=== PATIENT | female | born 1960 | race Two or more races ===

== ENCOUNTER → 2020-07-25 15:48 | Outpatient (BNVA) | payer OTHER, MEDICARE, SELFPAY | PROVIDERS: PCP Family Medicine; Visit Provider Anesthesiology | DX: M17.0 Bilateral primary osteoarthritis of knee (principal); M51.36 Other intervertebral disc degeneration, lumbar region | CPT/HCPCS: 99212 ==

== ENCOUNTER 2020-07-26 12:03 | Outpatient (REF) | payer OTHER, SELFPAY ==
--- NOTE | 2020-07-26 12:12 | XR_ITS ---
EXAMINATION: XR KNEE, LEFT CLINICAL INFORMATION: Bilateral primary osteoarthritis of the knee COMPARISON: None TECHNIQUE: Three views of the left knee. FINDINGS: No fracture or dislocation. Lateral patellofemoral joint space narrowing, osteophytosis, and sclerosis. Mild medial compartment joint space narrowing. No joint effusion. XR/XR knee LT 3V IMPRESSION: Lateral patellofemoral and medial compartment degenerative arthrosis.
--- NOTE | 2020-07-26 12:12 | XR_ITS ---
EXAMINATION: XR KNEE, RIGHT CLINICAL INFORMATION: Primary osteoarthritis of the knee COMPARISON: None TECHNIQUE: Four views of the right knee. FINDINGS: No fracture or dislocation. Mild medial compartment joint space narrowing. There is patellofemoral joint space narrowing and sclerosis. No joint effusion. XR/XR knee RT 3V IMPRESSION: Patellofemoral and medial compartment degenerative arthrosis. No acute osseous abnormality.
== END 2020-07-26 12:04 | disposition home or self-care (01) ==
LOC: HO.XRAY 12:03
PROVIDERS: PCP Family Medicine; Visit Provider Anesthesiology
DX: M17.0 Bilateral primary osteoarthritis of knee (principal)
CPT/HCPCS: 73562

== ENCOUNTER → 2020-07-27 13:30 | Outpatient (BNVA) | payer OTHER, SELFPAY | PROVIDERS: PCP Family Medicine; Referring Provider Family Medicine; Visit Provider Internal Medicine | DX: E11.9 Type 2 diabetes mellitus without complications (principal); Z79.4 Long term (current) use of insulin; E04.2 Nontoxic multinodular goiter; E78.5 Hyperlipidemia, unspecified; I10 Essential (primary) hypertension; E55.9 Vitamin D deficiency, unspecified | CPT/HCPCS: 82947; 99212 ==

== ENCOUNTER 2020-07-28 09:15 | Outpatient (REF) | payer OTHER, SELFPAY | END 2020-07-28 09:16 | disposition home or self-care (01) | LOC: HO.LAB 09:15 | PROVIDERS: PCP Family Medicine; Visit Provider Internal Medicine | DX: Z20.828 Contact with and (suspected) exposure to other viral communicable diseases (principal) | CPT/HCPCS: C9803; U0003 ==

== ENCOUNTER 2020-08-09 10:37 | Outpatient (REF) | payer OTHER, SELFPAY ==
[2020-08-09 12:09] LABS: Estimated Average Glucose 283 mg/dL; Hemoglobin A1c % 11.5 %
[2020-08-09 12:36] LABS: Alanine Aminotransferase 15 U/L (0-31); Alkaline Phosphatase 153 U/L (39-117); Anion Gap 15 (12-20); Aspartate Amino Transferase 15 U/L (5-31); Bilirubin Total 0.2 mg/dL (0.0-1.0); Blood Urea Nitrogen 21 mg/dL (9-16); Calcium 8.9 mg/dL (8.4-10.2); Carbon Dioxide 20 mmol/L (22-29); Chloride 104 mmol/L (96-108); Cholesterol 179 mg/dL; Estimated Glomerular Filt Rate 46; HDL Cholesterol 45 mg/dL; LDL Cholesterol Calculated 79 mg/dl; Potassium 4.1 mmol/l (3.3-5.1); Sodium 135 mmol/L (135-145); Total Protein 6.6 g/dL (6.5-8.0); Triglycerides 276 mg/dL
[2020-08-09 12:46] LABS: Free T4 (Free Thyroxine) 0.77 ng/dL (0.71-1.85); Thyroid Stimulating Hormone 1.11 uIU/mL (0.32-4.0); Vitamin D 25-OH Total 16.9 ng/mL (>30)
[2020-08-09 13:00] LABS: Creatinine Urine 48.13 mg/dL
[2020-08-09 13:18] LABS: Glucose Random 382 mg/dL (60-115)
[2020-08-10 17:52] LABS: LDL Cholesterol Direct 101 mg/dL (<100)
== END 2020-08-09 10:38 | disposition home or self-care (01) ==
LOC: HO.LAB 10:37
PROVIDERS: PCP Family Medicine; Visit Provider Internal Medicine
DX: E11.9 Type 2 diabetes mellitus without complications (principal); E55.9 Vitamin D deficiency, unspecified
CPT/HCPCS: 80053; 80061; 82043; 82306; 83036; 83721; 84439; 84443

== ENCOUNTER 2020-08-16 08:31 | Outpatient (REF) | payer OTHER, SELFPAY ==
[2020-08-16 18:22] LABS: CT PCR NOT DETECTED (Not Detect.); NG PCR NOT DETECTED (Not Detect.)
[2020-08-17 11:36] LABS: BV Int Neg Control Negative (Negative); BV Int Pos Control Positive (Positive)
== END 2020-08-16 08:32 | disposition home or self-care (01) ==
LOC: HO.LAB 08:31
PROVIDERS: PCP Family Medicine; Visit Provider Advanced Practice Midwife
DX: N89.8 Other specified noninflammatory disorders of vagina (principal); N94.9 Unspecified condition associated with female genital organs and menstrual cycle; Z20.2 Contact with and (suspected) exposure to infections with a predominantly sexual mode of transmission
CPT/HCPCS: 87480; 87491; 87510; 87591; 87660; 99212

== ENCOUNTER → 2020-08-17 11:25 | Outpatient (BNVA) | payer OTHER, SELFPAY | PROVIDERS: PCP Family Medicine; Visit Provider Anesthesiology | DX: M17.0 Bilateral primary osteoarthritis of knee (principal); M51.36 Other intervertebral disc degeneration, lumbar region | CPT/HCPCS: 20610; 99212; J3300 ==

== ENCOUNTER 2020-08-22 09:35 | Outpatient (REF) | payer OTHER, SELFPAY | END 2020-08-22 09:36 | disposition home or self-care (01) | LOC: HO.LAB 09:35 | PROVIDERS: Visit Provider Internal Medicine | DX: Z20.828 Contact with and (suspected) exposure to other viral communicable diseases (principal) | CPT/HCPCS: C9803; U0003 ==

== ENCOUNTER 2020-08-23 07:05 | Outpatient (REF) | payer OTHER, SELFPAY ==
--- NOTE | 2020-08-23 07:30 | FL_ITS ---
EXAMINATION: XR FLUOROSCOPY WITH IMAGES CLINICAL INFORMATION: Right L4-L5 transforaminal injection COMPARISON: Previous exam November 2019 TECHNIQUE: Fluoroscopy performed by Asuncion De La Torre Fluoroscopy time: 0.3 minutes DAP: 4 Gycm2 Images: 1 FINDINGS: There is a needle and contrast adjacent to the right L4-L5 facet joint. FL/FL guidance in treatment room IMPRESSION: Fluoroscopy guidance for right L4-L5 transforaminal injection
== END 2020-08-23 07:06 | disposition home or self-care (01) ==
LOC: HO.RADIR 07:05
PROVIDERS: Visit Provider Anesthesiology
DX: M51.36 Other intervertebral disc degeneration, lumbar region (principal)
CPT/HCPCS: J3300; Q9967

== ENCOUNTER 2020-08-23 10:46 | Outpatient (REF) | payer OTHER, SELFPAY ==
--- NOTE | 2020-08-23 10:51 | US_ITS ---
EXAMINATION: US THYROID CLINICAL INFORMATION: Nontoxic multinodular goiter. COMPARISON: Ultrasound soft tissue head/neck thyroid dated 01/02/2019. TECHNIQUE: Linear transducer castro-scale and color Doppler examination with attention to the region of the thyroid. FINDINGS: SIZE: Measurements of the thyroid lobes and nodules are given in sagittal, anteroposterior and transverse dimensions respectively. Right Thyroid Lobe: Surgically removed. Left Thyroid Lobe: 5.7 x 1.3 x 1.8 cm, volume 6.71 mL. Previously 5.4 x 1.9 x 2.2 cm, volume 12 mL. Parenchyma: The gland echotexture is heterogeneous. Thyroid vascularity is normal. Isthmus: 0.34 cm in maximum AP dimension. Previously 0.54 cm. ISTHMUS: No nodules. LEFT THYROID LOBE: There are 2 nodules seen. 1. Location: Inferior. Size: 0.90 x 0.84 x 1.1 cm. Previous: 0.70 x 0.60 x 0.60 cm. Nodule characteristics: Hypoechoic, smoothly marginated with peripheral flow. Likely complex cyst. 2. Location: Middle. Size: 1.7 x 0.90 x 1.4 cm. Previous: 1.6 x 1.0 x 1.2 cm. Nodule characteristics: Heterogeneous, smoothly marginated with intranodular flow. Likely complex cyst. NODES: No lymphadenopathy is seen in the tissue surrounding the thyroid gland. US/US thyroid IMPRESSION: Small lower pole and midpole left thyroid lobe nodules. Several nodules seen on the previous ultrasound exam 01/02/2019 are not visualized at this time.
== END 2020-08-23 10:47 | disposition home or self-care (01) ==
LOC: HO.HMGCX 10:46
PROVIDERS: PCP Family Medicine; Visit Provider Internal Medicine
DX: E04.2 Nontoxic multinodular goiter (principal)
CPT/HCPCS: 64483; 76536

== ENCOUNTER → 2020-09-29 11:29 | Outpatient (BNVA) | payer OTHER, SELFPAY | PROVIDERS: PCP Family Medicine; Referring Provider Family Medicine; Visit Provider Anesthesiology | DX: M17.0 Bilateral primary osteoarthritis of knee (principal); M51.36 Other intervertebral disc degeneration, lumbar region; M47.816 Spondylosis without myelopathy or radiculopathy, lumbar region | CPT/HCPCS: Q3014 ==

== ENCOUNTER 2020-10-25 07:00 | Outpatient (REF) | payer OTHER, SELFPAY ==
--- NOTE | ~2020-10-25 | FL_ITS ---
EXAMINATION: XR FLUOROSCOPY WITH IMAGES CLINICAL INFORMATION: Degenerative disc disease lumbar region COMPARISON: None. TECHNIQUE: Fluoroscopy performed by Asuncion De La Torre NP. Fluoroscopy time: 0.9 minutes DAP: 6.8 Gycm2 Images: 4 FINDINGS: Images demonstrate needle placement and contrast injection adjacent to the left lateral L2 L3 L4 and L5 vertebral bodies. FL/FL guidance in treatment room IMPRESSION: Fluoroscopy guidance for spinal injection.
== END 2020-10-25 07:01 | disposition home or self-care (01) ==
LOC: HO.RADIR 07:00
PROVIDERS: Visit Provider Anesthesiology
DX: M47.816 Spondylosis without myelopathy or radiculopathy, lumbar region (principal); M51.36 Other intervertebral disc degeneration, lumbar region; M17.0 Bilateral primary osteoarthritis of knee
CPT/HCPCS: 64493; 64494; 64495; J3300; Q9967

== ENCOUNTER → 2020-12-05 11:40 | Outpatient (BNVA) | payer OTHER, SELFPAY | PROVIDERS: PCP Family Medicine; Visit Provider Anesthesiology | DX: M47.816 Spondylosis without myelopathy or radiculopathy, lumbar region (principal); M51.36 Other intervertebral disc degeneration, lumbar region; M17.0 Bilateral primary osteoarthritis of knee; Z79.899 Other long term (current) drug therapy | CPT/HCPCS: Q3014 ==

== ENCOUNTER → 2021-01-11 11:48 | Outpatient (BNVA) | payer OTHER, SELFPAY | PROVIDERS: PCP Family Medicine; Referring Provider Family Medicine; Visit Provider Internal Medicine ==

== ENCOUNTER → 2021-01-12 08:08 | Outpatient (BNVA) | payer OTHER, SELFPAY | PROVIDERS: PCP Family Medicine; Referring Provider Family Medicine; Visit Provider Internal Medicine | CPT/HCPCS: Q3014 ==

== ENCOUNTER → 2021-01-19 08:25 | Outpatient (BNVA) | payer OTHER, SELFPAY | PROVIDERS: PCP Family Medicine; Visit Provider Anesthesiology | DX: M17.0 Bilateral primary osteoarthritis of knee (principal); M51.36 Other intervertebral disc degeneration, lumbar region; M47.816 Spondylosis without myelopathy or radiculopathy, lumbar region | CPT/HCPCS: 99212 ==

== ENCOUNTER 2021-02-10 14:10 | Outpatient (REF) | payer OTHER, SELFPAY ==
--- NOTE | ~2021-02-10 | MR_ITS ---
MR LUMBAR SPINE WITHOUT IV CONTRAST CLINICAL INFORMATION: Spondylosis without myelopathy or radiculopathy. COMPARISON: Lumbar spine MRI 10/26/2019. TECHNIQUE: MRI of the lumbar spine was obtained using routine sequences without contrast. FINDINGS: There are 5 nonrib-bearing lumbar-type vertebral bodies. There is grade 1 retrolisthesis of L2 on L3. Lumbar alignment is otherwise maintained. The vertebral body heights are preserved. There is disc desiccation at all lumbar levels. There is no bone marrow edema. There are no acute fractures. Conus terminates at the L2 level. There are no significant extraspinal soft tissue findings. L1-L2: Diffuse annular disc bulge the superimposed shallow central disc protrusion that results in mild central canal stenosis, similar to the previous study. No foraminal stenosis. L2-L3: There is a diffuse annular disc bulge eccentric to the left side and there is mild bilateral facet arthropathy. This continues to result in mass effect on the traversing left L3 nerve root within the left subarticular zone, slightly improved. No significant foraminal stenosis. L3-L4: Diffuse annular disc bulge and mild bilateral facet arthropathy. No central canal stenosis and no foraminal stenosis. L4-L5: There is a diffuse annular disc bulge exhibiting a dorsal annular fissure and there is moderate bilateral facet arthropathy. There is no central canal stenosis and there is no foraminal stenosis. L5-S1: Diffuse annular disc bulge and bilateral facet arthropathy. Epidural lipomatosis continues to partially efface the thecal sac. No foraminal stenosis. MR/MR lumbar spine wo con IMPRESSION: At L1-L2, a central disc protrusion continues to result in mild central canal stenosis and is stable. At L2-L3, and annular disc bulge eccentric to the left side continues to result in mass effect on the traversing left L3 nerve root within the left subarticular zone. At L4-L5, there is a stable annular disc bulge exhibiting a dorsal annular fissure. No central canal stenosis nor foraminal stenosis at this level. At L5-S1, epidural lipomatosis continues to partially efface the thecal sac.
[2021-02-10 15:12] LABS: Estimated Average Glucose 194 mg/dL; Hemoglobin A1c % 8.4 %
[2021-02-10 15:59] LABS: Alanine Aminotransferase 13 U/L (0-31); Albumin Level 4.1 g/dL (3.5-5.0); Alkaline Phosphatase 183 U/L (39-117); Anion Gap 17 (12-20); Aspartate Amino Transferase 17 U/L (5-31); Bilirubin Total 0.2 mg/dL (0.0-1.0); Blood Urea Nitrogen 17 mg/dL (9-16); Calcium 9.5 mg/dL (8.4-10.2); Carbon Dioxide 22 mmol/L (22-29); Chloride 108 mmol/L (96-108); Cholesterol 190 mg/dL; Estimated Glomerular Filt Rate > 60; Glucose Random 93 mg/dL (60-115); HDL Cholesterol 54 mg/dL; LDL Cholesterol Calculated 101 mg/dl; Potassium 3.6 mmol/L (3.3-5.1); Sodium 143 mmol/L (135-145); Triglycerides 177 mg/dL
[2021-02-10 16:32] LABS: Creatinine Urine 187.17 mg/dL; Microalbum/Creatinine Ratio Ur 64.6 ug/mg cr
[2021-02-11 06:12] LABS: LDL Cholesterol Direct 102 mg/dL (<100)
== END 2021-02-10 14:11 | disposition home or self-care (01) ==
LOC: HO.MRI 14:10
PROVIDERS: Absent Provider Internal Medicine; PCP Family Medicine; Visit Provider Anesthesiology
DX: M47.816 Spondylosis without myelopathy or radiculopathy, lumbar region (principal); E11.9 Type 2 diabetes mellitus without complications
CPT/HCPCS: 36415; 72148; 80053; 80061; 82043; 83036; 83721

== ENCOUNTER 2021-02-18 12:58 | Inpatient (IN) | payer OTHER, SELFPAY ==
[2021-02-18] VITALS (20 sets, daily range): BP systolic 102–167; BP diastolic 45–79; PULSE 75–93; RESP 11–18; TEMP 36.2–36.6; O2SAT 91–99; BMI 35.5
--- NOTE | ~2021-02-18 | CT_ITS ---
EXAMINATION: CT HEAD WITHOUT CONTRAST CLINICAL INFORMATION: Stroke. COMPARISON: Brain MRI from 03/15/2019. TECHNIQUE: Contiguous axial imaging was performed from the skull base to vertex without intravenous administration of contrast. This CT examination was performed using dose optimization techniques as appropriate, variously including the following: *Automated exposure control. *Adjustment of mA and/or kV according to patient size (this includes techniques or standardized protocols for targeted exams where dose is matched to indication/reason for exam; i.e. extremities or head). *Use of iterative reconstruction technique. DLP: 795 mGy-cm FINDINGS: There is no evidence of acute intracranial hemorrhage or edematous territorial infarction. Basal ganglia mineralization. Scattered hypoattenuation in the periventricular and deep white matter are consistent with moderate microangiopathy. [place]-white matter differentiation is preserved. The ventricles are normal in size and configuration. No evidence for obstructive hydrocephalus. No abnormal mass effect or midline shift. No extra-axial fluid collections. Calcific atherosclerotic disease of the intracranial internal carotid arteries. No hyperdense vessel sign. No acute soft tissue or osseous abnormalities. Mild mucosal thickening of the paranasal sinuses. The mastoid air cells and middle ear cavities are clear. CT/CT head for stroke IMPRESSION: 1. No evidence of acute intracranial hemorrhage or edematous territorial infarction. 2. Moderate underlying microangiopathy. This critical result was discussed with Dr. Benson at 13:22 hours on 02/18/2021. It was ascertained that the content and urgency of the report was understood at the time of direct communication.
--- NOTE | ~2021-02-18 | CT_ITS ---
EXAMINATION: CT ANGIOGRAM HEAD CT ANGIOGRAM NECK CLINICAL INFORMATION: Stroke. Large vessel occlusion. Potential thrombectomy. COMPARISON: CT head from 02/18/2021. Brain MRI from 03/15/2019. Thyroid ultrasound from 08/23/2020. TECHNIQUE: Initial noncontrast powerhouse helper imaging of the head and neck was performed. Comparison is made with noncontrast head CT from earlier today. Test bolus sequences followed by intravenous administration 70 mL of Omnipaque 350. Helical imaging was performed in the axial plane from the aortic arch to the skull vertex. Delayed postcontrast imaging of the head was also performed. The data was processed at the nuclear medicine technologist's workstation for generation of MIP sequences. Angled MIPs and volume rendered reformatted images were also generated at an offline 3D workstation. Stenoses are assessed in accordance with NASCET criteria unless otherwise indicated. This CT examination was performed using dose optimization techniques as appropriate, variously including the following: *Automated exposure control. *Adjustment of mA and/or kV according to patient size (this includes techniques or standardized protocols for targeted exams where dose is matched to indication/reason for exam; i.e. extremities or head). *Use of iterative reconstruction technique. DLP: 1675 mGy-cm FINDINGS: CT Head: There is no evidence of acute intracranial hemorrhage or edematous territorial infarction. Basal ganglia mineralization. There is no abnormal attenuation within the brain parenchyma. Headley-white matter differentiation is preserved. The ventricles are normal in size and configuration. No evidence for obstructive hydrocephalus. No abnormal mass effect or midline shift. No extra-axial fluid collections. No pathologic intra-axial enhancement or regional oligemia. No acute soft tissue or osseous abnormalities. The mastoid air cells and paranasal sinuses are clear. 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 The left thyroid lobe is mildly expanded. There is a 1.3 cm hypoattenuating nodule within the medial aspect of the right thyroid lobe. The remaining cervical soft tissues are within normal limits. Mild multilevel degenerative spondyloarthropathy of the cervical spine. CT Upper Chest: The visualized lung apices and upper mediastinum are within normal limits. Neck CTA: Aortic Arch: Normal contour and caliber. Classic 3 vessel branching pattern of the aortic arch. Great Vessel Origins: No significant stenosis of the branch origins. Right Common Carotid Artery: No focal stenosis or occlusion. Cervical Right Internal Carotid Artery: Normal opacification without focal stenosis or occlusion. Left Common Carotid Artery: No focal stenosis or occlusion. Cervical Left Internal Carotid Artery: Normal opacification without focal stenosis or occlusion. Cervical Right Vertebral Artery: Co-dominant. No focal stenosis or occlusion. Cervical Left Vertebral Artery: Co-dominant. No focal stenosis or occlusion. Brain CTA: Intracranial Internal Carotid Arteries: Calcific atherosclerotic disease of the intracranial internal carotid arteries without occlusion or flow-limiting stenosis. Mild multifocal narrowings without flow-limiting stenosis or occlusion. Right Anterior Cerebral Artery: Normal A1 segment. Normal opacification of the distal SHAREE segments. Left Anterior Cerebral Artery: Normal A1 segment. Normal opacification of the distal SHAREE segments. Anterior Communicating Artery: Normal. Right Middle Cerebral Artery: Normal M1 segment of the MCA without focal stenosis or occlusion. Normal arborization of the distal segments. Left Middle Cerebral Artery: Normal M1 segment of the MCA without focal stenosis or occlusion. Normal arborization of the distal segments. Right Vertebral Artery: Normal V4 segment. Normal opacification of the proximal segments of the posterior inferior cerebellar artery. Left Vertebral Artery: Normal V4 segment. Normal opacification of the proximal segments of the posterior inferior cerebellar artery. Basilar Artery: Mild narrowing of the mid basilar artery. No occlusion. Normal appearance of the proximal superior cerebellar arteries. Right Posterior Cerebral Artery: The P1 segment is diminutive. origin of the HAND I CUTTER with robust opacification of the posterior communicating artery. Normal opacification of the distal HAND I CUTTER segments. Left Posterior Cerebral Artery: Mild irregular narrowings of the P1 and P2 segments. Normal opacification of the distal HAND I CUTTER segments. Normal opacification of the superior sagittal, straight, transverse, and sigmoid sinuses. CT/CT angio head neck stroke IMPRESSION: 1. No evidence of acute intracranial hemorrhage or edematous territorial infarction. Moderate underlying microangiopathy. 2. CTA of the head and neck without proximal occlusion or flow-limiting stenosis. Mild atherosclerotic narrowings of the basilar artery and proximal left HAND I CUTTER. This critical result was discussed with Dr. Benson at 14:22 on 02/18/2021 and it was ascertained that the content and urgency of the report was understood at the time of direct communication.
--- NOTE | ~2021-02-18 | XR_ITS ---
EXAMINATION: PORTABLE CHEST 1 VIEW CLINICAL INFORMATION: sob . COMPARISON: 03/15/2019. TECHNIQUE: Portable frontal view of the chest was obtained. FINDINGS: Lungs are hypoexpanded with mild asymmetric elevation of the right hemidiaphragm. Peribronchial cuffing is seen bilaterally could be seen in underlying reactive or small airways disease. I do not appreciate any focal infiltrate, edema, or pneumothorax. Linear basilar markings likely reflect component of atelectasis in this setting. Cardiac silhouette within normal limits for size. No acute bony abnormality XR/XR chest 1V IMPRESSION: Although hypoexpanded, there does appear to be peribronchial cuffing bilaterally which could be seen in underlying reactive or small airways disease. No overt edema.
--- NOTE | ~2021-02-18 | MR_ITS ---
EXAMINATION: MR BRAIN WITHOUT CONTRAST CLINICAL INFORMATION: Cerebrovascular accident. Status post TPA. COMPARISON: CTA head and neck from 02/18/2021. Brain MRI from 03/15/2019. TECHNIQUE: MRI of the brain was obtained using routine sequences without contrast. FINDINGS: No focal restricted diffusion is demonstrated to suggest acute or subacute cerebral ischemia. No evidence of acute or chronic hemorrhagic products on heme-sensitive imaging. Scattered periventricular, deep white matter, and brainstem T2 FLAIR hyperintensities consistent with mild to moderate underlying microangiopathy. Proportional prominence of the ventricles and sulcal spaces. No evidence of obstructive hydrocephalus. No abnormal mass effect. No midline shift. Normal appearance of the pituitary gland. Normal positioning of the cerebellar tonsils. Normal arterial and venous vascular flow voids are present. Normal, homogeneous marrow signal. Mild mucosal thickening of the paranasal sinuses. No signal abnormalities within the mastoids. MR/MR head/brain wo con IMPRESSION: 1. No acute intracranial abnormalities. 2. Mild to moderate underlying microangiopathy.
--- NOTE | 2021-02-18 13:02 | ECG_ITS ---
Test Reason : STROKE Blood Pressure : / mmHG Vent. Rate : 081 BPM Atrial Rate : 081 BPM P-R Int : 142 ms QRS Dur : 136 ms QT Int : 458 ms P-R-T Axes : 067 082 036 degrees QTc Int : 532 ms Normal sinus rhythm Right bundle branch block Abnormal ECG When compared with ECG of 15-MAR-2019 13:10, Nonspecific T wave abnormality no longer evident in Lateral leads QT has lengthened Referred By: Kateryna Benson Electronically Signed By:Domingo Ruiz
[2021-02-18 13:08] LABS: Prothrombin Time Whole Bld POC 12.4 sec (11.1-13.5)
[2021-02-18] MEDS: iohexoL 350 MG/ML 100 ML INFUS..BTL 70 ML IV (13:24)
[2021-02-18 13:25] LABS: MANUAL DIFF FLAG NO
[2021-02-18 13:34] LABS: Basophils Percent Auto 0.4 % (0-2); Eosinophils Absolute Auto 0.2 X10*3/uL (0.0-0.4); Eosinophils Percent Auto 4.1 % (0-4); Hematocrit 33.1 % (37-47); Hemoglobin 10.3 g/dl (12.0-16.0); Imm Gran Abs Auto 0.01 X10*3/uL (0.00-0.03); Imm Gran Pct Auto 0.2 % (0.0-0.4); Lymphocytes Absolute Auto 1.5 X10*3/uL (1.2-4.9); Lymphocytes Percent Auto 27.1 % (20-40); Mean Corpuscular HGB Conc 31.1 g/dl (31.0-35.0); Mean Corpuscular Hemoglobin 25.4 pg (27.0-33.0); Mean Corpuscular Volume 81.7 fL (80-98); Mean Platelet Volume 10.4 fL (9.4-12.3); Monocytes Absolute Auto 0.3 X10*3/uL (0.1-1.2); Monocytes Percent Auto 6.3 % (2-11); Neutrophils Absolute Auto 3.4 X10*3/uL (2.0-8.3); Neutrophils Percent Auto 61.9 % (45-73); Platelet Count 277 X10*3/uL (160-400); Red Blood Count 4.05 X10*6/uL (4.20-5.50); Red Cell Distribution Width 14.9 % (11.0-16.0); White Blood Count 5.4 X10*3/uL (4.8-10.8)
[2021-02-18 13:36] LABS: Prothrombin Time 12.4 SEC (10.8-13.0)
[2021-02-18 13:39] LABS: Partial Thromboplastin Time 40.5 SEC (24.1-38.0)
[2021-02-18 13:40] LABS: Stroke Lab Use COMPLETE
[2021-02-18 13:50] LABS: Alanine Aminotransferase 7 U/L (0-31); Albumin Level 3.6 g/dL (3.5-5.0); Alkaline Phosphatase 154 U/L (39-117); Anion Gap 16 (12-20); Aspartate Amino Transferase 13 U/L (5-31); Bilirubin Direct < 0.2 mg/dL (0.0-0.5); Bilirubin Total 0.3 mg/dL (0.0-1.0); Blood Urea Nitrogen 14 mg/dL (9-16); Calcium 8.8 mg/dL (8.4-10.2); Carbon Dioxide 22 mmol/L (22-29); Chloride 109 mmol/L (96-108); Estimated Glomerular Filt Rate > 60; Glucose Random 220 mg/dL (60-115); Magnesium 1.9 mg/dL (1.6-2.6); Potassium 3.5 mmol/L (3.3-5.1); Sodium 143 mmol/L (135-145); Total Protein 6.1 g/dL (6.5-8.0)
[2021-02-18 13:52] LABS: Troponin-I High Sensitivity 5.4 ng/L (<3.5-17.0)
--- NOTE | 2021-02-18 13:57 | PC.NURSE ---
tpa started at 1334, spo2 was 87 ra, up to 96 2lpm, while giving the bolus, pt started to try to speak, able to c/o montesinos, able to slightly move a couple fingers on l hand, sr on monitor, pt was a difficult iv placement, ems unsuccessful on mult attempts, iv and labs drawn immediately after ct,
--- NOTE | 2021-02-18 14:30 | PC.NURSE ---
daughter now states that the pt had a hernia surgery in oct, ?nov 07, wound opened in 3 places 3 weeks after and has been having dsg changes daily by visitting rn, bandage removed by , there are 3 spots on the abd wound w thin packing placed, small amt of serosanguinous drainage from one of the wounds, md had spoken to family prior to tpa and they did not mention this surgery or complication Initialized on 02/18/21 14:16 - END OF NOTE this note was originally entered under the wrong pt
--- NOTE | 2021-02-18 14:36 | ED_ITS ---
HPI - Neuro Symptoms/Deficit General Chief Complaint: Stroke Stated Complaint: STROKE ALERT,LKWT 10AM,L WEAKNEES & DROOP Time Seen by Provider: 02/18/21 13:02 Related Data Home Medications Medication Instructions Recorded Confirmed mirtazapine 15 mg tablet 15 mg PO BEDTIME 07/25/20 01/12/21 prazosin 2 mg capsule 2 mg PO BEDTIME 07/25/20 01/12/21 atorvastatin 80 mg tablet 80 mg PO DAILY 07/27/20 01/12/21 duloxetine 60 mg capsule,delayed 90 mg PO DAILY cap 07/27/20 01/12/21 release lisinopril 20 mg tablet 20 mg PO DAILY 07/27/20 01/12/21 diclofenac sodium 1 % topical gel 2 g TOPICAL QID PRN 01/12/21 01/12/21 pen needle, diabetic 32 gauge x #50 ea 01/12/21 01/12/21 tizanidine 4 mg tablet 4 mg PO TID 01/12/21 01/12/21 Previous Rx's Medication Instructions Recorded liraglutide 0.6 mg/0.1 mL (18 mg/3 1.8 mg SUBCUT DAILY 30 Days #9 ml 07/07/20 mL) subcutaneous pen injector blood sugar diagnostic #100 ea 07/27/20 blood-glucose meter #1 ea 07/27/20 lancets 28 gauge #100 ea 07/27/20 insulin detemir U-100 100 unit/mL 40 unit SUBCUT DAILY #15 ml 11/14/20 (3 mL) subcutaneous pen gabapentin 600 mg tablet 1,200 mg PO BID #360 tab 01/03/21 acetaminophen 650 mg 650 mg PO Q12H #180 ea 02/02/21 tablet,extended release Allergies Allergy/AdvReac Type Severity Reaction Status Date / Time Sulfa (Sulfonamide Allergy Intermediate RASH, LUMPS , Verified 01/19/21 08:42 Antibiotics) blood [Sulfa (Sulfonamides)] clots in legs, hives PMFSH Past Medical History Medical History (Updated 02/18/21 @ 14:43 by Kateryna Benson MD) CVA (cerebral vascular accident) Disc degeneration, lumbar HLD (hyperlipidemia) Hypertension Multinodular thyroid Osteoarthritis of knees, bilateral Recto-perineal fistula Spondylosis of lumbar joint T2DM (type 2 diabetes mellitus) Vitamin D deficiency Surgical History Hx of cholecystectomy Hx of colostomy Hx of hernia repair Hx of skin graft Hx of tubal ligation Family History Family History Father Alzheimer disease Mother Hypertension Gout Arthritis of knee CVD (cardiovascular disease) Social History Social History Advance Directives: Yes Advance Directives Information Provided: Yes Advance Directives on File: No Patient : No Physical Exam Vital Signs: Vital Signs: Last Vital Signs Temp 97.4 F 02/18/21 13:48 Pulse 84 02/18/21 14:32 Resp 17 02/18/21 14:32 BP 128/62 02/18/21 14:32 Pulse Ox 93 02/18/21 14:32 Oxygen Flow Rate 2 02/18/21 13:48 Body Mass Index 35.5 MDM - Neuro Symptoms/Deficit MDM Narrative Medical decision making narrative: Patient presented with sudden onset of left- sided weakness. Sugar was checked by EMS to be greater than 200. No evidence for hypoglycemia. Patient has no movement on the left side. Barely hand grass on the right. Positive facial droop on the left side. A CT of the head was done. There was no evidence of bleeding. Discussed at length about patient's medical condition risk and benefit of tPA patient's current medication and past medical history with daughter. Understood the risk and benefit of tPA. Risk including bleeding, . Okay with patient getting tPA. Patient's case discussed with Neurology. In agreement with plan of providing the tPA. CTA of the head was done as patient has significant weakness on the left side. Concerned about a large vessel occlusion. After the tPA was administered. Examine patient's abdomen in more detail. Patient has a wound there that appears to be packed. Question daughter again about possibility of surgery to the abdomen. Patient's old record was reviewed at [facility]. The re was no surgery done. The daughter now remembers patient had a abdominal hernia surgery done in October. The surgery was done in [facility]. Continue to monitor patient. She now has a slight hand grasp on the left side. Still has a facial droop still has the weakness. CTA of the head came back as grossly negative for any large vessel occlusions. Will admit patient to the ICU for further monitoring. Lab Data Result diagrams: 02/18/21 13:20 02/18/21 13:20 Labs: Lab Results 02/18/21 02/18/21 02/18/21 Range/Units 13:03 13:20 13:20 WBC 5.4 (4.8-10.8) X10*3/uL RBC 4.05 L (4.20-5.50) X10*6/uL Hgb 10.3 L (12.0-16.0) g/dl Hct 33.1 L (37-47) % MCV 81.7 (80-98) fL MCH 25.4 L (27.0-33.0) pg MCHC 31.1 (31.0-35.0) g/dl RDW 14.9 (11.0-16.0) % Plt Count 277 (160-400) X10*3/uL MPV 10.4 (9.4-12.3) fL Immature Gran % (Auto) 0.2 (0.0-0.4) % Neut % (Auto) 61.9 (45-73) % Lymph % (Auto) 27.1 (20-40) % [place] % (Auto) 6.3 (2-11) % Eos % (Auto) 4.1 H (0-4) % Baso % (Auto) 0.4 (0-2) % Lymph # (Auto) 1.5 (1.2-4.9) X10*3/uL [place] # (Auto) 0.3 (0.1-1.2) X10*3/uL Eos # (Auto) 0.2 (0.0-0.4) X10*3/uL Baso # (Auto) 0.0 (0.0-0.2) X10*3/uL Abs Immat Gran (auto) 0.01 (0.00-0.03) X10*3/uL Absolute Neuts (auto) 3.4 (2.0-8.3) X10*3/uL Absolute Nucleated RBC 0.000 (0.0-0.012) X10*3/uL Nucleated RBC % (auto) 0.0 (0.0-0.2) /100WBC PT 12.4 (10.8-13.0) SEC Whole Blood PT 12.4 (11.1-13.5) sec INR 1.0 (0.9-1.1) Whole Blood INR 1.0 (0.9-1.1) APTT 40.5 H (24.1-38.0) SEC Sodium (135-145) mmol/L Potassium (3.3-5.1) mmol/L Chloride (96-108) mmol/L Carbon Dioxide (22-29) mmol/L Anion Gap (12-20) BUN (9-16) mg/dL Creatinine (0.5-1.4) mg/dL Estim Creat Clear Calc Estimated GFR Random Glucose (60-115) mg/dL Calcium (8.4-10.2) mg/dL Phosphorus (2.7-4.5) mg/dL Magnesium (1.6-2.6) mg/dL Total Bilirubin (0.0-1.0) mg/dL Direct Bilirubin (0.0-0.5) mg/dL AST (5-31) U/L ALT (0-31) U/L Alkaline Phosphatase (39-117) U/L Total Creatine Kinase (26-140) U/L Troponin I High Sens (<3.5-17.0) ng/L Total Protein (6.5-8.0) g/dL Albumin (3.5-5.0) g/dL 02/18/21 02/18/21 Range/Units 13:20 13:20 WBC (4.8-10.8) X10*3/uL RBC (4.20-5.50) X10*6/uL Hgb (12.0-16.0) g/dl Hct (37-47) % MCV (80-98) fL MCH (27.0-33.0) pg MCHC (31.0-35.0) g/dl RDW (11.0-16.0) % Plt Count (160-400) X10*3/uL MPV (9.4-12.3) fL Immature Gran % (Auto) (0.0-0.4) % Neut % (Auto) (45-73) % Lymph % (Auto) (20-40) % [place] % (Auto) (2-11) % Eos % (Auto) (0-4) % Baso % (Auto) (0-2) % Lymph # (Auto) (1.2-4.9) X10*3/uL [place] # (Auto) (0.1-1.2) X10*3/uL Eos # (Auto) (0.0-0.4) X10*3/uL Baso # (Auto) (0.0-0.2) X10*3/uL Abs Immat Gran (auto) (0.00-0.03) X10*3/uL Absolute Neuts (auto) (2.0-8.3) X10*3/uL Absolute Nucleated RBC (0.0-0.012) X10*3/uL Nucleated RBC % (auto) (0.0-0.2) /100WBC PT (10.8-13.0) SEC Whole Blood PT (11.1-13.5) sec INR (0.9-1.1) Whole Blood INR (0.9-1.1) APTT (24.1-38.0) SEC Sodium 143 (135-145) mmol/L Potassium 3.5 (3.3-5.1) mmol/L Chloride 109 H (96-108) mmol/L Carbon Dioxide 22 (22-29) mmol/L Anion Gap 16 (12-20) BUN 14 (9-16) mg/dL Creatinine 0.91 (0.5-1.4) mg/dL Estim Creat Clear Calc TNP Estimated GFR > 60 Random Glucose 220 H D (60-115) mg/dL Calcium 8.8 D (8.4-10.2) mg/dL Phosphorus 4.0 (2.7-4.5) mg/dL Magnesium 1.9 (1.6-2.6) mg/dL Total Bilirubin 0.3 (0.0-1.0) mg/dL Direct Bilirubin < 0.2 (0.0-0.5) mg/dL AST 13 (5-31) U/L ALT 7 (0-31) U/L Alkaline Phosphatase 154 H (39-117) U/L Total Creatine Kinase 23 L (26-140) U/L Troponin I High Sens 5.4 (<3.5-17.0) ng/L Total Protein 6.1 L (6.5-8.0) g/dL Albumin 3.6 (3.5-5.0) g/dL NIH Stroke Scale Internal: Initial- Upon Arrival Level of Consciousness: Alert Level of Consciousness Questions: Answers neither question correctly Level of Consciousness Commands: Performs one task correctly Best Gaze: Partial gaze palsy Visual: No visual loss Facial Palsy: Minor paralyis Motor Arm (Right): Some effort against gravity Motor Arm (Left): No movement Motor Leg (Right): Some effort against gravity Motor Leg (Left): No movement Limb Ataxia: Present in two limbs Sensory: Normal Best Language: Severe aphasia Dysarthia: Severe dysarthria Extinction and Inattention: No abnormality Score: 23 Critical Care Time Critical Care Time Total Critical Care Time: 40 Attestation: I have personally provided 40 minutes of critical care time exclusive of time spent on separately billable procedures. Time includes review of lab data, radiology results, discussion with consultants, and monitoring for potential decompensation. Interventions were performed as documented above Discharge Plan Discharge Clinical Impression: Cerebrovascular accident Prescriptions: No Action Victoza 3-Osman 0.6 mg/0.1 mL (18 mg/3 mL) pen injector 1.8 mg subcut DAILY 30 Days Qty: 9 RF: 11 insulin detemir U-100 [Levemir FlexTouch U-100 Insuln] 100 unit/mL (3 mL) insulin pen 40 unit subcut DAILY Qty: 15 RF: 3 gabapentin 600 mg tablet 1,200 mg PO BID Qty: 360 RF: 1 acetaminophen [Arthritis Pain Relief (acetam)] 650 mg tablet extended release 650 mg PO Q12H Qty: 180 RF: 1 atorvastatin 80 mg tablet 80 mg PO DAILY RF: 0 lisinopril 20 mg tablet 20 mg PO DAILY RF: 0 duloxetine 60 mg capsule,delayed release(DR/EC) 90 mg PO DAILY RF: 0 (DME) FreeStyle Lite Strips Strip See Rx Instructions .ROUTE .MEDSUPPLY Qty: 100 RF: 11 (DME) lancets [FreeStyle Lancets] 28 gauge misc See Rx Instructions .ROUTE .MEDSUPPLY Qty: 100 RF: 11 (DME) blood-glucose meter [FreeStyle Lite Meter] Kit See Rx Instructions .ROUTE .MEDSUPPLY Qty: 1 RF: 0 tizanidine 4 mg tablet 4 mg PO TID RF: 0 diclofenac sodium 1 % gel 2 g topical QID PRN (Reason: pain) RF: 0 (DME) pen needle, diabetic 32 gauge x /32 needle See Rx Instructions ea .ROUTE .MEDSUPPLY Qty: 50 RF: 0 prazosin 2 mg capsule 2 mg PO BEDTIME RF: 0 mirtazapine 15 mg tablet 15 mg PO BEDTIME RF: 0
--- NOTE | 2021-02-18 15:04 | MHC.STROKE ---
Addendum entered by Tiara Owen RN 02/20/21 12:35: DISCUSSED CASE WITH DR GRANT, THIS IS NOT A STROKE DIAGNOSIS, NO COMPLICATIONS FROM TPA, EXCLUDED FROM ALL STROKE MEASURES. Original Note: 1247 EMS PRE-NOTIFIED STROKE ALERT , ARRIVED 1258, STROKE PROTOCOL ACTIVATED. LKW 1000, NIHSS = [address] MOISE'S ASSESSMENT. DIRECT TO CT HEAD, NO BLEED, CTA H/N DONE, NO LVO. ALTEPLASE ADMINISTERED AT 1334 DOOR TO NEEDLE=36 MINUTES, GREATER THAN 30 MINUTES DUE TO CARE TEAM DETERMINING ELIGIBILITY AND DISCUSSION WITH FAMILY. PATIENT HAS A PAST HISTORY OF SIMILAR SYMPTOMS LEFT DROOP AND LEFT WEAKNESS, SEE OLD RECORDS AND MRI'S DONE IN 2006,2009,. THIS WAS COMMUNICATED TO THE ED AND DR GRANT. SIGNIFICANT NIHSS OF 23. PATIENT FAILED SWALLOW SCREEN AND KEEP NPO FOR 6 HOURS POST-TPA. RE-TEST NURSING SWALLOW WHEN APPROPRIATE. RECOMMEND ADMIT TO ICU FOR UP TO 24 HOURS, FOLLOW TPA GIVEN STROKE ORDER SET, MONITOR FOR HYPERGLYCEMIA DUE TO DIABETES COMORBIDITY. NO ASA, BLOOD THINNER FOR 24 HOURS, FOLLOW POST-TPA BP PARAMETERS, LIPID PANEL, VTE PROPHYLAXIS WITH MECHANICAL COMPRESSION BOOTS BY END OF DAY 2 02/19/21. INITIATE STROKE EDUCATION. F/U WITH MRI, ECHOCARDIOGRAM, INPATIENT NEUROLOGY CONSULT. STROKE RISK FACTORS INCLUDE PRIOR CVA 2001 WHEN SHE LIVED IN [place] (OBTAINED FROM OLD CHART), MIGRAINES, TEMPORAL ARTERITIS, HTN, HLD, DM TYPE 1, OBESITY, ETOH, DEPRESSION. I WILL CONTINUE TO FOLLOW.
[2021-02-18 17:28] LABS: Anion Gap 13 (12-20); Blood Urea Nitrogen 16 mg/dL (9-16); Calcium 8.5 mg/dL (8.4-10.2); Carbon Dioxide 22 mmol/L (22-29); Chloride 111 mmol/L (96-108); Cholesterol 147 mg/dL; Estimated Glomerular Filt Rate > 60; Glucose Random 120 mg/dL (60-115); HDL Cholesterol 41 mg/dL; LDL Cholesterol Calculated 71 mg/dl; Potassium 3.4 mmol/L (3.3-5.1); Sodium 143 mmol/L (135-145); Triglycerides 177 mg/dL
--- NOTE | 2021-02-18 17:55 | PM.NEUROCN ---
History of Present Illness Data of Consult Service Date: 02/18/21 Primary Care Provider: Zelda Mo MD HPI Reason for consult: Left hemiplega and right sided weakness as well 60 yr woman presented with dense left hemiplegia with left facial droop and atypical features noted on exam in ER of no end polisher on the right as well. She has had 3 previous admissions with left hemiplegia in 2006, 2009 and 2019 in which the MRI was negative for acute stroke each time and CTA and MRA did not reveal any occlusive disease. Th epatient was given tPA before I became aware of her previous admissions with no evidence of acute stroke. Ob this CTA also there are no occlusions or significant stenosis noted Review of Systems Eyes: Eyes: Reports no additional eye complaints ENT: Reports system reviewed and no additional complaints, except as documented and Reports Normal hearing present Cardiovascular: Cardiovascular: Reports no additional cardiovascular complaints Respiratory: Respiratory: Reports no additional respiratory complaints Gastrointestinal: Gastrointestinal: Reports no additional gastrointestinal complaints Musculoskeletal: Musculoskeletal: Reports no additional musculoskeletal complaints Integumentary/Breasts: Skin/Breast: Reports system reviewed and no additional complaints, except as docu Neurologic: Reports as per HPI and Reports Normal hearing present Psychiatric: Psychiatric: Reports as per HPI Endocrine: Endocrine: Reports no additional endocrine complaints Hematologic/Lymphatic: Hematologic/Lymphatic: Reports no additional hematologic/lymphatic complaints Allergic/Immunologic: Allergic/Immunologic: Reports no additional allergic/immunologic complaints PMF Past Medical History Medical History (Updated 02/18/21 @ 18:02 by Jabari Anderson MD) CVA (cerebral vascular accident) Disc degeneration, lumbar HLD (hyperlipidemia) Hypertension Multinodular thyroid Osteoarthritis of knees, bilateral Recto-perineal fistula Spondylosis of lumbar joint T2DM (type 2 diabetes mellitus) Vitamin D deficiency Family History Family History Father Alzheimer disease Mother Hypertension Gout Arthritis of knee CVD (cardiovascular disease) Surgical History Surgical History Hx of cholecystectomy Hx of colostomy Hx of hernia repair Hx of skin graft Hx of tubal ligation Social History Social History Household Members: Family Housing: Unknown / Unable to assess Do you presently have visiting nurse or other home services: Yes (Drsg changes to abd) Unable to assess alcohol history related to: Unable to respond Use of substances other than those prescribed or required for medical reasons: Unable to respond Advance Directives: No Advance Directives Information Provided: No Advance Directives on File: No Do you have thoughts of harming others: None and Vague Do you have a plan to hurt others: Vague Patient : No Meds Allergies Allergy/AdvReac Type Severity Reaction Status Date / Time Sulfa (Sulfonamide Allergy Intermediate RASH, LUMPS , Verified 01/19/21 08:42 Antibiotics) blood [Sulfa (Sulfonamides)] clots in legs, hives Active Medications: Current Medications Generic Name Dose Route Start Last Admin Trade Name Freq PRN Reason Stop Dose Admin Fentanyl 25 mcg 02/18/21 17:38 Fentanyl Citrate/Pf 100 Mcg/2 Ml Vial IVPUSH Q2H PRN Pain, Moderate (Pain Scale 4-6 Insulin Human Lispro 0 unit 02/18/21 17:45 Insulin Lispro 100 Unit/Ml 3 Ml Vial SUBCUT Q6H [facility] Protocol Ondansetron HCl 4 mg 02/18/21 14:32 Ondansetron Hcl 4 Mg/2 Ml Vial IVPUSH Q8H PRN Nausea Sodium Chloride 3 ml 02/18/21 16:00 02/18/21 15:11 0.9 % Sodium Chloride Flush 3 Ml Syringe IVFLUSH Not Given QSHIFT [facility] Home Medications Medication Instructions Recorded Confirmed Last Taken Type mirtazapine 15 mg tablet 15 mg PO BEDTIME 07/25/20 01/12/21 Unknown History prazosin 2 mg capsule 2 mg PO BEDTIME 07/25/20 01/12/21 Unknown History atorvastatin 80 mg tablet 80 mg PO DAILY 07/27/20 01/12/21 Unknown History duloxetine 60 mg capsule,delayed 90 mg PO DAILY cap 07/27/20 01/12/21 Unknown History release lisinopril 20 mg tablet 20 mg PO DAILY 07/27/20 01/12/21 Unknown History diclofenac sodium 1 % topical gel 2 g TOPICAL QID PRN 01/12/21 01/12/21 Unknown History pen needle, diabetic 32 gauge x #50 ea 01/12/21 01/12/21 Unknown History tizanidine 4 mg tablet 4 mg PO TID 04/29/21 04/29/21 Unknown History Physical Exam Vital Signs: Vital Signs: Last Vital Signs Temp 97.6 F 02/18/21 16:05 Pulse 78 02/18/21 17:15 Resp 12 02/18/21 17:15 BP 125/74 02/18/21 17:15 Pulse Ox 97 02/18/21 17:15 Oxygen Flow Rate 2 02/18/21 13:48 Body Mass Index 35.5 Const: General: cooperative, comfortable, no acute distress, well developed, alert and awake Nutritional Appearance: well nourished Orientation/consciousness: oriented to person, oriented to place and oriented to time Limitations: no limitations HENMT: Head: Yes normal to inspection, Yes normocephalic and Yes atraumatic Ears: hearing grossly normal bilaterally General nose exam: Normal external nose present Face and sinus: Yes normal facial exam Mouth: Normal oral and palatal mucosa present Eyes: General: appearance normal, both eyes and all related structures Visual Dumont: normal visual dumont by confrontation Alignment and Position: alignment normal Periorbital: periorbital findings normal Eyelids: Yes eyelids normal Conjunctivae: conjunctivae normal Sclerae: sclerae normal Corneas: corneas normal Pupils: Equal, round and reactive pupils present and Pupil accommodation reflex normal EOM: EOMs intact bilaterally Direct Ophthalmoscopy: normal light reflex Neck: Neck: Yes normal visual inspection, Yes full ROM and Yes no meningeal signs Thyroid: Thyroid normal Carotids: normal carotid upstroke and bounding pulses Chest: Chest palpation & inspection: normal inspection of the chest Resp: Effort & Inspection: normal respiratory effort Auscultation: clear to auscultation bilaterally Cardio: Rate: regular rate Rhythm: regular rhythm Heart sounds: S1 normal heart sound present and S2 normal heart sound present Peripheral pulses: Peripheral pulses 2+ throughout GI: Inspection: Yes normal to inspection Percussion: Yes normal to percussion Auscultation: normal bowel sounds Rectal Exam - Female: deferred Back/Spine/Pelvis: Cervical Spine: normal cervical lordosis and cervical ROM normal Thoracic/Lumbar Spine: thoracic and lumbar spine normal to inspection Skin: General skin exam: no rashes or lesions noted Neuro: Other: Left sided hemiplegia General: oriented to person, oriented to place, oriented to time, tone normal, Normal light touch and pain sensation, no meningeal signs, normal sensation to monofilament and deep tendon reflexes 2+ bilaterally Cranial nerves: Yes CN's II-XII intact bilaterally, Yes Equal, round and reactive pupils present, Yes Bilaterally intact EOM present, Yes Nystagmus not present, Yes Midline tongue present, Yes Normal gag reflex present, Yes Symmetric palate elevation present, Yes Normal hearing present and Yes Ability to bilaterally rotate head present Cognition (Neuro): normal cognition Speech: Other speech findings present (Neuro) Motor exam (neuro): no tremor noted, no asterixis, Motor fasciculations not present, Normal motor muscle tone present throughout and Motor abnormalities not present Sensory Exam: Bilaterally intact graphesthesia Deep tendon reflexes (DTR's): Right triceps reflex intensity grade: 2+, Left triceps reflex intensity grade: 2+, Rt Biceps (C5, C6): 2+, Left biceps reflex intensity grade: 2+, Right brachioradialis reflex intensity grade: 2+, Left brachioradialis reflex intensity grade: 2+, Right patellar reflex intensity grade: 2+, Left patellar reflex intensity grade: 2+, Right ankle reflex intensity grade: 2+ and Left ankle reflex intensity grade: 2+ Plantar Reflex Responses: downgoing: right, left and bilateral Coordination: [id number] test normal, [id number] test normal, tandem gait normal and Romberg test negative Pupils: Normal pupillary reactivity/response: bilateral Extrem: General: Yes normal to inspection, Yes normal exam except as noted and Yes no pedal edema Psych: Appearance: grossly normal Mental Status: mental status grossly normal Speech and movement: Normal speech and movement present and Clear speech present Affect: normal affect Attitude: cooperative Thought process: Normal thought process present Results Labs CBC & Chem 7: 02/18/21 13:20 02/18/21 16:30 Labs: Short CBC 02/18/21 Range/Units 13:20 WBC 5.4 (4.8-10.8) X10*3/uL Hgb 10.3 L (12.0-16.0) g/dl Hct 33.1 L (37-47) % Plt Count 277 (160-400) X10*3/uL BMP 02/18/21 02/18/21 13:20 16:30 Sodium 143 143 Potassium 3.5 3.4 Chloride 109 H 111 H Carbon Dioxide 22 22 BUN 14 16 Creatinine 0.91 0.80 Calcium 8.8 D 8.5 Cardiac Enzymes 02/18/21 Range/Units 13:20 Total Creatine Kinase 23 L (26-140) U/L Liver Function 02/18/21 Range/Units 13:20 Total Bilirubin 0.3 (0.0-1.0) mg/dL Direct Bilirubin < 0.2 (0.0-0.5) mg/dL AST 13 (5-31) U/L ALT 7 (0-31) U/L Alkaline Phosphatase 154 H (39-117) U/L Albumin 3.6 (3.5-5.0) g/dL Assessment and Plan (1) Left hemiplegia: Status: Acute Atypical features and 3 previous similar presentations in 2006, 2009, 2019 with left hemiplegia with negative work up and negative MRIs for acute stroke rais ethe possibility that this is a conversion reaction or possibly a migraine phenomenon, Recommend : MRI brain to confirm that there was no acute stroke. Her MRIs hav eshown microvascular disease related to HBP adn DM (2) HLD (hyperlipidemia): Status: Acute (3) Hypertension: Status: Acute (4) T2DM (type 2 diabetes mellitus): Status: Acute (5) Disc degeneration, lumbar: Status: Acute Procedures Date of Service Date of Service: 02/18/21
[2021-02-18] MEDS: fentaNYL citrate/PF 100 MCG/2 ML VIAL 25 MCG IVPUSH ×2 (18:06→23:54)
[2021-02-18 18:23] LABS: Glucose, Whole Blood 118 mg/dL (60-115)
--- NOTE | 2021-02-18 19:06 | PM.CCHP ---
History of Present Illness Date of Service: 02/18/21 Chief Complaint: CVA 60-year-old lady with underlying history of diabetes mellitus, hypertension, chronic back pain admitted on 02/18/2021 with left hemiplegia and facial droop. Of note patient has had similar presentations in 2007, 2010, and 2019 with no evidence of acute stroke on MRI. Her CT head was negative for hemorrhage, her CTA showed no large occlusive defects. Neurology consult was requested, patient has received tPA and transferred to intensive care unit for close monitoring. Review of Systems Constitutional: Constitutional: Denies daytime sleepiness, Denies excessive sweating, Denies fatigue, Denies fever(s), Denies lethargy, Denies malaise, Denies night sweats, Denies snoring and Denies weight loss Eyes: Eyes: Denies blurry vision and Denies itchy eyes ENT: Denies nasal congestion, Denies post nasal drip, Denies sinus pain, Denies sinus pressure and Denies other ( Thrush) Cardiovascular: Cardiovascular: Denies chest pain, Denies pedal edema, Denies dyspnea, Denies orthopnea and Denies paroxysmal nocturnal dyspnea Respiratory: Respiratory: Denies cough, Denies hemoptysis, Denies excessive phlegm production, Denies dyspnea, Denies snoring and Denies wheezing Gastrointestinal: Gastrointestinal: Denies abdominal pain and Denies heartburn Musculoskeletal: Musculoskeletal: Denies myalgias, Denies arthralgias and Denies joint swelling Integumentary/Breasts: Skin/Breast: Denies rash Neurologic: Reports as per HPI, Reports focal weakness, Denies memory loss and Denies seizure-like activity Psychiatric: Psychiatric: Denies abnormal sleep pattern, Denies anxiety and Denies memory loss Endocrine: Endocrine: Denies excessive sweating, Denies fatigue and Denies heat intolerance Hematologic/Lymphatic: Hematologic/Lymphatic: Denies easy bruising Allergic/Immunologic: Allergic/Immunologic: Denies itchy eyes, Denies seasonal rhinorrhea and Denies wheezing PMFSH Past Medical History Medical History (Updated 02/18/21 @ 18:02 by Jabari Anderson MD) CVA (cerebral vascular accident) Disc degeneration, lumbar HLD (hyperlipidemia) Hypertension Multinodular thyroid Osteoarthritis of knees, bilateral Recto-perineal fistula Spondylosis of lumbar joint T2DM (type 2 diabetes mellitus) Vitamin D deficiency Family History Family History Father Alzheimer disease Mother Hypertension Gout Arthritis of knee CVD (cardiovascular disease) Surgical History Surgical History Hx of cholecystectomy Hx of colostomy Hx of hernia repair Hx of skin graft Hx of tubal ligation Social History Social History Household Members: Family Housing: Unknown / Unable to assess Do you presently have visiting nurse or other home services: Yes (Drsg changes to abd) Unable to assess alcohol history related to: Unable to respond Use of substances other than those prescribed or required for medical reasons: Unable to respond Currently Displaying Signs/Symptoms of Drug Intoxication Withdrawal: No Advance Directives: No Advance Directives Information Provided: No Advance Directives on File: No Do you have thoughts of harming others: None and Vague Do you have a plan to hurt others: Vague Patient : No Meds Allergies Allergy/AdvReac Type Severity Reaction Status Date / Time Sulfa (Sulfonamide Allergy Intermediate RASH, LUMPS , Verified 01/19/21 08:42 Antibiotics) blood [Sulfa (Sulfonamides)] clots in legs, hives Active Medications: Current Medications Generic Name Dose Route Start Last Admin Trade Name Freq PRN Reason Stop Dose Admin Fentanyl 25 mcg 02/18/21 17:38 02/18/21 18:06 Fentanyl Citrate/Pf 100 Mcg/2 Ml Vial IVPUSH 25 mcg Q2H PRN Administration Pain, Moderate (Pain Scale 4-6 Insulin Human Lispro 0 unit 02/18/21 17:45 02/18/21 18:02 Insulin Lispro 100 Unit/Ml 3 Ml Vial SUBCUT Not Given Q6H [facility] Protocol Ondansetron HCl 4 mg 02/18/21 14:32 Ondansetron Hcl 4 Mg/2 Ml Vial IVPUSH Q8H PRN Nausea Sodium Chloride 3 ml 02/18/21 16:00 02/18/21 15:11 0.9 % Sodium Chloride Flush 3 Ml Syringe IVFLUSH Not Given QSHIFT [facility] Home Medications Medication Instructions Recorded Confirmed Last Taken Type mirtazapine 15 mg tablet 15 mg PO BEDTIME 07/25/20 01/12/21 Unknown History prazosin 2 mg capsule 2 mg PO BEDTIME 11/09/20 04/29/21 Unknown History atorvastatin 80 mg tablet 80 mg PO DAILY 07/27/20 01/12/21 Unknown History duloxetine 60 mg capsule,delayed 90 mg PO DAILY cap 07/27/20 01/12/21 Unknown History release lisinopril 20 mg tablet 20 mg PO DAILY 07/27/20 01/12/21 Unknown History diclofenac sodium 1 % topical gel 2 g TOPICAL QID PRN 01/12/21 01/12/21 Unknown History pen needle, diabetic 32 gauge x #50 ea 01/12/21 01/12/21 Unknown History tizanidine 4 mg tablet 4 mg PO TID 01/12/21 01/12/21 Unknown History Physical Exam Vital Signs: Vital Signs: Last Vital Signs Temp 97.6 F 02/18/21 16:05 Pulse 76 02/18/21 18:00 Resp 14 02/18/21 18:00 BP 124/72 02/18/21 18:00 Pulse Ox 98 02/18/21 18:00 Oxygen Flow Rate 2 02/18/21 13:48 Body Mass Index 35.5 Const: General: no acute distress, alert and awake Eyes: Sclerae: sclerae normal EOM: EOMs intact bilaterally Neck: Neck: Yes no lymphadenopathy, Yes trachea midline and Yes supple Resp: Effort & Inspection: normal respiratory effort and no respiratory distress Auscultation: clear to auscultation bilaterally Cardio: Rate: regular rate Rhythm: regular rhythm Heart sounds: no gallops, no murmurs and no rubs GI: Palpation (GI): Soft to palpation and Other GI palpation findings present ( Nontender) Auscultation: normal bowel sounds Neuro: General: other (Left hemiplegia) Extrem: General: Yes no pedal edema, No clubbing and No cyanosis Results Labs CBC and Chem 7: 02/19/21 06:22 02/19/21 06:22 Labs: Laboratory Results - last 24 hr 02/18/21 02/18/21 02/18/21 13:03 13:20 13:20 MCV 81.7 MCH 25.4 L MCHC 31.1 RDW 14.9 Plt Count 277 MPV 10.4 Immature Gran % (Auto) 0.2 Neut % (Auto) 61.9 Lymph % (Auto) 27.1 [place] % (Auto) 6.3 Eos % (Auto) 4.1 H Baso % (Auto) 0.4 Lymph # (Auto) 1.5 [place] # (Auto) 0.3 Eos # (Auto) 0.2 Baso # (Auto) 0.0 Abs Immat Gran (auto) 0.01 Absolute Neuts (auto) 3.4 Absolute Nucleated RBC 0.000 Nucleated RBC % (auto) 0.0 PT 12.4 Whole Blood PT 12.4 INR 1.0 Whole Blood INR 1.0 APTT 40.5 H Anion Gap Estim Creat Clear Calc Estimated GFR POC Glucose Random Glucose Calcium Phosphorus Magnesium Total Bilirubin Direct Bilirubin AST ALT Alkaline Phosphatase Total Creatine Kinase Troponin I High Sens Total Protein Albumin Triglycerides Cholesterol LDL Cholesterol, Calc HDL Cholesterol 02/18/21 02/18/21 02/18/21 13:20 13:20 16:30 MCV MCH MCHC RDW Plt Count MPV Immature Gran % (Auto) Neut % (Auto) Lymph % (Auto) [place] % (Auto) Eos % (Auto) Baso % (Auto) Lymph # (Auto) [place] # (Auto) Eos # (Auto) Baso # (Auto) Abs Immat Gran (auto) Absolute Neuts (auto) Absolute Nucleated RBC Nucleated RBC % (auto) PT Whole Blood PT INR Whole Blood INR APTT Anion Gap 16 13 Estim Creat Clear Calc TNP 78.0 Estimated GFR > 60 > 60 POC Glucose Random Glucose 220 H D 120 H D Calcium 8.8 D 8.5 Phosphorus 4.0 Magnesium 1.9 Total Bilirubin 0.3 Direct Bilirubin < 0.2 AST 13 ALT 7 Alkaline Phosphatase 154 H Total Creatine Kinase 23 L Troponin I High Sens 5.4 Total Protein 6.1 L Albumin 3.6 Triglycerides 177 Cholesterol 147 D LDL Cholesterol, Calc 71 HDL Cholesterol 41 D 02/18/21 18:01 MCV MCH MCHC RDW Plt Count MPV Immature Gran % (Auto) Neut % (Auto) Lymph % (Auto) [place] % (Auto) Eos % (Auto) Baso % (Auto) Lymph # (Auto) [place] # (Auto) Eos # (Auto) Baso # (Auto) Abs Immat Gran (auto) Absolute Neuts (auto) Absolute Nucleated RBC Nucleated RBC % (auto) PT Whole Blood PT INR Whole Blood INR APTT Anion Gap Estim Creat Clear Calc Estimated GFR POC Glucose 118 H Random Glucose Calcium Phosphorus Magnesium Total Bilirubin Direct Bilirubin AST ALT Alkaline Phosphatase Total Creatine Kinase Troponin I High Sens Total Protein Albumin Triglycerides Cholesterol LDL Cholesterol, Calc HDL Cholesterol Imaging Radiologist's Impressions: Impressions Chest X-Ray 02/18/21 13:02 IMPRESSION: Although hypoexpanded, there does appear to be peribronchial cuffing bilaterally which could be seen in underlying reactive or small airways disease. No overt edema. Head CT 02/18/21 13:02 IMPRESSION: 1. No evidence of acute intracranial hemorrhage or edematous territorial infarction. 2. Moderate underlying microangiopathy. This critical result was discussed with Dr. Benson at 13:22 hours on 02/18/2021. It was ascertained that the content and urgency of the report was understood at the time of direct communication. Head/Neck CTA 02/18/21 13:03 IMPRESSION: 1. No evidence of acute intracranial hemorrhage or edematous territorial infarction. Moderate underlying microangiopathy. 2. CTA of the head and neck without proximal occlusion or flow-limiting stenosis. Mild atherosclerotic narrowings of the basilar artery and proximal left [employer]. This critical result was discussed with Dr. Benson at 14:22 on 02/18/2021 and it was ascertained that the content and urgency of the report was understood at the time of direct communication. Assessment and Plan (1) Left hemiplegia: Status: Acute Assessment: 60-year-old lady admitted with left hemiplegia, status post tPA administration, monitored in ICU. Plan: Neuro: Acute CVA versus conversion. Neurology service care appreciated. Status post tPA. MRI brain is pending. Cardiac: No acute issues. Underlying history of hypertension. Maintain systolic blood pressure under 180. Pulmonary: No acute issues. Renal: No acute issues. Endo: No acute issues. Underlying history of diabetes mellitus. GI: No acute issues. ID: No acute issues Heme/Onc: No acute issues. Psych: No acute issues. Miscellaneous: No acute issues. Prophylaxis: Intermittent pneumatic compression Diet: Pending swallow evaluation Critical care time spent: 60 minutes (2) Hypertension: Status: Acute (3) T2DM (type 2 diabetes mellitus): Status: Acute
[2021-02-18 22:45] LABS: Glucose, Whole Blood 110 mg/dL (60-115)
[2021-02-19] VITALS (15 sets, daily range): BP systolic 158–188; BP diastolic 71–91; PULSE 68–86; RESP 11–20; TEMP 36–36.9; O2SAT 89–99; BMI 35.1
[2021-02-19 06:25] LABS: VBG Base Excess 1.5 mmol/L; VBG HCO3 27 mmol/L (22-26); VBG pCO2 48 mmHg; VBG pH 7.36 (7.32-7.43); VBG pO2 48 mmHg
[2021-02-19 06:30] LABS: MANUAL DIFF FLAG NO
[2021-02-19 06:53] LABS: Basophils Percent Auto 0.7 % (0-2); Eosinophils Absolute Auto 0.3 X10*3/uL (0.0-0.4); Hematocrit 35.4 % (37-47); Hemoglobin 11.1 g/dl (12.0-16.0); Imm Gran Abs Auto 0.04 X10*3/uL (0.00-0.03); Imm Gran Pct Auto 0.7 % (0.0-0.4); Lymphocytes Absolute Auto 1.6 X10*3/uL (1.2-4.9); Mean Corpuscular HGB Conc 31.4 g/dl (31.0-35.0); Mean Corpuscular Hemoglobin 25.8 pg (27.0-33.0); Mean Corpuscular Volume 82.1 fL (80-98); Mean Platelet Volume 10.4 fL (9.4-12.3); Monocytes Absolute Auto 0.4 X10*3/uL (0.1-1.2); Monocytes Percent Auto 6.8 % (2-11); Neutrophils Absolute Auto 3.6 X10*3/uL (2.0-8.3); Neutrophils Percent Auto 59.8 % (45-73); Platelet Count 334 X10*3/uL (160-400); Red Blood Count 4.31 X10*6/uL (4.20-5.50); Red Cell Distribution Width 15.2 % (11.0-16.0)
[2021-02-19 06:57] LABS: Alanine Aminotransferase 12 U/L (0-31); Albumin Level 3.7 g/dL (3.5-5.0); Alkaline Phosphatase 179 U/L (39-117); Anion Gap 11 (12-20); Aspartate Amino Transferase 23 U/L (5-31); Bilirubin Total 0.3 mg/dL (0.0-1.0); Blood Urea Nitrogen 14 mg/dL (9-16); Calcium 9.1 mg/dL (8.4-10.2); Carbon Dioxide 26 mmol/L (22-29); Chloride 112 mmol/L (96-108); Creatinine Clr Calc Pharmacy 82.8; Estimated Glomerular Filt Rate > 60; Glucose Random 120 mg/dL (60-115); Magnesium 2.1 mg/dL (1.6-2.6); Phosphorus 3.8 mg/dL (2.7-4.5); Potassium 3.7 mmol/L (3.3-5.1); Sodium 145 mmol/L (135-145); Total Protein 6.3 g/dL (6.5-8.0)
[2021-02-19 07:50] LABS: Venous Blood Gas Refer to POC result
--- NOTE | 2021-02-19 09:54 | PM.CCPN ---
Subjective Subjective Date of Service: 02/19/21 Interval History: 60-year-old lady with underlying history of diabetes mellitus, hypertension, chronic back pain admitted on 02/18/2021 with left hemiplegia and facial droop. Of note patient has had similar presentations in 2007, 2009, and 2018 with no evidence of acute stroke on MRI. Her CT head was negative for hemorrhage, her CTA showed no large occlusive defects. Neurology consult was requested, patient has received tPA and transferred to intensive care unit for close monitoring. Critical Care Time (minutes): 0 Physical Exam Vital Signs: Vital Signs: Last Vital Signs Temp 96.9 F 02/19/21 08:00 Pulse 86 02/19/21 08:00 Resp 12 02/19/21 08:00 BP 176/79 H 02/19/21 08:00 Pulse Ox 93 02/19/21 08:00 Oxygen Flow Rate 2 02/18/21 13:48 Body Mass Index 35.1 Const: General: no acute distress, alert and awake Eyes: Sclerae: sclerae normal EOM: EOMs intact bilaterally Neck: Neck: Yes no lymphadenopathy, Yes trachea midline and Yes supple Resp: Effort & Inspection: normal respiratory effort and no respiratory distress Auscultation: clear to auscultation bilaterally Cardio: Rate: regular rate Rhythm: regular rhythm Heart sounds: no gallops, no murmurs and no rubs GI: Palpation (GI): Soft to palpation and Other GI palpation findings present ( Nontender) Auscultation: normal bowel sounds Neuro: General: other (Left-sided motor function 2/5, otherwise normal.) Extrem: General: Yes no pedal edema, No clubbing and No cyanosis Objective Data Labs CBC & Chem 7: 02/19/21 06:22 02/19/21 06:22 Labs: Laboratory Results - last 24 hr 02/18/21 02/18/21 02/18/21 13:03 13:20 13:20 WBC 5.4 RBC 4.05 L Hgb 10.3 L Hct 33.1 L MCV 81.7 MCH 25.4 L MCHC 31.1 RDW 14.9 Plt Count 277 MPV 10.4 Immature Gran % (Auto) 0.2 Neut % (Auto) 61.9 Lymph % (Auto) 27.1 [place] % (Auto) 6.3 Eos % (Auto) 4.1 H Baso % (Auto) 0.4 Lymph # (Auto) 1.5 [place] # (Auto) 0.3 Eos # (Auto) 0.2 Baso # (Auto) 0.0 Abs Immat Gran (auto) 0.01 Absolute Neuts (auto) 3.4 Absolute Nucleated RBC 0.000 Nucleated RBC % (auto) 0.0 PT 12.4 Whole Blood PT 12.4 INR 1.0 Whole Blood INR 1.0 APTT 40.5 H VBG pH VBG pCO2 VBG pO2 VBG HCO3 VBG O2 Saturation VBG Base Excess Sodium Potassium Chloride Carbon Dioxide Anion Gap BUN Creatinine Estim Creat Clear Calc Estimated GFR POC Glucose Random Glucose Calcium Phosphorus Magnesium Total Bilirubin Direct Bilirubin AST ALT Alkaline Phosphatase Total Creatine Kinase Troponin I High Sens Total Protein Albumin Triglycerides Cholesterol LDL Cholesterol, Calc HDL Cholesterol 02/18/21 02/18/21 02/18/21 13:20 13:20 16:30 WBC RBC Hgb Hct MCV MCH MCHC RDW Plt Count MPV Immature Gran % (Auto) Neut % (Auto) Lymph % (Auto) [place] % (Auto) Eos % (Auto) Baso % (Auto) Lymph # (Auto) [place] # (Auto) Eos # (Auto) Baso # (Auto) Abs Immat Gran (auto) Absolute Neuts (auto) Absolute Nucleated RBC Nucleated RBC % (auto) PT Whole Blood PT INR Whole Blood INR APTT VBG pH VBG pCO2 VBG pO2 VBG HCO3 VBG O2 Saturation VBG Base Excess Sodium 143 143 Potassium 3.5 3.4 Chloride 109 H 111 H Carbon Dioxide 22 22 Anion Gap 16 13 BUN 14 16 Creatinine 0.91 0.80 Estim Creat Clear Calc TNP 78.0 Estimated GFR > 60 > 60 POC Glucose Random Glucose 220 H D 120 H D Calcium 8.8 D 8.5 Phosphorus 4.0 Magnesium 1.9 Total Bilirubin 0.3 Direct Bilirubin < 0.2 AST 13 ALT 7 Alkaline Phosphatase 154 H Total Creatine Kinase 23 L Troponin I High Sens 5.4 Total Protein 6.1 L Albumin 3.6 Triglycerides 177 Cholesterol 147 D LDL Cholesterol, Calc 71 HDL Cholesterol 41 D 02/18/21 02/18/21 02/19/21 18:01 22:39 06:19 WBC RBC Hgb Hct MCV MCH MCHC RDW Plt Count MPV Immature Gran % (Auto) Neut % (Auto) Lymph % (Auto) [place] % (Auto) Eos % (Auto) Baso % (Auto) Lymph # (Auto) [place] # (Auto) Eos # (Auto) Baso # (Auto) Abs Immat Gran (auto) Absolute Neuts (auto) Absolute Nucleated RBC Nucleated RBC % (auto) PT Whole Blood PT INR Whole Blood INR APTT VBG pH 7.36 VBG pCO2 48 VBG pO2 48 VBG HCO3 27 H VBG O2 Saturation 76.0 VBG Base Excess 1.5 Sodium Potassium Chloride Carbon Dioxide Anion Gap BUN Creatinine Estim Creat Clear Calc Estimated GFR POC Glucose 118 H 110 Random Glucose Calcium Phosphorus Magnesium Total Bilirubin Direct Bilirubin AST ALT Alkaline Phosphatase Total Creatine Kinase Troponin I High Sens Total Protein Albumin Triglycerides Cholesterol LDL Cholesterol, Calc HDL Cholesterol 02/19/21 02/19/21 06:22 06:22 WBC 6.0 RBC 4.31 Hgb 11.1 L Hct 35.4 L MCV 82.1 MCH 25.8 L MCHC 31.4 RDW 15.2 Plt Count 334 MPV 10.4 Immature Gran % (Auto) 0.7 H Neut % (Auto) 59.8 Lymph % (Auto) 27.0 [place] % (Auto) 6.8 Eos % (Auto) 5.0 H Baso % (Auto) 0.7 Lymph # (Auto) 1.6 [place] # (Auto) 0.4 Eos # (Auto) 0.3 Baso # (Auto) 0.0 Abs Immat Gran (auto) 0.04 H Absolute Neuts (auto) 3.6 Absolute Nucleated RBC 0.000 Nucleated RBC % (auto) 0.0 PT Whole Blood PT INR Whole Blood INR APTT VBG pH VBG pCO2 VBG pO2 VBG HCO3 VBG O2 Saturation VBG Base Excess Sodium 145 Potassium 3.7 Chloride 112 H Carbon Dioxide 26 Anion Gap 11 L BUN 14 Creatinine 0.75 Estim Creat Clear Calc 82.8 Estimated GFR > 60 POC Glucose Random Glucose 120 H Calcium 9.1 D Phosphorus 3.8 Magnesium 2.1 Total Bilirubin 0.3 Direct Bilirubin AST 23 D ALT 12 Alkaline Phosphatase 179 H Total Creatine Kinase Troponin I High Sens Total Protein 6.3 L Albumin 3.7 Triglycerides Cholesterol LDL Cholesterol, Calc HDL Cholesterol Progress Note: A&P Assessment and plan (1) Left hemiplegia: Status: Acute Assessment and Plan: Assessment: 60-year-old lady admitted with left hemiplegia, status post tPA administration, monitored in ICU. Plan: Neuro: Acute CVA versus conversion disorder versus migraine aura phenomena. Neurology service care appreciated. Status post tPA. MRI brain is pending. Cardiac: No acute issues. Underlying history of hypertension. Maintain systolic blood pressure under 180. Pulmonary: No acute issues. Renal: No acute issues. Endo: No acute issues. Underlying history of diabetes mellitus. GI: No acute issues. ID: No acute issues Heme/Onc: No acute issues. Psych: No acute issues. Miscellaneous: No acute issues. Prophylaxis: Intermittent pneumatic compression Diet: Pending swallow evaluation (2) Hypertension: Status: Acute (3) T2DM (type 2 diabetes mellitus): Status: Acute
--- NOTE | 2021-02-19 10:37 | MHC.CM.PN ---
Patient has not yet arrived from the ED to room 479; CM spoke with Daughter/HCP/Katya at [phone] and addressed IMM with her (original will be mailed certified letter and a copy to be placed on the chart). Patient lives alone in an apartment and she has both a cane and a walker to assist with mobility. Patient has a daily visit from [facility]/RN to assist with meds and the goal for dc is to return home and resume [facility] services. CM has initiated and will follow for dc planning. PCP is Dr. Zelda Mo.
--- NOTE | 2021-02-19 11:32 | MHC.SL.SWA ---
Speech Pathologist Impression: Within Functional Limits Risk of Aspiration Due to: Dysphasia Diet Status: Upgrade Liquid Consistency and Strategies for Safe Swallow: Liquid Intake Recommendation: Thin Liquid Intake Strategies: Small Sips Solid Food Consistency: Dietary Recommendations: Grnd/Mech Altered (NDD2) Additional Modifications to Solid Foods: Pt prefers softer diet. Oral Medication Intake: Whole with Puree Compensatory Strategies and Precautions to be Taken for Safe Swallow: Sitting Upright (90 deg) Small Bites and Sips Alternate Liquids/Solids Supervision While Eating and Drinking for Safe Swallow: Total Assistance Foods to Avoid: Swallowing Recommended Treatments: Compens. Strategy Educat. Recommendation for Speech: Inpatient Speech Therapy Comment: Frequency/Duration: Date Range for Service Req: Timeline to reassess: Talent Agent Clinican/Clinical Fellow: Yes: Shala Zhang M.A., CF-LEGAL SECRETARY RECEPTIONIST Supervisory Statement: I have reviewed and agree with the student/clinical fellow's documentation: Speech Language Pathologist:
--- NOTE | 2021-02-19 11:44 | PC.NURSE ---
Patient alert and oriented to person and place. painter decorator at bedside. PERRLA. Slight left sided facial droop present with mild left hemiparesis, able to move all extremities. Positive cough and gag. NPO diet. Speech therapist at bedside for evaluation, recommending thin liquids, grnd/mech altered, and pills in puree. Patient transferred to MRI, tolerated well, no events noted on tele. Following MRI, transferred to [facility]. Report given to [facility] RN. Notified of redness to underneath of bilateral breasts, Nystatin ordered. Provided dsd change to healing abdominal surgical incision site s/p previous hernia repair. Incision at various stages of healing with two small open areas. Scant serous drainage noted. Patient states she has VNA for dsg changes at home. Reported to .
[2021-02-19 12:16] LABS: Glucose, Whole Blood 136 mg/dL (60-115)
[2021-02-19] MEDS: amLODIPine Besylate 5 MG TABLET PO (13:16)
[2021-02-19] MEDS: Acetaminophen 325 MG TABLET 650 MG PO ×2 (13:16→20:57)
--- NOTE | 2021-02-19 14:59 | PC.NURSE ---
Pt c/o bladder pain. Bladder scanned for >999. Stood pt up and pivoted to commode to bedside commode. Pt did well with1 assist. Pt voided 1700ml
[2021-02-19 16:01] LABS: Glucose, Whole Blood 136 mg/dL (60-115)
[2021-02-19] MEDS: 0.9 % Sodium Chloride Flush 3 ML SYRINGE IVFLUSH ×2 (16:02→23:39)
[2021-02-19] MEDS: Omeprazole 20 MG CAPSULE.DR PO (16:02)
--- NOTE | 2021-02-19 17:01 | PM.NEUROPN ---
Subjective Subjective Date of Service: 02/19/21 Critical Care Time (minutes): 0 Comment: Downward drift of LUE with inconsistent weakness most suggestive of convrsion reaction. MRI shows no acute stroke. Physical Exam Vital Signs: Vital Signs: Last Vital Signs Temp 96.8 F 02/19/21 15:23 Pulse 69 02/19/21 15:23 Resp 20 02/19/21 15:23 BP 166/77 H 02/19/21 15:23 Pulse Ox 95 02/19/21 15:23 Oxygen Flow Rate 2 02/18/21 13:48 Body Mass Index 35.1 Objective Data Labs CBC & Chem 7: 02/19/21 06:22 02/19/21 06:22 Labs: Laboratory Results - last 24 hr 02/18/21 02/18/21 02/18/21 16:30 18:01 22:39 WBC RBC Hgb Hct MCV MCH MCHC RDW Plt Count MPV Immature Gran % (Auto) Neut % (Auto) Lymph % (Auto) Gaines % (Auto) Eos % (Auto) Baso % (Auto) Lymph # (Auto) [place]aines # (Auto) Eos # (Auto) Baso # (Auto) Abs Immat Gran (auto) Absolute Neuts (auto) Absolute Nucleated RBC Nucleated RBC % (auto) VBG pH VBG pCO2 VBG pO2 VBG HCO3 VBG O2 Saturation VBG Base Excess Sodium 143 Potassium 3.4 Chloride 111 H Carbon Dioxide 22 Anion Gap 13 BUN 16 Creatinine 0.80 Estim Creat Clear Calc 78.0 Estimated GFR > 60 POC Glucose 118 H 110 Random Glucose 120 H D Calcium 8.5 Phosphorus Magnesium Total Bilirubin AST ALT Alkaline Phosphatase Total Protein Albumin Triglycerides 177 Cholesterol 147 D LDL Cholesterol, Calc 71 HDL Cholesterol 41 D 02/19/21 02/19/21 02/19/21 06:19 06:22 06:22 WBC 6.0 RBC 4.31 Hgb 11.1 L Hct 35.4 L MCV 82.1 MCH 25.8 L MCHC 31.4 RDW 15.2 Plt Count 334 MPV 10.4 Immature Gran % (Auto) 0.7 H Neut % (Auto) 59.8 Lymph % (Auto) 27.0 Gaines % (Auto) 6.8 Eos % (Auto) 5.0 H Baso % (Auto) 0.7 Lymph # (Auto) 1.6 [place] # (Auto) 0.4 Eos # (Auto) 0.3 Baso # (Auto) 0.0 Abs Immat Gran (auto) 0.04 H Absolute Neuts (auto) 3.6 Absolute Nucleated RBC 0.000 Nucleated RBC % (auto) 0.0 VBG pH 7.36 VBG pCO2 48 VBG pO2 48 VBG HCO3 27 H VBG O2 Saturation 76.0 VBG Base Excess 1.5 Sodium 145 Potassium 3.7 Chloride 112 H Carbon Dioxide 26 Anion Gap 11 L BUN 14 Creatinine 0.75 Estim Creat Clear Calc 82.8 Estimated GFR > 60 POC Glucose Random Glucose 120 H Calcium 9.1 D Phosphorus 3.8 Magnesium 2.1 Total Bilirubin 0.3 AST 23 D ALT 12 Alkaline Phosphatase 179 H Total Protein 6.3 L Albumin 3.7 Triglycerides Cholesterol LDL Cholesterol, Calc HDL Cholesterol 02/19/21 02/19/21 12:12 15:58 WBC RBC Hgb Hct MCV MCH MCHC RDW Plt Count MPV Immature Gran % (Auto) Neut % (Auto) Lymph % (Auto) Gaines % (Auto) Eos % (Auto) Baso % (Auto) Lymph # (Auto) [place]aines # (Auto) Eos # (Auto) Baso # (Auto) Abs Immat Gran (auto) Absolute Neuts (auto) Absolute Nucleated RBC Nucleated RBC % (auto) VBG pH VBG pCO2 VBG pO2 VBG HCO3 VBG O2 Saturation VBG Base Excess Sodium Potassium Chloride Carbon Dioxide Anion Gap BUN Creatinine Estim Creat Clear Calc Estimated GFR POC Glucose 136 H 136 H Random Glucose Calcium Phosphorus Magnesium Total Bilirubin AST ALT Alkaline Phosphatase Total Protein Albumin Triglycerides Cholesterol LDL Cholesterol, Calc HDL Cholesterol Progress Note: A&P Assessment and plan (1) Left hemiplegia: Status: Acute Assessment and Plan: conversion reaction. PT and early discharge. She should be flagged for future as this is her 4th presentation with left hemiplegia with negative work up so she does not keep getting tPA Fall Risk Details Current Medications: Current Medications Generic Name Dose Route Start Last Admin Trade Name Freq PRN Reason Stop Dose Admin Acetaminophen 650 mg 02/19/21 12:56 02/19/21 13:16 Acetaminophen 325 Mg Tablet PO 650 mg Q6H PRN Administration Pain, Mild (Pain Scale 1-3) Amlodipine Besylate 5 mg 02/19/21 12:30 02/19/21 13:16 Amlodipine Besylate 5 Mg Tablet PO 5 mg DAILY JELLY Administration Protocol Aspirin 81 mg 02/20/21 09:00 Aspirin Enteric Coated 81 Mg Tablet. PO DAILY [facility] Atorvastatin Calcium 40 mg 02/19/21 21:00 Atorvastatin Calcium 40 Mg Tablet PO BEDTIME [facility] Duloxetine HCl 60 mg 02/19/21 21:00 Duloxetine Hcl 60 Mg Capsule. PO BID [facility] Fentanyl 25 mcg 02/18/21 17:38 02/18/21 23:54 Fentanyl Citrate/Pf 100 Mcg/2 Ml Vial IVPUSH 25 mcg Q2H PRN Administration Pain, Moderate (Pain Scale 4-6 Gabapentin 1,200 mg 02/19/21 21:00 Gabapentin 600 Mg Tablet PO BID [facility] Insulin Human Lispro 0 unit 02/19/21 16:30 02/19/21 16:01 Insulin Lispro 100 Unit/Ml 3 Ml Vial SUBCUT Not Given QIDACHS [facility] Protocol Lisinopril 20 mg 02/20/21 09:00 Lisinopril 20 Mg Tablet PO DAILY [facility] Protocol Mirtazapine 15 mg 02/19/21 21:00 Mirtazapine 15 Mg Tablet PO BEDTIME [facility] Nystatin 1 appl 02/19/21 11:30 02/19/21 12:19 Nystatin Powder 15 Gm Bottle TOPICAL Not Given BID [facility] Protocol Omeprazole 20 mg 02/19/21 16:30 02/19/21 16:02 Omeprazole 20 Mg Capsule. PO 20 mg BID@0630,1630 [facility] Administration Ondansetron HCl 4 mg 02/18/21 14:32 Ondansetron Hcl 4 Mg/2 Ml Vial IVPUSH Q8H PRN Nausea Prazosin HCl 5 mg 02/19/21 21:00 Prazosin Hcl 5 Mg Capsule PO BEDTIME [facility] Protocol Prazosin HCl 2 mg 02/20/21 09:00 Prazosin Hcl 1 Mg Capsule PO DAILY [facility] Protocol Sodium Chloride 3 ml 02/18/21 16:00 02/19/21 16:02 0.9 % Sodium Chloride Flush 3 Ml Syringe IVFLUSH 3 ml QSHIFT [facility] Administration Tizanidine HCl 4 mg 02/19/21 14:20 Tizanidine Hcl 4 Mg Tablet PO TID PRN Muscle Pain Time Spent With Patient Time: Total time spent is greater than 50% in coordination of care (as documented) at patient's floor/unit and/or counseling patient: Time with patient: less than 15 minutes Procedures Date of Service Date of Service: 02/19/21
[2021-02-19 20:52] LABS: Glucose, Whole Blood 113 mg/dL (60-115)
[2021-02-19] MEDS: DULoxetine HCl 60 MG CAPSULE.DR PO (20:59)
[2021-02-19] MEDS: Gabapentin 600 MG TABLET 1200 MG PO (20:59)
[2021-02-19] MEDS: Atorvastatin Calcium 40 MG TABLET PO (20:59)
[2021-02-19] MEDS: Prazosin HCL 5 MG CAPSULE PO (20:59)
[2021-02-19] MEDS: Mirtazapine 15 MG TABLET PO (20:59)
[2021-02-20] MEDS: Butalb/Acetamin/Caff 50/325/40 TABLET 1 TAB PO ×2 (00:45→10:19)
[2021-02-20 04:00] VITALS: BP 117/59; PULSE 71; RESP 18; TEMP 36.1; O2SAT 92
[2021-02-20] MEDS: Omeprazole 20 MG CAPSULE.DR PO (05:45)
[2021-02-20 06:00] VITALS: BMI 34.7
[2021-02-20 06:55] LABS: MANUAL DIFF FLAG NO
[2021-02-20 07:02] LABS: Basophils Percent Auto 0.8 % (0-2); Eosinophils Absolute Auto 0.3 X10*3/uL (0.0-0.4); Eosinophils Percent Auto 5.3 % (0-4); Hematocrit 32.2 % (37-47); Hemoglobin 10.3 g/dl (12.0-16.0); Imm Gran Abs Auto 0.01 X10*3/uL (0.00-0.03); Imm Gran Pct Auto 0.2 % (0.0-0.4); Lymphocytes Absolute Auto 1.7 X10*3/uL (1.2-4.9); Lymphocytes Percent Auto 35.4 % (20-40); Mean Corpuscular Hemoglobin 26.1 pg (27.0-33.0); Mean Corpuscular Volume 81.5 fL (80-98); Mean Platelet Volume 10.3 fL (9.4-12.3); Monocytes Absolute Auto 0.4 X10*3/uL (0.1-1.2); Monocytes Percent Auto 7.9 % (2-11); Neutrophils Absolute Auto 2.5 X10*3/uL (2.0-8.3); Neutrophils Percent Auto 50.4 % (45-73); Platelet Count 282 X10*3/uL (160-400); Red Blood Count 3.95 X10*6/uL (4.20-5.50); Red Cell Distribution Width 14.9 % (11.0-16.0); White Blood Count 4.9 X10*3/uL (4.8-10.8)
[2021-02-20 07:21] VITALS: BP 139/60; PULSE 72; RESP 18; TEMP 37.2; O2SAT 90
[2021-02-20 07:23] LABS: Glucose, Whole Blood 147 mg/dL (60-115)
[2021-02-20 07:41] LABS: Anion Gap 11 (12-20); Blood Urea Nitrogen 12 mg/dL (9-16); Calcium 8.6 mg/dL (8.4-10.2); Carbon Dioxide 23 mmol/L (22-29); Chloride 108 mmol/L (96-108); Creatinine Clr Calc Pharmacy 92.1; Estimated Glomerular Filt Rate > 60; Glucose Random 160 mg/dL (60-115); Potassium 3.3 mmol/L (3.3-5.1); Sodium 139 mmol/L (135-145)
[2021-02-20 10:12] VITALS: BP 127/72; PULSE 86
[2021-02-20] MEDS: lisinopriL 20 MG TABLET PO (10:12)
[2021-02-20] MEDS: Gabapentin 600 MG TABLET 1200 MG PO (10:12)
[2021-02-20 10:13] VITALS: BP 127/72; PULSE 86
[2021-02-20] MEDS: DULoxetine HCl 60 MG CAPSULE.DR PO (10:13)
[2021-02-20] MEDS: Prazosin HCL 1 MG CAPSULE 2 MG PO (10:13)
[2021-02-20 10:15] VITALS: BP 127/72
[2021-02-20] MEDS: amLODIPine Besylate 5 MG TABLET PO (10:15)
[2021-02-20] MEDS: Aspirin Enteric Coated 81 MG TABLET.DR PO (10:15)
[2021-02-20] MEDS: 0.9 % Sodium Chloride Flush 3 ML SYRINGE IVFLUSH (10:16)
[2021-02-20 11:28] VITALS: BP 131/64; PULSE 82; RESP 18; TEMP 37.2; O2SAT 95
[2021-02-20 11:33] LABS: Glucose, Whole Blood 219 mg/dL (60-115)
--- NOTE | 2021-02-20 11:34 | P.DS_ITS ---
DS: Providers Provider Date of Service: 02/20/21 Date of admission: 02/18/21 14:32 Primary care physician: Zelda Mo MD Consults: 02/18/21 14:35 Consult to Neurology Routine Consulting Provider: [facility] Reason for consultation: CVA s/p tPA DS: Diagnosis Discharge Diagnosis (1) Left hemiplegia: Status: Acute (2) Conversion disorder: Status: Acute (3) Surgical wound, non healing: Status: Acute DS: Medications Discharge Medications Home Medications: Home Medications Medication Instructions Recorded Confirmed mirtazapine 15 mg tablet 15 mg PO BEDTIME 07/25/20 02/19/21 prazosin 2 mg capsule 2 mg PO DAILY 07/25/20 02/19/21 lisinopril 20 mg tablet 20 mg PO DAILY 07/27/20 02/19/21 diclofenac sodium 1 % topical gel 2 g TOPICAL QID PRN 01/12/21 02/19/21 pen needle, diabetic 32 gauge x #50 ea 01/12/21 01/12/21 tizanidine 4 mg tablet 4 mg PO TID PRN 01/12/21 02/19/21 aspirin 81 mg PO DAILY 02/19/21 02/19/21 atorvastatin 40 mg PO BEDTIME 02/19/21 02/19/21 cetirizine 10 mg PO DAILY PRN 02/19/21 02/19/21 duloxetine 60 mg PO BID 02/19/21 02/19/21 ibuprofen 800 mg PO Q6H PRN 02/19/21 02/19/21 omeprazole 20 mg PO BID@0630,1630 02/19/21 02/19/21 prazosin 5 mg PO BEDTIME 02/19/21 02/19/21 Previous Rx's Medication Instructions Recorded liraglutide 0.6 mg/0.1 mL (18 mg/3 1.8 mg SUBCUT DAILY 30 Days #9 ml 07/07/20 mL) subcutaneous pen injector blood sugar diagnostic #100 ea 07/27/20 blood-glucose meter #1 ea 07/27/20 lancets 28 gauge #100 ea 07/27/20 insulin detemir U-100 100 unit/mL 40 unit SUBCUT DAILY #15 ml 11/14/20 (3 mL) subcutaneous pen gabapentin 600 mg tablet 1,200 mg PO BID #360 tab 01/03/21 acetaminophen 650 mg 650 mg PO Q12H #180 ea 02/02/21 tablet,extended release nystatin 1 appl TOPICAL BID 7 Days g 02/20/21 DS: Summary Hospital Course Hospital Course: Admission note HPI 60-year-old lady with underlying history of diabetes mellitus, hypertension, chronic back pain admitted on 02/18/2021 with left hemiplegia and facial droop. Of note patient has had similar presentations in 2006, 2009, and 2018 with no evidence of acute stroke on MRI. Her CT head was negative for hemorrhage, her CTA showed no large occlusive defects. Neurology consult was requested, patient has received tPA and transferred to intensive care unit for close monitoring. Hospital course The patient was admitted to the ICU for tPA monitoring. She developed some nasal bleeding which was not significant as it resolved without drop in her hemoglobin. Her symptoms improved the next morning and she was able to participate in physical therapy on the 3rd day of her admission. Brain MRI was negative for any stroke but showed chronic changes suggestive of underlying microangiopathy. She was evaluated by OT and PT and did well with a plan to go home and to continue VNA services. To follow-up with Dr. Anderson as outpatient for further evaluation and treatment. Time Spent with Patient Time attestation: Total time spent providing and/or coordinating discharge services: Discharge coordination time: Greater than 30 minutes Quality: Stroke Does the patient have a stroke diagnosis?: No Physical Exam Vital Signs: Vital Signs: Last Vital Signs Temp 98.9 F 02/20/21 11:28 Pulse 82 02/20/21 11:28 Resp 18 02/20/21 11:28 BP 131/64 02/20/21 11:28 Pulse Ox 95 02/20/21 11:28 Oxygen Flow Rate 2 02/18/21 13:48 Body Mass Index 34.7 Const: Other: Constitutional : Alert, oriented, not in distress Neck : Normal inspection, Supple Cardiovascular : RRR, S1 S2, no lower extremity edema Respiratory : Good bilateral air entry, no crackles, wheezes or rhonchi Gastrointestinal: soft, lax, Normal bowel sounds, Non tender Skin : Warm/Dry, No rash Neurological : Alert & oriented x3, No focal deficit with full range of motion in upper and lower extremities, no gait abnormality, within normal cranial nerves DS: Data Data Completed and Pending Labs on day of discharge: Laboratory Results - last 24 hr 02/19/21 02/19/21 02/19/21 12:12 15:58 20:49 WBC RBC Hgb Hct MCV MCH MCHC RDW Plt Count MPV Immature Gran % (Auto) Neut % (Auto) Lymph % (Auto) [place] % (Auto) Eos % (Auto) Baso % (Auto) Lymph # (Auto) [place] # (Auto) Eos # (Auto) Baso # (Auto) Abs Immat Gran (auto) Absolute Neuts (auto) Absolute Nucleated RBC Nucleated RBC % (auto) Sodium Potassium Chloride Carbon Dioxide Anion Gap BUN Creatinine Estim Creat Clear Calc Estimated GFR POC Glucose 136 H 136 H 113 Random Glucose Calcium 02/20/21 02/20/21 02/20/21 06:07 06:07 07:19 WBC 4.9 RBC 3.95 L Hgb 10.3 L Hct 32.2 L MCV 81.5 MCH 26.1 L MCHC 32.0 RDW 14.9 Plt Count 282 MPV 10.3 Immature Gran % (Auto) 0.2 Neut % (Auto) 50.4 Lymph % (Auto) 35.4 [place] % (Auto) 7.9 Eos % (Auto) 5.3 H Baso % (Auto) 0.8 Lymph # (Auto) 1.7 [place] # (Auto) 0.4 Eos # (Auto) 0.3 Baso # (Auto) 0.0 Abs Immat Gran (auto) 0.01 Absolute Neuts (auto) 2.5 Absolute Nucleated RBC 0.000 Nucleated RBC % (auto) 0.0 Sodium 139 Potassium 3.3 Chloride 108 Carbon Dioxide 23 Anion Gap 11 L BUN 12 Creatinine 0.67 Estim Creat Clear Calc 92.1 Estimated GFR > 60 POC Glucose 147 H Random Glucose 160 H Calcium 8.6 02/20/21 11:29 WBC RBC Hgb Hct MCV MCH MCHC RDW Plt Count MPV Immature Gran % (Auto) Neut % (Auto) Lymph % (Auto) [place] % (Auto) Eos % (Auto) Baso % (Auto) Lymph # (Auto) [place] # (Auto) Eos # (Auto) Baso # (Auto) Abs Immat Gran (auto) Absolute Neuts (auto) Absolute Nucleated RBC Nucleated RBC % (auto) Sodium Potassium Chloride Carbon Dioxide Anion Gap BUN Creatinine Estim Creat Clear Calc Estimated GFR POC Glucose 219 H Random Glucose Calcium Discharge Plan Discharge Patient Disposition: Home Health Service Discharge Diagnosis: Left-sided weakness conversion disorder Referrals: Zelda Mo MD [Primary Care Provider] - 1 Week Discharge Medications: New nystatin 100,000 unit/gram Powder 1 appl topical BID 7 Days RF: 0 Continued Victoza 3-Osman 0.6 mg/0.1 mL (18 mg/3 mL) pen injector 1.8 mg subcut DAILY 30 Days Qty: 9 RF: 11 insulin detemir U-100 [Levemir FlexTouch U-100 Insuln] 100 unit/mL (3 mL) insulin pen 40 unit subcut DAILY Qty: 15 RF: 3 gabapentin 600 mg tablet 1,200 mg PO BID Qty: 360 RF: 1 acetaminophen [Arthritis Pain Relief (acetam)] 650 mg tablet extended release 650 mg PO Q12H Qty: 180 RF: 1 ibuprofen 800 mg Tablet 800 mg PO Q6H PRN (Reason: Pain (Scale Score 4-6)) RF: 0 aspirin 81 mg Tablet,Delayed Release (Dr/Ec) 81 mg PO DAILY RF: 0 prazosin 5 mg Capsule 5 mg PO BEDTIME RF: 0 duloxetine 60 mg Capsule,Delayed Release(Dr/Ec) 60 mg PO BID RF: 0 cetirizine 10 mg Tablet 10 mg PO DAILY PRN (Reason: Itching) RF: 0 atorvastatin 40 mg Tablet 40 mg PO BEDTIME RF: 0 omeprazole 20 mg Capsule,Delayed Release(Dr/Ec) 20 mg PO BID@0630,1630 RF: 0 lisinopril 20 mg tablet 20 mg PO DAILY RF: 0 (DME) FreeStyle Lite Strips Strip See Rx Instructions .ROUTE .MEDSUPPLY Qty: 100 RF: 11 (DME) lancets [FreeStyle Lancets] 28 gauge misc See Rx Instructions .ROUTE .MEDSUPPLY Qty: 100 RF: 11 (DME) blood-glucose meter [FreeStyle Lite Meter] Kit See Rx Instructions .ROUTE .MEDSUPPLY Qty: 1 RF: 0 tizanidine 4 mg tablet 4 mg PO TID PRN (Reason: Muscle Pain) RF: 0 diclofenac sodium 1 % gel 2 g topical QID PRN (Reason: pain) RF: 0 (DME) pen needle, diabetic 32 gauge x 5/32 needle See Rx Instructions ea .ROUTE .MEDSUPPLY Qty: 50 RF: 0 prazosin 2 mg capsule 2 mg PO DAILY RF: 0 mirtazapine 15 mg tablet 15 mg PO BEDTIME RF: 0 Discharge Orders: Discharge Order (Routine); Ordered 02/20/21 Ordered By: Adrienne Carlin Diet: advance to usual diet Activity on Discharge: As tolerated Stand Alone Forms: Patient Portal Discharge page Care Plan Goals: Read below Health Concerns: Read below Plan of Treatment: You were admitted to the hospital for evaluation of left-sided weakness. You were admitted to the ICU and treated as an acute stroke with administration of a thrombolysis agent. An MRI was done showing no stroke. You were evaluated by a neurologist Dr. Anderson who does not think you had any actual stroke and this is a condition week old conversion disorder. Advised to continue your current home medications and to follow-up with Dr. Anderson office for further evaluation and recommendations. Assessment: Continue home medications To follow-up with Dr. Anderson office as outpatient, please call this number to get an appointment
[2021-02-20] MEDS: Insulin Lispro 100 UNIT/ML 3 ML VIAL SUBCUT (12:08)
--- NOTE | 2021-02-20 12:47 | MHC.CM.PN ---
Patient is a Female 60 DX CVA. DP is discharge today with Homecare services thru [facility] provided by [facility]. Spoke with Trudy Thrasher @ [facility]. She approved Resumption of SN and a new referral for home Home P.T.
--- NOTE | 2021-02-20 14:55 | HO.WOUNDCONS ---
History of Present Illness Data of Consult Service Date: 02/20/21 Requesting physician: Adrienne Carlin Primary Care Provider: Zelda Mo MD HPI Reason for consult: abdominal wound The patient is here for stroke like symptoms. The MRI of the brain does not confirm an area of infarct nor bleed. There is consideration of neurologic deficit associated with migraine headache per recent documentation. She is scheduled for discharge today. The abdominal wound we are consult for is long-standing. It has been there since November. Her surgeon is at [facility] in [place]. Her family states that she had a hernia repair which closed partially and then subsequently dehisced. Right now there is Iodoform packing in the right and midline wounds. The leftward wound is partial thickness covered by dry clean gauze. Abdominal binder is in place. Review of Systems Review of Systems: pain at wound site, itching Yes all other systems are reviewed and are negative [facility] Medical History (Updated 02/20/21 @ 11:35 by Adrienne Carlin MD) CVA (cerebral vascular accident) Disc degeneration, lumbar HLD (hyperlipidemia) Hypertension Multinodular thyroid Osteoarthritis of knees, bilateral Recto-perineal fistula Spondylosis of lumbar joint T2DM (type 2 diabetes mellitus) Vitamin D deficiency Family History Father Alzheimer disease Mother Hypertension Gout Arthritis of knee CVD (cardiovascular disease) Surgical History Hx of cholecystectomy Hx of colostomy Hx of hernia repair Hx of skin graft Hx of tubal ligation Social History Household Members: Family Housing: Unknown / Unable to assess Do you presently have visiting nurse or other home services: Yes (Drsg changes to abd) Unable to assess alcohol history related to: Unable to respond Use of substances other than those prescribed or required for medical reasons: Unable to respond Currently Displaying Signs/Symptoms of Drug Intoxication Withdrawal: No Advance Directives: No Advance Directives Information Provided: No Advance Directives on File: No Do you have thoughts of harming others: None Do you have a plan to hurt others: No Plan Patient : No service: No Current occupational status: disabled Meds Allergies Allergy/AdvReac Type Severity Reaction Status Date / Time Sulfa (Sulfonamide Allergy Intermediate RASH, LUMPS , Verified 01/19/21 08:42 Antibiotics) blood [Sulfa (Sulfonamides)] clots in legs, hives Active Medications: Current Medications Generic Name Dose Route Start Last Admin Trade Name Freq PRN Reason Stop Dose Admin Acetaminophen 650 mg 02/19/21 12:56 02/19/21 20:57 Acetaminophen 325 Mg Tablet PO 650 mg Q6H PRN Administration Pain, Mild (Pain Scale 1-3) Acetaminophen/Butalbital/Caffeine 1 tab 02/20/21 00:26 02/20/21 10:19 Butalb/Acetamin/Caff 50/325/40 Tablet PO 1 tab Q6H PRN Administration Headache Amlodipine Besylate 5 mg 02/19/21 12:30 02/20/21 10:15 Amlodipine Besylate 5 Mg Tablet PO 5 mg DAILY JELLY Administration Protocol Aspirin 81 mg 02/20/21 09:00 02/20/21 10:15 Aspirin Enteric Coated 81 Mg Tablet. PO 81 mg DAILY JELLY Administration Atorvastatin Calcium 40 mg 02/19/21 21:00 02/19/21 20:59 Atorvastatin Calcium 40 Mg Tablet PO 40 mg BEDTIME JELLY Administration Duloxetine HCl 60 mg 02/19/21 21:00 02/20/21 10:13 Duloxetine Hcl 60 Mg Capsule. PO 60 mg BID JELLY Administration Fentanyl 25 mcg 02/18/21 17:38 02/18/21 23:54 Fentanyl Citrate/Pf 100 Mcg/2 Ml Vial IVPUSH 25 mcg Q2H PRN Administration Pain, Moderate (Pain Scale 4-6 Gabapentin 1,200 mg 02/19/21 21:00 02/20/21 10:12 Gabapentin 600 Mg Tablet PO 1,200 mg BID JELLY Administration Insulin Human Lispro 0 unit 02/19/21 16:30 02/20/21 12:08 Insulin Lispro 100 Unit/Ml 3 Ml Vial SUBCUT 4 unit QIDACHS JELLY Administration Protocol Lisinopril 20 mg 02/20/21 09:00 02/20/21 10:12 Lisinopril 20 Mg Tablet PO 20 mg DAILY JELLY Administration Protocol Mirtazapine 15 mg 02/19/21 21:00 02/19/21 20:59 Mirtazapine 15 Mg Tablet PO 15 mg BEDTIME JELLY Administration Nystatin 1 appl 02/19/21 11:30 02/20/21 10:17 Nystatin Powder 15 Gm Bottle TOPICAL Not Given BID [facility] Protocol Omeprazole 20 mg 02/19/21 16:30 02/20/21 05:45 Omeprazole 20 Mg Capsule.Dr PO 20 mg BID@0630,1630 JELLY Administration Ondansetron HCl 4 mg 02/18/21 14:32 Ondansetron Hcl 4 Mg/2 Ml Vial IVPUSH Q8H PRN Nausea Prazosin HCl 5 mg 02/19/21 21:00 02/19/21 20:59 Prazosin Hcl 5 Mg Capsule PO 5 mg BEDTIME JELLY Administration Protocol Prazosin HCl 2 mg 02/20/21 09:00 02/20/21 10:13 Prazosin Hcl 1 Mg Capsule PO 2 mg DAILY JELLY Administration Protocol Sodium Chloride 3 ml 02/18/21 16:00 02/20/21 10:16 0.9 % Sodium Chloride Flush 3 Ml Syringe IVFLUSH 3 ml QSHIFT JELLY Administration Tizanidine HCl 4 mg 02/19/21 14:20 Tizanidine Hcl 4 Mg Tablet PO TID PRN Muscle Pain Home Medications Medication Instructions Recorded Confirmed Last Taken Type mirtazapine 15 mg tablet 15 mg PO BEDTIME 07/25/20 02/19/21 Unknown History prazosin 2 mg capsule 2 mg PO DAILY 07/25/20 02/19/21 Unknown History lisinopril 20 mg tablet 20 mg PO DAILY 07/27/20 02/19/21 Unknown History diclofenac sodium 1 % topical gel 2 g TOPICAL QID PRN 01/12/21 02/19/21 Unknown History pen needle, diabetic 32 gauge x #50 ea 01/12/21 01/12/21 Unknown History tizanidine 4 mg tablet 4 mg PO TID PRN 01/12/21 02/19/21 Unknown History aspirin 81 mg PO DAILY 02/19/21 02/19/21 Unknown History atorvastatin 40 mg PO BEDTIME 02/19/21 02/19/21 Unknown History cetirizine 10 mg PO DAILY PRN 02/19/21 02/19/21 Unknown History duloxetine 60 mg PO BID 02/19/21 02/19/21 Unknown History ibuprofen 800 mg PO Q6H PRN 02/19/21 02/19/21 Unknown History omeprazole 20 mg PO BID@0630,1630 02/19/21 02/19/21 Unknown History prazosin 5 mg PO BEDTIME 02/19/21 02/19/21 Unknown History Physical Exam Vital Signs and Narrative: Vital Signs: Last Vital Signs Temp 98.9 F 02/20/21 11:28 Pulse 82 02/20/21 11:28 Resp 18 02/20/21 11:28 BP 131/64 02/20/21 11:28 Pulse Ox 95 02/20/21 11:28 Oxygen Flow Rate 2 02/18/21 13:48 Body Mass Index 34.7 Left upper quadrant wound is partial thickness. It is within an abdominal fold. Looks fine with dry clean dressing., 2 x 2. No maceration or infection. The right upper quadrant and the midline incisions are full-thickness. The entire area of periwound erythema is flat and well demarcated, possibly fungal. Maceration may also be affected by drainage. Results Labs CBC and Chem 7: 02/20/21 06:07 02/20/21 06:07 Labs: Laboratory Results - last 24 hr 02/19/21 02/19/21 02/20/21 15:58 20:49 06:07 MCV 81.5 MCH 26.1 L MCHC 32.0 RDW 14.9 Plt Count 282 MPV 10.3 Immature Gran % (Auto) 0.2 Neut % (Auto) 50.4 Lymph % (Auto) 35.4 [place] % (Auto) 7.9 Eos % (Auto) 5.3 H Baso % (Auto) 0.8 Lymph # (Auto) 1.7 [place] # (Auto) 0.4 Eos # (Auto) 0.3 Baso # (Auto) 0.0 Abs Immat Gran (auto) 0.01 Absolute Neuts (auto) 2.5 Absolute Nucleated RBC 0.000 Nucleated RBC % (auto) 0.0 Anion Gap Estim Creat Clear Calc Estimated GFR POC Glucose 136 H 113 Random Glucose Calcium 02/20/21 02/20/21 02/20/21 06:07 07:19 11:29 MCV MCH MCHC RDW Plt Count MPV Immature Gran % (Auto) Neut % (Auto) Lymph % (Auto) [place] % (Auto) Eos % (Auto) Baso % (Auto) Lymph # (Auto) [place] # (Auto) Eos # (Auto) Baso # (Auto) Abs Immat Gran (auto) Absolute Neuts (auto) Absolute Nucleated RBC Nucleated RBC % (auto) Anion Gap 11 L Estim Creat Clear Calc 92.1 Estimated GFR > 60 POC Glucose 147 H 219 H Random Glucose 160 H Calcium 8.6 Assessment and Plan (1) Surgical wound, non healing: Status: Acute If the hospital stay is extended, calcium alginate packing remains are most appropriate to absorb drainage, advanced into the larger wounds and changed daily. Dry clean gauze over the left partial thickness wound is appropriate. I agree with the abdominal binder. These wounds are not something that can be managed without surgical input from [facility]. Other recommendations are deferred to her primary surgical team. If they are not opposed to topical antifungal of the periwound, this could be considered but I would not recommend this is a discharge instruction without their permission.
--- NOTE | 2021-02-20 15:12 | MHC.SL.SWA ---
Speech Pathologist Impression: Within Functional Limits Dysphasia Diet Status: No change Liquid Consistency and Strategies for Safe Swallow: Liquid Intake Recommendation: Thin Liquid Intake Strategies: Small Sips Solid Food Consistency: Dietary Recommendations: Grnd/Mech Altered (NDD2) Additional Modifications to Solid Foods: Further ST intervention is no longer warranted. Please re-refer if there are any changes or if SOLAR INSTALLATION MANAGER can be of further assistance. Oral Medication Intake: Whole with Puree Compensatory Strategies and Precautions to be Taken for Safe Swallow: Sitting Upright (90 deg) Small Bites and Sips Alternate Liquids/Solids Rate of Ingestion Change Supervision While Eating and Drinking for Safe Swallow: Total Supervision (1:1) Swallowing Recommended Treatments: Compens. Strategy Educat. Recommendation for Speech: D/C speech Tower Equipment Repairer Clinican/Clinical Fellow: No Supervisory Statement: I have reviewed and agree with the student/clinical fellow's documentation: N/A Speech Language Pathologist: Roseanne Willett M.A., CCC-SOLAR INSTALLATION MANAGER
== END 2021-02-20 15:49 | disposition home health service (06) | DRG 57 ==
LOC: HO.ED 14:43 → HO.ICU 15:28 → HO.IMC 02-19 09:38
PROVIDERS: Admitting Provider Internal Medicine Pulmonary Disease; Emergency Provider Emergency Medicine Emergency Medical Services; PCP Family Medicine; Visit Provider Student in an Organized Health Care Education/Training Program
DX: G81.94 Hemiplegia, unspecified affecting left nondominant side (principal); T81.31XA Disruption of external operation (surgical) wound, not elsewhere classified, initial encounter; E78.5 Hyperlipidemia, unspecified; R29.810 Facial weakness; E11.51 Type 2 diabetes mellitus with diabetic peripheral angiopathy without gangrene; I10 Essential (primary) hypertension; F44.4 Conversion disorder with motor symptom or deficit; R04.0 Epistaxis; M51.36 Other intervertebral disc degeneration, lumbar region; Z79.4 Long term (current) use of insulin; Z79.1 Long term (current) use of non-steroidal anti-inflammatories (NSAID); Z79.899 Other long term (current) drug therapy
CPT/HCPCS: 36415; 70450; 70496; 70498; 70551; 71045; 80048; 80053; 80061; 80076; 82550; 82947; 83735; 84100; 84484; 85025; 85610; 85730; 92610; 93005; 97162; 97165; 99285; J2997; J3010; Q9967

== ENCOUNTER → 2021-03-17 15:31 | Outpatient (BNVA) | payer OTHER, SELFPAY | PROVIDERS: Visit Provider Student in an Organized Health Care Education/Training Program | DX: M25.562 Pain in left knee (principal); M25.561 Pain in right knee; M17.0 Bilateral primary osteoarthritis of knee; E11.9 Type 2 diabetes mellitus without complications; E78.5 Hyperlipidemia, unspecified; E55.9 Vitamin D deficiency, unspecified; Z88.2 Allergy status to sulfonamides; Z79.4 Long term (current) use of insulin; Z79.899 Other long term (current) drug therapy | CPT/HCPCS: 99212 ==

== ENCOUNTER → 2021-03-23 14:01 | Outpatient (BNVA) | payer OTHER, SELFPAY | PROVIDERS: PCP Family Medicine; Visit Provider Internal Medicine | DX: E04.2 Nontoxic multinodular goiter (principal); E78.5 Hyperlipidemia, unspecified; I10 Essential (primary) hypertension; E11.9 Type 2 diabetes mellitus without complications; E55.9 Vitamin D deficiency, unspecified | CPT/HCPCS: 82947; 99212 ==

== ENCOUNTER 2021-04-05 04:02 | Inpatient (IN) | payer OTHER, SELFPAY ==
[2021-04-05] VITALS (13 sets, daily range): BP systolic 83–158; BP diastolic 38–76; PULSE 55–103; RESP 13–18; TEMP 35.4–37.7; O2SAT 88–100; BMI 38.9
--- NOTE | ~2021-04-05 | CT_ITS ---
EXAMINATION: CT HEAD WITHOUT CONTRAST CLINICAL INFORMATION: Altered mental status COMPARISON: 02/19/2021 TECHNIQUE: Contiguous axial imaging was performed from the skull base to vertex without intravenous administration of contrast. This CT examination was performed using dose optimization techniques as appropriate, variously including the following: *Automated exposure control *Adjustment of mA and/or kV according to patient size (this includes techniques or standardized protocols for targeted exams where dose is matched to indication/reason for exam; i.e. extremities or head) *Use of iterative reconstruction technique DLP: 770 mGy-cm FINDINGS: There is no evidence of acute intracranial hemorrhage or territorial infarction. No abnormal mass effect or midline shift is seen. [place] to white matter differentiation is well preserved. No extra-axial fluid collections are identified. The ventricles are normal in size. Mild calcifications noted in the bilateral basal ganglia. The osseous structures and soft tissues are normal. The mastoid air cells and visualized portions of the paranasal sinuses are well aerated. CT/CT head/brain wo con IMPRESSION: No acute intracranial pathology.
--- NOTE | ~2021-04-05 | XR_ITS ---
EXAMINATION: XR ABDOMEN COMPLETE CLINICAL INDICATION: Follow-up small bowel obstruction COMPARISON: CT abdomen pelvis yesterday along with CT children's nursery assistant film from yesterday's exam TECHNIQUE: 2 views of the abdomen. FINDINGS: Mildly dilated small bowel loops are seen. Gas and stool still remain present in the colon. When comparison is made to yesterday's study there has been no worsening of appearances. The dilated loops of small bowel appear about the same caliber at 4 CM. The tip of the NG tube is at the GE junction and should be advanced into the stomach. XR/XR acute abdomen series IMPRESSION: Exact comparison to the CT scan is difficult but there are still some dilated loops of small bowel present. However, gas and stool remain in the colon and obstruction is now complete. NG tube should probably be advanced as the tip is at the GE junction.
--- NOTE | ~2021-04-05 | XR_ITS ---
EXAMINATION: XR ABDOMEN COMPLETE CLINICAL INDICATION: Evaluate for bowel obstruction COMPARISON: Frontal view of the chest 04/05/21 TECHNIQUE: Frontal view of the chest. Supine and upright views of the abdomen. FINDINGS: Chest: Enteric tube tip terminates in the epigastric region likely the most proximal stomach. The mediastinum and piedad are within normal limits. The central vessels are prominent and mildly indistinct. There are coarse central pulmonary opacities without dense lobar consolidation. No significant pleural fluid or pneumothorax. No evidence of pneumoperitoneum. Overall aeration unchanged. Abdomen with upright: Metallic density in the pelvis. There are clips in the both lower quadrants. There is metallic suture in the epigastric area and the enteric tube tip terminates at the level of the suture. Correlate with previous bariatric surgery. There is no gaseous distention in the small bowel. There are scattered loops of small bowel throughout the abdomen and pelvis. There is gas and fecal residue in the colon to the level of the rectum. No evidence of pneumatosis or pneumoperitoneum. No convincing evidence of an abnormal mass or collection. XR/XR acute abdomen series IMPRESSION: Scattered reticular lung opacities with no evidence of pneumoperitoneum. Nonobstructed bowel gas pattern. No evidence of pneumoperitoneum. In comparison with abdomen radiograph 04/06/21 the amount of bowel gas has decreased.
--- NOTE | ~2021-04-05 | XR_ITS ---
EXAMINATION: XR ABDOMEN KUB CLINICAL INDICATION: Check NG tube placement COMPARISON: Previous x-ray from yesterday and CT of the abdomen and pelvis 10/06/2020 TECHNIQUE: AP view of the abdomen. FINDINGS: There is a nasogastric tube with tip projecting over the proximal stomach. There is interval decrease in bowel dilatation compared to yesterday's exam. No free air is seen. There are degenerative changes of the spine. XR/XR abdomen 1V IMPRESSION: Nasogastric tube projects over the proximal stomach.
--- NOTE | ~2021-04-05 | CT_ITS ---
EXAMINATION: CT ABDOMEN AND PELVIS WITHOUT CONTRAST CLINICAL INFORMATION: Abdominal pain COMPARISON: 11/12/2019 TECHNIQUE: Multidetector volumetric imaging was performed from the superior aspect of the liver through the pubic symphysis. Sagittal and coronal reformatted images were obtained on the technologist's workstation. This CT examination was performed using dose optimization techniques as appropriate, variously including the following: *Automated exposure control *Adjustment of mA and/or kV according to patient size (this includes techniques or standardized protocols for targeted exams where dose is matched to indication/reason for exam; i.e. extremities or head) *Use of iterative reconstruction technique DLP: 1046 mGy-cm FINDINGS: LUNG BASES: The visualized lung bases demonstrate mild groundglass haziness. LIVER, GALLBLADDER, AND BILIARY TREE: The liver is normal in size, shape, and attenuation. No biliary ductal dilatation is present. The gallbladder is not visualized. PANCREAS: Unremarkable. SPLEEN: Unremarkable. ADRENAL GLANDS: Unremarkable. KIDNEYS AND URETERS: The kidneys are normal in size, shape, and attenuation. No hydronephrosis, hydroureter, or calculi seen. No perinephric stranding. BLADDER: Minimally distended and not well evaluated. GASTROINTESTINAL TRACT: Suture line is present along the stomach. There are multiple fluid-filled and fecalized small bowel loops in left abdomen with surrounding stranding, consistent with obstruction. There is somewhat gradual transition from dilated to nondilated bowel in the anterior abdomen near the midline such as on coronal image 18. Distal small bowel loops are collapsed. No acute colonic abnormality is seen. The appendix is unremarkable. No free fluid or free air is seen. ABDOMINAL WALL: Redemonstrated region of low-attenuation in the anterior left abdominal wall with surrounding hyperdensity, suspicious for seroma. LYMPH NODES: Normal. VASCULAR: Some venous gas is noted including in the right external iliac and superficial femoral vessels. PELVIC VISCERA: Unremarkable. OSSEOUS STRUCTURES: Scattered endplate osteophytes noted in the spine. CT/CT abdomen pelvis wo con IMPRESSION: 1. Small bowel obstruction with multiple dilated fluid-filled and fecalized small bowel loops in the left abdomen. Transition from dilated to nondilated small bowel occurs within a segment of bowel in the central anterior abdomen. 2. Foci of venous gas including within the right external iliac and superficial femoral vessels. This could be secondary to attempted central line or introduction of air into intravenous line. 3. Mild groundglass haziness at the lung bases, which could reflect mild air trapping on an expiratory scan. Mild inflammatory etiology is difficult to exclude in the proper clinical setting.
--- NOTE | ~2021-04-05 | XR_ITS ---
EXAMINATION: XR CHEST CLINICAL INFORMATION: NG tube placement COMPARISON: Chest radiograph performed this morning TECHNIQUE: Frontal view of the chest was obtained. FINDINGS: Due to technique, the distal aspect of the NG tube is not seen. It is noted to extend at least to the GE junction. Chronic findings are present at the lung bases with infiltrates. XR/XR chest 1V IMPRESSION: Tip of NG tube not well seen. If this is important recommend a KUB. It is, however, most certainly below the diaphragm.
--- NOTE | ~2021-04-05 | XR_ITS ---
EXAMINATION: XR CHEST CLINICAL INFORMATION: Is a gastric tube placement. Cough with shortness of breath. COMPARISON: February 18, 2021 TECHNIQUE: AP portable view of the chest was obtained. FINDINGS: There is elevation of the right hemidiaphragm. No acute parenchymal disease, pneumothorax, or pleural effusion appreciated. Enteric tube is seen within the esophagus just below the vivek with catheter not appreciated distal to this point. No definite catheter is identified in stomach. XR/XR chest 1V IMPRESSION: No acute parenchymal disease within the chest. Nasogastric tube tip only seen to the level of the vivek. This may be due to underpenetration. This critical result was discussed with Dr. Mcdonald at 8:45 AM on April 05, 2021 and it was ascertained that the content and urgency of the report was understood at the time of direct communication.
--- NOTE | 2021-04-05 04:25 | ECG_ITS ---
Test Reason : AMS Blood Pressure : / mmHG Vent. Rate : 054 BPM Atrial Rate : 054 BPM P-R Int : 144 ms QRS Dur : 140 ms QT Int : 498 ms P-R-T Axes : 083 078 072 degrees QTc Int : 472 ms Sinus bradycardia Right bundle branch block Abnormal ECG When compared with ECG of 18-FEB-2021 13:37, Vent. rate has decreased BY 27 BPM QT has shortened Referred By: Mili Mcdonald Electronically Signed By:GERA GREEN MD
--- NOTE | 2021-04-05 04:28 | ED.ABDPAIN ---
HPI - Abdominal Pain General Chief Complaint: General Medical Stated Complaint: abdominal pain Time Seen by Provider: 04/05/21 04:25 Source: patient, EMS and nurse assistant Mode of arrival: EMS History of Present Illness HPI narrative: 60-year-old female with history gastric sleeve and EMS was called and found patient nauseous and vomiting with upper mid abdominal pain on her couch and patient was found to be hypotensive. As per EMS they were unable to get IV access and had to place an IO and began giving the patient IV fluids. Patient was found to be pale and cool to touch on their arrival. Patient denies shortness of breath, chest pain/palpitations but describes abdominal discomfort is diffuse with associated nausea and vomiting but denies any diarrhea. In addition, patient denies urinary pain/burning/frequency. Related Data Home Medications Medication Instructions Recorded Confirmed mirtazapine 15 mg tablet 15 mg PO BEDTIME 07/25/20 03/23/21 prazosin 2 mg capsule 2 mg PO DAILY 07/25/20 03/23/21 lisinopril 20 mg tablet 20 mg PO DAILY 07/27/20 03/23/21 diclofenac sodium 1 % topical gel 2 g TOPICAL QID PRN 01/12/21 03/23/21 pen needle, diabetic 32 gauge x #50 ea 01/12/21 03/23/21 tizanidine 4 mg tablet 4 mg PO TID PRN 01/12/21 03/23/21 aspirin 81 mg PO DAILY 02/19/21 03/23/21 atorvastatin 40 mg PO BEDTIME 02/19/21 03/23/21 cetirizine 10 mg PO DAILY PRN 02/19/21 03/23/21 duloxetine 60 mg PO BID 02/19/21 03/23/21 ibuprofen 800 mg PO Q6H PRN 02/19/21 03/23/21 omeprazole 20 mg PO BID@0630,1630 02/19/21 03/23/21 prazosin 5 mg PO BEDTIME 02/19/21 03/23/21 Previous Rx's Medication Instructions Recorded liraglutide 0.6 mg/0.1 mL (18 mg/3 1.8 mg SUBCUT DAILY 30 Days #9 ml 07/07/20 mL) subcutaneous pen injector blood sugar diagnostic #100 ea 07/27/20 blood-glucose meter #1 ea 07/27/20 lancets 28 gauge #100 ea 07/27/20 gabapentin 600 mg tablet 1,200 mg PO BID #360 tab 01/03/21 nystatin 1 appl TOPICAL BID 7 Days g 02/20/21 insulin detemir U-100 100 unit/mL 32 unit SUBCUT DAILY 30 Days #9.6 02/28/21 (3 mL) subcutaneous pen ml acetaminophen 650 mg 650 mg PO Q12H #180 ea 03/17/21 tablet,extended release Allergies Allergy/AdvReac Type Severity Reaction Status Date / Time Sulfa (Sulfonamide Allergy Intermediate RASH, LUMPS , Verified 03/23/21 14:23 Antibiotics) blood [Sulfa (Sulfonamides)] clots in legs, hives Review of Systems Review of Systems Pertinent positives and negatives as stated in HPI 10 point review of systems is otherwise negative. Physical Exam Vital Signs: Vital Signs: Last Vital Signs Temp 95.7 F L 04/05/21 06:28 Pulse 68 04/05/21 06:28 Resp 13 04/05/21 06:28 BP 95/38 L 04/05/21 06:28 Pulse Ox 100 04/05/21 06:28 Body Mass Index 38.9 VITAL SIGNS: Reviewed, hypotensive. GENERAL: Obese, Well developed, well nourished, moderate distress. HEAD: Normocephalic/atraumatic EYES: PERRLA, EOMI OROPHARYNX: no oral lesions noted, posterior pharynx clear NECK: Supple, no adenopathy LUNGS: Normal breath sounds. No adventitious sounds or accessory muscle use. SpO2<100> CARDIOVASCULAR: Regular rate and rhythm without noted murmurs ABDOMEN: Obese, Soft, diffuse tenderness without rebound, noted incomplete healing scar with packing in place, distended with hypoactive bowel sounds. SKIN: Inspection of the skin reveals no rashes, ulcerations, jaundice, pallor, or petechiae. NEUROLOGIC: Alert and oriented x 4. Strength and sensation to light touch were grossly intact x 4. Course Course Course Narrative: 0425: 60-year-old female with history and clinical presentation consistent with suspected bowel obstruction versus perforation. IV access obtained, blood pressure improved, placed on initial supplemental oxygen but then patient began to improve and is now tolerating room air. On review of all investigations patient is noted to have a bowel obstruction with elevated lactic acid. The lactic acid is likely secondary to bowel obstruction and not directly related with infectious process. However, IV fluids were administered for blood pressure, and empiric antibiotics were administered. I discussed case with Surgical Services who is agreeable for admission. MDM - Abdominal Pain Lab Data Result diagrams: 04/05/21 04:39 04/05/21 04:39 Labs: Lab Results 04/05/21 04/05/21 04/05/21 Range/Units 04:39 04:39 04:39 WBC 8.5 (4.8-10.8) X10*3/uL RBC 3.54 L (4.20-5.50) X10*6/uL Hgb 9.1 L (12.0-16.0) g/dl Hct 28.8 L (37-47) % MCV 81.4 (80-98) fL MCH 25.7 L (27.0-33.0) pg MCHC 31.6 (31.0-35.0) g/dl RDW 17.5 H (11.0-16.0) % Plt Count 300 (160-400) X10*3/uL MPV 10.4 (9.4-12.3) fL Immature Gran % (Auto) 0.1 (0.0-0.4) % Neut % (Auto) 80.6 H (45-73) % Lymph % (Auto) 11.6 L (20-40) % [place] % (Auto) 5.7 (2-11) % Eos % (Auto) 1.8 (0-4) % Baso % (Auto) 0.2 (0-2) % Lymph # (Auto) 1.0 L (1.2-4.9) X10*3/uL [place] # (Auto) 0.5 (0.1-1.2) X10*3/uL Eos # (Auto) 0.2 (0.0-0.4) X10*3/uL Baso # (Auto) 0.0 (0.0-0.2) X10*3/uL Abs Immat Gran (auto) 0.01 (0.00-0.03) X10*3/uL Absolute Neuts (auto) 6.8 (2.0-8.3) X10*3/uL Absolute Nucleated RBC 0.000 (0.0-0.012) X10*3/uL Nucleated RBC % (auto) 0.0 (0.0-0.2) /100WBC PT 11.9 (9.9-13.0) SEC INR 1.0 (0.9-1.1) Sodium 141 (135-145) mmol/L Potassium 3.6 (3.3-5.1) mmol/L Chloride 112 H (96-108) mmol/L Carbon Dioxide 18 L (22-29) mmol/L Anion Gap 15 (12-20) BUN 18 H (9-16) mg/dL Creatinine 1.19 (0.5-1.4) mg/dL Estim Creat Clear Calc 55.2 Estimated GFR 46 Random Glucose 404 H* (60-115) mg/dL Lactic Acid (0.5-2.0) mmol/L Calcium 8.8 (8.4-10.2) mg/dL Magnesium 2.0 (1.6-2.6) mg/dL Total Bilirubin 0.3 (0.0-1.0) mg/dL AST 8 D (5-31) U/L ALT 7 (0-31) U/L Alkaline Phosphatase 132 H D (39-117) U/L Total Protein 5.7 L (6.5-8.0) g/dL Albumin 3.4 L (3.5-5.0) g/dL Lipase 16 (8-78) U/L Urine Color Urine Appearance Urine pH (5.0-8.0) Ur Specific [place] (1.005-1.025) Urine Protein (NEG-TRACE) MG/DL Urine Glucose (UA) (NEG) MG/DL Urine Ketones (NEG) MG/DL Urine Blood (NEG) Urine Nitrite (NEG) Ur Leukocyte Esterase (NEG) Urine Opiates Screen (Not Detect) Ur Barbiturates Screen (Not Detect) Ur Phencyclidine Scrn (Not Detect) Ur Amphetamines Screen (Not Detect) U Benzodiazepines Scrn (Not Detect) Urine Cocaine Screen (Not Detect) U Marijuana (THC) Screen (Not Detect) Ethyl Alcohol mg/dL Acetone, Qual Negative (Negative) COVID-19 ([facility]) (Negative) COVID-19 Clin Com 04/05/21 04/05/21 04/05/21 Range/Units 04:39 04:39 05:57 WBC (4.8-10.8) X10*3/uL RBC (4.20-5.50) X10*6/uL Hgb (12.0-16.0) g/dl Hct (37-47) % MCV (80-98) fL MCH (27.0-33.0) pg MCHC (31.0-35.0) g/dl RDW (11.0-16.0) % Plt Count (160-400) X10*3/uL MPV (9.4-12.3) fL Immature Gran % (Auto) (0.0-0.4) % Neut % (Auto) (45-73) % Lymph % (Auto) (20-40) % [place] % (Auto) (2-11) % Eos % (Auto) (0-4) % Baso % (Auto) (0-2) % Lymph # (Auto) (1.2-4.9) X10*3/uL [place] # (Auto) (0.1-1.2) X10*3/uL Eos # (Auto) (0.0-0.4) X10*3/uL Baso # (Auto) (0.0-0.2) X10*3/uL Abs Immat Gran (auto) (0.00-0.03) X10*3/uL Absolute Neuts (auto) (2.0-8.3) X10*3/uL Absolute Nucleated RBC (0.0-0.012) X10*3/uL Nucleated RBC % (auto) (0.0-0.2) /100WBC PT (9.9-13.0) SEC INR (0.9-1.1) Sodium (135-145) mmol/L Potassium (3.3-5.1) mmol/L Chloride (96-108) mmol/L Carbon Dioxide (22-29) mmol/L Anion Gap (12-20) BUN (9-16) mg/dL Creatinine (0.5-1.4) mg/dL Estim Creat Clear Calc Estimated GFR Random Glucose (60-115) mg/dL Lactic Acid 2.7 H* (0.5-2.0) mmol/L Calcium (8.4-10.2) mg/dL Magnesium (1.6-2.6) mg/dL Total Bilirubin (0.0-1.0) mg/dL AST (5-31) U/L ALT (0-31) U/L Alkaline Phosphatase (39-117) U/L Total Protein (6.5-8.0) g/dL Albumin (3.5-5.0) g/dL Lipase (8-78) U/L Urine Color Urine Appearance Urine pH (5.0-8.0) Ur Specific [place] (1.005-1.025) Urine Protein (NEG-TRACE) MG/DL Urine Glucose (UA) (NEG) MG/DL Urine Ketones (NEG) MG/DL Urine Blood (NEG) Urine Nitrite (NEG) Ur Leukocyte Esterase (NEG) Urine Opiates Screen (Not Detect) Ur Barbiturates Screen (Not Detect) Ur Phencyclidine Scrn (Not Detect) Ur Amphetamines Screen (Not Detect) U Benzodiazepines Scrn (Not Detect) Urine Cocaine Screen (Not Detect) U Marijuana (THC) Screen (Not Detect) Ethyl Alcohol < 10 mg/dL Acetone, Qual (Negative) COVID-19 ([facility]) Negative (Negative) COVID-19 Clin Com See Note 04/05/21 04/05/21 Range/Units 06:38 06:38 WBC (4.8-10.8) X10*3/uL RBC (4.20-5.50) X10*6/uL Hgb (12.0-16.0) g/dl Hct (37-47) % MCV (80-98) fL MCH (27.0-33.0) pg MCHC (31.0-35.0) g/dl RDW (11.0-16.0) % Plt Count (160-400) X10*3/uL MPV (9.4-12.3) fL Immature Gran % (Auto) (0.0-0.4) % Neut % (Auto) (45-73) % Lymph % (Auto) (20-40) % [place] % (Auto) (2-11) % Eos % (Auto) (0-4) % Baso % (Auto) (0-2) % Lymph # (Auto) (1.2-4.9) X10*3/uL [place] # (Auto) (0.1-1.2) X10*3/uL Eos # (Auto) (0.0-0.4) X10*3/uL Baso # (Auto) (0.0-0.2) X10*3/uL Abs Immat Gran (auto) (0.00-0.03) X10*3/uL Absolute Neuts (auto) (2.0-8.3) X10*3/uL Absolute Nucleated RBC (0.0-0.012) X10*3/uL Nucleated RBC % (auto) (0.0-0.2) /100WBC PT (9.9-13.0) SEC INR (0.9-1.1) Sodium (135-145) mmol/L Potassium (3.3-5.1) mmol/L Chloride (96-108) mmol/L Carbon Dioxide (22-29) mmol/L Anion Gap (12-20) BUN (9-16) mg/dL Creatinine (0.5-1.4) mg/dL Estim Creat Clear Calc Estimated GFR Random Glucose (60-115) mg/dL Lactic Acid (0.5-2.0) mmol/L Calcium (8.4-10.2) mg/dL Magnesium (1.6-2.6) mg/dL Total Bilirubin (0.0-1.0) mg/dL AST (5-31) U/L ALT (0-31) U/L Alkaline Phosphatase (39-117) U/L Total Protein (6.5-8.0) g/dL Albumin (3.5-5.0) g/dL Lipase (8-78) U/L Urine Color YELLOW Urine Appearance HAZY Urine pH 6.0 (5.0-8.0) Ur Specific [place] 1.020 (1.005-1.025) Urine Protein TRACE (NEG-TRACE) MG/DL Urine Glucose (UA) 500 H (NEG) MG/DL Urine Ketones NEG (NEG) MG/DL Urine Blood NEG (NEG) Urine Nitrite NEG (NEG) Ur Leukocyte Esterase NEG (NEG) Urine Opiates Screen Not Detected (Not Detect) Ur Barbiturates Screen Not Detected (Not Detect) Ur Phencyclidine Scrn Not Detected (Not Detect) Ur Amphetamines Screen Not Detected (Not Detect) U Benzodiazepines Scrn Not Detected (Not Detect) Urine Cocaine Screen Not Detected (Not Detect) U Marijuana (THC) Screen Not Detected (Not Detect) Ethyl Alcohol mg/dL Acetone, Qual (Negative) COVID-19 ([facility]) (Negative) COVID-19 Clin Com ECG Data Attestation: I personally reviewed and interpreted this ECG as follows: Prior ECG tracings: available for review (02/18/2021 no acute changes on comparison) Interpretation: Sinus bradycardia, HR-54, RBBB, no STEMI, [place]/QTC are within normal limits Discharge Plan Discharge Clinical Impression: Bowel obstruction, Sepsis Patient Disposition: Admitted As Inpatient [facility] Past Medical History Source: nursing notes reviewed Medical History CVA (cerebral vascular accident) Disc degeneration, lumbar HLD (hyperlipidemia) Hypertension Multinodular thyroid Osteoarthritis of knees, bilateral Recto-perineal fistula Spondylosis of lumbar joint T2DM (type 2 diabetes mellitus) Vitamin D deficiency Surgical History Hx of cholecystectomy Hx of colostomy Hx of hernia repair Hx of skin graft Hx of tubal ligation Family History Family History Father Alzheimer disease Mother Hypertension Gout Arthritis of knee CVD (cardiovascular disease) Social History Social History Household Members: Family Housing: Unknown / Unable to assess Do you presently have visiting nurse or other home services: Yes (Drsg changes to abd) Alcohol intake: former Patient Tobacco Use Status: Former Tobacco user Advance Directives: No service: No Current occupational status: disabled
[2021-04-05 04:44] LABS: Basophils Percent Auto 0.2 % (0-2); Eosinophils Absolute Auto 0.2 X10*3/uL (0.0-0.4); Eosinophils Percent Auto 1.8 % (0-4); Hematocrit 28.8 % (37-47); Hemoglobin 9.1 g/dl (12.0-16.0); Imm Gran Abs Auto 0.01 X10*3/uL (0.00-0.03); Imm Gran Pct Auto 0.1 % (0.0-0.4); Lymphocytes Percent Auto 11.6 % (20-40); MANUAL DIFF FLAG NO; Mean Corpuscular HGB Conc 31.6 g/dl (31.0-35.0); Mean Corpuscular Hemoglobin 25.7 pg (27.0-33.0); Mean Corpuscular Volume 81.4 fL (80-98); Mean Platelet Volume 10.4 fL (9.4-12.3); Monocytes Absolute Auto 0.5 X10*3/uL (0.1-1.2); Monocytes Percent Auto 5.7 % (2-11); Neutrophils Absolute Auto 6.8 X10*3/uL (2.0-8.3); Neutrophils Percent Auto 80.6 % (45-73); Platelet Count 300 X10*3/uL (160-400); Red Blood Count 3.54 X10*6/uL (4.20-5.50); Red Cell Distribution Width 17.5 % (11.0-16.0); White Blood Count 8.5 X10*3/uL (4.8-10.8)
[2021-04-05 04:51] LABS: Prothrombin Time 11.9 SEC (9.9-13.0)
[2021-04-05 04:57] LABS: Acetone, serum QL Negative (Negative)
[2021-04-05 05:06] LABS: Lactic Acid 2.7 mmol/L (0.5-2.0)
[2021-04-05 05:07] LABS: Ethanol < 10 mg/dL
[2021-04-05 05:14] LABS: Alanine Aminotransferase 7 U/L (0-31); Albumin Level 3.4 g/dL (3.5-5.0); Alkaline Phosphatase 132 U/L (39-117); Anion Gap 15 (12-20); Aspartate Amino Transferase 8 U/L (5-31); Bilirubin Total 0.3 mg/dL (0.0-1.0); Blood Urea Nitrogen 18 mg/dL (9-16); Calcium 8.8 mg/dL (8.4-10.2); Carbon Dioxide 18 mmol/L (22-29); Chloride 112 mmol/L (96-108); Creatinine Clr Calc Pharmacy 55.2; Estimated Glomerular Filt Rate 46; Glucose Random 404 mg/dL (60-115); Lipase 16 U/L (8-78); Potassium 3.6 mmol/L (3.3-5.1); Sodium 141 mmol/L (135-145); Total Protein 5.7 g/dL (6.5-8.0)
[2021-04-05 06:45] LABS: Glucose Urine UA 500 MG/DL (NEG); Leukocyte Esterase Urine NEG (NEG); Nitrite Urine NEG (NEG); Urine Blood NEG (NEG); Urine Ketones NEG (NEG); Urine Protein TRACE MG/DL (NEG-TRACE)
[2021-04-05 06:45] LABS: Reflex Lactate? Lactic Acid Added
[2021-04-05 06:46] LABS: COVID-19 Test Negative (Negative)
[2021-04-05 06:47] LABS: Appearance Urine HAZY; Color Urine YELLOW
[2021-04-05] MEDS: LORazepam 2 MG/ML VIAL 0.5 MG IVPUSH (06:55)
[2021-04-05] MEDS: 0.9 % Sodium Chloride 2,000 ML 999 ML IV (06:55)
[2021-04-05] MEDS: ondansetron HCL 4 MG/2 ML VIAL IVPUSH ×2 (06:55→12:02)
--- NOTE | 2021-04-05 07:08 | PM.HPGS ---
History of Present Illness History of Present Illness Date of Service: 04/05/21 Chief complaint: small bowel obstruction Narrative: Pat Caro is a 60 year old female previous history of multiple abdominal surgeries including sleeve gastrectomy, repair of ventral hernias, colostomy followed by reversal of colostomy now presenting with complaints of abdominal pain associated with nausea and vomiting. She has a prior history of bowel obstructions and her symptoms are similar to her previous episodes. The abdominal pain is felt diffusely throughout the abdomen. She presented to the emergency department and a CT of the abdomen and pelvis was obtained. This revealed evidence of a small-bowel obstruction most likely due to adhesions. She is admitted to the surgical service for treatment of this small-bowel obstruction. Review of Systems Review of Systems: Yes all other systems are reviewed and are negative Constitutional: Constitutional: Denies chills, Denies fever(s) and Reports weakness Cardiovascular: Cardiovascular: Reports chest pain, Denies rapid heart rate, Denies irregular heart rhythm and Denies dyspnea Respiratory: Respiratory: Denies cough, Denies dyspnea and Denies wheezing Gastrointestinal: Gastrointestinal: Reports abdominal pain, Reports bloating, Reports constipation, Reports nausea and Reports vomiting Neurologic: Reports weakness Comments: Prior CVA Psychiatric: Psychiatric: Reports anxiety Allergic/Immunologic: Allergic/Immunologic: Denies wheezing PMFSH Past Medical History Medical History CVA (cerebral vascular accident) Disc degeneration, lumbar HLD (hyperlipidemia) Hypertension Multinodular thyroid Osteoarthritis of knees, bilateral Recto-perineal fistula Spondylosis of lumbar joint T2DM (type 2 diabetes mellitus) Vitamin D deficiency Family History Family History Father Alzheimer disease Mother Hypertension Gout Arthritis of knee CVD (cardiovascular disease) Surgical History Surgical History (Updated 04/05/21 @ 14:06 by Donavon Dallas MD) History of sleeve gastrectomy Hx of cholecystectomy Hx of colostomy Hx of hernia repair Hx of skin graft Hx of tubal ligation Social History Social History Household Members: Family Housing: Unknown / Unable to assess Do you presently have visiting nurse or other home services: Yes (Drsg changes to abd) Alcohol intake: former Patient Tobacco Use Status: Former Tobacco user Advance Directives: No service: No Current occupational status: disabled Meds Allergies Allergy/AdvReac Type Severity Reaction Status Date / Time Sulfa (Sulfonamide Allergy Intermediate RASH, LUMPS , Verified 03/23/21 14:23 Antibiotics) blood [Sulfa (Sulfonamides)] clots in legs, hives Active Medications: Current Medications Generic Name Dose Route Start Last Admin Trade Name Freq PRN Reason Stop Dose Admin Acetaminophen 650 mg 04/05/21 06:59 Acetaminophen 325 Mg Tablet PO Q6H PRN Pain, Mild (Pain Scale 1-3) Enoxaparin Sodium 40 mg 04/05/21 07:00 Enoxaparin Sodium 40 Mg/0.4 Ml Syringe SUBCUT Q24H JELLY Hydromorphone HCl 0.5 mg 04/05/21 07:05 Hydromorphone Hcl 0.5 Mg/0.5 Ml Syringe IVPUSH Q4H PRN Pain, Severe (Pain Scale 7-10) Piperacillin Sod/Tazobactam 50 mls @ 100 mls/hr 04/05/21 06:55 Sod 3.375 gm/ Sodium Chloride IV 04/05/21 07:24 ONCE ONE Sodium Chloride 1,572 mls @ 1,572 mls/hr 04/05/21 06:58 Ns IVCONT 04/05/21 07:57 .Q1H ONE Lactated Ringer's 1,000 mls @ 125 mls/hr 04/05/21 07:00 Lr IVCONT .Q8H JELLY Ondansetron HCl 4 mg 04/05/21 06:59 Ondansetron Hcl 4 Mg/2 Ml Vial IVPUSH QID PRN Nausea Pharmacy Consult 1 each 04/05/21 06:59 Consult Rx Perform Med Rec MISCELLANE ONCE PRN Consult order Sodium Chloride 3 ml 04/05/21 08:00 0.9 % Sodium Chloride Flush 3 Ml Syringe IVFLUSH QSHIFT JELLY Temazepam 15 mg 04/05/21 06:59 Temazepam 15 Mg Capsule PO BEDTIME PRN Insomnia Home Medications Medication Instructions Recorded Confirmed Last Taken Type mirtazapine 15 mg tablet 15 mg PO BEDTIME 07/25/20 04/05/21 04/04/21 History prazosin 2 mg capsule 2 mg PO DAILY 07/25/20 04/05/21 04/04/21 History diclofenac sodium 1 % topical gel 2 g TOPICAL QID PRN 01/12/21 04/05/21 Unknown History tizanidine 4 mg tablet 4 mg PO TID PRN 01/12/21 04/05/21 04/04/21 History aspirin 81 mg PO DAILY 02/19/21 04/05/21 04/04/21 History atorvastatin 40 mg PO BEDTIME 02/19/21 04/05/21 04/04/21 History cetirizine 10 mg PO DAILY PRN 02/19/21 04/05/21 04/04/21 History duloxetine 60 mg PO BID 02/19/21 04/05/21 04/04/21 History prazosin 5 mg PO BEDTIME 02/19/21 04/05/21 04/04/21 History acetaminophen [Arthritis Pain 650 mg PO Q12H PRN 04/05/21 04/05/21 Unknown History Relief (acetam)] clopidogrel 1 tab PO QAM 04/05/21 04/05/21 04/04/21 History levetiracetam 1 tab PO BID 04/05/21 04/05/21 04/04/21 History lisinopril 1 tab PO BEDTIME 04/05/21 04/05/21 04/04/21 History pantoprazole 20 mg PO BID 04/05/21 04/05/21 04/04/21 History Physical Exam Vital Signs: Vital Signs: Last Vital Signs Temp 95.7 F L 04/05/21 06:28 Pulse 68 04/05/21 06:28 Resp 13 04/05/21 06:28 BP 95/38 L 04/05/21 06:28 Pulse Ox 100 04/05/21 06:28 Body Mass Index 38.9 Const: General: no acute distress, alert and awake Nutritional Appearance: well nourished Orientation/consciousness: patient oriented x3 Limitations: no limitations Neck: Neck: Yes no JVD Resp: Effort & Inspection: normal respiratory effort, no audible wheezes, no cough and no stridor Cardio: Jugular venous distension: no JVD Rate: regular rate Rhythm: regular rhythm Heart sounds: S1 normal heart sound present GI: Other: Multiple scars throughout the abdomen. Abdomen is obese with mild distension and tenderness especially in the left lower quadrant. No rebound, guarding, or rigidity. No palpable hernia. No erythema in the skin. Skin: Other: Warm, dry, no rash Neuro: General: patient oriented x3 Extrem: Other: No pedal edema Results Results Labs: Short CBC 04/05/21 Range/Units 04:39 WBC 8.5 (4.8-10.8) X10*3/uL Hgb 9.1 L (12.0-16.0) g/dl Hct 28.8 L (37-47) % Plt Count 300 (160-400) X10*3/uL BMP 04/05/21 04:39 Sodium 141 Potassium 3.6 Chloride 112 H Carbon Dioxide 18 L BUN 18 H Creatinine 1.19 Calcium 8.8 Liver Function 04/05/21 Range/Units 04:39 Total Bilirubin 0.3 (0.0-1.0) mg/dL AST 8 D (5-31) U/L ALT 7 (0-31) U/L Alkaline Phosphatase 132 H D (39-117) U/L Albumin 3.4 L (3.5-5.0) g/dL Urine 04/05/21 Range/Units 06:38 Urine Color YELLOW Urine Appearance HAZY Urine pH 6.0 (5.0-8.0) Ur Specific [place] 1.020 (1.005-1.025) Urine Protein TRACE (NEG-TRACE) MG/DL Urine Glucose (UA) 500 H (NEG) MG/DL Assessment and Plan (1) Bowel obstruction: Status: Acute Patient admitted for partial small-bowel obstruction, recurrence as noted in the CT of the abdomen and pelvis. I recommended placing the patient NPO with IV fluids and nasogastric tube decompression. Hospitalist consultation will be requested to assist in her medical management. Insulin sliding scale has been ordered. VTE prophylaxis ordered as well. Quality Stroke Does the patient have a stroke diagnosis?: No VTE Prior VTE?: No VTE Risk Level:: Surgical - high VTE Device Contraindication: N/A - Device Ordered VTE Drug Contraindication: N/A - Med Ordered Procedures Date of Service Date of Service: 04/05/21
[2021-04-05 07:10] LABS: Amphetamine Screen Urine Not Detected (Not Detect); Barbiturates, Urine Not Detected (Not Detect); Benzodiazepines Screen Urine Not Detected (Not Detect); Cannabinoid Screen Urine Not Detected (Not Detect); Cocaine Screen Urine Not Detected (Not Detect); Opiate Screen Urine Not Detected (Not Detect); Phencyclidine Screen Urine Not Detected (Not Detect)
[2021-04-05 07:24] LABS: Glucose, Whole Blood 374 mg/dL (60-115)
[2021-04-05] MEDS: HYDROmorphone HCl 0.5 MG/0.5 ML SYRINGE IVPUSH ×2 (07:37→11:55)
[2021-04-05] MEDS: Piperacillin Sodium/Tazobactam 3.375 GM in 0.9 % Sodium Chloride 50 ML IV (07:37)
[2021-04-05 08:28] LABS: ~Lactic Acid-LAB USE ONLY 1.6 mmol/L (0.5-2.0)
[2021-04-05 08:33] LABS: Glucose, Whole Blood 334 mg/dL (60-115)
[2021-04-05] MEDS: Lactated Ringers 1,000 ML 125 ML IVCONT ×2 (08:36→16:00)
--- NOTE | 2021-04-05 08:36 | PHA.MEDREC ---
Pharmacy Consult ? Medication Reconciliation Pharmacy has completed the medication reconciliation.
[2021-04-05] MEDS: Enoxaparin Sodium 40 MG/0.4 ML SYRINGE SUBCUT (08:42)
--- NOTE | 2021-04-05 08:48 | P.CONIM_ITS ---
History of Present Illness Data of Consult Service Date: 04/05/21 Requesting physician: Donavon Dallas Primary Care Provider: Zelda Mo MD HPI Reason for consult: Medical management 60-year-old female with underlying history of diabetes mellitus, hypertension, chronic back pain, s/p recent admission on 02/18/2021 with left hemiplegia and facial droop and receive tPA, MRI showed not stroke. She has history of gastric sleeve surgery, and prior abdominal hernia repair and presented with abdominal pain nausea and vomitting onset yesterday and is somehow vague about details. She was initially hypotensive with BP of 83/43 but has since improved and no signs of sepsis. CT of abdomen and pelvis has revealed small bowel obstruction. NGT inserted with presently 600cc of output. She is admitted to surgery. Review of Systems 2 Review of Systems: Gen: no fever Resp: no sob, no cough CV: no chest, no GATES, no leg edema GI: No n/v, no abd pain Neuro: vague with some level of confusion Yes all other systems are reviewed and are negative [facility] Medical History CVA (cerebral vascular accident) Disc degeneration, lumbar HLD (hyperlipidemia) Hypertension Multinodular thyroid Osteoarthritis of knees, bilateral Recto-perineal fistula Spondylosis of lumbar joint T2DM (type 2 diabetes mellitus) Vitamin D deficiency Family History Father Alzheimer disease Mother Hypertension Gout Arthritis of knee CVD (cardiovascular disease) Surgical History (Updated 04/05/21 @ 14:06 by Donavon Dallas MD) History of sleeve gastrectomy Hx of cholecystectomy Hx of colostomy Hx of hernia repair Hx of skin graft Hx of tubal ligation Social History Household Members: None Housing: Apartment Do you presently have visiting nurse or other home services: Yes Alcohol intake: former Patient Tobacco Use Status: Former Tobacco user Quit Date: more than a year ago service: No Current occupational status: disabled Meds Allergies Allergy/AdvReac Type Severity Reaction Status Date / Time Sulfa (Sulfonamide Allergy Intermediate RASH, LUMPS , Verified 03/23/21 14:23 Antibiotics) blood [Sulfa (Sulfonamides)] clots in legs, hives Active Medications: Current Medications Generic Name Dose Route Start Last Admin Trade Name Freq PRN Reason Stop Dose Admin Acetaminophen 650 mg 04/05/21 06:59 Acetaminophen 325 Mg Tablet PO Q6H PRN Pain, Mild (Pain Scale 1-3) Enoxaparin Sodium 40 mg 04/05/21 08:00 04/05/21 08:42 Enoxaparin Sodium 40 Mg/0.4 Ml Syringe SUBCUT 40 mg Q24H JELLY Administration Hydromorphone HCl 0.5 mg 04/05/21 07:05 04/05/21 07:37 Hydromorphone Hcl 0.5 Mg/0.5 Ml Syringe IVPUSH 0.5 mg Q4H PRN Administration Pain, Severe (Pain Scale 7-10) Lactated Ringer's 1,000 mls @ 125 mls/hr 04/05/21 07:00 04/05/21 08:36 Lr IVCONT 125 mls/hr .Q8H JELLY Administration Insulin Human Lispro 0 unit 04/05/21 07:30 04/05/21 07:39 Insulin Lispro 100 Unit/Ml 3 Ml Vial SUBCUT 04/06/21 07:06 Not Given QIDACHS [facility] Protocol Ondansetron HCl 4 mg 04/05/21 06:59 Ondansetron Hcl 4 Mg/2 Ml Vial IVPUSH Q8H PRN Nausea Pharmacy Consult 1 each 04/05/21 06:59 Consult Rx Perform Med Rec MISCELLANE ONCE PRN Consult order Sodium Chloride 3 ml 04/05/21 08:00 04/05/21 07:40 0.9 % Sodium Chloride Flush 3 Ml Syringe IVFLUSH Not Given QSHIFT [facility] Temazepam 15 mg 04/05/21 06:59 Temazepam 15 Mg Capsule PO BEDTIME PRN Insomnia Home Medications Medication Instructions Recorded Confirmed Last Taken Type mirtazapine 15 mg tablet 15 mg PO BEDTIME 07/25/20 04/05/21 04/04/21 History prazosin 2 mg capsule 2 mg PO DAILY 07/25/20 04/05/21 04/04/21 History diclofenac sodium 1 % topical gel 2 g TOPICAL QID PRN 01/12/21 04/05/21 Unknown History tizanidine 4 mg tablet 4 mg PO TID PRN 01/12/21 04/05/21 04/04/21 History aspirin 81 mg PO DAILY 02/19/21 04/05/21 04/04/21 History atorvastatin 40 mg PO BEDTIME 02/19/21 04/05/21 04/04/21 History cetirizine 10 mg PO DAILY PRN 02/19/21 04/05/21 04/04/21 History duloxetine 60 mg PO BID 02/19/21 04/05/21 04/04/21 History prazosin 5 mg PO BEDTIME 02/19/21 04/05/21 04/04/21 History acetaminophen [Arthritis Pain 650 mg PO Q12H PRN 04/05/21 04/05/21 Unknown History Relief (acetam)] clopidogrel 1 tab PO QAM 04/05/21 04/05/21 04/04/21 History levetiracetam 1 tab PO BID 04/05/21 04/05/21 04/04/21 History lisinopril 1 tab PO BEDTIME 04/05/21 04/05/21 04/04/21 History pantoprazole 20 mg PO BID 04/05/21 04/05/21 04/04/21 History Physical Exam Vital Signs and Narrative: Vital Signs: Last Vital Signs Temp 97.0 F 04/05/21 08:45 Pulse 103 H 04/05/21 08:45 Resp 18 04/05/21 08:45 BP 120/50 L 04/05/21 08:45 Pulse Ox 96 04/05/21 08:45 Body Mass Index 38.9 Results Labs CBC and Chem 7: 04/06/21 05:40 04/06/21 05:40 Labs: Laboratory Results - last 24 hr 04/05/21 04/05/21 04/05/21 04:39 04:39 04:39 MCV 81.4 MCH 25.7 L MCHC 31.6 RDW 17.5 H Plt Count 300 MPV 10.4 Immature Gran % (Auto) 0.1 Neut % (Auto) 80.6 H Lymph % (Auto) 11.6 L [place] % (Auto) 5.7 Eos % (Auto) 1.8 Baso % (Auto) 0.2 Lymph # (Auto) 1.0 L [place] # (Auto) 0.5 Eos # (Auto) 0.2 Baso # (Auto) 0.0 Abs Immat Gran (auto) 0.01 Absolute Neuts (auto) 6.8 Absolute Nucleated RBC 0.000 Nucleated RBC % (auto) 0.0 PT 11.9 INR 1.0 Anion Gap 15 Estim Creat Clear Calc 55.2 Estimated GFR 46 POC Glucose Random Glucose 404 H* Lactic Acid Lactic Acid Fup @ 2Hr Calcium 8.8 Magnesium 2.0 Total Bilirubin 0.3 AST 8 D ALT 7 Alkaline Phosphatase 132 H D Total Protein 5.7 L Albumin 3.4 L Lipase 16 Urine Color Urine Appearance Urine pH Ur Specific [place] Urine Protein Urine Glucose (UA) Urine Ketones Urine Blood Urine Nitrite Ur Leukocyte Esterase Urine Opiates Screen Ur Barbiturates Screen Ur Phencyclidine Scrn Ur Amphetamines Screen U Benzodiazepines Scrn Urine Cocaine Screen U Marijuana (THC) Screen Ethyl Alcohol Acetone, Qual Negative COVID-19 ([facility]) [facility] 04/05/21 04/05/21 04/05/21 04:39 04:39 05:57 MCV MCH MCHC RDW Plt Count MPV Immature Gran % (Auto) Neut % (Auto) Lymph % (Auto) [place] % (Auto) Eos % (Auto) Baso % (Auto) Lymph # (Auto) [place] # (Auto) Eos # (Auto) Baso # (Auto) Abs Immat Gran (auto) Absolute Neuts (auto) Absolute Nucleated RBC Nucleated RBC % (auto) PT INR Anion Gap Estim Creat Clear Calc Estimated GFR POC Glucose Random Glucose Lactic Acid 2.7 H* Lactic Acid Fup @ 2Hr Calcium Magnesium Total Bilirubin AST ALT Alkaline Phosphatase Total Protein Albumin Lipase Urine Color Urine Appearance Urine pH Ur Specific [place] Urine Protein Urine Glucose (UA) Urine Ketones Urine Blood Urine Nitrite Ur Leukocyte Esterase Urine Opiates Screen Ur Barbiturates Screen Ur Phencyclidine Scrn Ur Amphetamines Screen U Benzodiazepines Scrn Urine Cocaine Screen U Marijuana (THC) Screen Ethyl Alcohol < 10 Acetone, Qual COVID-19 ([facility]) Negative [facility] See Note 04/05/21 04/05/21 04/05/21 06:38 06:38 07:21 MCV MCH MCHC RDW Plt Count MPV Immature Gran % (Auto) Neut % (Auto) Lymph % (Auto) [place] % (Auto) Eos % (Auto) Baso % (Auto) Lymph # (Auto) [place] # (Auto) Eos # (Auto) Baso # (Auto) Abs Immat Gran (auto) Absolute Neuts (auto) Absolute Nucleated RBC Nucleated RBC % (auto) PT INR Anion Gap Estim Creat Clear Calc Estimated GFR POC Glucose 374 H* Random Glucose Lactic Acid Lactic Acid Fup @ 2Hr Calcium Magnesium Total Bilirubin AST ALT Alkaline Phosphatase Total Protein Albumin Lipase Urine Color YELLOW Urine Appearance HAZY Urine pH 6.0 Ur Specific [place] 1.020 Urine Protein TRACE Urine Glucose (UA) 500 H Urine Ketones NEG Urine Blood NEG Urine Nitrite NEG Ur Leukocyte Esterase NEG Urine Opiates Screen Not Detected Ur Barbiturates Screen Not Detected Ur Phencyclidine Scrn Not Detected Ur Amphetamines Screen Not Detected U Benzodiazepines Scrn Not Detected Urine Cocaine Screen Not Detected U Marijuana (THC) Screen Not Detected Ethyl Alcohol Acetone, Qual COVID-19 ([facility]) [facility] 04/05/21 04/05/21 07:59 08:29 MCV MCH MCHC RDW Plt Count MPV Immature Gran % (Auto) Neut % (Auto) Lymph % (Auto) [place] % (Auto) Eos % (Auto) Baso % (Auto) Lymph # (Auto) [place] # (Auto) Eos # (Auto) Baso # (Auto) Abs Immat Gran (auto) Absolute Neuts (auto) Absolute Nucleated RBC Nucleated RBC % (auto) PT INR Anion Gap Estim Creat Clear Calc Estimated GFR POC Glucose 334 H Random Glucose Lactic Acid Lactic Acid Fup @ 2Hr 1.6 Calcium Magnesium Total Bilirubin AST ALT Alkaline Phosphatase Total Protein Albumin Lipase Urine Color Urine Appearance Urine pH Ur Specific [place] Urine Protein Urine Glucose (UA) Urine Ketones Urine Blood Urine Nitrite Ur Leukocyte Esterase Urine Opiates Screen Ur Barbiturates Screen Ur Phencyclidine Scrn Ur Amphetamines Screen U Benzodiazepines Scrn Urine Cocaine Screen U Marijuana (THC) Screen Ethyl Alcohol Acetone, Qual COVID-19 ([facility]) COVID-19 [facility] Radiologist's Impressions: Impressions Head CT 04/05/21 04:38 IMPRESSION: No acute intracranial pathology. Abdomen/Pelvis CT 04/05/21 04:52 IMPRESSION: 1. Small bowel obstruction with multiple dilated fluid-filled and fecalized small bowel loops in the left abdomen. Transition from dilated to nondilated small bowel occurs within a segment of bowel in the central anterior abdomen. 2. Foci of venous gas including within the right external iliac and superficial femoral vessels. This could be secondary to attempted central line or introduction of air into intravenous line. 3. Mild groundglass haziness at the lung bases, which could reflect mild air trapping on an expiratory scan. Mild inflammatory etiology is difficult to exclude in the proper clinical setting. Assessment and Plan (1) Bowel obstruction: Status: Acute (2) T2DM (type 2 diabetes mellitus): Status: Acute 60/F with HTN, HLD, diabetes, h/o gastric sleeve and prior hernia here with abdominal pain, n/v and found to have small bowel obstruction. 1/SBO--presently management with NGT, surgery will determine if needs intervention. NPO 2/HTN--BP was low earlier now normal, low BP was not due to sepsis, hold meds 3/ Diabetes--with very high glucsoe despite been NPO, hold meds. SSI while NPO, IVF IVF with glucose 4/HLD--on lipitor but hold for now 5/Lactic acidosis--not due to sepsis, likely from bowel obstruction, and transient low BP 6/GERD-prilosec when able to take PO 7/Hold all other meds for now If surgery required, intermediate risk, no indication for furhter work up
--- NOTE | 2021-04-05 10:56 | PC.NURSE ---
poc checked, 349, has been in 300's for the morning. held insulin this morning due to patient NPO and fluids running. text to dr huang and told rn to cover with insulin. will cover and continue to monitor POC
[2021-04-05] MEDS: Insulin Lispro 100 UNIT/ML 3 ML VIAL SUBCUT ×3 (11:01→20:30)
[2021-04-05 11:09] LABS: Glucose, Whole Blood 349 mg/dL (60-115)
[2021-04-05] MEDS: Acetaminophen 325 MG TABLET 650 MG PO (11:55)
[2021-04-05 12:04] LABS: Glucose, Whole Blood 256 mg/dL (60-115)
[2021-04-05 14:03] LABS: Glucose, Whole Blood 174 mg/dL (60-115)
--- NOTE | 2021-04-05 15:04 | PC.NURSE ---
contacted for elevated temp of 100.8, last Tylenol adminsitration had no effect. awaiting call back now.
--- NOTE | 2021-04-05 16:12 | PC.NURSE ---
1st call upstairs to give report. efrain rn to call back in 5 minutes.
[2021-04-05] MEDS: Acetaminophen Supp 650 MG SUPP.RECT PR (16:27)
[2021-04-05 16:53] LABS: Glucose, Whole Blood 181 mg/dL (60-115)
[2021-04-05 17:29] LABS: Glucose, Whole Blood 172 mg/dL (60-115)
[2021-04-05 20:26] LABS: Glucose, Whole Blood 122 mg/dL (60-115)
--- NOTE | 2021-04-05 20:55 | PC.NURSE ---
Addendum entered by Akilah Del Angel RN 04/05/21 22:45: Dr. Dallas notified of x-ray results,NG to reconected to suction. Original Note: P no output from ng tube since admission to this floor ,small amt of brownish drainage present in the tubing I-verified suction equipment and connections with second RN,verified NG tube placement by air sound with second RN,questionable,ordered x-ray to verify placement E awaiting results,patient has no complaints,denies nausea or pain
[2021-04-06 06:56] LABS: Hematocrit 27.9 % (37-47); Hemoglobin 8.8 g/dl (12.0-16.0); Mean Corpuscular HGB Conc 31.5 g/dl (31.0-35.0); Mean Corpuscular Hemoglobin 25.6 pg (27.0-33.0); Mean Corpuscular Volume 81.1 fL (80-98); Mean Platelet Volume 10.6 fL (9.4-12.3); Platelet Count 283 X10*3/uL (160-400); Red Blood Count 3.44 X10*6/uL (4.20-5.50); Red Cell Distribution Width 18.1 % (11.0-16.0)
[2021-04-06] MEDS: Enoxaparin Sodium 40 MG/0.4 ML SYRINGE SUBCUT (07:33)
[2021-04-06] MEDS: Lactated Ringers 1,000 ML 125 ML IVCONT ×4 (07:33→21:41)
[2021-04-06 08:00] VITALS: BP 164/68; PULSE 87; RESP 17; TEMP 37; O2SAT 97
[2021-04-06 08:12] LABS: Glucose, Whole Blood 146 mg/dL (60-115)
[2021-04-06 08:12] LABS: Band Neutrophils Percent 16 % (3-5); Eosinophils Absolute Manual 0.6 X10*3/UL (0.0-0.8); Eosinophils Percent Manual 7 % (0-4); Lymphocytes Absolute Manual 1.3 X10*3/uL (0.6-4.8); Lymphocytes Percent Manual 16 % (20-40); Monocytes Absolute Manual 0.4 X10*3/uL (0.0-1.2); Monocytes Percent Manual 5 % (2-11); Neutrophils Absolute Manual 5.8 X10*3/uL (2.2-7.9); Neutrophils Percent Manual 56 % (45-73)
[2021-04-06 08:13] LABS: Burr Cells 1+ (0-2) /OIF; Hypochromasia 1+ (5-14) /OIF; Platelet Estimate NORMAL (NORMAL); Platelet Morphology Comment NORMAL; Polychromasia 1+ (0-2) /OIF; RBC Morphology NOTED
[2021-04-06 08:19] LABS: Anion Gap 11 (12-20); Blood Urea Nitrogen 12 mg/dL (9-16); Calcium 8.7 mg/dL (8.4-10.2); Carbon Dioxide 22 mmol/L (22-29); Chloride 113 mmol/L (96-108); Estimated Glomerular Filt Rate > 60; Glucose Random 186 mg/dL (60-115); Potassium 3.6 mmol/L (3.3-5.1); Sodium 142 mmol/L (135-145)
[2021-04-06] MEDS: Acetaminophen 325 MG TABLET 650 MG PO (10:51)
[2021-04-06 11:23] LABS: Glucose, Whole Blood 164 mg/dL (60-115)
[2021-04-06 16:00] VITALS: BP 179/80; PULSE 74; RESP 14; TEMP 35.9; O2SAT 92
--- NOTE | 2021-04-06 16:41 | PC.NURSE ---
Addendum entered by Akilah Del Angel RN 04/06/21 18:42: patient was medicated for pain,BP still elevated 185/84 pulse 80,patient comfortable at present,Dr. Fowler notified Original Note: P BP elevated 179/[address] Fowler notified E will monitor
[2021-04-06 16:43] LABS: Glucose, Whole Blood 116 mg/dL (60-115)
--- NOTE | 2021-04-06 16:47 | P.PNGS_ITS ---
Subjective Subjective Date of Service: 04/06/21 Interval history: Patient reports continued abdominal pain in the lower abdomen. She denies vomiting. She is having some bloody discharge from the nose related to the nasogastric tube. She denies flatus or BM today although she had diarrhe a prior to her admission. Physical Exam Vital Signs: Vital Signs: Last Vital Signs Temp 96.6 F L 04/06/21 16:00 Pulse 74 04/06/21 16:00 Resp 14 04/06/21 16:00 BP 179/80 H 04/06/21 16:00 Pulse Ox 92 04/06/21 16:00 Body Mass Index 38.9 Const: General: no acute distress Nutritional Appearance: well nourished Orientation/consciousness: patient oriented x3 Limitations: no limitations Resp: Effort & Inspection: normal respiratory effort GI: Other: Distended, tympanitic, nasogastric tube in place. Mild tenderness to deep palpation without rebound or guarding. Abdominal wound with packing in the lower midline. Dressings were changed and the wound was repacked. Abdomen image: 1. Site of open wound in the middle of a long transverse incision Skin: General skin exam: no rashes or lesions noted Neuro: General: patient oriented x3 Extrem: General: No edema Progress Note: A&P Assessment and plan (1) Bowel obstruction: Status: Acute Assessment and Plan: 60-year-old female with numerous previous abdominal surgeries including multiple hernia surgeries with mesh presenting with a small-bowel obstruction presumably due to adhesions. She was admitted for bowel rest, IV fluids, nasogastric tube decompression. She continues to have abdominal distension without improvement. I discussed the findings of the CT and recommended continued non operative management due to her extensive scar tissue from the many abdominal surgeries. I will repeat an abdominal x-ray today and check labs in the morning. Fall Risk Details Current Medications: Current Medications Generic Name Dose Route Start Last Admin Trade Name Freq PRN Reason Stop Dose Admin Acetaminophen 650 mg 04/05/21 06:59 04/06/21 10:51 Acetaminophen 325 Mg Tablet PO 650 mg Q6H PRN Administration Pain, Mild (Pain Scale 1-3) Enoxaparin Sodium 40 mg 04/05/21 08:00 04/06/21 07:33 Enoxaparin Sodium 40 Mg/0.4 Ml Syringe SUBCUT 40 mg Q24H JELLY Administration Hydromorphone HCl 0.5 mg 04/05/21 07:05 04/05/21 11:55 Hydromorphone Hcl 0.5 Mg/0.5 Ml Syringe IVPUSH 0.5 mg Q4H PRN Administration Pain, Severe (Pain Scale 7-10) Lactated Ringer's 1,000 mls @ 125 mls/hr 04/05/21 07:00 04/06/21 14:12 Lr IVCONT 125 mls/hr .Q8H JELLY Administration Ondansetron HCl 4 mg 04/05/21 06:59 04/05/21 12:02 Ondansetron Hcl 4 Mg/2 Ml Vial IVPUSH 4 mg Q8H PRN Administration Nausea Pharmacy Consult 1 each 04/05/21 06:59 Consult Rx Perform Med Rec MISCELLANE ONCE PRN Consult order Sodium Chloride 3 ml 04/05/21 08:00 04/06/21 07:32 0.9 % Sodium Chloride Flush 3 Ml Syringe IVFLUSH Not Given QSHIFT JELLY Temazepam 15 mg 04/05/21 06:59 Temazepam 15 Mg Capsule PO BEDTIME PRN Insomnia Time Spent With Patient Time: Total time spent is greater than 50% in coordination of care (as documented) at patient's floor/unit and/or counseling patient: Time with patient: 15 - 24 minutes Procedures Date of Service Date of Service: 04/06/21 Quality Stroke Does the patient have a stroke diagnosis?: No VTE Prior VTE?: No VTE Risk Level:: Surgical - high VTE Device Contraindication: N/A - Device Ordered VTE Drug Contraindication: N/A - Med Ordered
[2021-04-06] MEDS: HYDROmorphone HCl 0.5 MG/0.5 ML SYRINGE IVPUSH (16:49)
--- NOTE | 2021-04-06 17:06 | P.PNIM_ITS ---
Subjective Subjective Date of Service: 04/06/21 Interval History: Seen in f/u for medical management, here for bowel obstruction. NGT is in with less drainage compare to yesterday Review of Systems Gen: no fever Resp: no sob, no cough CV: no chest, no GATES, no leg edema GI: +nausea, Neuro: No confusion Review of Systems: Yes all other systems are reviewed and are negative Physical Exam Vital Signs: Vital Signs: Last Vital Signs Temp 96.6 F L 04/06/21 16:00 Pulse 74 04/06/21 16:00 Resp 14 04/06/21 16:00 BP 179/80 H 04/06/21 16:00 Pulse Ox 92 04/06/21 16:00 Body Mass Index 38.9 Const: Other: General: AO X, no acute distress Resp: normal breathing, patter CVS: S1,S2,RRR GI: decre bowel sound, +distention Skin: No rash Neuro: motor grossly intact Psych: appropriate affect Objective Data Current Medications Generic Name Dose Route Start Last Admin Trade Name Andresq PRN Reason Stop Dose Admin Acetaminophen 650 mg 04/05/21 06:59 04/06/21 10:51 Acetaminophen 325 Mg Tablet PO 650 mg Q6H PRN Administration Pain, Mild (Pain Scale 1-3) Enoxaparin Sodium 40 mg 04/05/21 08:00 04/06/21 07:33 Enoxaparin Sodium 40 Mg/0.4 Ml Syringe SUBCUT 40 mg Q24H JELLY Administration Hydromorphone HCl 0.5 mg 04/05/21 07:05 04/06/21 16:49 Hydromorphone Hcl 0.5 Mg/0.5 Ml Syringe IVPUSH 0.5 mg Q4H PRN Administration Pain, Severe (Pain Scale 7-10) Lactated Ringer's 1,000 mls @ 125 mls/hr 04/05/21 07:00 04/06/21 14:12 Lr IVCONT 125 mls/hr .Q8H JELLY Administration Ondansetron HCl 4 mg 04/05/21 06:59 04/05/21 12:02 Ondansetron Hcl 4 Mg/2 Ml Vial IVPUSH 4 mg Q8H PRN Administration Nausea Pharmacy Consult 1 each 04/05/21 06:59 Consult Rx Perform Med Rec MISCELLANE ONCE PRN Consult order Sodium Chloride 3 ml 04/05/21 08:00 04/06/21 16:50 0.9 % Sodium Chloride Flush 3 Ml Syringe IVFLUSH Not Given QSHIFT JELLY Temazepam 15 mg 04/05/21 06:59 Temazepam 15 Mg Capsule PO BEDTIME PRN Insomnia Labs CBC & Chem 7: 04/06/21 05:40 04/06/21 05:40 Labs: Laboratory Results - last 24 hr 04/05/21 04/05/21 04/06/21 17:25 20:20 05:40 WBC 8.0 RBC 3.44 L Hgb 8.8 L Hct 27.9 L MCV 81.1 MCH 25.6 L MCHC 31.5 RDW 18.1 H Plt Count 283 MPV 10.6 Immature Gran % (Auto) Cancelled Neut % (Auto) Cancelled Lymph % (Auto) Cancelled [place] % (Auto) Cancelled Eos % (Auto) Cancelled Baso % (Auto) Cancelled Lymph # (Auto) Cancelled [place] # (Auto) Cancelled Eos # (Auto) Cancelled Baso # (Auto) Cancelled Abs Immat Gran (auto) Cancelled Absolute Neuts (auto) Cancelled Absolute Nucleated RBC 0.000 Nucleated RBC % (auto) 0.0 Neutrophils % (Manual) 56 Band Neutrophils % 16 H Lymphocytes % (Manual) 16 L Monocytes % (Manual) 5 Eosinophils % (Manual) 7 H Abs Neuts (Manual) 5.8 Lymphocytes # (Manual) 1.3 Monocytes # (Manual) 0.4 Eosinophils # (Manual) 0.6 Platelet Estimate NORMAL Plt Morphology Comment NORMAL RBC Morphology NOTED Polychromasia 1+ (0-2) Hypochromasia 1+ (5-14) [place] Cells 1+ (0-2) Sodium Potassium Chloride Carbon Dioxide Anion Gap BUN Creatinine Estim Creat Clear Calc Estimated GFR POC Glucose 172 H 122 H Random Glucose Calcium 04/06/21 04/06/21 04/06/21 05:40 08:00 11:17 WBC RBC Hgb Hct MCV MCH MCHC RDW Plt Count MPV Immature Gran % (Auto) Neut % (Auto) Lymph % (Auto) [place] % (Auto) Eos % (Auto) Baso % (Auto) Lymph # (Auto) [place] # (Auto) Eos # (Auto) Baso # (Auto) Abs Immat Gran (auto) Absolute Neuts (auto) Absolute Nucleated RBC Nucleated RBC % (auto) Neutrophils % (Manual) Band Neutrophils % Lymphocytes % (Manual) Monocytes % (Manual) Eosinophils % (Manual) Abs Neuts (Manual) Lymphocytes # (Manual) Monocytes # (Manual) Eosinophils # (Manual) Platelet Estimate Plt Morphology Comment RBC Morphology Polychromasia Hypochromasia [place] Cells Sodium 142 Potassium 3.6 Chloride 113 H Carbon Dioxide 22 Anion Gap 11 L BUN 12 Creatinine 0.67 Estim Creat Clear Calc 98.0 Estimated GFR > 60 POC Glucose 146 H 164 H Random Glucose 186 H D Calcium 8.7 04/06/21 16:38 WBC RBC Hgb Hct MCV MCH MCHC RDW Plt Count MPV Immature Gran % (Auto) Neut % (Auto) Lymph % (Auto) [place] % (Auto) Eos % (Auto) Baso % (Auto) Lymph # (Auto) [place] # (Auto) Eos # (Auto) Baso # (Auto) Abs Immat Gran (auto) Absolute Neuts (auto) Absolute Nucleated RBC Nucleated RBC % (auto) Neutrophils % (Manual) Band Neutrophils % Lymphocytes % (Manual) Monocytes % (Manual) Eosinophils % (Manual) Abs Neuts (Manual) Lymphocytes # (Manual) Monocytes # (Manual) Eosinophils # (Manual) Platelet Estimate Plt Morphology Comment RBC Morphology Polychromasia Hypochromasia [place] Cells Sodium Potassium Chloride Carbon Dioxide Anion Gap BUN Creatinine Estim Creat Clear Calc Estimated GFR POC Glucose 116 H Random Glucose Calcium Microbiology Microbiology Results: Microbiology 04/05/21 06:06 Blood Culture - Preliminary Blood - Venous No growth after 24 hours. 04/05/21 06:06 Blood Culture - Preliminary Blood - Venous No growth after 24 hours. Quality Stroke Does the patient have a stroke diagnosis?: No VTE Prior VTE?: No VTE Risk Level:: Surgical - high VTE Device Contraindication: N/A - Device Ordered VTE Drug Contraindication: N/A - Med Ordered Assessment and Plan (1) Bowel obstruction: Status: Acute (2) T2DM (type 2 diabetes mellitus): Status: Acute Assessment and Plan: 60/F with HTN, HLD, diabetes, h/o gastric sleeve and prior hernia here with abdominal pain, n/v and found to have small bowel obstruction. 1/SBO--presently management with NGT, surgery will determine if needs intervention. NPO 2/HTN--BPs have been variable, restart med if eating if not consider IV meds 3/ Diabetes--with very high glucsoe despite been NPO, hold meds. SSI while NPO, IVF IVF with glucose 4/HLD--on lipitor but hold for now 5/Lactic acidosis--not due to sepsis, likely from bowel obstruction, and transient low BP 6/GERD-prilosec when able to take PO 7/Hold all other meds for now If surgery required, intermediate risk, no indication for furhter work up
[2021-04-06 18:18] VITALS: BP 185/84; PULSE 80; RESP 20
[2021-04-06 20:26] LABS: Glucose, Whole Blood 105 mg/dL (60-115)
[2021-04-06 21:29] VITALS: BP 198/90; PULSE 82
[2021-04-06] MEDS: Gabapentin 600 MG TABLET 1200 MG PO (21:29)
[2021-04-06] MEDS: Mirtazapine 15 MG TABLET PO (21:29)
[2021-04-06] MEDS: lisinopriL 10 MG TABLET 30 MG PO (21:29)
[2021-04-06 21:30] VITALS: BP 198/90; PULSE 82
[2021-04-06] MEDS: Prazosin HCL 1 MG CAPSULE 2 MG PO (21:30)
[2021-04-06] MEDS: levETIRAcetam 500 MG TABLET 750 MG PO (21:32)
[2021-04-06] MEDS: DULoxetine HCl 60 MG CAPSULE.DR PO (21:32)
[2021-04-06 23:22] VITALS: BP 154/73; PULSE 102; RESP 18; TEMP 36.3; O2SAT 84
[2021-04-07] VITALS (9 sets, daily range): BP systolic 155–193; BP diastolic 64–83; PULSE 85–95; RESP 18–20; TEMP 36–36.5; O2SAT 92–97
[2021-04-07] MEDS: Lactated Ringers 1,000 ML 125 ML IVCONT ×3 (05:29→22:49)
[2021-04-07 06:20] LABS: MANUAL DIFF FLAG NO
[2021-04-07 06:29] LABS: Basophils Percent Auto 0.5 % (0-2); Eosinophils Absolute Auto 0.3 X10*3/uL (0.0-0.4); Eosinophils Percent Auto 4.4 % (0-4); Hematocrit 28.7 % (37-47); Hemoglobin 8.9 g/dl (12.0-16.0); Imm Gran Abs Auto 0.03 X10*3/uL (0.00-0.03); Imm Gran Pct Auto 0.5 % (0.0-0.4); Lymphocytes Absolute Auto 1.3 X10*3/uL (1.2-4.9); Lymphocytes Percent Auto 23.6 % (20-40); Mean Corpuscular Hemoglobin 24.9 pg (27.0-33.0); Mean Corpuscular Volume 80.2 fL (80-98); Mean Platelet Volume 10.5 fL (9.4-12.3); Monocytes Absolute Auto 0.5 X10*3/uL (0.1-1.2); Neutrophils Absolute Auto 3.5 X10*3/uL (2.0-8.3); Platelet Count 267 X10*3/uL (160-400); Red Blood Count 3.58 X10*6/uL (4.20-5.50); Red Cell Distribution Width 17.5 % (11.0-16.0); White Blood Count 5.7 X10*3/uL (4.8-10.8)
[2021-04-07 07:06] LABS: Anion Gap 11 (12-20); Blood Urea Nitrogen 6 mg/dL (9-16); Calcium 8.5 mg/dL (8.4-10.2); Carbon Dioxide 25 mmol/L (22-29); Chloride 110 mmol/L (96-108); Creatinine Clr Calc Pharmacy 111.4; Estimated Glomerular Filt Rate > 60; Glucose Random 144 mg/dL (60-115); Potassium 3.3 mmol/L (3.3-5.1); Sodium 143 mmol/L (135-145)
[2021-04-07 07:30] LABS: Glucose, Whole Blood 139 mg/dL (60-115)
[2021-04-07] MEDS: HYDROmorphone HCl 0.5 MG/0.5 ML SYRINGE IVPUSH ×3 (08:16→22:49)
[2021-04-07] MEDS: Enoxaparin Sodium 40 MG/0.4 ML SYRINGE SUBCUT (08:19)
[2021-04-07] MEDS: DULoxetine HCl 60 MG CAPSULE.DR PO ×2 (08:19→20:01)
[2021-04-07] MEDS: Gabapentin 600 MG TABLET 1200 MG PO ×2 (08:19→20:01)
[2021-04-07] MEDS: Prazosin HCL 1 MG CAPSULE 2 MG PO (08:19)
[2021-04-07] MEDS: levETIRAcetam 500 MG TABLET 750 MG PO ×2 (08:20→19:59)
[2021-04-07] MEDS: Acetaminophen 325 MG TABLET 650 MG PO ×2 (10:42→20:03)
[2021-04-07 10:56] LABS: Glucose, Whole Blood 171 mg/dL (60-115)
--- NOTE | 2021-04-07 11:07 | HO.PM.IMPN ---
Subjective Subjective Date of Service: 04/07/21 Interval History: Seen in f/u for medical management, here for bowel obstruction. NGT still present, has some abedominal discomfort still, n/ Review of Systems Gen: no fever Resp: no sob, no cough CV: no chest, no GATES, no leg edema GI: +nausea, abdominal discomforrt Neuro: No confusion Physical Exam Vital Signs: Vital Signs: Last Vital Signs Temp 97.0 F 04/07/21 08:00 Pulse 86 04/07/21 08:00 Resp 18 04/07/21 08:00 BP 174/74 H 04/07/21 08:00 Pulse Ox 95 04/07/21 08:00 Body Mass Index 38.9 Const: Other: General: AO X, no acute distress Resp: normal breathing, patter CVS: S1,S2,RRR GI: decre bowel sound, +distention, mild tender, abdominal bound in place Skin: No rash Neuro: motor grossly intact Psych: appropriate affect Objective Data Current Medications Generic Name Dose Route Start Last Admin Trade Name Freq PRN Reason Stop Dose Admin Acetaminophen 650 mg 04/05/21 06:59 04/07/21 10:42 Acetaminophen 325 Mg Tablet PO 650 mg Q6H PRN Administration Pain, Mild (Pain Scale 1-3) Duloxetine HCl 60 mg 04/06/21 21:00 04/07/21 08:19 Duloxetine Hcl 60 Mg Capsule.Dr PO 60 mg BID JELLY Administration Enoxaparin Sodium 40 mg 04/05/21 08:00 04/07/21 08:19 Enoxaparin Sodium 40 Mg/0.4 Ml Syringe SUBCUT 40 mg Q24H JELLY Administration Gabapentin 1,200 mg 04/06/21 21:00 04/07/21 08:19 Gabapentin 600 Mg Tablet PO 1,200 mg BID JELLY Administration Hydromorphone HCl 0.5 mg 04/05/21 07:05 04/07/21 08:16 Hydromorphone Hcl 0.5 Mg/0.5 Ml Syringe IVPUSH 0.5 mg Q4H PRN Administration Pain, Severe (Pain Scale 7-10) Lactated Ringer's 1,000 mls @ 125 mls/hr 04/05/21 07:00 04/07/21 05:29 Lr IVCONT 125 mls/hr .Q8H JELLY Administration Levetiracetam 750 mg 04/06/21 21:00 04/07/21 08:20 Levetiracetam 500 Mg Tablet PO 750 mg BID JELLY Administration Lisinopril 30 mg 04/06/21 21:00 04/06/21 21:29 Lisinopril 10 Mg Tablet PO 30 mg BEDTIME JELLY Administration Protocol Loratadine 10 mg 04/06/21 19:03 Loratadine 10 Mg Tablet PO DAILY PRN Allergy Symptoms Mirtazapine 15 mg 04/06/21 21:00 04/06/21 21:29 Mirtazapine 15 Mg Tablet PO 15 mg BEDTIME JELLY Administration Ondansetron HCl 4 mg 04/05/21 06:59 04/05/21 12:02 Ondansetron Hcl 4 Mg/2 Ml Vial IVPUSH 4 mg Q8H PRN Administration Nausea Pharmacy Consult 1 each 04/05/21 06:59 Consult Rx Perform Med Rec MISCELLANE ONCE PRN Consult order Prazosin HCl 2 mg 04/06/21 19:15 04/07/21 08:19 Prazosin Hcl 1 Mg Capsule PO 2 mg DAILY JELLY Administration Protocol Prazosin HCl 5 mg 04/06/21 21:00 04/06/21 21:32 Prazosin Hcl 5 Mg Capsule PO Not Given BEDTIME JELLY Protocol Sodium Chloride 3 ml 04/05/21 08:00 04/07/21 08:19 0.9 % Sodium Chloride Flush 3 Ml Syringe IVFLUSH Not Given QSHIFT JELLY Temazepam 15 mg 04/05/21 06:59 Temazepam 15 Mg Capsule PO BEDTIME PRN Insomnia Tizanidine HCl 4 mg 04/06/21 19:03 Tizanidine Hcl 4 Mg Tablet PO TID PRN Muscle Pain Labs CBC & Chem 7: 04/07/21 06:01 04/07/21 06:01 Labs: Laboratory Results - last 24 hr 04/06/21 04/06/21 04/06/21 11:17 16:38 20:21 WBC RBC Hgb Hct MCV MCH MCHC RDW Plt Count MPV Immature Gran % (Auto) Neut % (Auto) Lymph % (Auto) [place] % (Auto) Eos % (Auto) Baso % (Auto) Lymph # (Auto) [place] # (Auto) Eos # (Auto) Baso # (Auto) Abs Immat Gran (auto) Absolute Neuts (auto) Absolute Nucleated RBC Nucleated RBC % (auto) Sodium Potassium Chloride Carbon Dioxide Anion Gap BUN Creatinine Estim Creat Clear Calc Estimated GFR POC Glucose 164 H 116 H 105 Random Glucose Calcium 04/07/21 04/07/21 04/07/21 06:01 06:01 07:27 WBC 5.7 RBC 3.58 L Hgb 8.9 L Hct 28.7 L MCV 80.2 MCH 24.9 L MCHC 31.0 RDW 17.5 H Plt Count 267 MPV 10.5 Immature Gran % (Auto) 0.5 H Neut % (Auto) 62.0 Lymph % (Auto) 23.6 [place] % (Auto) 9.0 Eos % (Auto) 4.4 H Baso % (Auto) 0.5 Lymph # (Auto) 1.3 [place] # (Auto) 0.5 Eos # (Auto) 0.3 Baso # (Auto) 0.0 Abs Immat Gran (auto) 0.03 Absolute Neuts (auto) 3.5 Absolute Nucleated RBC 0.000 Nucleated RBC % (auto) 0.0 Sodium 143 Potassium 3.3 Chloride 110 H Carbon Dioxide 25 Anion Gap 11 L BUN 6 L Creatinine 0.59 Estim Creat Clear Calc 111.4 Estimated GFR > 60 POC Glucose 139 H Random Glucose 144 H Calcium 8.5 04/07/21 10:52 WBC RBC Hgb Hct MCV MCH MCHC RDW Plt Count MPV Immature Gran % (Auto) Neut % (Auto) Lymph % (Auto) [place] % (Auto) Eos % (Auto) Baso % (Auto) Lymph # (Auto) [place] # (Auto) Eos # (Auto) Baso # (Auto) Abs Immat Gran (auto) Absolute Neuts (auto) Absolute Nucleated RBC Nucleated RBC % (auto) Sodium Potassium Chloride Carbon Dioxide Anion Gap BUN Creatinine Estim Creat Clear Calc Estimated GFR POC Glucose 171 H Random Glucose Calcium Microbiology Microbiology Results: Microbiology 04/05/21 06:06 Blood Culture - Preliminary Blood - Venous No growth after 48 hours. 04/05/21 06:06 Blood Culture - Preliminary Blood - Venous No growth after 48 hours. Quality Stroke Does the patient have a stroke diagnosis?: No VTE Prior VTE?: No VTE Risk Level:: Surgical - high VTE Device Contraindication: N/A - Device Ordered VTE Drug Contraindication: N/A - Med Ordered Assessment and Plan (1) Bowel obstruction: Status: Acute (2) T2DM (type 2 diabetes mellitus): Status: Acute Assessment and Plan: 60/F with HTN, HLD, diabetes, h/o gastric sleeve and prior hernia here with abdominal pain, n/v and found to have small bowel obstruction. 1/SBO--presently management with NGT, surgery will determine if needs intervention. NPO 2/HTN--on Lisinopril 30, minipress, proably not absorbing meds, BP still high, I will add IV labetalol 3/ Diabetes--with very high glucsoe despite been NPO, hold meds. SSI while NPO, IVF IVF 4/HLD--on lipitor but hold for now 5/Lactic acidosis--not due to sepsis, likely from bowel obstruction, and transient low BP 6/GERD-prilosec when able to take PO 7/Hold all other meds for now If surgery required, intermediate risk, no indication for furhter work up
[2021-04-07] MEDS: hydrALAZINE HCl 20 MG/ML VIAL 10 MG IVPUSH (12:28)
--- NOTE | 2021-04-07 14:21 | P.PNGS_ITS ---
Progress Note: A&P Assessment and plan (1) Bowel obstruction: Status: Acute Assessment and Plan: 60-year-old female patient with an extensive surgical history presenting for small-bowel obstruction. She has undergone numerous surgical procedures inclu ding colon resection with colostomy, reversal of colostomy, hernia repair x2 with large mesh and previous bowel obstructions. She was found to have dilated loops of small bowel with an apparent small bowel obstruction due to adhesions. The patient was admitted, placed on bowel rest with nasogastric tube decompression and IV fluids. She is starting to pass some flatus but has not had a bowel movement yet. Because of her extensive surgical history with hernia repairs and mesh, we are continuing a non operative management. Fall Risk Details Current Medications: Current Medications Generic Name Dose Route Start Last Admin Trade Name Freq PRN Reason Stop Dose Admin Acetaminophen 650 mg 04/05/21 06:59 04/07/21 10:42 Acetaminophen 325 Mg Tablet PO 650 mg Q6H PRN Administration Pain, Mild (Pain Scale 1-3) Duloxetine HCl 60 mg 04/06/21 21:00 04/07/21 08:19 Duloxetine Hcl 60 Mg Capsule.Dr PO 60 mg BID JELLY Administration Enoxaparin Sodium 40 mg 04/05/21 08:00 04/07/21 08:19 Enoxaparin Sodium 40 Mg/0.4 Ml Syringe SUBCUT 40 mg Q24H JELLY Administration Gabapentin 1,200 mg 04/06/21 21:00 04/07/21 08:19 Gabapentin 600 Mg Tablet PO 1,200 mg BID JELLY Administration Hydromorphone HCl 0.5 mg 04/05/21 07:05 04/07/21 08:16 Hydromorphone Hcl 0.5 Mg/0.5 Ml Syringe IVPUSH 0.5 mg Q4H PRN Administration Pain, Severe (Pain Scale 7-10) Lactated Ringer's 1,000 mls @ 125 mls/hr 04/05/21 07:00 04/07/21 14:14 Lr IVCONT 125 mls/hr .Q8H JELLY Administration Levetiracetam 750 mg 04/06/21 21:00 04/07/21 08:20 Levetiracetam 500 Mg Tablet PO 750 mg BID JELLY Administration Lisinopril 30 mg 04/06/21 21:00 04/06/21 21:29 Lisinopril 10 Mg Tablet PO 30 mg BEDTIME JELLY Administration Protocol Loratadine 10 mg 04/06/21 19:03 Loratadine 10 Mg Tablet PO DAILY PRN Allergy Symptoms Mirtazapine 15 mg 04/06/21 21:00 04/06/21 21:29 Mirtazapine 15 Mg Tablet PO 15 mg BEDTIME JELLY Administration Ondansetron HCl 4 mg 04/05/21 06:59 04/05/21 12:02 Ondansetron Hcl 4 Mg/2 Ml Vial IVPUSH 4 mg Q8H PRN Administration Nausea Pharmacy Consult 1 each 04/05/21 06:59 Consult Rx Perform Med Rec MISCELLANE ONCE PRN Consult order Prazosin HCl 2 mg 04/06/21 19:15 04/07/21 08:19 Prazosin Hcl 1 Mg Capsule PO 2 mg DAILY JELLY Administration Protocol Prazosin HCl 5 mg 04/06/21 21:00 04/06/21 21:32 Prazosin Hcl 5 Mg Capsule PO Not Given BEDTIME JELLY Protocol Sodium Chloride 3 ml 04/05/21 08:00 04/07/21 08:19 0.9 % Sodium Chloride Flush 3 Ml Syringe IVFLUSH Not Given QSHIFT JELLY Temazepam 15 mg 04/05/21 06:59 Temazepam 15 Mg Capsule PO BEDTIME PRN Insomnia Tizanidine HCl 4 mg 04/06/21 19:03 Tizanidine Hcl 4 Mg Tablet PO TID PRN Muscle Pain Time Spent With Patient Time: Total time spent is greater than 50% in coordination of care (as documented) at patient's floor/unit and/or counseling patient: Time with patient: 15 - 24 minutes Subjective Subjective Date of Service: 04/07/21 Interval history: Patient reports passing flatus today but no bowel movement. She still has some abdominal discomfort. Nasogastric tube was found to be at the GE junction. Tube was advanced by RN today. Physical Exam Vital Signs: Vital Signs: Last Vital Signs Temp 97.5 F 04/07/21 12:16 Pulse 85 04/07/21 12:16 Resp 18 04/07/21 12:16 BP 155/74 H 04/07/21 12:16 Pulse Ox 92 04/07/21 12:16 Body Mass Index 38.9 Const: General: alert and awake Nutritional Appearance: well nourished and obese Orientation/consciousness: patient oriented x3 Limitations: no limitations Resp: Effort & Inspection: normal respiratory effort GI: Other: Distended, tender in the upper abdomen without rebound, guarding, or rigidity. No bowel sounds. Skin: Other: Warm, dry, no rash Neuro: General: patient oriented x3 Extrem: General: Yes no clubbing, cyanosis or edema Procedures Date of Service Date of Service: 04/07/21 Quality Stroke Does the patient have a stroke diagnosis?: No VTE Prior VTE?: No VTE Risk Level:: Surgical - high VTE Device Contraindication: N/A - Device Ordered VTE Drug Contraindication: N/A - Med Ordered
--- NOTE | 2021-04-07 16:21 | PC.NURSE ---
P BP improved 166/79 pulse 94 ,SAT 88% on RA ,patient states she feels a little SOB I repositined patient,OXYGEN 2 L applied,Dr. Fowler notified E sat 97-98% on oxygen
[2021-04-07 16:30] LABS: Glucose, Whole Blood 147 mg/dL (60-115)
[2021-04-07] MEDS: lisinopriL 10 MG TABLET 30 MG PO (20:00)
[2021-04-07] MEDS: Prazosin HCL 5 MG CAPSULE PO (20:01)
[2021-04-07] MEDS: Mirtazapine 15 MG TABLET PO (20:02)
[2021-04-07 20:12] LABS: Glucose, Whole Blood 151 mg/dL (60-115)
[2021-04-08] VITALS (9 sets, daily range): BP systolic 148–195; BP diastolic 50–83; PULSE 88–96; RESP 17–20; TEMP 36.4–37; O2SAT 88–95
[2021-04-08] MEDS: Butalb/Acetamin/Caff 50/325/40 TABLET 1 TAB PO ×2 (05:13→16:09)
[2021-04-08] MEDS: Lactated Ringers 1,000 ML 125 ML IVCONT ×2 (06:42→15:46)
[2021-04-08 07:48] LABS: Glucose, Whole Blood 155 mg/dL (60-115)
[2021-04-08] MEDS: Prazosin HCL 1 MG CAPSULE 2 MG PO (08:54)
[2021-04-08] MEDS: levETIRAcetam 500 MG TABLET 750 MG PO ×2 (08:54→20:42)
[2021-04-08] MEDS: Gabapentin 600 MG TABLET 1200 MG PO ×2 (08:54→20:42)
[2021-04-08] MEDS: DULoxetine HCl 60 MG CAPSULE.DR PO ×2 (08:54→20:42)
[2021-04-08] MEDS: hydrALAZINE HCl 20 MG/ML VIAL 10 MG IVPUSH ×3 (08:57→20:43)
[2021-04-08] MEDS: Enoxaparin Sodium 40 MG/0.4 ML SYRINGE SUBCUT (09:04)
[2021-04-08] MEDS: HYDROmorphone HCl 0.5 MG/0.5 ML SYRINGE IVPUSH ×3 (09:08→20:36)
--- NOTE | 2021-04-08 10:06 | HO.PM.IMPN ---
Subjective Subjective Date of Service: 04/08/21 Interval History: Seen in f/u for medical management, here for bowel obstruction. NGT in, BP remains high, Review of Systems Gen: no fever Resp: no sob, no cough CV: no chest, no GATES, no leg edema GI: +nausea, abdominal discomforrt Neuro: No confusion Physical Exam Vital Signs: Vital Signs: Last Vital Signs Temp 97.6 F 04/08/21 07:29 Pulse 88 04/08/21 07:29 Resp 17 04/08/21 07:29 BP 180/50 H 04/08/21 08:57 Pulse Ox 91 L 04/08/21 07:29 Body Mass Index 38.9 Const: Other: General: AO X, no acute distress Resp: normal breathing, patter CVS: S1,S2,RRR GI: decre bowel sound, +distention, mild tender, abdominal bound in place Skin: No rash Neuro: motor grossly intact Psych: appropriate affect Objective Data Current Medications Generic Name Dose Route Start Last Admin Trade Name Freq PRN Reason Stop Dose Admin Acetaminophen 650 mg 04/05/21 06:59 04/07/21 20:03 Acetaminophen 325 Mg Tablet PO 650 mg Q6H PRN Administration Pain, Mild (Pain Scale 1-3) Duloxetine HCl 60 mg 04/06/21 21:00 04/08/21 08:54 Duloxetine Hcl 60 Mg Capsule.Dr PO 60 mg BID JELLY Administration Enoxaparin Sodium 40 mg 04/05/21 08:00 04/08/21 09:04 Enoxaparin Sodium 40 Mg/0.4 Ml Syringe SUBCUT 40 mg Q24H JELLY Administration Gabapentin 1,200 mg 04/06/21 21:00 04/08/21 08:54 Gabapentin 600 Mg Tablet PO 1,200 mg BID JELLY Administration Hydralazine HCl 10 mg 04/08/21 09:00 04/08/21 08:57 Hydralazine Hcl 20 Mg/Ml Vial IVPUSH 10 mg Q6H JELLY Administration Protocol Hydromorphone HCl 0.5 mg 04/05/21 07:05 04/08/21 09:08 Hydromorphone Hcl 0.5 Mg/0.5 Ml Syringe IVPUSH 0.5 mg Q4H PRN Administration Pain, Severe (Pain Scale 7-10) Lactated Ringer's 1,000 mls @ 125 mls/hr 04/05/21 07:00 04/08/21 06:42 Lr IVCONT 125 mls/hr .Q8H JELLY Administration Levetiracetam 750 mg 04/06/21 21:00 04/08/21 08:54 Levetiracetam 500 Mg Tablet PO 750 mg BID JELLY Administration Lisinopril 30 mg 04/06/21 21:00 04/07/21 20:00 Lisinopril 10 Mg Tablet PO 30 mg BEDTIME JELLY Administration Protocol Loratadine 10 mg 04/06/21 19:03 Loratadine 10 Mg Tablet PO DAILY PRN Allergy Symptoms Mirtazapine 15 mg 04/06/21 21:00 04/07/21 20:02 Mirtazapine 15 Mg Tablet PO 15 mg BEDTIME JELLY Administration Ondansetron HCl 4 mg 04/05/21 06:59 04/05/21 12:02 Ondansetron Hcl 4 Mg/2 Ml Vial IVPUSH 4 mg Q8H PRN Administration Nausea Pharmacy Consult 1 each 04/05/21 06:59 Consult Rx Perform Med Rec MISCELLANE ONCE PRN Consult order Prazosin HCl 2 mg 04/06/21 19:15 04/08/21 08:54 Prazosin Hcl 1 Mg Capsule PO 2 mg DAILY JELLY Administration Protocol Prazosin HCl 5 mg 04/06/21 21:00 04/07/21 20:01 Prazosin Hcl 5 Mg Capsule PO 5 mg BEDTIME JELLY Administration Protocol Sodium Chloride 3 ml 04/05/21 08:00 04/08/21 07:36 0.9 % Sodium Chloride Flush 3 Ml Syringe IVFLUSH Not Given QSHIFT JELLY Temazepam 15 mg 04/05/21 06:59 Temazepam 15 Mg Capsule PO BEDTIME PRN Insomnia Tizanidine HCl 4 mg 04/06/21 19:03 Tizanidine Hcl 4 Mg Tablet PO TID PRN Muscle Pain Labs CBC & Chem 7: 04/07/21 06:01 04/07/21 06:01 Labs: Laboratory Results - last 24 hr 04/07/21 04/07/21 04/07/21 10:52 16:23 20:01 POC Glucose 171 H 147 H 151 H 04/08/21 07:27 POC Glucose 155 H Microbiology Microbiology Results: Microbiology 04/05/21 06:06 Blood Culture - Preliminary Blood - Venous No growth after 48 hours. 07/21/21 06:06 Blood Culture - Preliminary Blood - Venous No growth after 48 hours. Quality Stroke Does the patient have a stroke diagnosis?: No VTE Prior VTE?: No VTE Risk Level:: Surgical - high VTE Device Contraindication: N/A - Device Ordered VTE Drug Contraindication: N/A - Med Ordered Assessment and Plan (1) Bowel obstruction: Status: Acute (2) T2DM (type 2 diabetes mellitus): Status: Acute Assessment and Plan: 60/F with HTN, HLD, diabetes, h/o gastric sleeve and prior hernia here with abdominal pain, n/v and found to have small bowel obstruction. 1/SBO--presently management with NGT, surgery will determine if needs intervention. NPO 2/HTN--on Lisinopril 30, minipress, proably not absorbing meds, BP still high, I will add IV Hydralazine, when feasible start her oral meds 3/ Diabetes--with very high glucsoe despite been NPO, hold meds. SSI while NPO, IVF IVF 4/HLD--on lipitor but hold for now 5/Lactic acidosis--not due to sepsis, likely from bowel obstruction, and transient low BP 6/GERD-prilosec when able to take PO 7/Hold all other meds for now If surgery required, intermediate risk, no indication for furhter work up
[2021-04-08 11:41] LABS: Glucose, Whole Blood 143 mg/dL (60-115)
[2021-04-08] MEDS: Acetaminophen 325 MG TABLET 650 MG PO (13:12)
--- NOTE | 2021-04-08 15:35 | P.PNGS_ITS ---
Progress Note: A&P Assessment and plan (1) Bowel obstruction: Status: Acute Assessment and Plan: 60 year old female with psbo s/p multiple previous surgeries so prob due to adhesions - had large ventral hernia repair in past so hoping for resolution w ith conservative care. cont with npo and ngtube ivf, check lytes and cbc tomorrow check another abdo series - consider bowel obstruction study with gastrograffin material in am ambulate pain control prn pt understands and agrees Fall Risk Details Current Medications: Current Medications Generic Name Dose Route Start Last Admin Trade Name Freq PRN Reason Stop Dose Admin Acetaminophen 650 mg 04/05/21 06:59 04/08/21 13:12 Acetaminophen 325 Mg Tablet PO 650 mg Q6H PRN Administration Pain, Mild (Pain Scale 1-3) Duloxetine HCl 60 mg 04/06/21 21:00 04/08/21 08:54 Duloxetine Hcl 60 Mg Capsule.Dr PO 60 mg BID JELLY Administration Enoxaparin Sodium 40 mg 04/05/21 08:00 04/08/21 09:04 Enoxaparin Sodium 40 Mg/0.4 Ml Syringe SUBCUT 40 mg Q24H JELLY Administration Gabapentin 1,200 mg 04/06/21 21:00 04/08/21 08:54 Gabapentin 600 Mg Tablet PO 1,200 mg BID JELLY Administration Hydralazine HCl 10 mg 04/08/21 09:00 04/08/21 08:57 Hydralazine Hcl 20 Mg/Ml Vial IVPUSH 10 mg Q6H JELLY Administration Protocol Hydromorphone HCl 0.5 mg 04/05/21 07:05 04/08/21 13:12 Hydromorphone Hcl 0.5 Mg/0.5 Ml Syringe IVPUSH 0.5 mg Q4H PRN Administration Pain, Severe (Pain Scale 7-10) Lactated Ringer's 1,000 mls @ 125 mls/hr 04/05/21 07:00 04/08/21 06:42 Lr IVCONT 125 mls/hr .Q8H JELLY Administration Levetiracetam 750 mg 04/06/21 21:00 04/08/21 08:54 Levetiracetam 500 Mg Tablet PO 750 mg BID JELLY Administration Lisinopril 30 mg 04/06/21 21:00 04/07/21 20:00 Lisinopril 10 Mg Tablet PO 30 mg BEDTIME JELLY Administration Protocol Loratadine 10 mg 04/06/21 19:03 Loratadine 10 Mg Tablet PO DAILY PRN Allergy Symptoms Mirtazapine 15 mg 04/06/21 21:00 04/07/21 20:02 Mirtazapine 15 Mg Tablet PO 15 mg BEDTIME JELLY Administration Ondansetron HCl 4 mg 04/05/21 06:59 04/05/21 12:02 Ondansetron Hcl 4 Mg/2 Ml Vial IVPUSH 4 mg Q8H PRN Administration Nausea Pharmacy Consult 1 each 04/05/21 06:59 Consult Rx Perform Med Rec MISCELLANE ONCE PRN Consult order Prazosin HCl 2 mg 04/06/21 19:15 04/08/21 08:54 Prazosin Hcl 1 Mg Capsule PO 2 mg DAILY JELLY Administration Protocol Prazosin HCl 5 mg 04/06/21 21:00 04/07/21 20:01 Prazosin Hcl 5 Mg Capsule PO 5 mg BEDTIME JELLY Administration Protocol Sodium Chloride 3 ml 04/05/21 08:00 04/08/21 07:36 0.9 % Sodium Chloride Flush 3 Ml Syringe IVFLUSH Not Given QSHIFT JELLY Temazepam 15 mg 04/05/21 06:59 Temazepam 15 Mg Capsule PO BEDTIME PRN Insomnia Tizanidine HCl 4 mg 04/06/21 19:03 Tizanidine Hcl 4 Mg Tablet PO TID PRN Muscle Pain Time Spent With Patient Time: Total time spent is greater than 50% in coordination of care (as documented) at patient's floor/unit and/or counseling patient: Time with patient: 25 - 35 minutes Subjective Subjective Date of Service: 04/08/21 Interval history: pt complaining of abdo pain, no nausea or vomiting, ng tube in place, says has passed a little gas, no bowel movement, just walking in room Physical Exam Vital Signs: Vital Signs: Last Vital Signs Temp 97.6 F 04/08/21 07:29 Pulse 88 04/08/21 07:29 Resp 17 04/08/21 07:29 BP 180/50 H 04/08/21 08:57 Pulse Ox 91 L 04/08/21 07:29 Body Mass Index 38.9 Const: General: cooperative and comfortable Resp: Effort & Inspection: normal respiratory effort Auscultation: clear to auscultation bilaterally Cardio: Rate: regular rate Heart sounds: S1 normal heart sound present and S2 normal heart sound present GI: Other: soft, mild distension, hypo active bowel sounds, midline wound with some drainage, no peritoneal signs Procedures Date of Service Date of Service: 04/08/21 Quality Stroke Does the patient have a stroke diagnosis?: No VTE Prior VTE?: No VTE Risk Level:: Surgical - high VTE Device Contraindication: N/A - Device Ordered VTE Drug Contraindication: N/A - Med Ordered
[2021-04-08 17:12] LABS: Glucose, Whole Blood 133 mg/dL (60-115)
[2021-04-08] MEDS: bisacodyL 10 MG SUPP.RECT PR (18:24)
[2021-04-08 20:15] LABS: Glucose, Whole Blood 139 mg/dL (60-115)
[2021-04-08] MEDS: lisinopriL 10 MG TABLET 30 MG PO (20:42)
[2021-04-08] MEDS: Prazosin HCL 5 MG CAPSULE PO (20:42)
[2021-04-08] MEDS: Mirtazapine 15 MG TABLET PO (20:42)
[2021-04-09] VITALS: BP 150/65; PULSE 100; RESP 16; TEMP 36.3; O2SAT 95
[2021-04-09] MEDS: Lactated Ringers 1,000 ML 125 ML IVCONT (02:30)
[2021-04-09 02:43] VITALS: BP 189/76; PULSE 100
[2021-04-09] MEDS: hydrALAZINE HCl 20 MG/ML VIAL 10 MG IVPUSH ×3 (02:43→14:01)
[2021-04-09 06:59] LABS: Eos%MD 3.7 %; IG%MD 0.8 %; PLT CLUMP 1; Red Cell Distribution Width 17.2 % (11.0-16.0)
[2021-04-09 07:01] LABS: Baso%MD 0.3 %; Hematocrit 25.9 % (37-47); Hemoglobin 8.3 g/dl (12.0-16.0); Lymph%MD 16.7 %; Mean Corpuscular Hemoglobin 25.2 pg (27.0-33.0); Mean Corpuscular Volume 78.5 fL (80-98); Mono%MD 9.5 %; NRBC Pct Auto 0.3 /100WBC (0.0-0.2); White Blood Count 7.3 X10*3/uL (4.8-10.8)
[2021-04-09 07:42] LABS: Band Neutrophils Percent 2 % (3-5); Basophils Abs Manual 0.1 X10*3/uL (0.0-0.3); Basophils Percent Manual 1 % (0-1); Eosinophils Absolute Manual 0.3 X10*3/UL (0.0-0.8); Eosinophils Percent Manual 4 % (0-4); Lymphocytes Absolute Manual 1.5 X10*3/uL (0.6-4.8); Lymphocytes Percent Manual 21 % (20-40); Monocytes Absolute Manual 0.7 X10*3/uL (0.0-1.2); Monocytes Percent Manual 10 % (2-11); Neutrophils Absolute Manual 4.7 X10*3/uL (2.2-7.9); Neutrophils Percent Manual 62 % (45-73); RBC Morphology NOTED
[2021-04-09 07:43] LABS: Hypochromasia 1+ (5-14) /OIF; Polychromasia 1+ (0-2) /OIF
[2021-04-09 07:44] LABS: Platelet Estimate NORMAL (NORMAL); Platelet Morphology Comment NORMAL
[2021-04-09 07:50] LABS: Glucose, Whole Blood 147 mg/dL (60-115)
[2021-04-09 07:51] VITALS: BP 184/81; PULSE 92; RESP 20; TEMP 36.7; O2SAT 97
[2021-04-09 07:53] LABS: Anion Gap 13 (12-20); Blood Urea Nitrogen 4 mg/dL (9-16); Calcium 8.4 mg/dL (8.4-10.2); Carbon Dioxide 26 mmol/L (22-29); Chloride 105 mmol/L (96-108); Creatinine Clr Calc Pharmacy 119.4; Estimated Glomerular Filt Rate > 60; Glucose Random 152 mg/dL (60-115); Magnesium 1.5 mg/dL (1.6-2.6); Potassium 3.2 mmol/L (3.3-5.1); Sodium 141 mmol/L (135-145)
[2021-04-09] MEDS: Enoxaparin Sodium 40 MG/0.4 ML SYRINGE SUBCUT (07:53)
[2021-04-09] MEDS: levETIRAcetam 500 MG TABLET 750 MG PO ×2 (07:54→21:28)
[2021-04-09 07:56] LABS: Platelet Count 260 X10*3/uL (160-400)
[2021-04-09] MEDS: Prazosin HCL 1 MG CAPSULE 2 MG PO (07:56)
[2021-04-09] MEDS: Gabapentin 600 MG TABLET 1200 MG PO ×2 (07:56→21:29)
[2021-04-09] MEDS: HYDROmorphone HCl 0.5 MG/0.5 ML SYRINGE IVPUSH ×3 (07:57→18:55)
[2021-04-09] MEDS: DULoxetine HCl 60 MG CAPSULE.DR PO ×2 (08:03→21:28)
--- NOTE | 2021-04-09 08:32 | P.PNIM_ITS ---
Subjective Subjective Date of Service: 04/09/21 Interval History: Seen in f/u for medical management, here for bowel obstruction. NGT in, BP remains high, and she still has some abdominal discomfort Review of Systems Gen: no fever Resp: no sob, no cough CV: no chest, no GATES, no leg edema GI: +nausea, abdominal discomforrt Neuro: No confusion Physical Exam Vital Signs: Vital Signs: Last Vital Signs Temp 98.0 F 04/09/21 07:51 Pulse 92 04/09/21 07:51 Resp 20 04/09/21 07:51 BP 184/81 H 04/09/21 07:51 Pulse Ox 97 04/09/21 07:51 Body Mass Index 38.9 Const: Other: General: AO X, no acute distress Resp: normal breathing, patter CVS: S1,S2,RRR GI: decre bowel sound, +distention, mild tender, abdominal bound in place Skin: No rash Neuro: motor grossly intact Psych: appropriate affect Objective Data Current Medications Generic Name Dose Route Start Last Admin Trade Name Freq PRN Reason Stop Dose Admin Acetaminophen 650 mg 04/05/21 06:59 04/08/21 13:12 Acetaminophen 325 Mg Tablet PO 650 mg Q6H PRN Administration Pain, Mild (Pain Scale 1-3) Duloxetine HCl 60 mg 04/06/21 21:00 04/09/21 08:03 Duloxetine Hcl 60 Mg Capsule.Dr PO 60 mg BID JELLY Administration Enoxaparin Sodium 40 mg 04/05/21 08:00 04/09/21 07:53 Enoxaparin Sodium 40 Mg/0.4 Ml Syringe SUBCUT 40 mg Q24H JELLY Administration Gabapentin 1,200 mg 04/06/21 21:00 04/09/21 07:56 Gabapentin 600 Mg Tablet PO 1,200 mg BID JELLY Administration Hydralazine HCl 10 mg 04/08/21 09:00 04/09/21 07:57 Hydralazine Hcl 20 Mg/Ml Vial IVPUSH 10 mg Q6H JELLY Administration Protocol Hydromorphone HCl 0.5 mg 04/05/21 07:05 04/09/21 07:57 Hydromorphone Hcl 0.5 Mg/0.5 Ml Syringe IVPUSH 0.5 mg Q4H PRN Administration Pain, Severe (Pain Scale 7-10) Lactated Ringer's 1,000 mls @ 125 mls/hr 04/05/21 07:00 04/09/21 07:53 Lr IVCONT Not Given .Q8H JELLY Levetiracetam 750 mg 04/06/21 21:00 04/09/21 07:54 Levetiracetam 500 Mg Tablet PO 750 mg BID JELLY Administration Lisinopril 30 mg 04/06/21 21:00 04/08/21 20:42 Lisinopril 10 Mg Tablet PO 30 mg BEDTIME JELLY Administration Protocol Loratadine 10 mg 04/06/21 19:03 Loratadine 10 Mg Tablet PO DAILY PRN Allergy Symptoms Mirtazapine 15 mg 04/06/21 21:00 04/08/21 20:42 Mirtazapine 15 Mg Tablet PO 15 mg BEDTIME JELLY Administration Ondansetron HCl 4 mg 04/05/21 06:59 04/05/21 12:02 Ondansetron Hcl 4 Mg/2 Ml Vial IVPUSH 4 mg Q8H PRN Administration Nausea Pharmacy Consult 1 each 04/05/21 06:59 Consult Rx Perform Med Rec MISCELLANE ONCE PRN Consult order Prazosin HCl 2 mg 04/06/21 19:15 04/09/21 07:56 Prazosin Hcl 1 Mg Capsule PO 2 mg DAILY JELLY Administration Protocol Prazosin HCl 5 mg 04/06/21 21:00 04/08/21 20:42 Prazosin Hcl 5 Mg Capsule PO 5 mg BEDTIME JELLY Administration Protocol Sodium Chloride 3 ml 04/05/21 08:00 04/09/21 07:53 0.9 % Sodium Chloride Flush 3 Ml Syringe IVFLUSH Not Given QSHIFT JELLY Temazepam 15 mg 04/05/21 06:59 Temazepam 15 Mg Capsule PO BEDTIME PRN Insomnia Tizanidine HCl 4 mg 04/06/21 19:03 Tizanidine Hcl 4 Mg Tablet PO TID PRN Muscle Pain Labs CBC & Chem 7: 04/09/21 06:37 04/09/21 06:37 Labs: Laboratory Results - last 24 hr 04/08/21 04/08/21 04/08/21 11:21 16:56 19:51 WBC RBC Hgb Hct MCV MCH MCHC RDW Plt Count MPV Absolute Nucleated RBC Nucleated RBC % (auto) Neutrophils % (Manual) Band Neutrophils % Lymphocytes % (Manual) Monocytes % (Manual) Eosinophils % (Manual) Basophils % (Manual) Abs Neuts (Manual) Lymphocytes # (Manual) Monocytes # (Manual) Eosinophils # (Manual) Basophils # (Manual) Platelet Estimate Plt Morphology Comment RBC Morphology Polychromasia Hypochromasia Sodium Potassium Chloride Carbon Dioxide Anion Gap BUN Creatinine Estim Creat Clear Calc Estimated GFR POC Glucose 143 H 133 H 139 H Random Glucose Calcium Phosphorus Magnesium 04/09/21 04/09/21 04/09/21 06:37 06:37 07:41 WBC 7.3 RBC 3.30 L Hgb 8.3 L Hct 25.9 L MCV 78.5 L MCH 25.2 L MCHC 32.0 RDW 17.2 H Plt Count 260 MPV Not Reportable Absolute Nucleated RBC 0.020 H Nucleated RBC % (auto) 0.3 H Neutrophils % (Manual) 62 Band Neutrophils % 2 L Lymphocytes % (Manual) 21 Monocytes % (Manual) 10 Eosinophils % (Manual) 4 Basophils % (Manual) 1 Abs Neuts (Manual) 4.7 Lymphocytes # (Manual) 1.5 Monocytes # (Manual) 0.7 Eosinophils # (Manual) 0.3 Basophils # (Manual) 0.1 Platelet Estimate NORMAL Plt Morphology Comment NORMAL RBC Morphology NOTED Polychromasia 1+ (0-2) Hypochromasia 1+ (5-14) Sodium 141 Potassium 3.2 L Chloride 105 Carbon Dioxide 26 Anion Gap 13 BUN 4 L Creatinine 0.55 Estim Creat Clear Calc 119.4 Estimated GFR > 60 POC Glucose 147 H Random Glucose 152 H Calcium 8.4 Phosphorus 3.0 Magnesium 1.5 L Quality Stroke Does the patient have a stroke diagnosis?: No VTE Prior VTE?: No VTE Risk Level:: Surgical - high VTE Device Contraindication: N/A - Device Ordered VTE Drug Contraindication: N/A - Med Ordered Assessment and Plan (1) Bowel obstruction: Status: Acute (2) T2DM (type 2 diabetes mellitus): Status: Acute Assessment and Plan: 60/F with HTN, HLD, diabetes, h/o gastric sleeve and prior hernia here with abdominal pain, n/v and found to have small bowel obstruction. 1/SBO--presently management with NGT, surgery will determine if needs inter vention. NPO, Repeat Xray today 2/HTN--on Lisinopril 30, minipress, proably not absorbing meds, BP still high, Continue IV hydralzin and adjust as needed 3/ Diabetes--with very high glucsoe despite been NPO, hold meds. SSI while NPO, IVF IVF 4/HLD--on lipitor but hold for now 5/Lactic acidosis--not due to sepsis, likely from bowel obstruction, and transient low BP 6/GERD-prilosec when able to take PO 7/Hold all other meds for now 8/Mild HypOkalemia--add K to fluid 9/Anemia--H/H is slightly lower, she has been having mild blood in NGT, IV PPI and recheck H/H tomorrow and if still low GI eval If surgery required, intermediate risk, no indication for furhter work up
[2021-04-09] MEDS: KCl 20 mEq in 0.45% Sod 20 MEQ/1,000 ML IV.SOLN 100 MEQ IVCONT ×2 (09:36→18:28)
[2021-04-09] MEDS: Pantoprazole Sodium 40 MG/10 ML VIAL IVPUSH ×2 (11:10→18:29)
[2021-04-09 11:44] LABS: Glucose, Whole Blood 164 mg/dL (60-115)
--- NOTE | 2021-04-09 15:24 | P.PNGS_ITS ---
Progress Note: A&P Assessment and plan (1) Bowel obstruction: Status: Acute Assessment and Plan: 60 year old female s/p multiple surgeries in the past, with psbo, resolving prob due to adhesions - want to have success with conservative care - abdo xrays improved today and did have a small bowel movement - labs ok plan - cont with ivf, sips of clears and popsicles around clamped ngtube ambulate appreciate med team following replace K and other electrolytes Fall Risk Details Current Medications: Current Medications Generic Name Dose Route Start Last Admin Trade Name Freq PRN Reason Stop Dose Admin Acetaminophen 650 mg 04/05/21 06:59 04/08/21 13:12 Acetaminophen 325 Mg Tablet PO 650 mg Q6H PRN Administration Pain, Mild (Pain Scale 1-3) Duloxetine HCl 60 mg 04/06/21 21:00 04/09/21 08:03 Duloxetine Hcl 60 Mg Capsule.Dr PO 60 mg BID JELLY Administration Enoxaparin Sodium 40 mg 04/05/21 08:00 04/09/21 07:53 Enoxaparin Sodium 40 Mg/0.4 Ml Syringe SUBCUT 40 mg Q24H JELLY Administration Gabapentin 1,200 mg 04/06/21 21:00 04/09/21 07:56 Gabapentin 600 Mg Tablet PO 1,200 mg BID JELLY Administration Hydralazine HCl 10 mg 04/08/21 09:00 04/09/21 14:01 Hydralazine Hcl 20 Mg/Ml Vial IVPUSH 10 mg Q6H JELLY Administration Protocol Hydromorphone HCl 0.5 mg 04/05/21 07:05 04/09/21 14:01 Hydromorphone Hcl 0.5 Mg/0.5 Ml Syringe IVPUSH 0.5 mg Q4H PRN Administration Pain, Severe (Pain Scale 7-10) Potassium Chloride/Sodium Chloride 20 meq in 1,000 mls @ 100 mls/hr 04/09/21 09:00 04/09/21 09:36 IVCONT 100 mls/hr .Q10H JELLY Administration Levetiracetam 750 mg 04/06/21 21:00 04/09/21 07:54 Levetiracetam 500 Mg Tablet PO 750 mg BID JELLY Administration Lisinopril 30 mg 04/06/21 21:00 04/08/21 20:42 Lisinopril 10 Mg Tablet PO 30 mg BEDTIME JELLY Administration Protocol Loratadine 10 mg 04/06/21 19:03 Loratadine 10 Mg Tablet PO DAILY PRN Allergy Symptoms Mirtazapine 15 mg 04/06/21 21:00 04/08/21 20:42 Mirtazapine 15 Mg Tablet PO 15 mg BEDTIME JELLY Administration Ondansetron HCl 4 mg 04/05/21 06:59 04/05/21 12:02 Ondansetron Hcl 4 Mg/2 Ml Vial IVPUSH 4 mg Q8H PRN Administration Nausea Pantoprazole Sodium 40 mg 04/09/21 09:00 04/09/21 11:10 Pantoprazole Sodium 40 Mg/10 Ml Vial IVPUSH 40 mg BID@0630,1630 [facility] Administration Pharmacy Consult 1 each 04/05/21 06:59 Consult Rx Perform Med Rec MISCELLANE ONCE PRN Consult order Prazosin HCl 2 mg 04/06/21 19:15 04/09/21 07:56 Prazosin Hcl 1 Mg Capsule PO 2 mg DAILY JELLY Administration Protocol Prazosin HCl 5 mg 04/06/21 21:00 04/08/21 20:42 Prazosin Hcl 5 Mg Capsule PO 5 mg BEDTIME JELLY Administration Protocol Sodium Chloride 3 ml 04/05/21 08:00 04/09/21 07:53 0.9 % Sodium Chloride Flush 3 Ml Syringe IVFLUSH Not Given QSHIFT [facility] Temazepam 15 mg 04/05/21 06:59 Temazepam 15 Mg Capsule PO BEDTIME PRN Insomnia Tizanidine HCl 4 mg 04/06/21 19:03 Tizanidine Hcl 4 Mg Tablet PO TID PRN Muscle Pain Time Spent With Patient Time: Total time spent is greater than 50% in coordination of care (as documented) at patient's floor/unit and/or counseling patient: Time with patient: 25 - 35 minutes Subjective Subjective Date of Service: 04/09/21 Interval history: pt says feeling better, less abdo pain nursing team reports still complaining of headache Physical Exam Vital Signs: Vital Signs: Last Vital Signs Temp 98.0 F 04/09/21 07:51 Pulse 92 04/09/21 07:51 Resp 20 04/09/21 07:51 BP 184/81 H 04/09/21 07:51 Pulse Ox 97 04/09/21 07:51 Body Mass Index 38.9 GI: Other: abdo soft less tender, much better bowel sounds, less ng fluid in canister Procedures Date of Service Date of Service: 04/09/21 Quality Stroke Does the patient have a stroke diagnosis?: No VTE Prior VTE?: No VTE Risk Level:: Surgical - high VTE Device Contraindication: N/A - Device Ordered VTE Drug Contraindication: N/A - Med Ordered
[2021-04-09 15:58] VITALS: BP 140/62; PULSE 98; RESP 20; TEMP 36.5; O2SAT 90
[2021-04-09 16:59] LABS: Glucose, Whole Blood 144 mg/dL (60-115)
[2021-04-09] MEDS: 0.9 % Sodium Chloride Flush 3 ML SYRINGE IVFLUSH (18:29)
[2021-04-09 20:33] LABS: Glucose, Whole Blood 146 mg/dL (60-115)
[2021-04-09] MEDS: Prazosin HCL 5 MG CAPSULE PO (21:28)
[2021-04-09] MEDS: lisinopriL 10 MG TABLET 30 MG PO (21:33)
[2021-04-09] MEDS: Mirtazapine 15 MG TABLET PO (21:34)
[2021-04-09 23:54] VITALS: BP 134/52; PULSE 101; RESP 18; TEMP 36.3; O2SAT 90
[2021-04-10] VITALS (9 sets, daily range): BP systolic 146–157; BP diastolic 54–69; PULSE 75–95; RESP 16–18; TEMP 36.1–36.6; O2SAT 93–95
[2021-04-10] MEDS: KCl 20 mEq in 0.45% Sod 20 MEQ/1,000 ML IV.SOLN 100 MEQ IVCONT ×2 (03:29→14:49)
[2021-04-10] MEDS: HYDROmorphone HCl 0.5 MG/0.5 ML SYRINGE IVPUSH ×2 (04:58→17:54)
[2021-04-10] MEDS: Pantoprazole Sodium 40 MG/10 ML VIAL IVPUSH ×2 (05:55→16:32)
[2021-04-10 06:21] LABS: Anion Gap 14 (12-20); Blood Urea Nitrogen 4 mg/dL (9-16); Calcium 8.2 mg/dL (8.4-10.2); Carbon Dioxide 23 mmol/L (22-29); Chloride 106 mmol/L (96-108); Creatinine Clr Calc Pharmacy 111.4; Estimated Glomerular Filt Rate > 60; Glucose Random 152 mg/dL (60-115); Potassium 3.4 mmol/L (3.3-5.1); Sodium 140 mmol/L (135-145)
[2021-04-10 07:47] LABS: Glucose, Whole Blood 140 mg/dL (60-115)
[2021-04-10] MEDS: Enoxaparin Sodium 40 MG/0.4 ML SYRINGE SUBCUT (09:10)
[2021-04-10] MEDS: hydrALAZINE HCl 20 MG/ML VIAL 10 MG IVPUSH ×2 (09:12→14:48)
[2021-04-10] MEDS: Prazosin HCL 1 MG CAPSULE 2 MG PO (09:14)
[2021-04-10] MEDS: levETIRAcetam 500 MG TABLET 750 MG PO ×2 (09:15→20:59)
[2021-04-10] MEDS: DULoxetine HCl 60 MG CAPSULE.DR PO ×2 (09:15→20:59)
[2021-04-10] MEDS: Gabapentin 600 MG TABLET 1200 MG PO ×2 (09:16→20:59)
--- NOTE | 2021-04-10 09:59 | P.PNIM_ITS ---
Assessment and Plan (1) Bowel obstruction: Status: Acute (2) T2DM (type 2 diabetes mellitus): Status: Acute Assessment and Plan: 60/F with HTN, HLD, diabetes, h/o gastric sleeve and prior hernia here with abdominal pain, n/v and found to have small bowel obstruction. 1/SBO--clinically improving, management by surgery 2/HTN--on Lisinopril 30, minipress, proably not absorbing meds, BP still high, Continue IV hydralzine, until eating 3/ Diabetes--continue SSI, until eating 4/HLD--on lipitor but hold for now 5/Lactic acidosis--not due to sepsis, likely from bowel obstruction, and transient low BP 6/GERD-IV PPI as below 7/Hold all other meds for now 8/Mild HypOkalemia--corrected 9/Anemia-- no active bleed, monitor If surgery required, intermediate risk, no indication for furhter work up Subjective Subjective Date of Service: 04/10/21 Interval History: Seen in f/u for medical management, here for bowel obstruction. NGT in not much draining, BP is better and her symptoms are better Review of Systems Gen: no fever Resp: no sob, no cough CV: no chest, no GATES, no leg edema GI: +nausea, abdominal discomforrt Neuro: No confusion Physical Exam Vital Signs: Vital Signs: Last Vital Signs Temp 97.3 F 04/10/21 07:41 Pulse 90 04/10/21 07:41 Resp 18 04/10/21 07:41 BP 154/69 H 04/10/21 07:41 Pulse Ox 95 04/10/21 07:41 Body Mass Index 38.9 Const: Other: General: AO X 3, no acute distress Resp: normal breathing, pattern CVS: S1,S2,RRR GI: decrease bowel sound, +distention, mild tender, abdominal bound in place Skin: No rash Neuro: motor grossly intact Psych: appropriate affect Objective Data Current Medications Generic Name Dose Route Start Last Admin Trade Name Freq PRN Reason Stop Dose Admin Acetaminophen 650 mg 04/05/21 06:59 04/08/21 13:12 Acetaminophen 325 Mg Tablet PO 650 mg Q6H PRN Administration Pain, Mild (Pain Scale 1-3) Duloxetine HCl 60 mg 04/06/21 21:00 04/10/21 09:15 Duloxetine Hcl 60 Mg Capsule.Dr PO 60 mg BID JELLY Administration Enoxaparin Sodium 40 mg 04/05/21 08:00 04/10/21 09:10 Enoxaparin Sodium 40 Mg/0.4 Ml Syringe SUBCUT 40 mg Q24H JELLY Administration Gabapentin 1,200 mg 04/06/21 21:00 04/10/21 09:16 Gabapentin 600 Mg Tablet PO 1,200 mg BID JELLY Administration Hydralazine HCl 10 mg 04/08/21 09:00 04/10/21 09:12 Hydralazine Hcl 20 Mg/Ml Vial IVPUSH 10 mg Q6H JELLY Administration Protocol Potassium Chloride/Sodium Chloride 20 meq in 1,000 mls @ 100 mls/hr 04/09/21 09:00 04/10/21 03:29 IVCONT 100 mls/hr .Q10H JELLY Administration Levetiracetam 750 mg 04/06/21 21:00 04/10/21 09:15 Levetiracetam 500 Mg Tablet PO 750 mg BID JELLY Administration Lisinopril 30 mg 04/06/21 21:00 04/09/21 21:33 Lisinopril 10 Mg Tablet PO 30 mg BEDTIME JELLY Administration Protocol Loratadine 10 mg 04/06/21 19:03 Loratadine 10 Mg Tablet PO DAILY PRN Allergy Symptoms Mirtazapine 15 mg 04/06/21 21:00 04/09/21 21:34 Mirtazapine 15 Mg Tablet PO 15 mg BEDTIME JELLY Administration Ondansetron HCl 4 mg 04/05/21 06:59 04/05/21 12:02 Ondansetron Hcl 4 Mg/2 Ml Vial IVPUSH 4 mg Q8H PRN Administration Nausea Pantoprazole Sodium 40 mg 04/09/21 09:00 04/10/21 05:55 Pantoprazole Sodium 40 Mg/10 Ml Vial IVPUSH 40 mg BID@0630,1630 JELLY Administration Pharmacy Consult 1 each 04/05/21 06:59 Consult Rx Perform Med Rec MISCELLANE ONCE PRN Consult order Prazosin HCl 2 mg 04/06/21 19:15 04/10/21 09:14 Prazosin Hcl 1 Mg Capsule PO 2 mg DAILY JELLY Administration Protocol Prazosin HCl 5 mg 04/06/21 21:00 04/09/21 21:28 Prazosin Hcl 5 Mg Capsule PO 5 mg BEDTIME JELLY Administration Protocol Sodium Chloride 3 ml 04/05/21 08:00 04/10/21 09:10 0.9 % Sodium Chloride Flush 3 Ml Syringe IVFLUSH Not Given QSHIFT [facility] Tizanidine HCl 4 mg 04/06/21 19:03 Tizanidine Hcl 4 Mg Tablet PO TID PRN Muscle Pain Labs CBC & Chem 7: 04/09/21 06:37 04/10/21 05:38 Labs: Laboratory Results - last 24 hr 04/09/21 04/09/21 04/09/21 11:35 16:02 20:18 Sodium Potassium Chloride Carbon Dioxide Anion Gap BUN Creatinine Estim Creat Clear Calc Estimated GFR POC Glucose 164 H 144 H 146 H Random Glucose Calcium 04/10/21 04/10/21 05:38 07:38 Sodium 140 Potassium 3.4 Chloride 106 Carbon Dioxide 23 Anion Gap 14 BUN 4 L Creatinine 0.59 Estim Creat Clear Calc 111.4 Estimated GFR > 60 POC Glucose 140 H Random Glucose 152 H Calcium 8.2 L Microbiology Microbiology Results: Microbiology 04/05/21 06:06 Blood Culture - Final Blood - Venous No growth after 5 days. 04/05/21 06:06 Blood Culture - Final Blood - Venous No growth after 5 days. Quality Stroke Does the patient have a stroke diagnosis?: No VTE Prior VTE?: No VTE Risk Level:: Surgical - high VTE Device Contraindication: N/A - Device Ordered VTE Drug Contraindication: N/A - Med Ordered
[2021-04-10] MEDS: Acetaminophen 325 MG TABLET 650 MG PO (11:15)
--- NOTE | 2021-04-10 13:00 | PM.PNGS ---
Subjective Subjective Date of Service: 04/10/21 <Marycarmen Colvin PA-C - Last Filed: 04/10/21 13:04> 04/10/21 <Donavon Dallas MD - Last Filed: 04/10/21 13:48> Interval history: Feeling better. Pain improved but still requiring medication. Denies nausea. NGT has been clamped and has had sips of liquids. Passing flatus but no BM. Distention improved. Has not been OOB. <Marycarmen Colvin PA-C - Last Filed: 04/10/21 13:04> Physical Exam Vital Signs: Vital Signs: Last Vital Signs Temp 97.3 F 04/10/21 07:41 Pulse 90 04/10/21 07:41 Resp 18 04/10/21 07:41 BP 154/69 H 04/10/21 07:41 Pulse Ox 95 04/10/21 07:41 Body Mass Index 38.9 <Marycarmen Colvin PA-C - Last Filed: 04/10/21 13:04> Const: General: comfortable and no acute distress <Marycarmen Colvin PA-C - Last Filed: 04/10/21 13:04> Orientation/consciousness: patient oriented x3 <Marycarmen Colvin PA-C Last Filed: 04/10/21 13:04> HENMT: General nose exam: Other nasal findings present (NGT in place, left nare) <Marycarmen Colvin PA-C - Last Filed: 04/10/21 13:04> Eyes: Sclerae: sclerae normal <Marycarmen Colvin PA-C - Last Filed: 04/10/21 13:04> Resp: Effort & Inspection: normal respiratory effort <Marycarmen Colvin PA-C - Last Filed: 04/10/21 13:04> Cardio: Rate: regular rate <Marycarmen Colvin PA-C Last Filed: 04/10/21 13:04> GI: Inspection: No distended <DENYS Goldman Last Filed: 04/10/21 13:04> Palpation (GI): Soft to palpation, Tenderness to palpation present (GI) (left side), no guarding and not rigid <DENYS Goldman Last Filed: 04/10/21 13:04> Percussion: Yes normal to percussion <Marycarmen Colvin PA-C Santana Last Filed: 04/10/21 13:04> Auscultation: normal bowel sounds <DENYS Goldman Last Filed: 04/10/21 13:04> Skin: General skin exam: no rashes or lesions noted <DENYS Goldman Last Filed: 04/10/21 13:04> Neuro: General: patient oriented x3 <Marycarmen Colvin PA-C Sant[place] Last Filed: 04/10/21 13:04> Extrem: General: Yes no clubbing, cyanosis or edema <Marycarmen Colvin PA-C Santana Last Filed: 04/10/21 13:04> Procedures Date of Service Date of Service: 04/10/21 <Marycarmen Colvin PA-C [place] Last Filed: 04/10/21 13:04> Progress Note: A&P Assessment and plan (1) Bowel obstruction: Status: Acute <DENYS Goldman Last Filed: 04/10/21 13:04> Assessment and Plan: 60-year-old female patient with an extensive surgical history presenting for small-bowel obstruction who has undergone numerous surgical procedures including colon resection with colostomy, reversal of colostomy, hernia repair x2 with large mesh and previous bowel obstructions. She was found to have dilated loops of small bowel with an apparent small bowel obstruction due to adhesions. NGT clamped yesterday and has had sips of liquids for over 24 hours without worsening of symptoms. She feels improved. Will d/c NGT and begin on clear liquids. Encouraged OOB and ambulation. <DENYS Goldman Last Filed: 04/10/21 13:04> Overall the patient feels improved with decreased abdominal pain. She tolerated clamping of the nasogastric tube for 24 hours without nausea or vomiting. She did report a liquid bowel movement yesterday and flatus today. She does have abdominal pain in the lower abdomen but this is much improved. I agree with the above assessment and plan. Starting clear liquids today. Encourage patient to get out of bed and ambulate. <Donavon Dallas MD - Last Filed: 04/10/21 13:48> Fall Risk Details Current Medications: Current Medications Generic Name Dose Route Start Last Admin Trade Name Freq PRN Reason Stop Dose Admin Acetaminophen 650 mg 04/05/21 06:59 04/10/21 11:15 Acetaminophen 325 Mg Tablet PO 650 mg Q6H PRN Administration Pain, Mild (Pain Scale 1-3) Duloxetine HCl 60 mg 04/06/21 21:00 04/10/21 09:15 Duloxetine Hcl 60 Mg Capsule.Dr PO 60 mg BID JELLY Administration Enoxaparin Sodium 40 mg 04/05/21 08:00 04/10/21 09:10 Enoxaparin Sodium 40 Mg/0.4 Ml Syringe SUBCUT 40 mg Q24H JELLY Administration Gabapentin 1,200 mg 04/06/21 21:00 04/10/21 09:16 Gabapentin 600 Mg Tablet PO 1,200 mg BID JELLY Administration Hydralazine HCl 10 mg 04/08/21 09:00 04/10/21 09:12 Hydralazine Hcl 20 Mg/Ml Vial IVPUSH 10 mg Q6H JELLY Administration Protocol Potassium Chloride/Sodium Chloride 20 meq in 1,000 mls @ 100 mls/hr 04/09/21 09:00 04/10/21 03:29 IVCONT 100 mls/hr .Q10H JELLY Administration Levetiracetam 750 mg 04/06/21 21:00 04/10/21 09:15 Levetiracetam 500 Mg Tablet PO 750 mg BID JELLY Administration Lisinopril 30 mg 04/06/21 21:00 04/09/21 21:33 Lisinopril 10 Mg Tablet PO 30 mg BEDTIME JELLY Administration Protocol Loratadine 10 mg 04/06/21 19:03 Loratadine 10 Mg Tablet PO DAILY PRN Allergy Symptoms Mirtazapine 15 mg 04/06/21 21:00 04/09/21 21:34 Mirtazapine 15 Mg Tablet PO 15 mg BEDTIME JELLY Administration Ondansetron HCl 4 mg 04/05/21 06:59 04/05/21 12:02 Ondansetron Hcl 4 Mg/2 Ml Vial IVPUSH 4 mg Q8H PRN Administration Nausea Pantoprazole Sodium 40 mg 04/09/21 09:00 04/10/21 05:55 Pantoprazole Sodium 40 Mg/10 Ml Vial IVPUSH 40 mg BID@[id number] [facility] Administration Pharmacy Consult 1 each 04/05/21 06:59 Consult Rx Perform Med Rec MISCELLANE ONCE PRN Consult order Prazosin HCl 2 mg 04/06/21 19:15 04/10/21 09:14 Prazosin Hcl 1 Mg Capsule PO 2 mg DAILY JELLY Administration Protocol Prazosin HCl 5 mg 04/06/21 21:00 04/09/21 21:28 Prazosin Hcl 5 Mg Capsule PO 5 mg BEDTIME JELLY Administration Protocol Sodium Chloride 3 ml 04/05/21 08:00 04/10/21 09:10 0.9 % Sodium Chloride Flush 3 Ml Syringe IVFLUSH Not Given QSHIFT [facility] Tizanidine HCl 4 mg 04/06/21 19:03 Tizanidine Hcl 4 Mg Tablet PO TID PRN Muscle Pain <Marycarmen Colvin PA-C - Last Filed: 04/10/21 13:04> Time Spent With Patient Time: Total time spent is greater than 50% in coordination of care (as documented) at patient's floor/unit and/or counseling patient: <Marycarmen Colvin PA-C - Last Filed: 04/10/21 13:04> Time with patient: 15 - 24 minutes <Marycarmen Colvin PA-C - Last Filed: 04/10/21 13:04> Quality Stroke Does the patient have a stroke diagnosis?: No <Marycarmen Colvin PA-C - Last Filed: 04/10/21 13:04> VTE Prior VTE?: No <Marycarmen Colvin PA-C - Last Filed: 04/10/21 13:04> VTE Risk Level:: Surgical - high <Marycarmen Colvin PA-C - Last Filed: 04/10/21 13:04> VTE Device Contraindication: N/A - Device Ordered <Marycarmen Colvin PA-C - Last Filed: 04/10/21 13:04> VTE Drug Contraindication: N/A - Med Ordered <DENYS Goldman Last Filed: 04/10/21 13:04>
--- NOTE | 2021-04-10 15:46 | PC.NURSE ---
1400 NGT discontinued. starting cl liq diet. Still c/o abd pain, although improving.
[2021-04-10] MEDS: 0.9 % Sodium Chloride Flush 3 ML SYRINGE IVFLUSH ×2 (16:32→21:03)
[2021-04-10 18:06] LABS: Glucose, Whole Blood 185 mg/dL (60-115)
[2021-04-10 20:32] LABS: Glucose, Whole Blood 132 mg/dL (60-115)
[2021-04-10] MEDS: oxyCODONE HCl Immed Release 5 MG TABLET PO (20:58)
[2021-04-10] MEDS: Prazosin HCL 5 MG CAPSULE PO (20:58)
[2021-04-10] MEDS: Mirtazapine 15 MG TABLET PO (20:58)
[2021-04-10] MEDS: lisinopriL 10 MG TABLET 30 MG PO (20:59)
[2021-04-11] VITALS (8 sets, daily range): BP systolic 150–172; BP diastolic 60–84; PULSE 82–90; RESP 16–18; TEMP 36.3–37.3; O2SAT 93–96
[2021-04-11] MEDS: KCl 20 mEq in 0.45% Sod 20 MEQ/1,000 ML IV.SOLN 100 MEQ IVCONT ×2 (01:36→14:07)
[2021-04-11 06:05] LABS: Hematocrit 26.2 % (37-47); Hemoglobin 8.3 g/dl (12.0-16.0); Mean Corpuscular HGB Conc 31.7 g/dl (31.0-35.0); Mean Corpuscular Hemoglobin 25.4 pg (27.0-33.0); Mean Corpuscular Volume 80.1 fL (80-98); Platelet Count 356 X10*3/uL (160-400); Red Blood Count 3.27 X10*6/uL (4.20-5.50); Red Cell Distribution Width 17.7 % (11.0-16.0); White Blood Count 4.6 X10*3/uL (4.8-10.8)
[2021-04-11] MEDS: Pantoprazole Sodium 40 MG/10 ML VIAL IVPUSH (06:11)
[2021-04-11 06:38] LABS: Anion Gap 11 (12-20); Blood Urea Nitrogen 4 mg/dL (9-16); Calcium 8.4 mg/dL (8.4-10.2); Carbon Dioxide 25 mmol/L (22-29); Chloride 109 mmol/L (96-108); Creatinine Clr Calc Pharmacy 121.6; Estimated Glomerular Filt Rate > 60; Glucose Random 150 mg/dL (60-115); Potassium 3.8 mmol/L (3.3-5.1); Sodium 141 mmol/L (135-145)
[2021-04-11] MEDS: DULoxetine HCl 60 MG CAPSULE.DR PO ×2 (07:49→20:57)
[2021-04-11] MEDS: Prazosin HCL 1 MG CAPSULE 2 MG PO (07:49)
[2021-04-11] MEDS: Gabapentin 600 MG TABLET 1200 MG PO ×2 (07:50→20:59)
[2021-04-11] MEDS: levETIRAcetam 500 MG TABLET 750 MG PO ×2 (07:50→20:58)
[2021-04-11] MEDS: hydrALAZINE HCl 20 MG/ML VIAL 10 MG IVPUSH ×2 (07:52→14:03)
--- NOTE | 2021-04-11 07:52 | P.PNGS_ITS ---
Subjective Subjective Date of Service: 04/11/21 Patient reports: feels better, tolerating liquids well, flatus and bowel movement Interval history: Patient reports passing several BMs. Denies abdominal pain, nausea or vomiting. Not very hungry at this time. Physical Exam Vital Signs: Vital Signs: Last Vital Signs Temp 97.4 F 04/11/21 07:42 Pulse 82 04/11/21 07:42 Resp 16 04/11/21 07:42 BP 172/74 H 04/11/21 07:42 Pulse Ox 93 04/11/21 07:42 Body Mass Index 38.9 Const: General: comfortable and no acute distress Nutritional Appearance: well nourished Orientation/consciousness: patient oriented x3 Limitations: no limitations Resp: Effort & Inspection: normal respiratory effort Auscultation: clear to auscultation bilaterally GI: Other: soft, non-distended, non-tender, normal bowel sounds, no rebound, no guarding. Skin: General skin exam: no rashes or lesions noted Neuro: General: patient oriented x3 Extrem: General: Yes capillary refill normal Procedures Date of Service Date of Service: 04/11/21 Progress Note: A&P Assessment and plan (1) Bowel obstruction: Status: Acute Assessment and Plan: Patient is now much improved with several BMs, no abdominal pain or distension. She is tolerating some clear liquids without nausea or vomiting. I will advance to a soft/low residue diet. Ambulation is encouraged. Possible discharge in AM tomorrow if diet tolerated. Fall Risk Details Current Medications: Current Medications Generic Name Dose Route Start Last Admin Trade Name Freq PRN Reason Stop Dose Admin Acetaminophen 650 mg 04/05/21 06:59 04/10/21 11:15 Acetaminophen 325 Mg Tablet PO 650 mg Q6H PRN Administration Pain, Mild (Pain Scale 1-3) Duloxetine HCl 60 mg 04/06/21 21:00 04/10/21 20:59 Duloxetine Hcl 60 Mg Capsule.Dr PO 60 mg BID JELLY Administration Enoxaparin Sodium 40 mg 04/05/21 08:00 04/10/21 09:10 Enoxaparin Sodium 40 Mg/0.4 Ml Syringe SUBCUT 40 mg Q24H JELLY Administration Gabapentin 1,200 mg 04/06/21 21:00 04/10/21 20:59 Gabapentin 600 Mg Tablet PO 1,200 mg BID JELLY Administration Hydralazine HCl 10 mg 04/08/21 09:00 04/11/21 04:11 Hydralazine Hcl 20 Mg/Ml Vial IVPUSH Not Given Q6H JELLY Protocol Hydromorphone HCl 0.5 mg 04/10/21 14:51 04/10/21 17:54 Hydromorphone Hcl 0.5 Mg/0.5 Ml Syringe IVPUSH 0.5 mg Q4H PRN Administration Pain, Severe (Pain Scale 7-10) Potassium Chloride/Sodium Chloride 20 meq in 1,000 mls @ 100 mls/hr 04/09/21 09:00 04/11/21 01:36 IVCONT 100 mls/hr .Q10H JELLY Administration Levetiracetam 750 mg 04/06/21 21:00 04/10/21 20:59 Levetiracetam 500 Mg Tablet PO 750 mg BID JELLY Administration Lisinopril 30 mg 04/06/21 21:00 04/10/21 20:59 Lisinopril 10 Mg Tablet PO 30 mg BEDTIME JELLY Administration Protocol Loratadine 10 mg 04/06/21 19:03 Loratadine 10 Mg Tablet PO DAILY PRN Allergy Symptoms Mirtazapine 15 mg 04/06/21 21:00 04/10/21 20:58 Mirtazapine 15 Mg Tablet PO 15 mg BEDTIME JELLY Administration Ondansetron HCl 4 mg 04/05/21 06:59 04/05/21 12:02 Ondansetron Hcl 4 Mg/2 Ml Vial IVPUSH 4 mg Q8H PRN Administration Nausea Oxycodone HCl 5 mg 04/10/21 12:58 04/10/21 20:58 Oxycodone Hcl Immed Release 5 Mg Tablet PO 5 mg Q4H PRN Administration Pain, Moderate (Pain Scale 4-6 Pantoprazole Sodium 40 mg 04/09/21 09:00 04/11/21 06:11 Pantoprazole Sodium 40 Mg/10 Ml Vial IVPUSH 40 mg BID@0630,1630 [facility] Administration Pharmacy Consult 1 each 04/05/21 06:59 Consult Rx Perform Med Rec MISCELLANE ONCE PRN Consult order Prazosin HCl 2 mg 04/06/21 19:15 04/10/21 09:14 Prazosin Hcl 1 Mg Capsule PO 2 mg DAILY JELLY Administration Protocol Prazosin HCl 5 mg 04/06/21 21:00 04/10/21 20:58 Prazosin Hcl 5 Mg Capsule PO 5 mg BEDTIME JELLY Administration Protocol Sodium Chloride 3 ml 04/05/21 08:00 04/10/21 21:03 0.9 % Sodium Chloride Flush 3 Ml Syringe IVFLUSH 3 ml QSHIFT JELLY Administration Tizanidine HCl 4 mg 04/06/21 19:03 Tizanidine Hcl 4 Mg Tablet PO TID PRN Muscle Pain Time Spent With Patient Time: Total time spent is greater than 50% in coordination of care (as documented) at patient's floor/unit and/or counseling patient: Time with patient: 15 - 24 minutes Quality Stroke Does the patient have a stroke diagnosis?: No VTE Prior VTE?: No VTE Risk Level:: Surgical - high VTE Device Contraindication: N/A - Device Ordered VTE Drug Contraindication: N/A - Med Ordered
[2021-04-11 07:54] LABS: Glucose, Whole Blood 147 mg/dL (60-115)
[2021-04-11] MEDS: Enoxaparin Sodium 40 MG/0.4 ML SYRINGE SUBCUT (07:56)
--- NOTE | 2021-04-11 09:38 | P.PNIM_ITS ---
Subjective Subjective Date of Service: 04/11/21 Interval History: Seen in f/u for medical management, here for bowel obstruction. NGT is out, BP still high, tolerating liquid diet Review of Systems Gen: no fever Resp: no sob, no cough CV: no chest, no GATES, no leg edema GI: +nausea, abdominal discomforrt Neuro: No confusion Physical Exam Vital Signs: Vital Signs: Last Vital Signs Temp 97.4 F 04/11/21 07:42 Pulse 82 04/11/21 07:42 Resp 16 04/11/21 07:42 BP 172/74 H 04/11/21 07:42 Pulse Ox 93 04/11/21 07:42 Body Mass Index 38.9 Const: Other: General: AO X 3, no acute distress Resp: normal breathing, pattern CVS: S1,S2,RRR GI: decrease bowel sound, +distention, mild tender, abdominal bound in place Skin: No rash Neuro: motor grossly intact Psych: appropriate affect Objective Data Current Medications Generic Name Dose Route Start Last Admin Trade Name Freq PRN Reason Stop Dose Admin Acetaminophen 650 mg 04/05/21 06:59 04/10/21 11:15 Acetaminophen 325 Mg Tablet PO 650 mg Q6H PRN Administration Pain, Mild (Pain Scale 1-3) Duloxetine HCl 60 mg 04/06/21 21:00 04/11/21 07:49 Duloxetine Hcl 60 Mg Capsule.Dr PO 60 mg BID JELLY Administration Enoxaparin Sodium 40 mg 04/05/21 08:00 04/11/21 07:56 Enoxaparin Sodium 40 Mg/0.4 Ml Syringe SUBCUT 40 mg Q24H JELLY Administration Gabapentin 1,200 mg 04/06/21 21:00 04/11/21 07:50 Gabapentin 600 Mg Tablet PO 1,200 mg BID JELLY Administration Hydralazine HCl 10 mg 04/08/21 09:00 04/11/21 07:52 Hydralazine Hcl 20 Mg/Ml Vial IVPUSH 10 mg Q6H JELLY Administration Protocol Hydromorphone HCl 0.5 mg 04/10/21 14:51 04/10/21 17:54 Hydromorphone Hcl 0.5 Mg/0.5 Ml Syringe IVPUSH 0.5 mg Q4H PRN Administration Pain, Severe (Pain Scale 7-10) Potassium Chloride/Sodium Chloride 20 meq in 1,000 mls @ 100 mls/hr 04/09/21 09:00 04/11/21 01:36 IVCONT 100 mls/hr .Q10H JELLY Administration Levetiracetam 750 mg 04/06/21 21:00 04/11/21 07:50 Levetiracetam 500 Mg Tablet PO 750 mg BID JELLY Administration Lisinopril 30 mg 04/06/21 21:00 04/10/21 20:59 Lisinopril 10 Mg Tablet PO 30 mg BEDTIME JELLY Administration Protocol Loratadine 10 mg 04/06/21 19:03 Loratadine 10 Mg Tablet PO DAILY PRN Allergy Symptoms Mirtazapine 15 mg 04/06/21 21:00 04/10/21 20:58 Mirtazapine 15 Mg Tablet PO 15 mg BEDTIME JELLY Administration Ondansetron HCl 4 mg 04/05/21 06:59 04/05/21 12:02 Ondansetron Hcl 4 Mg/2 Ml Vial IVPUSH 4 mg Q8H PRN Administration Nausea Oxycodone HCl 5 mg 04/10/21 12:58 04/10/21 20:58 Oxycodone Hcl Immed Release 5 Mg Tablet PO 5 mg Q4H PRN Administration Pain, Moderate (Pain Scale 4-6 Pantoprazole Sodium 40 mg 04/09/21 09:00 04/11/21 06:11 Pantoprazole Sodium 40 Mg/10 Ml Vial IVPUSH 40 mg BID@[id number],1630 [facility] Administration Pharmacy Consult 1 each 04/05/21 06:59 Consult Rx Perform Med Rec MISCELLANE ONCE PRN Consult order Prazosin HCl 2 mg 04/06/21 19:15 04/11/21 07:49 Prazosin Hcl 1 Mg Capsule PO 2 mg DAILY JELLY Administration Protocol Prazosin HCl 5 mg 04/06/21 21:00 04/10/21 20:58 Prazosin Hcl 5 Mg Capsule PO 5 mg BEDTIME [facility] Administration Protocol Sodium Chloride 3 ml 04/05/21 08:00 04/11/21 07:52 0.9 % Sodium Chloride Flush 3 Ml Syringe IVFLUSH Not Given QSHIFT JELLY Tizanidine HCl 4 mg 04/06/21 19:03 Tizanidine Hcl 4 Mg Tablet PO TID PRN Muscle Pain Labs CBC & Chem 7: 04/11/21 05:24 04/11/21 05:24 Labs: Laboratory Results - last 24 hr 04/10/21 04/10/21 04/11/21 17:57 20:21 05:24 WBC 4.6 L RBC 3.27 L Hgb 8.3 L Hct 26.2 L MCV 80.1 MCH 25.4 L MCHC 31.7 RDW 17.7 H Plt Count 356 D MPV 10.0 Absolute Nucleated RBC 0.000 Nucleated RBC % (auto) 0.0 Sodium Potassium Chloride Carbon Dioxide Anion Gap BUN Creatinine Estim Creat Clear Calc Estimated GFR POC Glucose 185 H 132 H Random Glucose Calcium 04/11/21 04/11/21 05:24 07:29 WBC RBC Hgb Hct MCV MCH MCHC RDW Plt Count MPV Absolute Nucleated RBC Nucleated RBC % (auto) Sodium 141 Potassium 3.8 Chloride 109 H Carbon Dioxide 25 Anion Gap 11 L BUN 4 L Creatinine 0.54 Estim Creat Clear Calc 121.6 Estimated GFR > 60 POC Glucose 147 H Random Glucose 150 H Calcium 8.4 Microbiology Microbiology Results: Microbiology 04/05/21 06:06 Blood Culture - Final Blood - Venous No growth after 5 days. 04/05/21 06:06 Blood Culture - Final Blood - Venous No growth after 5 days. Assessment and Plan (1) Bowel obstruction: Status: Acute (2) T2DM (type 2 diabetes mellitus): Status: Acute Assessment and Plan: 60/F with HTN, HLD, diabetes, h/o gastric sleeve and prior hernia here with abdominal pain, n/v and found to have small bowel obstruction. 1/SBO--clinically resolved, managment per surgery 2/HTN--on Lisinopril 30, minipress, proably not absorbing meds, BP still high, now eating so continue all PO meds 3/ Diabetes--continue SSI, hold Lantus for now 4/HLD--on lipitor 5/Lactic acidosis--not due to sepsis, likely from bowel obstruction, and transient low BP 6/GERD-IV PPI as below 8/Mild HypOkalemia--corrected 9/Anemia-- no active bleed, monitor Out of bed, ambulate If surgery required, intermediate risk, no indication for furhter work up Quality Stroke Does the patient have a stroke diagnosis?: No VTE Prior VTE?: No VTE Risk Level:: Surgical - high VTE Device Contraindication: N/A - Device Ordered VTE Drug Contraindication: N/A - Med Ordered
[2021-04-11 11:36] LABS: Glucose, Whole Blood 211 mg/dL (60-115)
[2021-04-11] MEDS: amLODIPine Besylate 5 MG TABLET PO (11:37)
[2021-04-11] MEDS: Clopidogrel Bisulfate 75 MG TABLET PO (11:37)
[2021-04-11] MEDS: Butalb/Acetamin/Caff 50/325/40 TABLET 1 TAB PO (16:10)
[2021-04-11] MEDS: Omeprazole 20 MG CAPSULE.DR PO (16:10)
[2021-04-11 16:35] LABS: Glucose, Whole Blood 192 mg/dL (60-115)
[2021-04-11] MEDS: Prazosin HCL 5 MG CAPSULE PO (20:57)
[2021-04-11] MEDS: Atorvastatin Calcium 40 MG TABLET PO (20:57)
[2021-04-11] MEDS: lisinopriL 10 MG TABLET 30 MG PO (20:58)
[2021-04-11] MEDS: Mirtazapine 15 MG TABLET PO (20:58)
[2021-04-11] MEDS: oxyCODONE HCl Immed Release 5 MG TABLET PO (21:06)
[2021-04-11 21:18] LABS: Glucose, Whole Blood 157 mg/dL (60-115)
[2021-04-12] VITALS: BP 144/63; PULSE 93; RESP 16; TEMP 36.9; O2SAT 92
[2021-04-12] MEDS: 0.9 % Sodium Chloride Flush 3 ML SYRINGE IVFLUSH ×2 (00:30→08:18)
[2021-04-12 03:29] VITALS: BP 149/88
[2021-04-12] MEDS: Omeprazole 20 MG CAPSULE.DR PO (06:31)
[2021-04-12 07:51] VITALS: BP 149/69; PULSE 74; RESP 18; TEMP 36.9; O2SAT 96
[2021-04-12 07:59] LABS: Glucose, Whole Blood 140 mg/dL (60-115)
[2021-04-12] MEDS: DULoxetine HCl 60 MG CAPSULE.DR PO (08:16)
[2021-04-12] MEDS: levETIRAcetam 500 MG TABLET 750 MG PO (08:16)
[2021-04-12] MEDS: Aspirin Enteric Coated 81 MG TABLET.DR PO (08:16)
[2021-04-12] MEDS: Gabapentin 600 MG TABLET 1200 MG PO (08:17)
[2021-04-12] MEDS: Clopidogrel Bisulfate 75 MG TABLET PO (08:17)
[2021-04-12] MEDS: Prazosin HCL 1 MG CAPSULE 2 MG PO (08:17)
[2021-04-12] MEDS: amLODIPine Besylate 5 MG TABLET PO (08:17)
[2021-04-12] MEDS: Enoxaparin Sodium 40 MG/0.4 ML SYRINGE SUBCUT (08:17)
--- NOTE | 2021-04-12 08:23 | PM.PNGS ---
Subjective Subjective Date of Service: 04/12/21 <Marycarmen Colvin PA-C - Last Filed: 04/12/21 08:26> 04/12/21 <Donavon Dallas MD - Last Filed: 04/12/21 15:37> Interval history: Feels much better overall. Denies pain. Tolerating solid diet. Continues to pass flatus, has had multiple BM. Wants to go home. <Marycarmen Colvin PA-C - Last Filed: 04/12/21 08:26> Physical Exam Vital Signs: Vital Signs: Last Vital Signs Temp 98.5 F 04/12/21 07:51 Pulse 74 04/12/21 07:51 Resp 18 04/12/21 07:51 BP 149/69 H 04/12/21 07:51 Pulse Ox 96 04/12/21 07:51 Body Mass Index 38.9 <Marycarmen Colvin PA-C - Last Filed: 04/12/21 08:26> Const: General: comfortable and alert <Marycarmen Colvin PA-C - Last Filed: 04/12/21 08:26> Orientation/consciousness: patient oriented x3 <Marycarmen Colvin PA-C - Last Filed: 04/12/21 08:26> Resp: Effort & Inspection: normal respiratory effort <Marycarmen Colvin PA-C - Last Filed: 04/12/21 08:26> GI: Inspection: No distended <Marycarmen Colvin PA-C - Last Filed: 04/12/21 08:26> Palpation (GI): Soft to palpation, nontender, no guarding and not rigid <Marycarmen Colvin PA-C - Last Filed: 04/12/21 08:26> Skin: General skin exam: no rashes or lesions noted <DENYS Goldman Last Filed: 04/12/21 08:26> Neuro: General: patient oriented x3 <DENYS Goldman Last Filed: 04/12/21 08:26> Extrem: General: Yes no clubbing, cyanosis or edema <Marycarmen Colvin PA-C - Last Filed: 04/12/21 08:26> Procedures Date of Service Date of Service: 04/12/21 <Marycarmen Colvin PA-C - Last Filed: 04/12/21 08:26> Progress Note: A&P Assessment and plan (1) Bowel obstruction: Status: Acute <Marycarmen Colvin PA-C - Last Filed: 04/12/21 08:26> Assessment and Plan: Patient remains improved, tolerating solid diet without recurrent symptoms. Has return of GI function. Abd exam improved and nontender. Stable for discharge to home today. Patient comfortable with plan.? <Marycarmen Colvin PA-C - Last Filed: 04/12/21 08:26> Fall Risk Details Current Medications: Current Medications Generic Name Dose Route Start Last Admin Trade Name Freq PRN Reason Stop Dose Admin Acetaminophen 650 mg 04/05/21 06:59 04/10/21 11:15 Acetaminophen 325 Mg Tablet PO 650 mg Q6H PRN Administration Pain, Mild (Pain Scale 1-3) Acetaminophen/Butalbital/Caffeine 1 tab 04/11/21 14:59 04/11/21 16:10 Butalb/Acetamin/Caff 50/325/40 Tablet PO 1 tab Q4H PRN Administration Headache Amlodipine Besylate 5 mg 04/11/21 10:00 04/12/21 08:17 Amlodipine Besylate 5 Mg Tablet PO 5 mg DAILY JELLY Administration Protocol Aspirin 81 mg 04/12/21 09:00 04/12/21 08:16 Aspirin Enteric Coated 81 Mg Tablet. PO 81 mg DAILY JELLY Administration Atorvastatin Calcium 40 mg 04/11/21 21:00 04/11/21 20:57 Atorvastatin Calcium 40 Mg Tablet PO 40 mg BEDTIME JELLY Administration Clopidogrel Bisulfate 75 mg 04/11/21 09:45 04/12/21 08:17 Clopidogrel Bisulfate 75 Mg Tablet PO 75 mg DAILY JELLY Administration Duloxetine HCl 60 mg 04/06/21 21:00 04/12/21 08:16 Duloxetine Hcl 60 Mg Capsule. PO 60 mg BID JELLY Administration Enoxaparin Sodium 40 mg 04/05/21 08:00 04/12/21 08:17 Enoxaparin Sodium 40 Mg/0.4 Ml Syringe SUBCUT 40 mg Q24H JELLY Administration Gabapentin 1,200 mg 04/06/21 21:00 04/12/21 08:17 Gabapentin 600 Mg Tablet PO 1,200 mg BID JELLY Administration Hydralazine HCl 10 mg 04/08/21 09:00 04/12/21 08:18 Hydralazine Hcl 20 Mg/Ml Vial IVPUSH Not Given Q6H JELLY Protocol Hydromorphone HCl 0.5 mg 04/10/21 14:51 04/10/21 17:54 Hydromorphone Hcl 0.5 Mg/0.5 Ml Syringe IVPUSH 0.5 mg Q4H PRN Administration Pain, Severe (Pain Scale 7-10) Levetiracetam 750 mg 04/06/21 21:00 04/12/21 08:16 Levetiracetam 500 Mg Tablet PO 750 mg BID JELLY Administration Lisinopril 30 mg 04/06/21 21:00 04/11/21 20:58 Lisinopril 10 Mg Tablet PO 30 mg BEDTIME JELLY Administration Protocol Loratadine 10 mg 04/06/21 19:03 Loratadine 10 Mg Tablet PO DAILY PRN Allergy Symptoms Mirtazapine 15 mg 04/06/21 21:00 04/11/21 20:58 Mirtazapine 15 Mg Tablet PO 15 mg BEDTIME JELLY Administration Omeprazole 20 mg 04/11/21 16:30 04/12/21 06:31 Omeprazole 20 Mg Capsule.Dr PO 20 mg DAILY@0630 JELLY Administration Ondansetron HCl 4 mg 04/05/21 06:59 04/05/21 12:02 Ondansetron Hcl 4 Mg/2 Ml Vial IVPUSH 4 mg Q8H PRN Administration Nausea Oxycodone HCl 5 mg 04/10/21 12:58 04/11/21 21:06 Oxycodone Hcl Immed Release 5 Mg Tablet PO 5 mg Q4H PRN Administration Pain, Moderate (Pain Scale 4-6 Pharmacy Consult 1 each 04/05/21 06:59 Consult Rx Perform Med Rec MISCELLANE ONCE PRN Consult order Prazosin HCl 2 mg 04/06/21 19:15 04/12/21 08:17 Prazosin Hcl 1 Mg Capsule PO 2 mg DAILY JELLY Administration Protocol Prazosin HCl 5 mg 04/06/21 21:00 04/11/21 20:57 Prazosin Hcl 5 Mg Capsule PO 5 mg BEDTIME JELLY Administration Protocol Sodium Chloride 3 ml 04/05/21 08:00 04/12/21 08:18 0.9 % Sodium Chloride Flush 3 Ml Syringe IVFLUSH 3 ml QSHIFT JELLY Administration Tizanidine HCl 4 mg 04/06/21 19:03 Tizanidine Hcl 4 Mg Tablet PO TID PRN Muscle Pain <Marycarmen Colvin PA-C - Last Filed: 04/12/21 08:26> Time Spent With Patient Time: Total time spent is greater than 50% in coordination of care (as documented) at patient's floor/unit and/or counseling patient: <Marycarmen Colvin PA-C - Last Filed: 04/12/21 08:26> Time with patient: 15 - 24 minutes <Marycarmen Colvin PA-C - Last Filed: 04/12/21 08:26> Quality Stroke Does the patient have a stroke diagnosis?: No <Marycarmen Colvin PA-C - Last Filed: 04/12/21 08:26> VTE Prior VTE?: No <Marycarmen Colvin PA-C - Last Filed: 04/12/21 08:26> VTE Risk Level:: Surgical - high <Marycarmen Colvin PA-C - Last Filed: 04/12/21 08:26> VTE Device Contraindication: N/A - Device Ordered <Marycarmen Colvin PA-C - Last Filed: 04/12/21 08:26> VTE Drug Contraindication: N/A - Med Ordered <DENYS Goldman Last Filed: 04/12/21 08:26>
--- NOTE | 2021-04-12 08:46 | PM.DS ---
DS: Providers Provider Date of Service: 04/12/21 Date of admission: 04/05/21 06:59 Primary care physician: Zelda Mo MD Consults: 04/05/21 06:59 Consult to Hospitalist Routine Consulting Provider: Hospitalist Reason For Exam: SBO, DM, Med management DS: Diagnosis Discharge Diagnosis (1) Bowel obstruction: Status: Acute DS: Medications Discharge Medications Home Medications: Home Medications Medication Instructions Recorded Confirmed mirtazapine 15 mg tablet 15 mg PO BEDTIME 07/25/20 04/05/21 prazosin 2 mg capsule 2 mg PO DAILY 07/25/20 04/05/21 diclofenac sodium 1 % topical gel 2 g TOPICAL QID PRN 01/12/21 04/05/21 tizanidine 4 mg tablet 4 mg PO TID PRN 01/12/21 04/05/21 aspirin 81 mg tablet,delayed 81 mg PO DAILY 02/19/21 04/05/21 release atorvastatin 40 mg tablet 40 mg PO BEDTIME 02/19/21 04/05/21 cetirizine 10 mg tablet 10 mg PO DAILY PRN 02/19/21 04/05/21 duloxetine 60 mg capsule,delayed 60 mg PO BID 02/19/21 04/05/21 release prazosin 5 mg capsule 5 mg PO BEDTIME 02/19/21 04/05/21 acetaminophen 650 mg 650 mg PO Q12H PRN 04/05/21 04/05/21 tablet,extended release (Arthritis Pain Relief (acetaminophen) ER) clopidogrel 75 mg tablet 1 tab PO QAM 04/05/21 04/05/21 levetiracetam 750 mg tablet 1 tab PO BID 04/05/21 04/05/21 lisinopril 30 mg tablet 1 tab PO BEDTIME 04/05/21 04/05/21 pantoprazole 20 mg tablet,delayed 20 mg PO BID 04/05/21 04/05/21 release Previous Rx's Medication Instructions Recorded gabapentin 600 mg tablet 1,200 mg PO BID #360 tab 01/03/21 insulin detemir U-100 100 unit/mL 32 unit SUBCUT DAILY 30 Days #9.6 02/28/21 (3 mL) subcutaneous pen (Levemir ml FlexTouch U-100 Insulin) DS: Summary Hospital Course Hospital Course: BRIEF HPI: Pat Caro is a 60 year old female previous history of multiple abdominal surgeries including sleeve gastrectomy, repair of ventral hernias, colostomy followed by reversal of colostomy now presenting with complaints of abdominal pain associated with nausea and vomiting.? She has a prior history of bowel obstructions and her symptoms are similar to her previous episodes.? The abdominal pain is felt diffusely throughout the abdomen.? She presented to the emergency department and a CT of the abdomen and pelvis was obtained.? This revealed evidence of a small-bowel obstruction most likely due to adhesions.? Hospital Course: She was admitted to the surgical service for treatment of this small-bowel obstruction. Given her extensive surgical history, conservative management with NGT decompression, NPO status and IVF and PRN analgesics was recommended. She slowly improved throughout her hospital stay. Her abdominal pain and distention improved. She began to pass flatus. Follow up abdominal xrays showed improvement in small bowel dilatation. Her NGT was clamped for over 24 hours and she had no further nausea or worsening of abdominal pain or distention. It was therefore removed and she was started on liquids and her diet was advanced as tolerated. She began to move her bowels. She was ambulated. On the day of discharge, she was tolerating a solid diet without any nausea or abdominal pain and had good GI function. She felt ready for discharge. She was discharged to home on 04/12/21 in stable condition. Status at Discharge Functional status at discharge: independent ambulation Overall status at discharge: patient is back to baseline Time Spent with Patient Time attestation: Total time spent providing and/or coordinating discharge services: Discharge coordination time: Greater than 30 minutes Quality: Stroke Does the patient have a stroke diagnosis?: No Physical Exam Vital Signs: Vital Signs: Last Vital Signs Temp 98.5 F 04/12/21 07:51 Pulse 74 04/12/21 07:51 Resp 18 04/12/21 07:51 BP 149/69 H 04/12/21 07:51 Pulse Ox 96 04/12/21 07:51 Body Mass Index 38.9 Const: General: comfortable, no acute distress and alert Orientation/consciousness: patient oriented x3 Resp: Effort & Inspection: normal respiratory effort GI: Inspection: No distended Palpation (GI): Soft to palpation, nontender, no guarding and not rigid Skin: General skin exam: no rashes or lesions noted Neuro: General: patient oriented x3 Extrem: General: Yes no clubbing, cyanosis or edema DS: Data Data Completed and Pending Completed studies during hospitalization [Text1]: Procedures Introduction of Other Thrombolytic into Peripheral Vein, Percutaneous Approach (02/18/21) Labs on day of discharge: Laboratory Results - last 24 hr 04/11/21 04/11/21 04/11/21 11:31 16:19 21:13 POC Glucose 211 H 192 H 157 H 04/12/21 07:48 POC Glucose 140 H Imaging Abdominal x-ray: Radiologist's impression: ITS Impressions Head CT 04/05/21 04:38 IMPRESSION: No acute intracranial pathology. Abdomen/Pelvis CT 04/05/21 04:52 IMPRESSION: 1. Small bowel obstruction with multiple dilated fluid-filled and fecalized small bowel loops in the left abdomen. Transition from dilated to nondilated small bowel occurs within a segment of bowel in the central anterior abdomen. 2. Foci of venous gas including within the right external iliac and superficial femoral vessels. This could be secondary to attempted central line or introduction of air into intravenous line. 3. Mild groundglass haziness at the lung bases, which could reflect mild air trapping on an expiratory scan. Mild inflammatory etiology is difficult to exclude in the proper clinical setting. Chest X-Ray 04/05/21 06:55 IMPRESSION: No acute parenchymal disease within the chest. Nasogastric tube tip only seen to the level of the vivek. This may be due to underpenetration. This critical result was discussed with Dr. Mcdonald at 8:45 AM on April 05, 2021 and it was ascertained that the content and urgency of the report was understood at the time of direct communication. Chest X-Ray 04/05/21 20:32 IMPRESSION: Tip of NG tube not well seen. If this is important recommend a KUB. It is, however, most certainly below the diaphragm. Chest/Abdomen X-ray 04/06/21 17:53 IMPRESSION: Exact comparison to the CT scan is difficult but there are still some dilated loops of small bowel present. However, gas and stool remain in the colon and obstruction is now complete. NG tube should probably be advanced as the tip is at the GE junction. Abdomen X-Ray 04/07/21 14:56 IMPRESSION: Nasogastric tube projects over the proximal stomach. Chest/Abdomen X-ray 04/09/21 09:00 IMPRESSION: Scattered reticular lung opacities with no evidence of pneumoperitoneum. Nonobstructed bowel gas pattern. No evidence of pneumoperitoneum. In comparison with abdomen radiograph 04/06/21 the amount of bowel gas has decreased. Discharge Plan Discharge Patient Disposition: Home Health Service Discharge Diagnosis: Small bowel obstruction Referrals: [facility] [Other] - 1 Week (PATIENT IS DISCHARGED HOME WITH RESUMPTION OF HER [facility] SERVICES THROUGH [facility]) Zelda Mo MD [Primary Care Provider] - 1 Week Discharge Medications: Continued gabapentin 600 mg tablet 1,200 mg PO BID Qty: 360 RF: 1 Levemir FlexTouch U-100 Insuln 100 unit/mL (3 mL) insulin pen 32 unit subcut DAILY 30 Days Qty: 9.6 RF: 3 aspirin 81 mg Tablet,Delayed Release (Dr/Ec) 81 mg PO DAILY RF: 0 prazosin 5 mg Capsule 5 mg PO BEDTIME RF: 0 duloxetine 60 mg Capsule,Delayed Release(Dr/Ec) 60 mg PO BID RF: 0 cetirizine 10 mg Tablet 10 mg PO DAILY PRN (Reason: Allergy Symptoms) RF: 0 atorvastatin 40 mg Tablet 40 mg PO BEDTIME RF: 0 clopidogrel 75 mg tablet 1 tab PO QAM RF: 0 pantoprazole 20 mg tablet,delayed release (DR/EC) 20 mg PO BID RF: 0 levetiracetam 750 mg tablet 1 tab PO BID RF: 0 lisinopril 30 mg tablet 1 tab PO BEDTIME RF: 0 acetaminophen [Arthritis Pain Relief (acetam)] 650 mg tablet extended release 650 mg PO Q12H PRN (Reason: Pain) RF: 0 tizanidine 4 mg tablet 4 mg PO TID PRN (Reason: Muscle Pain) RF: 0 diclofenac sodium 1 % gel 2 g topical QID PRN (Reason: pain) RF: 0 prazosin 2 mg capsule 2 mg PO DAILY RF: 0 mirtazapine 15 mg tablet 15 mg PO BEDTIME RF: 0 Discharge Orders: Discharge Order (Routine); Ordered 04/12/21 Ordered By: Marycarmen Colvin Diet: advance to usual diet Activity on Discharge: As tolerated Stand Alone Forms: Patient Portal Discharge page Care Plan Goals: Return to baseline health and activity. Health Concerns: SBO, T2DM Plan of Treatment: Discharge to home, resume daily activities as tolerated. Follow up with PCP. Assessment: 60 year old female with multiple previous abdominal surgeries who presented with complaints of abdominal pain associated with nausea and vomiting and a CT scan showing dilated small bowel loops. She was managed conservatively with slow improvement. She was tolerating a solid diet and remained asymptomatic with return of bowel function and therefore was discharged to home.
--- NOTE | 2021-04-12 08:52 | MHC.CM.PN ---
PATIENT IS DISCHARGED HOME WITH RESUMPTION OF [facility]. DAUGHTER SHEA TO TRANSPORT HOME. IMM 04/12 IN CHART
--- NOTE | 2021-04-12 09:58 | HO.PM.IMPN ---
Subjective Subjective Date of Service: 04/12/21 Interval History: Seen in f/u for medical management, here for bowel obstruction. Tolerating diet, BP is better Review of Systems Gen: no fever Resp: no sob, no cough CV: no chest, no GATES, no leg edema GI: +nausea, abdominal discomforrt Neuro: No confusion Physical Exam Vital Signs: Vital Signs: Last Vital Signs Temp 98.5 F 04/12/21 07:51 Pulse 74 04/12/21 07:51 Resp 18 04/12/21 07:51 BP 149/69 H 04/12/21 07:51 Pulse Ox 96 04/12/21 07:51 Body Mass Index 38.9 Const: Other: General: AO X 3, no acute distress Resp: normal breathing, pattern CVS: S1,S2,RRR GI: BS present, nontender Skin: No rash Neuro: motor grossly intact Psych: appropriate affect Objective Data Current Medications Generic Name Dose Route Start Last Admin Trade Name Freq PRN Reason Stop Dose Admin Acetaminophen 650 mg 04/05/21 06:59 04/10/21 11:15 Acetaminophen 325 Mg Tablet PO 650 mg Q6H PRN Administration Pain, Mild (Pain Scale 1-3) Acetaminophen/Butalbital/Caffeine 1 tab 04/11/21 14:59 04/11/21 16:10 Butalb/Acetamin/Caff 50/325/40 Tablet PO 1 tab Q4H PRN Administration Headache Amlodipine Besylate 5 mg 04/11/21 10:00 04/12/21 08:17 Amlodipine Besylate 5 Mg Tablet PO 5 mg DAILY JELLY Administration Protocol Aspirin 81 mg 04/12/21 09:00 04/12/21 08:16 Aspirin Enteric Coated 81 Mg Tablet. PO 81 mg DAILY JELLY Administration Atorvastatin Calcium 40 mg 04/11/21 21:00 04/11/21 20:57 Atorvastatin Calcium 40 Mg Tablet PO 40 mg BEDTIME JELLY Administration Clopidogrel Bisulfate 75 mg 04/11/21 09:45 04/12/21 08:17 Clopidogrel Bisulfate 75 Mg Tablet PO 75 mg DAILY JELLY Administration Duloxetine HCl 60 mg 04/06/21 21:00 04/12/21 08:16 Duloxetine Hcl 60 Mg Capsule. PO 60 mg BID JELLY Administration Enoxaparin Sodium 40 mg 04/05/21 08:00 04/12/21 08:17 Enoxaparin Sodium 40 Mg/0.4 Ml Syringe SUBCUT 40 mg Q24H JELLY Administration Gabapentin 1,200 mg 04/06/21 21:00 04/12/21 08:17 Gabapentin 600 Mg Tablet PO 1,200 mg BID JELLY Administration Hydralazine HCl 10 mg 04/08/21 09:00 04/12/21 08:18 Hydralazine Hcl 20 Mg/Ml Vial IVPUSH Not Given Q6H JELLY Protocol Hydromorphone HCl 0.5 mg 04/10/21 14:51 04/10/21 17:54 Hydromorphone Hcl 0.5 Mg/0.5 Ml Syringe IVPUSH 0.5 mg Q4H PRN Administration Pain, Severe (Pain Scale 7-10) Levetiracetam 750 mg 04/06/21 21:00 04/12/21 08:16 Levetiracetam 500 Mg Tablet PO 750 mg BID JELLY Administration Lisinopril 30 mg 04/06/21 21:00 04/11/21 20:58 Lisinopril 10 Mg Tablet PO 30 mg BEDTIME JELLY Administration Protocol Loratadine 10 mg 04/06/21 19:03 Loratadine 10 Mg Tablet PO DAILY PRN Allergy Symptoms Mirtazapine 15 mg 04/06/21 21:00 04/11/21 20:58 Mirtazapine 15 Mg Tablet PO 15 mg BEDTIME JELLY Administration Omeprazole 20 mg 04/11/21 16:30 04/12/21 06:31 Omeprazole 20 Mg Capsule.Dr PO 20 mg DAILY@0630 JELLY Administration Ondansetron HCl 4 mg 04/05/21 06:59 04/05/21 12:02 Ondansetron Hcl 4 Mg/2 Ml Vial IVPUSH 4 mg Q8H PRN Administration Nausea Oxycodone HCl 5 mg 04/10/21 12:58 04/11/21 21:06 Oxycodone Hcl Immed Release 5 Mg Tablet PO 5 mg Q4H PRN Administration Pain, Moderate (Pain Scale 4-6 Pharmacy Consult 1 each 04/05/21 06:59 Consult Rx Perform Med Rec MISCELLANE ONCE PRN Consult order Prazosin HCl 2 mg 04/06/21 19:15 04/12/21 08:17 Prazosin Hcl 1 Mg Capsule PO 2 mg DAILY JELLY Administration Protocol Prazosin HCl 5 mg 04/06/21 21:00 04/11/21 20:57 Prazosin Hcl 5 Mg Capsule PO 5 mg BEDTIME JELLY Administration Protocol Sodium Chloride 3 ml 04/05/21 08:00 04/12/21 08:18 0.9 % Sodium Chloride Flush 3 Ml Syringe IVFLUSH 3 ml QSHIFT JELLY Administration Tizanidine HCl 4 mg 04/06/21 19:03 Tizanidine Hcl 4 Mg Tablet PO TID PRN Muscle Pain Labs CBC & Chem 7: 04/11/21 05:24 04/11/21 05:24 Labs: Laboratory Results - last 24 hr 04/11/21 04/11/21 04/11/21 11:31 16:19 21:13 POC Glucose 211 H 192 H 157 H 04/12/21 07:48 POC Glucose 140 H Assessment and Plan (1) T2DM (type 2 diabetes mellitus): Status: Acute Assessment and Plan: 60/F with HTN, HLD, diabetes, h/o gastric sleeve and prior hernia here with abdominal pain, n/v and found to have small bowel obstruction. 1/SBO--clinically resolved, managment per surgery 2/HTN--on Lisinopril 30, minipress, proably not absorbing meds, BP is now better 3/ Diabetes--continue SSI, hold Lantus for now 4/HLD--on lipitor 5/Lactic acidosis--not due to sepsis, likely from bowel obstruction, and transient low BP 6/GERD-oral ppi 8/Mild HypOkalemia--corrected 9/Anemia-- no active bleed, monitor Out of bed, ambulate Medically ok for dc and to resume usual meds Quality Stroke Does the patient have a stroke diagnosis?: No VTE Prior VTE?: No VTE Risk Level:: Surgical - high VTE Device Contraindication: N/A - Device Ordered VTE Drug Contraindication: N/A - Med Ordered
[2021-04-12 11:21] LABS: Glucose, Whole Blood 206 mg/dL (60-115)
== END 2021-04-12 12:09 | disposition home health service (06) | DRG 390 ==
LOC: HO.ED 07:05 → HO.EDOVER 07:10 → HO.S3 15:31
PROVIDERS: Internal Medicine; Surgery; Admitting Provider Surgery; Emergency Provider Student in an Organized Health Care Education/Training Program; PCP Family Medicine; Visit Provider Surgery
DX: K91.30 Postprocedural intestinal obstruction, unspecified as to partial versus complete (principal); E87.6 Hypokalemia; D64.9 Anemia, unspecified; Z87.891 Personal history of nicotine dependence; Z20.822 Contact with and (suspected) exposure to COVID-19; Z98.84 Bariatric surgery status; Z88.2 Allergy status to sulfonamides; Z79.4 Long term (current) use of insulin; Z79.02 Long term (current) use of antithrombotics/antiplatelets; Z79.82 Long term (current) use of aspirin; Z79.899 Other long term (current) drug therapy
CPT/HCPCS: 36415; 70450; 71045; 74018; 74022; 74176; 80048; 80053; 80307; 81003; 82009; 82077; 82947; 83605; 83690; 83735; 84100; 85007; 85025; 85027; 85610; 87040; 87635; 93005; 99285; J1170; J1650; J2060; J2405; J2543

== ENCOUNTER 2021-05-09 14:47 | Outpatient (REF) | payer OTHER, SELFPAY ==
--- NOTE | ~2021-05-09 | XR_ITS ---
EXAMINATION: XR CERVICAL SPINE CLINICAL INFORMATION: Spondylosis COMPARISON: Previous x-ray July [address] November 2018 TECHNIQUE: 5 views of the cervical spine were obtained. FINDINGS: Bone alignment is normal. No fracture or dislocation is seen. There is degenerative spondylosis at C5-C6 and C4-C5. Disc spaces are normal. Neural foramen are patent. There are surgical clips over the right anterior lower neck. Prevertebral soft tissues are otherwise normal. XR/XR cervical spine 4V IMPRESSION: Mild degenerative spondylosis at C5-C6 and C4-C5.
== END 2021-05-09 14:48 | disposition home or self-care (01) ==
LOC: HO.XRAY 14:47
PROVIDERS: PCP Family Medicine; Visit Provider Psychiatry & Neurology Neurology
DX: M47.812 Spondylosis without myelopathy or radiculopathy, cervical region (principal)
CPT/HCPCS: 72050

== ENCOUNTER → 2021-06-05 10:17 | Outpatient (BNVA) | payer OTHER, SELFPAY | PROVIDERS: PCP Family Medicine; Visit Provider Anesthesiology | DX: M17.0 Bilateral primary osteoarthritis of knee (principal); M51.36 Other intervertebral disc degeneration, lumbar region; M47.816 Spondylosis without myelopathy or radiculopathy, lumbar region; M47.812 Spondylosis without myelopathy or radiculopathy, cervical region | CPT/HCPCS: 99212 ==

== ENCOUNTER 2021-10-03 13:28 | Outpatient (REF) | payer OTHER, SELFPAY ==
[2021-10-03 15:54] LABS: MANUAL DIFF FLAG NO
[2021-10-03 16:01] LABS: Basophils Percent Auto 0.6 % (0-2); Eosinophils Absolute Auto 0.1 X10*3/uL (0.0-0.4); Eosinophils Percent Auto 1.9 % (0-4); Hematocrit 37.4 % (37.0-47.0); Hemoglobin 11.6 g/dl (12.0-16.0); Imm Gran Abs Auto 0.01 X10*3/uL (0.00-0.03); Imm Gran Pct Auto 0.2 % (0.0-0.4); Lymphocytes Absolute Auto 1.7 X10*3/uL (1.2-4.9); Lymphocytes Percent Auto 26.4 % (20-40); Mean Corpuscular Hemoglobin 26.7 pg (27.0-33.0); Mean Platelet Volume 11.1 fL (9.4-12.3); Monocytes Absolute Auto 0.4 X10*3/uL (0.1-1.2); Monocytes Percent Auto 6.5 % (2-11); Neutrophils Absolute Auto 4.1 x10*3/uL (2.0-8.3); Neutrophils Percent Auto 64.4 % (45-73); Platelet Count 344 X10*3/uL (160-400); Red Blood Count 4.35 X10*6/uL (4.20-5.50); Red Cell Distribution Width 16.1 % (11.0-16.0); White Blood Count 6.4 X10*3/uL (4.8-10.8)
[2021-10-03 16:10] LABS: Estimated Average Glucose 194 mg/dL; Hemoglobin A1c % 8.4 %
[2021-10-03 16:25] LABS: Alanine Aminotransferase 28 U/L (0-31); Albumin Level 3.9 g/dL (3.5-5.0); Alkaline Phosphatase 186 U/L (39-117); Anion Gap 16 (12-20); Aspartate Amino Transferase 33 U/L (5-31); Bilirubin Total 0.3 mg/dL (0.0-1.0); Blood Urea Nitrogen 14 mg/dL (9-16); Calcium 9.3 mg/dL (8.4-10.2); Carbon Dioxide 19 mmol/L (22-29); Chloride 110 mmol/L (96-108); Cholesterol 211 mg/dL; Estimated Glomerular Filt Rate 50; Glucose Random 216 mg/dL (60-115); HDL Cholesterol 45 mg/dL; LDL Cholesterol Calculated 120 mg/dl; Potassium 4.1 mmol/L (3.3-5.1); Sodium 141 mmol/L (135-145); Total Protein 7.2 g/dL (6.5-8.0); Triglycerides 233 mg/dL
[2021-10-03 16:47] LABS: Free T4 (Free Thyroxine) 0.75 ng/dL (0.71-1.85); Thyroid Stimulating Hormone 1.27 uIU/mL (0.32-4.0)
[2021-10-04 07:48] LABS: LDL Cholesterol Direct 131 mg/dL (<100)
== END 2021-10-03 13:29 | disposition home or self-care (01) ==
LOC: HO.LAB 13:28
PROVIDERS: Internal Medicine; PCP Family Medicine; Visit Provider Nurse Practitioner Family
DX: M17.0 Bilateral primary osteoarthritis of knee (principal); M79.641 Pain in right hand; M79.642 Pain in left hand; M47.816 Spondylosis without myelopathy or radiculopathy, lumbar region; E04.2 Nontoxic multinodular goiter; E11.9 Type 2 diabetes mellitus without complications
CPT/HCPCS: 36415; 80053; 80061; 83036; 83721; 84439; 84443; 85025; 99212

== ENCOUNTER 2021-10-06 09:20 | Day surgery (SDC) | payer OTHER, SELFPAY ==
[2021-10-02 10:57] VITALS: BMI 32.2
--- NOTE | 2021-10-05 11:49 | HO.ANESPROP2 ---
Documented by User: Annette Lester NP 10/05/21 11:59 HPI - Anesthesia Eval Consult details Narrative: 60yo F for Bilateral Cervical C4-C5-C6 diagnostic Medial Branch Block [facility] [place] [facility] [place] with ?TIA/CVA TPA given, but r/o felt to be complex migraine PMFSH Active Problems Active Problems: All Active Problems (Updated 10/02/21 @ 11:06 by Cami Mendiola, ALEX) Perineum pain, female (Acute) Vaginal discharge (Acute) Potential exposure to STD (Acute) Encounter to discuss test results (Acute) Bacterial vaginosis (Acute) Conversion disorder (Acute) Surgical wound, non healing (Acute) Bowel obstruction (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 (Acute) T2DM (type 2 diabetes mellitus) (Acute) Spondylosis of lumbar joint (Acute) Vitamin D deficiency (Acute) Multinodular thyroid (Acute) Osteoarthritis of knees, bilateral (Acute) Past Medical History 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 T2DM (type 2 diabetes mellitus) Vitamin D deficiency Family History Family History Father Alzheimer disease Mother Hypertension Gout Arthritis of knee CVD (cardiovascular disease) Surgical History Surgical History History of sleeve gastrectomy Hx of cholecystectomy Hx of colostomy Hx of hernia repair Hx of skin graft Hx of tubal ligation Social History Social History Household Members: None Housing: Apartment Do you presently have visiting nurse or other home services: Yes Alcohol intake: former Patient Tobacco Use Status: Former Tobacco user Quit Date: 2018 Tobacco use type: Cigarette Are you DNR?: No Advance Directives: No Advance Directives Information Provided: Yes Advance Directives on File: No Recently lost weight without trying: No Patient : No service: No Current occupational status: disabled Meds Allergies Allergy/AdvReac Type Severity Reaction Status Date / Time Sulfa (Sulfonamide Allergy Intermediate blood Verified 10/03/21 14:29 Antibiotics) clots in [Sulfa (Sulfonamides)] legs, hives Home Medications Medication Instructions Recorded Confirmed Last Taken Type mirtazapine 15 mg tablet 15 mg PO BEDTIME 07/25/20 10/02/21 04/04/21 History prazosin 2 mg capsule 2 mg PO DAILY 07/25/20 10/02/21 04/04/21 History atorvastatin 40 mg tablet 40 mg PO BEDTIME 02/19/21 10/02/21 04/04/21 History duloxetine 60 mg capsule,delayed 60 mg PO BID 02/19/21 10/02/21 04/04/21 History release prazosin 5 mg capsule 5 mg PO BEDTIME 02/19/21 10/02/21 04/04/21 History acetaminophen 650 mg 650 mg PO Q12H PRN 04/05/21 10/02/21 Unknown History tablet,extended release (Arthritis Pain Relief (acetaminophen) ER) levetiracetam 750 mg tablet 1 tab PO BID 04/05/21 10/02/21 04/04/21 History lisinopril 30 mg tablet 1 tab PO BEDTIME 04/05/21 10/02/21 04/04/21 History pantoprazole 20 mg tablet,delayed 20 mg PO BID 04/05/21 10/02/21 04/04/21 History release insulin detemir U-100 100 unit/mL 32 unit SUBCUT BEDTIME 10/02/21 10/02/21 Unknown History (3 mL) subcutaneous pen (Levemir FlexTouch U-100 Insulin) Exam Exam Date and Time: October 05, 2021 1149 Height,Weight and Vital Signs: Height 5 ft 3 in Weight 82.554 kg Pertinent Lab Results Pertinent Lab Results: Laboratory Tests 10/03/21 10/03/21 15:51 15:51 WBC 6.4 Hgb 11.6 L Hct 37.4 Plt Count 344 Sodium 141 Potassium 4.1 Chloride 110 H Carbon Dioxide 19 L BUN 14 Creatinine 1.10 Narrative Narrative: EKG 03/2021 Vent. Rate : 054 BPM ? ? Atrial Rate : 054 BPM ?? P-R Int : 144 ms? QRS Dur : 140 ms ? ? QT Int : 498 ms ? ? ? P-R-T Axes : 083 078 072 degrees ?? QTc Int : 472 ms ? Sinus bradycardia Right bundle branch block Abnormal ECG When compared with ECG of 18-FEB-2021 13:37, Vent. rate has decreased BY? 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 T2DM (type 2 diabetes mellitus) Vitamin D deficiency Family History Family History Father Alzheimer disease Mother Hypertension Gout Arthritis of knee CVD (cardiovascular disease) Family history of problems with anesthesia: No Surgical History Surgical History History of sleeve gastrectomy Hx of cholecystectomy Hx of colostomy Hx of hernia repair Hx of skin graft Hx of tubal ligation History of Problems with Anesthesia: No Social History Social History Household Members: None Housing: Apartment Do you presently have visiting nurse or other home services: Yes Alcohol intake: former Patient Tobacco Use Status: Former Tobacco user Quit Date: 2018 Tobacco use type: Cigarette Are you DNR?: No Advance Directives: No Advance Directives Information Provided: Yes Advance Directives on File: No Recently lost weight without trying: No Patient : No service: No Current occupational status: disabled Meds Allergies Allergy/AdvReac Type Severity Reaction Status Date / Time Sulfa (Sulfonamide Allergy Intermediate blood Verified 10/03/21 14:29 Antibiotics) clots in [Sulfa (Sulfonamides)] legs, hives Home Medications Medication Instructions Recorded Confirmed Last Taken Type mirtazapine 15 mg tablet 15 mg PO BEDTIME 07/25/20 10/02/21 04/04/21 History prazosin 2 mg capsule 2 mg PO DAILY 07/25/20 10/02/21 04/04/21 History atorvastatin 40 mg tablet 40 mg PO BEDTIME 02/19/21 10/02/21 04/04/21 History duloxetine 60 mg capsule,delayed 60 mg PO BID 02/19/21 10/02/21 04/04/21 History release prazosin 5 mg capsule 5 mg PO BEDTIME 02/19/21 10/02/21 04/04/21 History acetaminophen 650 mg 650 mg PO Q12H PRN 04/05/21 10/02/21 Unknown History tablet,extended release (Arthritis Pain Relief (acetaminophen) ER) levetiracetam 750 mg tablet 1 tab PO BID 04/05/21 10/02/21 04/04/21 History lisinopril 30 mg tablet 1 tab PO BEDTIME 04/05/21 10/02/21 04/04/21 History pantoprazole 20 mg tablet,delayed 20 mg PO BID 04/05/21 10/02/21 04/04/21 History release insulin detemir U-100 100 unit/mL 32 unit SUBCUT BEDTIME 10/02/21 10/02/21 Unknown History (3 mL) subcutaneous pen (Levemir FlexTouch U-100 Insulin) Exam Airway Mallampati Class: III TM Dist: >3cm Neck ROM: Limited Loose/Missing/Broken Teeth: Yes (Bridge , missing ) Heart: rrr Lungs: bl breath sounds Assessment and Plan Assessment Anesthesia Assessment: Anesthesia Plan Discussed Final Anesthetic Review Family History of Problems with Anesthesia: No History of Problems with Anesthesia: No NPO: Yes ASA Class: III Final Preanesthetic Review: Anes Risks/Benef Reviewed Patient Risk: High Procedure Risk: High Anesthetic Plan Anesthetic Plan: MAC: Disposition: Standard PACU
--- NOTE | ~2021-10-06 | FL_ITS ---
EXAMINATION: XR FLUOROSCOPY WITH IMAGES CLINICAL INFORMATION: Diagnostic cervical medial branch blocks C4, C5, C6 COMPARISON: Radiographs cervical spine 05/09/2021 TECHNIQUE: Fluoroscopy performed by Dr. Daniel Amaya. Fluoroscopy time: 0.8 minutes DAP: 4.55 Gycm2 Images: 2 FINDINGS: There are spinal needles overlying the bilateral lateral masses cervical spine approximately C4, C5, and C6. There is contrast in the paraspinal soft tissues and nerve sheaths. No visible vascular communication. FL/FL guidance in OR IMPRESSION: Fluoroscopy for pain management procedure.
[2021-10-06 09:48] VITALS: BP 126/64; PULSE 81; RESP 16; TEMP 36.1; O2SAT 98
[2021-10-06 10:01] LABS: Glucose, Whole Blood 77 mg/dL (60-115)
--- NOTE | 2021-10-06 10:03 | P.HPSUR_ITS ---
Pre-Procedural Eval Section A Date of Service: 10/06/21 The patient is an INPATIENT: No Changes since office visit: Yes Cold of Flu in the past 2 weeks Section B Chief Complaint: spondylosis without myelopathy Details of Present Illness: As above Relevant Family History (Specify if Yes): No Relevant Social History: None Present Medications: see Short Stay Collaborative assessment Medical History: No relevant PMH History of Previous Operations: No relevant previous surgery Allergies: Allergies Allergy/AdvReac Type Severity Reaction Status Date / Time Sulfa (Sulfonamide Allergy Intermediate blood Verified 10/03/21 14:29 Antibiotics) clots in [Sulfa (Sulfonamides)] legs, hives Review of Systems Sugical H&P ROS: Negative: Constitution, Cardiovascular, Respiratory, Neurologi kelli, Psychiatric, Hem-Onc, Allergic/Immunologic, Gastrointestinal, Genitourinary, Musculoskeletal, Integumentary, Endocrine and Eyes/Ears/Nose/Throat Exam Surgical H&P Exam: Normal: HEENT, Normal: Heart, Normal: Lungs, Normal: Extremities, Normal: Abdomen, Normal: Skin and Normal: Neurological Plan Diagnosis/Plan: Unchanged I have reviewed the history and physical and performed a pertinent physical examination on my patient. No changes have occurred unless specified.
[2021-10-06] MEDS: Dextrose 5 % and Lactated Ring 1,000 ML 80 ML IVCONT (10:37)
[2021-10-06 12:35] VITALS: BP 160/75; PULSE 68; RESP 13; TEMP 36.6; O2SAT 100
--- NOTE | 2021-10-06 12:44 | P.BOP_ITS ---
Brief Operative Note Date of Service: 10/06/21 Pre-op diagnosis: Spondylosis cervical spine Post-op diagnosis: same Procedure: Medial branch block C4-C5 C6 bilateral diagnostic Implants: None permanent Surgeon: Daniel Amaya MD Anesthesia: MAC Was an Associate Manager [employer] used for this Procedure?: No Estimated blood loss (mL): 2 Condition: stable Disposition: PACU
--- NOTE | 2021-10-06 12:46 | P.OP_ITS ---
Operative Note Operative Note Date of Service: 10/06/21 Narrative: Informed consent was explained to the patient. All questions were explained and? answered.? The patient was taken inside the operating room where she was positioned prone on the operating table.? [place] [employer] monitors were applied.? Patient was minimally sedated. ? Time-out was performed delineating correct site, side, the nature of the procedure, patient's allergy, preoperative antibiotic if needed.? All operating room staff was participating in OR time-out procedure. ? ? The posterior neck was prepped with DuraPrep and draped with sterile towels.? Sterilely draped C-arm was brought over the operating field and sq picture of C4-C5 and C6 vertebrae were delineated on the screen.? Point of interest were delineated as lateral border of bilateral medial masses of C4-C5 and C6 vertebrae, the waistline of each of the vertebra was chosen as the target of the injection. The projection of the point of interest to the skin were injected with the small amount of local anesthetic lidocaine 2% 1-1.5 cc.? After that three 22 gauge 3-1/2 inch spinal needles were driven sequentially to the points of interest in tunnel vision fashion. After needles gently contacted the bone at the point of interests the needle was injected with small amount of the contrast.? The injection of the contrast did not demonstrate any intravascular or intrathecal spread of the contrast.? After that injection of the? bupivacaine 0.5%-1cc was performed at each needle location.? ? Upon completion of the injections? needle was? removed and sterile Band-Aids were applied.? The? patient was awaken and taken outside of the operating room to recovery room where she recovered uneventfully.? She went home without immediate complications. ?
[2021-10-06 12:50] VITALS: BP 178/90; PULSE 63; RESP 14; O2SAT 100
[2021-10-06 13:05] VITALS: BP 171/81; PULSE 67; RESP 16; O2SAT 100
[2021-10-06] MEDS: Acetaminophen 325 MG TABLET 650 MG PO (13:09)
[2021-10-06 13:20] VITALS: BP 160/82; PULSE 61; RESP 18; TEMP 36.2; O2SAT 100
== END 2021-10-06 14:05 | disposition home or self-care (01) ==
PROVIDERS: PCP Family Medicine; Visit Provider Anesthesiology
PROC: (CPT 64490; principal; 2021-10-06 12:10)
DX: M47.812 Spondylosis without myelopathy or radiculopathy, cervical region (principal); M54.2 Cervicalgia; M79.7 Fibromyalgia; M17.0 Bilateral primary osteoarthritis of knee; I10 Essential (primary) hypertension; E11.9 Type 2 diabetes mellitus without complications; E55.9 Vitamin D deficiency, unspecified; E04.2 Nontoxic multinodular goiter; G40.909 Epilepsy, unspecified, not intractable, without status epilepticus; Z93.3 Colostomy status; Z90.49 Acquired absence of other specified parts of digestive tract; Z86.73 Personal history of transient ischemic attack (TIA), and cerebral infarction without residual deficits; Z98.84 Bariatric surgery status; Z79.4 Long term (current) use of insulin; Z88.1 Allergy status to other antibiotic agents; Z79.899 Other long term (current) drug therapy; Z88.8 Allergy status to other drugs, medicaments and biological substances; Z88.2 Allergy status to sulfonamides; Z87.891 Personal history of nicotine dependence
CPT/HCPCS: 64490; 64491 ×2; 82947; J2250; Q9967

== ENCOUNTER 2021-10-09 12:14 | Outpatient (REF) | payer OTHER, SELFPAY ==
--- NOTE | ~2021-10-09 | US_ITS ---
EXAMINATION: US THYROID CLINICAL INFORMATION: Nontoxic multinodular goiter. COMPARISON: Thyroid ultrasound 08/23/2020 and 01/02/2019. Ultrasound-guided thyroid biopsy 03/26/2019. TECHNIQUE: Linear transducer grayscale and color Doppler examination with attention to the region of the thyroid. FINDINGS: SIZE: Measurements of the left lobe and nodules are given in sagittal, anteroposterior and transverse dimensions respectively. Right Thyroid Lobe: Surgically absent. Left Thyroid Lobe: 5.3 x 1.2 x 2.2 cm, volume 7.0 mL. Previously 5.7 x 1.3 x 1.8 cm, volume 6.7 mL. Parenchyma: The gland echotexture is heterogeneous. Thyroid vascularity is normal. Isthmus: 0.4 cm in maximum AP dimension. Previously 0.3 cm. Estimated total number of nodules greater than or equal to 1 cm: 3. Litigation Associate nodules are described as follows: 1. Location: Left lower pole. Size: 1.0 x 0.7 x 0.7 cm, volume 0.3 mL. Previously: 0.9 x 0.8 x 1.1 cm, volume 0.4 mL. Nodule characteristics: Composition: Cannot be determined (2). Echogenicity: Very hypoechoic (3). Shape: Not taller than wide (0). Margins: Ill-defined (0). Echogenic Foci: None (0). ACR TI-RADS total points: 5 ACR TI-RADS category: 4 Significant change in size (>/= 20% in 2 dimensions and minimal increase of 2 mm or 50% or greater increase in volume): None Change in features: None Change in ACR TI-RADS risk category: Not applicable. 2. Location: Midpole. Size: 1.5 x 0.8 x 1.4 cm, volume 0.9 mL. Previously: 1.7 x 0.9 x 1.4 cm, volume 1.1 mL. Nodule characteristics: Composition: Solid (2). Echogenicity: Hyperechoic (1). Shape: Not taller than wide (0). Margins: Ill-defined (0). Echogenic Foci: None (0). ACR TI-RADS total points: 3 ACR TI-RADS category: 3 Significant change in size (>/= 20% in 2 dimensions and minimal increase of 2 mm or 50% or greater increase in volume): None Change in features: None Change in ACR TI-RADS risk category: Not applicable. 3. Location: Left lower pole inferior. Size: 0.9 x 0.9 x 1.0 cm, volume 0.4 mL. Previously: Not documented. Nodule characteristics: Composition: Cystic(0). ACR TI-RADS total points: 0 ACR TI-RADS category: 1 RIGHT THYROIDECTOMY BED: No focal lesion seen. NODES: No lymphadenopathy is seen in the tissue surrounding the thyroid gland. US/US thyroid IMPRESSION: Right thyroidectomy. Moderate-sized nodules left thyroid lobe. The largest nodule measuring 1.5 cm in the midpole is grossly stable. New nodule in lower pole left lobe is subcentimeter. Recommend continued yearly follow-up. ACR TI-RADS RECOMMENDATION REFERENCE: Ultrasound-guided fine-needle aspiration, followup ultrasound, no further follow up. * TR1 (0 point) and TR 2 (2 points): No FNA or follow up * TR3 (3 points): FNA if more than or equal to 2.5 cm in maximum dimension, followup ultrasound in 1, 3 and 5 years if 1.5 to 2.4 cm in maximum dimension. * TR4 (4-6 points): FNA if more than or equal to 1.5 cm in maximum dimension, followup ultrasound in 1, 2, 3 and 5 years if 1 to 1.4 cm in maximum dimension. * TR5 (more than or equal to 7 points): FNA if more than or equal to 1 cm in maximum dimension, followup ultrasound every year for 5 years if 0.5 to 0.9 cm in maximum dimension. * TR3, TR4 or TR5 nodules that are below the size threshold for follow up receive no follow up.
== END 2021-10-09 12:15 | disposition home or self-care (01) ==
LOC: HO.US 12:14
PROVIDERS: Visit Provider Internal Medicine
DX: E04.2 Nontoxic multinodular goiter (principal)
CPT/HCPCS: 76536

== ENCOUNTER → 2021-10-12 09:50 | Outpatient (BNVA) | payer OTHER, SELFPAY | PROVIDERS: PCP Family Medicine; Visit Provider Anesthesiology | DX: M17.0 Bilateral primary osteoarthritis of knee (principal); M51.36 Other intervertebral disc degeneration, lumbar region; M47.816 Spondylosis without myelopathy or radiculopathy, lumbar region; M47.812 Spondylosis without myelopathy or radiculopathy, cervical region; Z98.890 Other specified postprocedural states | CPT/HCPCS: 99212 ==

== ENCOUNTER 2021-10-20 13:17 | Day surgery (SDC) | payer OTHER, SELFPAY ==
[2021-10-16 11:03] VITALS: BMI 32.8
--- NOTE | 2021-10-19 10:55 | HO.ANESPROP2 ---
Documented by User: Annette Lester NP 10/19/21 10:56 HPI - Anesthesia Eval Consult details Narrative: 60yo F for Left L2-L3-L4-DR L5 therapeutic Medial Branch Block s/p Cervical Medial branch block 10/06/21 with MAC PMFSH Active Problems Active Problems: All Active Problems (Updated 10/02/21 @ 11:06 by Cami Mendiola, RN) Perineum pain, female (Acute) Vaginal discharge (Acute) Potential exposure to STD (Acute) Encounter to discuss test results (Acute) Bacterial vaginosis (Acute) Conversion disorder (Acute) Surgical wound, non healing (Acute) Bowel obstruction (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 (Acute) T2DM (type 2 diabetes mellitus) (Acute) Spondylosis of lumbar joint (Acute) Vitamin D deficiency (Acute) Multinodular thyroid (Acute) Osteoarthritis of knees, bilateral (Acute) Past Medical History 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 T2DM (type 2 diabetes mellitus) Vitamin D deficiency Family History Family History Father Alzheimer disease Mother Hypertension Gout Arthritis of knee CVD (cardiovascular disease) Family history of problems with anesthesia: No Surgical History Surgical History History of sleeve gastrectomy History of surgery Hx of cholecystectomy Hx of colostomy Hx of hernia repair Hx of skin graft Hx of tubal ligation History of Problems with Anesthesia: No Social History Social History Household Members: None Housing: Apartment Are you a primary vision care associate to a significant other at home: No Do you presently have visiting nurse or other home services: Yes Alcohol intake: former Patient Tobacco Use Status: Former Tobacco user Quit Date: 2018 Tobacco use type: Cigarette Are you DNR?: No Advance Directives: No Advance Directives Information Provided: Yes Advance Directives on File: No service: No Current occupational status: disabled Meds Allergies Allergy/AdvReac Type Severity Reaction Status Date / Time Sulfa (Sulfonamide Allergy Intermediate blood Verified 10/12/21 10:06 Antibiotics) clots in [Sulfa (Sulfonamides)] legs, hives Home Medications Medication Instructions Recorded Confirmed Last Taken Type mirtazapine 15 mg tablet 15 mg PO BEDTIME 07/25/20 10/16/21 04/04/21 History prazosin 2 mg capsule 2 mg PO DAILY 07/25/20 10/16/21 04/04/21 History atorvastatin 40 mg tablet 40 mg PO BEDTIME 02/19/21 10/16/21 04/04/21 History duloxetine 60 mg capsule,delayed 60 mg PO BID 02/19/21 10/16/21 04/04/21 History release prazosin 5 mg capsule 5 mg PO BEDTIME 02/19/21 10/16/21 04/04/21 History levetiracetam 750 mg tablet 1 tab PO BID 04/05/21 10/16/21 04/04/21 History lisinopril 30 mg tablet 1 tab PO BEDTIME 04/05/21 10/16/21 04/04/21 History pantoprazole 20 mg tablet,delayed 20 mg PO BID 04/05/21 10/16/21 04/04/21 History release insulin detemir U-100 100 unit/mL 32 unit SUBCUT BEDTIME 10/02/21 10/16/21 Unknown History (3 mL) subcutaneous pen (Levemir FlexTouch U-100 Insulin) Exam Exam Date and Time: October 19, 2021 1055 Height,Weight and Vital Signs: Height 5 ft 3 in Weight 83.915 kg Pertinent Lab Results Pertinent Lab Results: Laboratory Tests ? 10/03/21 10/03/21 ? 15:51 15:51 WBC ? ?6.4 Hgb ? ?11.6 L Hct ? ?37.4 Plt Count ? ?344 Sodium ?141 ? Potassium ?4.1 ? Chloride ?110 H ? Carbon Dioxide ?19 L ? BUN ?14 ? Creatinine ?1.10 ? Narrative Narrative: EKG 03/2021 Vent. Rate : 054 BPM ? ? Atrial Rate : 054 BPM ?? P-R Int : 144 ms? QRS Dur : 140 ms ? ? QT Int : 498 ms ? ? ? P-R-T Axes : 083 078 072 degrees ?? QTc Int : 472 ms ? Sinus bradycardia Right bundle branch block Abnormal ECG When compared with ECG of 18-FEB-2021 13:37, Vent. rate has decreased BY? 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 T2DM (type 2 diabetes mellitus) Vitamin D deficiency Functional capacity: bed bound Family History Family History Father Alzheimer disease Mother Hypertension Gout Arthritis of knee CVD (cardiovascular disease) Surgical History Surgical History History of sleeve gastrectomy History of surgery Hx of cholecystectomy Hx of colostomy Hx of hernia repair Hx of skin graft Hx of tubal ligation Social History Social History Household Members: None Housing: Apartment Are you a primary vision care associate to a significant other at home: No Do you presently have visiting nurse or other home services: Yes Alcohol intake: former Patient Tobacco Use Status: Former Tobacco user Quit Date: 2018 Tobacco use type: Cigarette Are you DNR?: No Advance Directives: No Advance Directives Information Provided: Yes Advance Directives on File: No service: No Current occupational status: disabled Meds Allergies Allergy/AdvReac Type Severity Reaction Status Date / Time Sulfa (Sulfonamide Allergy Intermediate blood Verified 10/12/21 10:06 Antibiotics) clots in [Sulfa (Sulfonamides)] legs, hives Home Medications Medication Instructions Recorded Confirmed Last Taken Type mirtazapine 15 mg tablet 15 mg PO BEDTIME 07/25/20 10/16/21 04/04/21 History prazosin 2 mg capsule 2 mg PO DAILY 07/25/20 10/16/21 04/04/21 History atorvastatin 40 mg tablet 40 mg PO BEDTIME 02/19/21 10/16/21 04/04/21 History duloxetine 60 mg capsule,delayed 60 mg PO BID 02/19/21 10/16/21 04/04/21 History release prazosin 5 mg capsule 5 mg PO BEDTIME 02/19/21 10/16/21 04/04/21 History levetiracetam 750 mg tablet 1 tab PO BID 04/05/21 10/16/21 04/04/21 History lisinopril 30 mg tablet 1 tab PO BEDTIME 04/05/21 10/16/21 04/04/21 History pantoprazole 20 mg tablet,delayed 20 mg PO BID 04/05/21 10/16/21 04/04/21 History release insulin detemir U-100 100 unit/mL 32 unit SUBCUT BEDTIME 10/02/21 10/16/21 Unknown History (3 mL) subcutaneous pen (Levemir FlexTouch U-100 Insulin) Exam Airway Mallampati Class: II TM Dist: >3cm Partial: Lower Loose/Missing/Broken Teeth: Yes and Lower Heart: RRR Lungs: CTA Assessment and Plan Assessment Anesthesia Assessment: Anesthesia Plan Discussed Final Anesthetic Review NPO: Yes ASA Class: II Final Preanesthetic Review: Meds/Allgs Chart Reviewed, Consent Obtained/Reviewed and Anes Risks/Benef Reviewed Patient Risk: Low Procedure Risk: Low Anesthetic Plan Anesthetic Plan: MAC: Disposition: Standard PACU
--- NOTE | ~2021-10-20 | FL_ITS ---
EXAMINATION: XR FLUOROSCOPY WITH IMAGES CLINICAL INFORMATION: Pain. Medial branch block. COMPARISON: Abdomen radiographs 04/07/2021, CT abdomen 04/05/2021 TECHNIQUE: Fluoroscopy performed by Dr. Daniel Amaya. Fluoroscopy time: 0.7 minutes DAP: 3.46 Gycm2 Images: 4 FINDINGS: There are spinal needles overlying the left outer L2, L3, L4, and L5 neural foramen. There is contrast seen in the respective nerve sheaths. Some early transforaminal epidural extension is suggested. No visible vascular communication. There is spurring vertebral bodies. FL/FL guidance in OR IMPRESSION: Fluoroscopy for pain management procedures.
[2021-10-20 13:42] VITALS: BP 122/69; PULSE 74; RESP 16; TEMP 36.8; O2SAT 98
[2021-10-20 13:43] LABS: Glucose, Whole Blood 104 mg/dL (60-115)
[2021-10-20] MEDS: Lactated Ringers 1,000 ML 100 ML IVCONT (14:04)
--- NOTE | 2021-10-20 14:05 | MHC.SHP ---
Pre-Procedural Eval Section A Date of Service: 10/20/21 The patient is an INPATIENT: No Changes since office visit: Yes Patient answered all questions The History & Physical has been completed within 30 days and I have reviewed it.: No Section B Chief Complaint: spondylosis without myelopathy Details of Present Illness: as above Relevant Family History (Specify if Yes): No Relevant Social History: None Present Medications: see Short Stay Collaborative assessment Medical History: No relevant PMH History of Previous Operations: No relevant previous surgery Allergies: Allergies Allergy/AdvReac Type Severity Reaction Status Date / Time Sulfa (Sulfonamide Allergy Intermediate blood Verified 10/12/21 10:06 Antibiotics) clots in [Sulfa (Sulfonamides)] legs, hives Review of Systems Sugical H&P ROS: Negative: Constitution, Cardiovascular, Respiratory, Neurological, Psychiatric, Hem-Onc, Allergic/Immunologic, Gastrointestinal, Genitourinary, Musculoskeletal, Integumentary, Endocrine and Eyes/Ears/Nose/Throat Exam Surgical H&P Exam: Normal: HEENT, Normal: Heart, Normal: Lungs, Normal: Extremities, Normal: Abdomen, Normal: Skin and Normal: Neurological Plan Diagnosis/Plan: Unchanged I have reviewed the history and physical and performed a pertinent physical examination on my patient. No changes have occurred unless specified.
--- NOTE | 2021-10-20 14:07 | W.PM.OPN ---
Operative Note Operative Note Date of Service: 10/20/21 Narrative: Informed consent was explained to the patient. All questions were explained and? answered.? The patient was taken inside the operating room where she was positioned prone on the operating table.? [place] [employer] monitors were applied.? Patient was minimally sedated. ? Time-out was performed delineating correct site, side, the nature of the procedure, patient's allergy, preoperative antibiotic if needed.? All operating room staff was participating in OR time-out procedure. ? ? The lower back was prepped with DuraPrep and draped with sterile towels.? Sterilely draped C-arm was brought over the operating field and sq picture of L3-L4 and L5 vertebrae were delineated on the screen.? Point of interest were delineated as connection of the superior articular processes of L3 L4 and L5 vertebra on the left with corresponding transverse processes as well as connection of the superior articular process of S1 on the left with sacral alae on the left. The projection of the point of interest to the skin were injected with the small amount of local anesthetic lidocaine 2% 1-1.5 cc.? After that? three 22 gauge 3-1/2 inch spinal needles were driven sequentially to the points of interest in tunnel vision fashion. After needles gently contacted the bone at the point of interests the needle was injected with small amount of the contrast.? The injection of the contrast did not demonstrate any intravascular or intrathecal spread of the contrast.? After that injection of the? bupivacaine 0.5%-1cc Mixed with Kenalog ( 40 mg total dose of Kenalog) was performed at each needle location.? ? Upon completion of the injections? needle was? removed and sterile Band-Aids were applied.? The? patient was awaken and taken outside of the operating room to room.
--- NOTE | 2021-10-20 15:03 | P.BOP_ITS ---
Brief Operative Note Date of Service: 10/20/21 Pre-op diagnosis: spondylosis lumbar spine Post-op diagnosis: same Procedure: L2-L3 L4 does ramus L5 therapeutic medial branch block on the left Implants: none Surgeon: Daniel Amaya MD Anesthesia: MAC Was an Industrial Maintenance Technician used for this Procedure?: No Estimated blood loss (mL): 1 Pathology: none sent Condition: stable Disposition: PACU
[2021-10-20 15:05] VITALS: BP 159/70; PULSE 75; RESP 10; TEMP 36.4; O2SAT 99
[2021-10-20 15:20] VITALS: BP 142/65; PULSE 68; RESP 16; O2SAT 98
[2021-10-20] MEDS: Acetaminophen 325 MG TABLET 650 MG PO (15:22)
[2021-10-20 15:32] VITALS: BP 146/74; PULSE 67; RESP 18; TEMP 36.6; O2SAT 98
== END 2021-10-20 16:05 | disposition home or self-care (01) ==
PROVIDERS: PCP Family Medicine; Visit Provider Anesthesiology
PROC: (CPT 64493; principal; 2021-10-20 14:10)
DX: M47.816 Spondylosis without myelopathy or radiculopathy, lumbar region (principal); M54.50 Low back pain, unspecified; M51.36 Other intervertebral disc degeneration, lumbar region; M17.0 Bilateral primary osteoarthritis of knee; M79.7 Fibromyalgia; I10 Essential (primary) hypertension; E11.9 Type 2 diabetes mellitus without complications; Z79.4 Long term (current) use of insulin; Z79.899 Other long term (current) drug therapy; Z88.2 Allergy status to sulfonamides; Z86.73 Personal history of transient ischemic attack (TIA), and cerebral infarction without residual deficits; Z98.84 Bariatric surgery status; Z86.19 Personal history of other infectious and parasitic diseases; Z87.891 Personal history of nicotine dependence
CPT/HCPCS: 64493; 64494; 82947; J2250; J3010; J3300; Q9967

== ENCOUNTER → 2021-11-07 12:28 | Outpatient (BNVA) | payer OTHER, SELFPAY | PROVIDERS: Visit Provider Obstetrics & Gynecology | DX: Z13.89 Encounter for screening for other disorder (principal) ==

== ENCOUNTER 2021-11-24 12:45 | Outpatient (RCR) | payer OTHER, SELFPAY ==
--- NOTE | 2021-12-07 10:43 | MHC.PT.DC ---
[facility] [place] Office [place] Office [place] Office [address] Amauri Rodriguez [address] [phone] F: [phone] F: [phone] F: [phone] F: [phone] Physical Therapy Discharge Report Diagnosis: NECK AND BACK PAIN Date of Surgery: Date of Evaluation: 11/24/21 Date of Discharge: 11/24/21 Treatments to Date: 0 Cancellations to Date: 1 No Shows to Date: Discharge Status: Patient Elected to Stop Discharge Summary: SALBADOR ARRIVED FOR PHYSICAL THERAPY AND AN EVALUATION WAS INITIATED HOWEVER, SALBADOR STATED SHE WAS NOT INTERESTED IN PERFORMING ANY TYPE OF EXERCISE OR THERAPEUTIC ACTIVITY. SHE STATES THAT BECAUSE OF HER MULTIPLE CONDITIONS SHE WOULD NOT BE ABLE TO PARTICIPATE. THIS PT DISCUSSED THE NATURE OF THERAPY AND THAT BECAUSE OF HER MULTIPLE ABDOMINAL SURGERIES IT WAS IMPORTANT TO HAVE CORE STRENGTH AND STABILITY AND ATTEMPTED TO REASSURE PATIENT THAT WE WOULD PERFORM ACTIVITIES THAT WERE SAFE FOR HER AND HER MEDICAL PROVIDERS WERE AWARE OF WHAT PT ENTAILS AND DEEMED IT SAFE FOR HER. SHE REFUSED FURTHER INTERVENTION AND WANTED TO FOLLOW UP WITH PAIN MANAGEMENT FOR FURTHER WORK UP. SHE IS DCed AT THIS TIME. Electronically signed by: MARIBETH ENNIS PT, DPT Please sign and return to therapist. Thank you for your referral.
== END 2021-12-07 10:44 | disposition home or self-care (01) ==
LOC: HO.PT 12:45
PROVIDERS: PCP Family Medicine; Visit Provider Nurse Practitioner Family
DX: M47.816 Spondylosis without myelopathy or radiculopathy, lumbar region (principal)

== ENCOUNTER 2021-12-01 10:21 | Emergency (ER) | payer OTHER, SELFPAY ==
--- NOTE | ~2021-12-01 | XR_ITS ---
EXAMINATION: XR CHEST CLINICAL INFORMATION: Stroke. COMPARISON: Chest 04/05/2021 TECHNIQUE: Frontal view of the chest was obtained. FINDINGS: No significant abnormality is noted involving the heart, lungs, mediastinum, bony thorax or soft tissues. XR/XR chest 1V IMPRESSION: Unremarkable chest examination.
--- NOTE | ~2021-12-01 | CT_ITS ---
EXAMINATION: CT HEAD WITHOUT CONTRAST (STROKE PROTOCOL) CLINICAL INFORMATION: Stroke protocol. Left-sided weakness COMPARISON: CT brain 04/05/2021 TECHNIQUE: Contiguous axial imaging was performed from the skull base to vertex without intravenous administration of contrast. This CT examination was performed using dose optimization techniques as appropriate, variously including the following: *Automated exposure control *Adjustment of mA and/or kV according to patient size (this includes techniques or standardized protocols for targeted exams where dose is matched to indication/reason for exam; i.e. extremities or head) *Use of iterative reconstruction technique DLP: 747 mGy-cm FINDINGS: There is no intracranial hemorrhage, hematoma, or extra-axial fluid collection. The ventricles are normal in size. There is no hydrocephalus, edema, or mass effect. The castro-white matter differentiation appears symmetric. There is no acute infarct or mass lesion. The calvarium appears intact. There is no pneumocephalus or orbital emphysema. The visualized sinuses and middle ears and mastoid air cells show no significant mucosal thickening. There are no air-fluid levels. CT/CT head for stroke IMPRESSION: No acute intracranial process seen. This critical result was discussed with Dr. Larsen by phone at 10:41 AM on 12/01/2021. It was ascertained that the content and urgency of the report was understood at the time of direct communication.
--- NOTE | ~2021-12-01 | MR_ITS ---
EXAMINATION: MR BRAIN WITHOUT CONTRAST CLINICAL INFORMATION: Stroke. COMPARISON: Head CT 12/01/2021. TECHNIQUE: Multiplanar, multisequence imaging of the brain was performed without intravenous contrast. FINDINGS: There is no acute infarction, mass, hemorrhage, or extra-axial collection. The ventricles, sulci, and basilar cisterns are normal in size and configuration. Mild to moderate patchy foci of T2/FLAIR hyperintensity are seen in the bilateral cerebral white matter, likely reflecting underlying chronic microangiopathy. The flow voids of the major intracranial arteries appear intact. The bones and extracranial soft tissues are unremarkable. MR/MR head/brain wo con IMPRESSION: No acute infarct, mass lesion, intracranial hemorrhage, or evidence of hydrocephalus. Background changes of mild to moderate chronic microangiopathy.
--- NOTE | 2021-12-01 10:29 | ECG_ITS ---
Test Reason : stroke Blood Pressure : / mmHG Vent. Rate : 065 BPM Atrial Rate : 065 BPM P-R Int : 138 ms QRS Dur : 136 ms QT Int : 430 ms P-R-T Axes : 021 078 061 degrees QTc Int : 447 ms Normal sinus rhythm Right bundle branch block Abnormal ECG When compared with ECG of 05-APR-2021 05:12, No significant change was found Referred By: Morteza Larsen Electronically Signed By:NEGIN WHITLOCK
[2021-12-01 10:38] VITALS: BP 90/52; BP 97/48; PULSE 72; RESP 17; TEMP 36.2; O2SAT 97; BMI 36.3
[2021-12-01 10:53] LABS: MANUAL DIFF FLAG NO
[2021-12-01 10:55] LABS: Basophils Percent Auto 0.5 % (0-2); Eosinophils Absolute Auto 0.1 X10*3/uL (0.0-0.4); Eosinophils Percent Auto 1.7 % (0-4); Hematocrit 36.2 % (37.0-47.0); Hemoglobin 11.5 g/dl (12.0-16.0); Imm Gran Abs Auto 0.02 X10*3/uL (0.00-0.03); Imm Gran Pct Auto 0.3 % (0.0-0.4); Lymphocytes Absolute Auto 1.5 X10*3/uL (1.2-4.9); Lymphocytes Percent Auto 25.8 % (20-40); Mean Corpuscular HGB Conc 31.8 g/dl (31.0-35.0); Mean Corpuscular Hemoglobin 28.2 pg (27.0-33.0); Mean Corpuscular Volume 88.7 fL (80.0-98.0); Mean Platelet Volume 10.5 fL (9.4-12.3); Monocytes Absolute Auto 0.4 X10*3/uL (0.1-1.2); Monocytes Percent Auto 7.1 % (2-11); Neutrophils Absolute Auto 3.8 x10*3/uL (2.0-8.3); Neutrophils Percent Auto 64.6 % (45-73); Platelet Count 274 X10*3/uL (160-400); Red Blood Count 4.08 X10*6/uL (4.20-5.50); Red Cell Distribution Width 16.8 % (11.0-16.0); White Blood Count 5.9 X10*3/uL (4.8-10.8)
--- NOTE | 2021-12-01 10:57 | ED.NEUROSD ---
HPI - Neuro Symptoms/Deficit General Chief Complaint: Stroke Stated Complaint: weakness/hypotension Time Seen by Provider: 12/01/21 10:29 Source: EMS, RN notes reviewed and old records reviewed Mode of arrival: EMS Limitations: no limitations History of Present Illness HPI Narrative: 60-year-old female brought in by ambulance from [facility] for generalized weakness and further evaluation of hypotension. Patient arrived by EMS I was called to the stretcher to evaluate the patient for possible stroke, patient is responding to her name, showing left facial droop, and left-sided weakness that EM reporting it as a new symptoms since they picked her up from the clinic. Patient had several stroke in the past received tPA last year, patient had negative MRIs and neurological evaluation by neurologist thought that patient's symptoms is likely conversion syndrome. Blood pressure is 97/48. Related Data Home Medications Medication Instructions Recorded Confirmed mirtazapine 15 mg tablet 15 mg PO BEDTIME 07/25/20 10/16/21 prazosin 2 mg capsule 2 mg PO DAILY 07/25/20 10/16/21 atorvastatin 40 mg tablet 40 mg PO BEDTIME 02/19/21 10/16/21 duloxetine 60 mg capsule,delayed 60 mg PO BID 02/19/21 10/16/21 release prazosin 5 mg capsule 5 mg PO BEDTIME 02/19/21 10/16/21 levetiracetam 750 mg tablet 1 tab PO BID 04/05/21 10/16/21 lisinopril 30 mg tablet 1 tab PO BEDTIME 04/05/21 10/16/21 pantoprazole 20 mg tablet,delayed 20 mg PO BID 04/05/21 10/16/21 release Previous Rx's Medication Instructions Recorded lancets 33 gauge (TRUEplus Lancets) #100 ea 05/31/21 blood sugar diagnostic (FreeStyle #100 ea 06/29/21 Lite Strips) gabapentin 600 mg tablet 1,200 mg PO BID #360 tab 10/04/21 acetaminophen 650 mg 650 mg PO Q12H PRN #180 tab 10/06/21 tablet,extended release (Arthritis Pain Relief (acetaminophen) ER) insulin detemir U-100 100 unit/mL 32 unit (0.32 mL) SUBCUT BEDTIME 11/16/21 (3 mL) subcutaneous pen (Levemir 30 Days #9.6 ml FlexTouch U-100 Insulin) Allergies Allergy/AdvReac Type Severity Reaction Status Date / Time Sulfa (Sulfonamide Allergy Intermediate blood Verified 11/07/21 12:33 Antibiotics) clots in [Sulfa (Sulfonamides)] legs, hives Review of Systems Review of Systems: Yes Unobtainable due to mental condition [facility] Past Medical History 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 T2DM (type 2 diabetes mellitus) Vitamin D deficiency Surgical History History of sleeve gastrectomy History of surgery Hx of cholecystectomy Hx of colostomy Hx of hernia repair Hx of skin graft Hx of tubal ligation Family History Family History Father Alzheimer disease Mother Hypertension Gout Arthritis of knee CVD (cardiovascular disease) Social History Social History Household Members: None Housing: Apartment Are you a primary customer care voice consultant to a significant other at home: No Do you presently have visiting nurse or other home services: Yes Alcohol intake: never Patient Tobacco Use Status: Former Tobacco user Quit Date: 2018 Tobacco use type: Cigarette Use of substances other than those prescribed or required for medical reasons: No service: No Current occupational status: disabled Physical Exam Vital Signs: Vital Signs: Last Vital Signs Temp 97.2 F 12/01/21 10:38 Pulse 72 12/01/21 10:38 Resp 17 12/01/21 10:38 BP 97/48 L 12/01/21 10:38 Pulse Ox 97 12/01/21 10:38 BMI result Body Mass Index 36.3 Vital signs have been reviewed as appeared to be correct. Blood pressure normal. Heart rate normal. Respiration rate normal. Temperature normal. Oxygen saturation normal. Appearance: Alert. Oriented. No acute distress. Head: Normal external exam. Normocephalic. Atraumatic. No Chacko signs noted. No raccoon eyes noted Eyes: PERRLA. EOMI. Conjunctiva and sclera normal. Eyelids normal. ENT: TM's Normal. Pharynx normal. Uvula midline. Moist mucous membranes. No trismus noted. No drooling noted. No muffled voice noted. Neck: Normal inspection. Neck supple. FROM. No adenopathy. Thyroid Normal. No meningeal signs. No neck mass noted. CVS: Normal heart rate and rhythm. Heart sound normal. No murmurs noted. Pulses normal throughout. Respiratory: No respiratory distress. Painless inspiration. Breath sounds normal. No wheezes/rales/rhonchi noted. Chest nontender. No accessory muscle usage noted or decreased air movement noted. Abdomen: Soft and nontender. Bowel sounds normal in all 4 quadrants. No distention noted. No organomegaly noted. No visible injury noted. Back: No CVA tenderness. Full range of motion noted. Skin: Skin warm and dry. Normal skin color. Normal skin turgor. No rashes/lesions/lacerations noted. Extremities: No lower extremity edema. Extremities exhibit normal range of motion. Extremities nontender. Neuro: Oriented. Cranial nerve exam: Left facial droop No motor deficit. No sensory deficit. a difficult to assess for weakness in upper extremities when the drop hand test was performed patient is avoiding the drop on the face. Course Course Course Narrative: Assessment and plan. 60 years old female came in from [facility] for hypotension and the patient developed stroke symptoms while she is in the emergency department, because patient has strong history of negative workup for strokes and conversion syndrome patient will get an MRI of the brain, patient still in the window for thrombolysis therapy, case discussed and signed out to Dr. Manrique [facility] - Neuro Symptoms/Deficit Medical Records Attestation: I reviewed the patient's medical records. Lab Data Attestation: I reviewed the patient's lab results. Result diagrams: 12/01/21 10:50 12/01/21 10:50 Labs: Lab Results 12/01/21 12/01/21 12/01/21 Range/Units 10:44 10:47 10:50 WBC 5.9 (4.8-10.8) X10*3/uL RBC 4.08 L (4.20-5.50) X10*6/uL Hgb 11.5 L (12.0-16.0) g/dl Hct 36.2 L (37.0-47.0) % MCV 88.7 (80.0-98.0) fL MCH 28.2 (27.0-33.0) pg MCHC 31.8 (31.0-35.0) g/dl RDW 16.8 H (11.0-16.0) % Plt Count 274 (160-400) X10*3/uL MPV 10.5 (9.4-12.3) fL Immature Gran % (Auto) 0.3 (0.0-0.4) % Neut % (Auto) 64.6 (45-73) % Lymph % (Auto) 25.8 (20-40) % Park % (Auto) 7.1 (2-11) % Eos % (Auto) 1.7 (0-4) % Baso % (Auto) 0.5 (0-2) % Lymph # (Auto) 1.5 (1.2-4.9) X10*3/uL Park # (Auto) 0.4 (0.1-1.2) X10*3/uL Eos # (Auto) 0.1 (0.0-0.4) X10*3/uL Baso # (Auto) 0.0 (0.0-0.2) X10*3/uL Abs Immat Gran (auto) 0.02 (0.00-0.03) X10*3/uL Absolute Neuts (auto) 3.8 (2.0-8.3) x10*3/uL Absolute Nucleated RBC 0.000 (0.0-0.012) X10*3/uL Nucleated RBC % (auto) 0.0 (0.0-0.2) /100WBC PT (9.9-13.0) SEC Whole Blood PT 12.0 (11.1-13.5) sec INR (0.9-1.1) Whole Blood INR 1.0 (0.9-1.1) APTT (24.1-38.0) SEC Sodium (135-145) mmol/L Potassium (3.3-5.1) mmol/L Chloride (96-108) mmol/L Carbon Dioxide (22-29) mmol/L Anion Gap (12-20) BUN (9-16) mg/dL Creatinine (0.5-1.4) mg/dL Estim Creat Clear Calc Estimated GFR POC Glucose 200 H (60-115) mg/dL Random Glucose (60-115) mg/dL Calcium (8.4-10.2) mg/dL Total Creatine Kinase (26-140) U/L Troponin I High Sens (<3.5-17.0) ng/L 12/01/21 12/01/21 12/01/21 Range/Units 10:50 10:50 10:50 WBC (4.8-10.8) X10*3/uL RBC (4.20-5.50) X10*6/uL Hgb (12.0-16.0) g/dl Hct (37.0-47.0) % MCV (80.0-98.0) fL MCH (27.0-33.0) pg MCHC (31.0-35.0) g/dl RDW (11.0-16.0) % Plt Count (160-400) X10*3/uL MPV (9.4-12.3) fL Immature Gran % (Auto) (0.0-0.4) % Neut % (Auto) (45-73) % Lymph % (Auto) (20-40) % Park % (Auto) (2-11) % Eos % (Auto) (0-4) % Baso % (Auto) (0-2) % Lymph # (Auto) (1.2-4.9) X10*3/uL Park # (Auto) (0.1-1.2) X10*3/uL Eos # (Auto) (0.0-0.4) X10*3/uL Baso # (Auto) (0.0-0.2) X10*3/uL Abs Immat Gran (auto) (0.00-0.03) X10*3/uL Absolute Neuts (auto) (2.0-8.3) x10*3/uL Absolute Nucleated RBC (0.0-0.012) X10*3/uL Nucleated RBC % (auto) (0.0-0.2) /100WBC PT 11.5 (9.9-13.0) SEC Whole Blood PT (11.1-13.5) sec INR 1.0 (0.9-1.1) Whole Blood INR (0.9-1.1) APTT 30.7 (24.1-38.0) SEC Sodium 138 (135-145) mmol/L Potassium 4.3 (3.3-5.1) mmol/L Chloride 109 H (96-108) mmol/L Carbon Dioxide 16 L (22-29) mmol/L Anion Gap 17 (12-20) BUN 18 H (9-16) mg/dL Creatinine 1.23 (0.5-1.4) mg/dL Estim Creat Clear Calc 49.4 Estimated GFR 44 POC Glucose (60-115) mg/dL Random Glucose 212 H (60-115) mg/dL Calcium 9.2 (8.4-10.2) mg/dL Total Creatine Kinase 29 (26-140) U/L Troponin I High Sens < 3.5 (<3.5-17.0) ng/L Imaging Data head CT: Attestation: I personally reviewed and interpreted this imaging study as follows: Radiologist's impression: No acute intracranial process seen. NIH Stroke Scale Internal: Initial- Upon Arrival Level of Consciousness: Alert ( NIH score is very difficult to assess because patient history of conversion syndrome and negative MRIs.) Discharge Plan Discharge Clinical Impression: Hypotension Prescriptions: No Action (DME) lancets [TRUEplus Lancets] 33 gauge misc See Rx Instructions .Route Qty: 100 11RF Rx Instructions: 4x daily (DME) FreeStyle Lite Strips Strip See Rx Instructions .ROUTE .MEDSUPPLY Qty: 100 11RF Rx Instructions: 4x daily gabapentin 600 mg tablet 1,200 mg PO BID Qty: 360 0RF acetaminophen [Arthritis Pain Relief (acetam)] 650 mg tablet extended release 650 mg PO Q12H PRN (Reason: Pain) Qty: 180 1RF Levemir FlexTouch U-100 Insuln 100 unit/mL (3 mL) insulin pen 32 unit subcut BEDTIME 30 Days Qty: 9.6 3RF prazosin 5 mg Capsule 5 mg PO BEDTIME 0RF duloxetine 60 mg Capsule,Delayed Release(Dr/Ec) 60 mg PO BID 0RF atorvastatin 40 mg Tablet 40 mg PO BEDTIME 0RF pantoprazole 20 mg tablet,delayed release (DR/EC) 20 mg PO BID 0RF levetiracetam 750 mg tablet 1 tab PO BID 0RF lisinopril 30 mg tablet 1 tab PO BEDTIME 0RF prazosin 2 mg capsule 2 mg PO DAILY 0RF mirtazapine 15 mg tablet 15 mg PO BEDTIME 0RF
[2021-12-01 11:02] LABS: Prothrombin Time 11.5 SEC (9.9-13.0)
[2021-12-01 11:04] LABS: Partial Thromboplastin Time 30.7 SEC (24.1-38.0)
[2021-12-01] MEDS: 0.9 % Sodium Chloride 1,000 ML 999 ML IV (11:06)
[2021-12-01 11:07] LABS: Glucose, Whole Blood 200 mg/dL (60-115)
[2021-12-01 11:14] LABS: Anion Gap 17 (12-20); Blood Urea Nitrogen 18 mg/dL (9-16); Calcium 9.2 mg/dL (8.4-10.2); Carbon Dioxide 16 mmol/L (22-29); Chloride 109 mmol/L (96-108); Creatinine Clr Calc Pharmacy 49.4; Estimated Glomerular Filt Rate 44; Glucose Random 212 mg/dL (60-115); Potassium 4.3 mmol/L (3.3-5.1); Sodium 138 mmol/L (135-145)
[2021-12-01 11:16] LABS: Troponin-I High Sensitivity < 3.5 ng/L (<3.5-17.0)
[2021-12-01 11:28] LABS: Stroke Lab Use COMPLETE
[2021-12-01 12:30] VITALS: BP 109/53; PULSE 62; RESP 13; O2SAT 95
--- NOTE | 2021-12-01 14:09 | MHC.STROKE ---
1030 STROKE PROTOCOL ACTIVATED IN ED, LEFT SIDED WEAKNESS, DECREASED LOC ONSET 1000. DIRECT TO CT, NO BLEED. PATIENT KNOWN TO STROKE SERVICE. SHE RECEIVED TPA ON 02/18/21 BUT MRI DID NOT CONFIRM A STROKE AT THAT TIME (CONVERSION DISORDER). I SHARED THIS INFORMATION WITH DR CR. SEE OLD RECORDS INCLUDING DR GRANT'S NOTE AND MRI'S DONE IN 2006,2009,. EXAMINED PATIENT AND SHE IS OPENING HER EYES BUT RESPONDING SLOWLY. I CHECKED HER LEFT SIDED WEAKNESS AND HELD HER ARM OVER HER HEAD, WHEN DROPPED HER DELIBERATELY DID NOT HIT HER FACE. BOTH ARMS CHECKED SAME RESPONSE. STAT MRI ORDERED SINCE SHE IS IN THE WINDOW FOR TPA. MRI NEGATIVE FOR NEW STROKE. EXCLUDED FROM TPA - ALTEPLASE BASED ON THE MRI FINDINGS. I HAVE COMMUNICATED THIS INFORMATION TO THE GRANDDAUGHTER MANUELA.
[2021-12-01 14:38] VITALS: BP 114/57; PULSE 58
[2021-12-01 14:39] VITALS: BP 104/52; PULSE 63
[2021-12-01 14:41] VITALS: BP 99/52; PULSE 65
[2021-12-01] MEDS: 0.9 % Sodium Chloride 1,000 ML 999 ML IVCONT (15:00)
[2021-12-01 15:59] VITALS: BP 138/70; PULSE 69; RESP 16
== END 2021-12-01 16:15 | disposition home or self-care (01) ==
PROVIDERS: Emergency Medicine; Emergency Provider Emergency Medicine; PCP Family Medicine
DX: I95.9 Hypotension, unspecified (principal); R53.1 Weakness; R29.810 Facial weakness; E11.9 Type 2 diabetes mellitus without complications; I10 Essential (primary) hypertension; E78.5 Hyperlipidemia, unspecified; F44.9 Dissociative and conversion disorder, unspecified; Z87.891 Personal history of nicotine dependence; Z79.4 Long term (current) use of insulin; Z79.02 Long term (current) use of antithrombotics/antiplatelets; Z86.73 Personal history of transient ischemic attack (TIA), and cerebral infarction without residual deficits
CPT/HCPCS: 36415; 70450; 70551; 71045; 80048; 82550; 82947; 84484; 85025; 85610; 85730; 93005; 96360; 96361; 99285

== ENCOUNTER 2021-12-11 12:03 | Emergency (ER) | payer OTHER, SELFPAY ==
--- NOTE | ~2021-12-11 | CT_ITS ---
EXAMINATION: CT FACIAL BONES WITH CONTRAST CLINICAL INFORMATION: Rule out left cheek abscess COMPARISON: Previous head CT and brain MRI 12/01/2021 TECHNIQUE: Axial images through the facial bones following contrast. Patient received 85 mL Omnipaque 350 intravenous contrast. Patient dose 2 9 0 mg/cm. This CT examination was performed using dose optimization techniques as appropriate, variously including the following: *Automated exposure control *Adjustment of mA and/or kV according to patient size (this includes techniques or standardized protocols for targeted exams where dose is matched to indication/reason for exam; i.e. extremities or head) *Use of iterative reconstruction technique DLP: 290 mGy-cm FINDINGS: There is poor dentition. There are multiple dental caries. There is part of a tooth seen in the left superior alveolar ridge in the region of the left superior canine or incisor. There is periapical lucency seen surrounding the tooth. There is destruction of the outer cortex of the mandible. There is a small fluid collection in the adjacent soft tissues adjacent to the left superior alveolar ridge and floor of the left maxillary sinus. This has a thick enhancing wall and central low attenuation with cystic or fluid containing appearance. This measures approximately 2 cm and is suggestive of a small abscess. The paranasal sinuses mastoid air cells and middle ears are clear. The temporomandibular joints are normal. The orbits are normal. The naso and oropharynx are normal. Visualized intracranial structures are normal. Vascular structures are normal. No enlarged lymph nodes are seen. CT/CT facial bones w con IMPRESSION: 2 cm soft tissue abscess in the left side of the face adjacent to the left superior alveolar ridge and floor of the left maxillary sinus, likely odontogenic in origin related to a broken tooth.
[2021-12-11 13:20] VITALS: BP 124/49; PULSE 62; RESP 18; TEMP 36.9; O2SAT 100; BMI 33.8
--- NOTE | 2021-12-11 13:38 | ED.GENADULT ---
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 Patient states that she was seen at her PCP today for this facial swelling and they recommended she come to the emergency department to be evaluated for a facial infection. Patient's daughter states that the patient's PCP did NOT give the patient any antibiotics. Patient states that the swelling started a few days ago and she is having a headache with it. Patient denies any dizziness, lightheadedness, abdominal pain, nausea, vomiting, fever, chills, blurry vision, double vision, loss of vision, chest pain, difficulty breathing, shortness of breath, back pain, night sweats, pain with urination, increased urinary frequency, increased urinary urgency, blood in her urine or stool, syncope or a near syncopal episode, recent trauma or falls, bowel incontinence, bladder incontinence, bowel retention, bladder retention, or any other complaints at this time. Onset (ago): day(s) Location: head and face Radiation: non-radiation Severity: mild Severity scale (1-10): 3 Quality: aching Pain Consistency: constant Relieving factors: none Exacerbating factors: none Associated symptoms: headaches Treatments prior to arrival: none Related Data Home Medications Medication Instructions Recorded Confirmed mirtazapine 15 mg tablet 15 mg PO BEDTIME 07/25/20 10/16/21 prazosin 2 mg capsule 2 mg PO DAILY 07/25/20 10/16/21 atorvastatin 40 mg tablet 40 mg PO BEDTIME 02/19/21 10/16/21 duloxetine 60 mg capsule,delayed 60 mg PO BID 02/19/21 10/16/21 release prazosin 5 mg capsule 5 mg PO BEDTIME 02/19/21 10/16/21 levetiracetam 750 mg tablet 1 tab PO BID 04/05/21 10/16/21 lisinopril 30 mg tablet 1 tab PO BEDTIME 04/05/21 10/16/21 pantoprazole 20 mg tablet,delayed 20 mg PO BID 04/05/21 10/16/21 release Previous Rx's Medication Instructions Recorded lancets 33 gauge (TRUEplus Lancets) #100 ea 05/31/21 blood sugar diagnostic (FreeStyle #100 ea 06/29/21 Lite Strips) gabapentin 600 mg tablet 1,200 mg PO BID #360 tab 10/04/21 acetaminophen 650 mg 650 mg PO Q12H PRN #180 tab 10/06/21 tablet,extended release (Arthritis Pain Relief (acetaminophen) ER) insulin detemir U-100 100 unit/mL 32 unit (0.32 mL) SUBCUT BEDTIME 11/16/21 (3 mL) subcutaneous pen (Levemir 30 Days #9.6 ml FlexTouch U-100 Insulin) penicillin V potassium 500 mg 500 mg PO QID 10 Days #40 tab 12/11/21 tablet Allergies Allergy/AdvReac Type Severity Reaction Status Date / Time Sulfa (Sulfonamide Allergy Intermediate blood Verified 11/07/21 12:33 Antibiotics) clots in [Sulfa (Sulfonamides)] legs, hives Review of Systems Constitutional: Constitutional: Reports no additional constitutional complaints, Denies chills, Denies fever(s), Reports headache(s) and Denies night sweats Eyes: Eyes: Reports no additional eye complaints, Denies blurry vision, Denies change in vision, Denies diplopia, Denies eye discharge, Denies loss of vision and Denies eye pain ENT: Denies dizziness and Reports headache(s) Comments: facial swelling Cardiovascular: Cardiovascular: Reports no additional cardiovascular complaints, Denies chest pain, Denies lightheadedness, Denies Loss of Consciousness and Denies dyspnea Respiratory: Respiratory: Reports no additional respiratory complaints and Denies dyspnea Gastrointestinal: Gastrointestinal: Reports no additional gastrointestinal complaints, Denies abdominal pain, Denies melena, Denies hematochezia, Denies change in bowel habits and Denies change in stool character Genitourinary: Genitourinary: Denies hematuria, Denies urinary frequency, Denies dysuria, Denies urinary incontinence, Denies urinary hesitancy and Denies urinary urgency Musculoskeletal: Musculoskeletal: Reports no additional musculoskeletal complaints, Denies numbness and Denies tingling Neurologic: Denies dizziness, Reports headache(s), Denies loss of vision, Denies numbness and Denies tingling Psychiatric: Psychiatric: Reports no additional psychiatric complaints Endocrine: Endocrine: Reports no additional endocrine complaints Hematologic/Lymphatic: Hematologic/Lymphatic: Reports no additional hematologic/lymphatic complaints Allergic/Immunologic: Allergic/Immunologic: Reports no additional allergic/immunologic complaints [facility] Past Medical History Attestation statement: The following information was validated with the patient. 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 T2DM (type 2 diabetes mellitus) Vitamin D deficiency Surgical History History of sleeve gastrectomy History of surgery Hx of cholecystectomy Hx of colostomy Hx of hernia repair Hx of skin graft Hx of tubal ligation Family History Family History Father Alzheimer disease Mother Hypertension Gout Arthritis of knee CVD (cardiovascular disease) Social History Social History Household Members: None Housing: Apartment Are you a primary health care / medical job titles to a significant other at home: No Do you presently have visiting nurse or other home services: Yes Alcohol intake: never Patient Tobacco Use Status: Former Tobacco user Quit Date: 2018 Tobacco use type: Cigarette Advance Directives: Yes Advance Directives Information Provided: No Advance Directives on File: No service: No Current occupational status: disabled Physical Exam ED Vital Signs: Vital Signs - 24 hr 12/11/21 13:20 Temperature 98.4 F Pulse Rate 62 Respiratory Rate 18 Blood Pressure 124/49 L Pulse Oximetry 100 BMI result Body Mass Index 33.8 Const General: cooperative, no acute distress, alert and awake Nutritional Appearance: well nourished Orientation/consciousness: patient oriented x3 Limitations: no limitations HENMT Head: Yes normal to inspection and Yes atraumatic Ears: hearing grossly normal bilaterally and external ears normal General nose exam: Normal external nose present, no nasal discharge noted and no epistaxis Face and sinus: No abrasion, No laceration and Yes other (mild swelling to the left side of the patient's face) Mouth: Normal oral and palatal mucosa present, no drooling and no muffled voice Eyes General: appearance normal, both eyes and all related structures Periorbital: periorbital findings normal Eyelids: Yes eyelids normal Conjunctivae: conjunctivae normal Pupils: Equal, round and reactive pupils present EOM: EOMs intact bilaterally Neck Neck: Yes normal visual inspection, Yes full ROM and Yes no lymphadenopathy Chest Chest palpation & inspection: normal inspection of the chest Resp Effort & Inspection: normal respiratory effort and able to speak in complete sentences Auscultation: clear to auscultation bilaterally Cardio Rate: regular rate Rhythm: regular rhythm GI Inspection: Yes normal to inspection Neuro General: patient oriented x3 and moves all extremities Cranial nerves: Yes Equal, round and reactive pupils present Cognition (Neuro): normal cognition Motor exam (neuro): 5/5 motor strength present throughout Sensory Exam: Normal double simultaneous stimulation for sensation Coordination: [id number] test normal Extrem General: Yes normal to inspection, Yes full ROM and Yes capillary refill normal Psych Appearance: grossly normal Mental Status: mental status grossly normal Affect: normal affect Attitude: cooperative Thought process: Normal thought process present Thought content: Normal thought content present Insight: Good insight present (Psych) Medical Decision Making [facility] Narrative Medical decision making narrative: Patient is a 60 year old female presenting to the emergency department today with left sided facial swelling and pain. Patient's physical exam showed left sided facial swelling and tenderness to palpation. Patient did not have pain with EOM. There was no area of fluctuance appreciated inside the patient's mouth. Patient's blood work was unremarkable. Patient's facial CT showed an abscess to the left side of the face extending from a broken tooth. I explained my physical exam findings as well as all test results to the patient. I answered all questions asked by the patient. I stressed the importance of the patient taking her medication as prescribed. I stressed the importance of the patient following up with her primary care provider and a dentist. I stressed the importance of the patient returning to the emergency department immediately if her symptoms were to worsen or if she were to develop any dizziness, shortness of breath, difficulty breathing, chest pain, blurry vision, loss of vision, nausea, vomiting, abdominal pain, fever, chills, back pain, or any other complaints. Patient verbalized agreement and understanding with this treatment plan and discharge. Differential Diagnosis Differential Diagnosis: dental abscess, facial cellulitis Medical Records Medical records reviewed: Yes I reviewed the patient's medical records. Lab Data Lab results reviewed: Yes I reviewed the patient's lab results. Result diagrams: 12/11/21 14:25 12/11/21 14:25 Labs: Lab Results 12/11/21 12/11/21 Range/Units 14:25 14:25 WBC 7.0 (4.8-10.8) X10*3/uL RBC 3.71 L (4.20-5.50) X10*6/uL Hgb 10.5 L (12.0-16.0) g/dl Hct 32.7 L (37.0-47.0) % MCV 88.1 (80.0-98.0) fL MCH 28.3 (27.0-33.0) pg MCHC 32.1 (31.0-35.0) g/dl RDW 16.4 H (11.0-16.0) % Plt Count 263 (160-400) X10*3/uL MPV 10.0 (9.4-12.3) fL Immature Gran % (Auto) 0.4 (0.0-0.4) % Neut % (Auto) 73.0 (45-73) % Lymph % (Auto) 18.8 L (20-40) % [place] % (Auto) 5.8 (2-11) % Eos % (Auto) 1.4 (0-4) % Baso % (Auto) 0.6 (0-2) % Lymph # (Auto) 1.3 (1.2-4.9) X10*3/uL [place] # (Auto) 0.4 (0.1-1.2) X10*3/uL Eos # (Auto) 0.1 (0.0-0.4) X10*3/uL Baso # (Auto) 0.0 (0.0-0.2) X10*3/uL Abs Immat Gran (auto) 0.03 (0.00-0.03) X10*3/uL Absolute Neuts (auto) 5.1 (2.0-8.3) x10*3/uL Absolute Nucleated RBC 0.000 (0.0-0.012) X10*3/uL Nucleated RBC % (auto) 0.0 (0.0-0.2) /100WBC Sodium 139 (135-145) mmol/L Potassium 4.7 (3.3-5.1) mmol/L Chloride 112 H (96-108) mmol/L Carbon Dioxide 21 L (22-29) mmol/L Anion Gap 11 L (12-20) BUN 15 (9-16) mg/dL Creatinine 0.80 (0.5-1.4) mg/dL Estim Creat Clear Calc 73.2 Estimated GFR > 60 Random Glucose 208 H (60-115) mg/dL Calcium 8.9 (8.4-10.2) mg/dL Total Bilirubin 0.2 (0.0-1.0) mg/dL AST 15 D (5-31) U/L ALT 16 (0-31) U/L Alkaline Phosphatase 134 H D (39-117) U/L Total Protein 6.5 (6.5-8.0) g/dL Albumin 3.8 (3.5-5.0) g/dL Imaging Data Facial CT: Attestation: I personally reviewed and interpreted this imaging study as follows: My impression: Possible left sided abscess. Radiologist's impression: EXAMINATION: CT FACIAL BONES WITH CONTRAST CLINICAL INFORMATION: Rule out left cheek abscess? COMPARISON: Previous head CT and brain MRI 12/01/2021 TECHNIQUE: Axial images through the facial bones following contrast. Patient received 85 mL Omnipaque 350 intravenous contrast. Patient dose 2 9 0 mg/cm.? This CT examination was performed using dose optimization techniques as appropriate, variously including the following: *Automated exposure control *Adjustment of mA and/or kV according to patient size (this includes techniques or standardized protocols for targeted exams where dose is matched to indication/reason for exam; i.e. extremities or head) *Use of iterative reconstruction technique DLP: 290 mGy-cm FINDINGS: There is poor dentition. There are multiple dental caries. There is part of a tooth seen in the left superior alveolar ridge in the region of the left superior canine or incisor. There is periapical lucency seen surrounding the tooth. There is destruction of the outer cortex of the mandible. There is a small fluid collection in the adjacent soft tissues adjacent to the left superior alveolar ridge and floor of the left maxillary sinus. This has a thick enhancing wall and central low attenuation with cystic or fluid containing appearance. This measures approximately 2 cm and is suggestive of a small abscess. The paranasal sinuses mastoid air cells and middle ears are clear. The temporomandibular joints are normal. The orbits are normal. The naso and oropharynx are normal. Visualized intracranial structures are normal. Vascular structures are normal. No enlarged lymph nodes are seen. CT/CT facial bones w con IMPRESSION: 2 cm soft tissue abscess in the left side of the face adjacent to the left superior alveolar ridge and floor of the left maxillary sinus, likely odontogenic in origin related to a broken tooth. Dictated By: Mili Hastings MD Signed By: Electronically signed by Mili Hastings MD 12/11/21 1357 Discharge Plan Discharge Clinical Impression: Facial cellulitis, Abscess, dental Patient Disposition: Home, Self-Care Instructions: Dental Abscess (ED), Cellulitis (DC) Additional Instructions: Follow up with your primary care provider. Return to the emergency department immediately if your symptoms worsen or if you develop any dizziness, shortness of breath, difficulty breathing, chest pain, blurry vision, loss of vision, nausea, vomiting, abdominal pain, fever, chills, back pain, or any other complaints. Call or visit any of the clinics below to establish with a dentist: [facility] [address] [place] [address] [facility] [address] [facility], [address] [address] [facility] [address] [place] [id number] [facility] [address] [place] [address] [place] [address] [place] [address] Prescriptions: New penicillin V potassium 500 mg tablet 500 mg PO QID 10 Days Qty: 40 0RF No Action (DME) lancets [TRUEplus Lancets] 33 gauge misc See Rx Instructions .Route Qty: 100 11RF Rx Instructions: 4x daily (DME) FreeStyle Lite Strips Strip See Rx Instructions .ROUTE .MEDSUPPLY Qty: 100 11RF Rx Instructions: 4x daily gabapentin 600 mg tablet 1,200 mg PO BID Qty: 360 0RF acetaminophen [Arthritis Pain Relief (acetam)] 650 mg tablet extended release 650 mg PO Q12H PRN (Reason: Pain) Qty: 180 1RF Levemir FlexTouch U-100 Insuln 100 unit/mL (3 mL) insulin pen 32 unit subcut BEDTIME 30 Days Qty: 9.6 3RF prazosin 5 mg Capsule 5 mg PO BEDTIME 0RF duloxetine 60 mg Capsule,Delayed Release(Dr/Ec) 60 mg PO BID 0RF atorvastatin 40 mg Tablet 40 mg PO BEDTIME 0RF pantoprazole 20 mg tablet,delayed release (DR/EC) 20 mg PO BID 0RF levetiracetam 750 mg tablet 1 tab PO BID 0RF lisinopril 30 mg tablet 1 tab PO BEDTIME 0RF prazosin 2 mg capsule 2 mg PO DAILY 0RF mirtazapine 15 mg tablet 15 mg PO BEDTIME 0RF Referrals: [facility] [Primary Care Provider] - 2 days Interventions: ED Discharge Assessment Last Done: 12/11/21 17:18 Discharge Date/Time: 12/11/21 17:20 Print Language: Singaporean
[2021-12-11 14:29] LABS: MANUAL DIFF FLAG NO
[2021-12-11 14:30] LABS: Basophils Percent Auto 0.6 % (0-2); Eosinophils Absolute Auto 0.1 X10*3/uL (0.0-0.4); Eosinophils Percent Auto 1.4 % (0-4); Hematocrit 32.7 % (37.0-47.0); Hemoglobin 10.5 g/dl (12.0-16.0); Imm Gran Abs Auto 0.03 X10*3/uL (0.00-0.03); Imm Gran Pct Auto 0.4 % (0.0-0.4); Lymphocytes Absolute Auto 1.3 X10*3/uL (1.2-4.9); Lymphocytes Percent Auto 18.8 % (20-40); Mean Corpuscular HGB Conc 32.1 g/dl (31.0-35.0); Mean Corpuscular Hemoglobin 28.3 pg (27.0-33.0); Mean Corpuscular Volume 88.1 fL (80.0-98.0); Monocytes Absolute Auto 0.4 X10*3/uL (0.1-1.2); Monocytes Percent Auto 5.8 % (2-11); Neutrophils Absolute Auto 5.1 x10*3/uL (2.0-8.3); Platelet Count 263 X10*3/uL (160-400); Red Blood Count 3.71 X10*6/uL (4.20-5.50); Red Cell Distribution Width 16.4 % (11.0-16.0)
[2021-12-11 14:53] LABS: Alanine Aminotransferase 16 U/L (0-31); Albumin Level 3.8 g/dL (3.5-5.0); Alkaline Phosphatase 134 U/L (39-117); Anion Gap 11 (12-20); Aspartate Amino Transferase 15 U/L (5-31); Bilirubin Total 0.2 mg/dL (0.0-1.0); Blood Urea Nitrogen 15 mg/dL (9-16); Calcium 8.9 mg/dL (8.4-10.2); Carbon Dioxide 21 mmol/L (22-29); Chloride 112 mmol/L (96-108); Creatinine Clr Calc Pharmacy 73.2; Estimated Glomerular Filt Rate > 60; Glucose Random 208 mg/dL (60-115); Potassium 4.7 mmol/L (3.3-5.1); Sodium 139 mmol/L (135-145); Total Protein 6.5 g/dL (6.5-8.0)
[2021-12-11] MEDS: iohexoL 350 MG/ML 100 ML INFUS..BTL IV (15:30)
[2021-12-11] MEDS: Acetaminophen 325 MG TABLET 650 MG PO (17:16)
== END 2021-12-11 17:20 | disposition home or self-care (01) ==
PROVIDERS: Physician Assistant Medical; Emergency Provider Emergency Medicine
DX: L03.211 Cellulitis of face (principal); K04.7 Periapical abscess without sinus; K02.9 Dental caries, unspecified; E11.9 Type 2 diabetes mellitus without complications; E78.5 Hyperlipidemia, unspecified; Z86.73 Personal history of transient ischemic attack (TIA), and cerebral infarction without residual deficits; Z79.4 Long term (current) use of insulin
CPT/HCPCS: 36415; 70487; 80053; 85025; 99283; 99284; Q9967

== ENCOUNTER → 2022-01-10 09:57 | Outpatient (BNVA) | payer OTHER, SELFPAY | PROVIDERS: PCP Family Medicine; Visit Provider Internal Medicine | DX: E11.9 Type 2 diabetes mellitus without complications (principal); E04.2 Nontoxic multinodular goiter; E78.5 Hyperlipidemia, unspecified; E55.9 Vitamin D deficiency, unspecified; I10 Essential (primary) hypertension | CPT/HCPCS: Q3014 ==

== ENCOUNTER 2022-06-01 09:52 | Emergency (ER) | payer OTHER, SELFPAY ==
--- NOTE | ~2022-06-01 | CT_ITS ---
EXAMINATION: CT HEAD WITHOUT CONTRAST CLINICAL INFORMATION: Headache. COMPARISON: No relevant prior imaging. TECHNIQUE: Contiguous axial imaging was performed from the skull base to vertex without intravenous administration of contrast. This CT examination was performed using dose optimization techniques as appropriate, variously including the following: *Automated exposure control *Adjustment of mA and/or kV according to patient size (this includes techniques or standardized protocols for targeted exams where dose is matched to indication/reason for exam; i.e. extremities or head) *Use of iterative reconstruction technique DLP: 703 mGy-cm FINDINGS: There is no acute intracranial hemorrhage or abnormal extra-axial collection. No intracranial mass effect or midline shift. Lateral and third ventricles are normal. No hydrocephalus. Headley-white matter differentiation is preserved and there is no evidence of acute territorial infarct. The calvarium and skull base are intact. Mastoid air cells and middle ear cavities are well aerated. No active paranasal sinus disease. CT/CT head/brain wo IV con IMPRESSION: Unremarkable CT scan of the head. No evidence of acute territorial infarct or hemorrhage.
[2022-06-01 10:00] VITALS: BP 110/64; PULSE 84; O2SAT 98
--- NOTE | 2022-06-01 10:32 | ECG_ITS ---
Test Reason : syncope Blood Pressure : / mmHG Vent. Rate : 056 BPM Atrial Rate : 056 BPM P-R Int : 146 ms QRS Dur : 134 ms QT Int : 472 ms P-R-T Axes : 066 077 052 degrees QTc Int : 455 ms Sinus bradycardia Right bundle branch block Abnormal ECG When compared with ECG of 01-DEC-2021 10:55, Nonspecific T wave abnormality, worse in Inferior leads Referred By: Tramaine Miller Electronically Signed By:CHRISTI OLIVO
--- NOTE | 2022-06-01 10:35 | ED_ITS ---
HPI - Syncope General Chief Complaint: Dizziness Stated Complaint: NEAR SYNCOPE Time Seen by Provider: 06/01/22 10:05 Source: patient Mode of arrival: EMS Limitations: language barrier (Setswana speaking only, incendiary powder mixer used) History of Present Illness HPI narrative: 61-year-old female who presents emergency department for evaluation of a near syncopal episode and headache. The patient states that she has a history of seizures around a procedure medication. She states that she picked up her medication at the pharmacy and took a pill. She states that she then developed a headache. She describes the headache as a diffuse pressure-like feeling located throughout her entire head. She states the pain came on gradually and was 6/10 at its worst. She also states she felt like there was a heavy block on her upper back. She did not have any chest pain, neck pain, arm pain or jaw pain. She did feel short of breath. She states that she felt lightheaded and dizzy if she was going to pass out. An ambulance was called and the patient was brought to the emergency department for evaluation. At the time my evaluation she states she still is having a headache but the back pain is resolved. She states she is feeling very tired and fatigued. She denied fever, chills, rhinorrhea, sore throat, cough, chest pain. She denied nausea, vomiting or diarrhea. She has not noticed any dark black stools or bloody stools. MD complaint: felt faint Onset (ago): hour(s) (1) Duration of episode: 20 -: minutes(s) Prodromal symptoms: headache and other (Back pain) Witnessed: Yes - by Bystander Context: at rest Injuries sustained associated with event: none Current symptoms: headache History: seizure disorder Treatments prior to arrival: none Related Data Home Medications Medication Instructions Recorded Confirmed mirtazapine 15 mg tablet 15 mg PO BEDTIME 07/25/20 10/16/21 prazosin 2 mg capsule 2 mg PO DAILY 07/25/20 10/16/21 atorvastatin 40 mg tablet 40 mg PO BEDTIME 02/19/21 10/16/21 duloxetine 60 mg capsule,delayed 60 mg PO BID 02/19/21 10/16/21 release prazosin 5 mg capsule 5 mg PO BEDTIME 02/19/21 10/16/21 lisinopril 30 mg tablet 1 tab PO BEDTIME blood pressure 04/05/21 10/16/21 pantoprazole 20 mg tablet,delayed 20 mg PO BID 04/05/21 10/16/21 release amoxicillin 500 mg capsule 500 mg PO Q8H 01/10/22 cetirizine 10 mg tablet 10 mg PO DAILY allergies 01/10/22 chlorhexidine gluconate 0.12 % ml PO BID 01/10/22 mouthwash levetiracetam 500 mg tablet 500 mg PO BID 01/10/22 liraglutide 0.6 mg/0.1 mL (18 mg/3 1.2 mg subcut DAILY 01/10/22 mL) subcutaneous pen injector (Victoza 3-Osman) pen needle, diabetic 32 gauge x #50 ea 01/10/22 (Pentips) Previous Rx's Medication Instructions Recorded blood sugar diagnostic (FreeStyle #100 ea 06/29/21 Lite Strips) acetaminophen 650 mg 650 mg PO Q12H PRN Pain #180 tabs 01/29/22 tablet,extended release (Arthritis Pain Relief (acetaminophen) ER) gabapentin 600 mg tablet 1,200 mg PO BID for neuropathic 04/10/22 pain #360 tabs lancets 33 gauge (TRUEplus Lancets) #100 ea 05/07/22 insulin detemir U-100 100 unit/mL 30 unit (0.3 mL) subcut BEDTIME 30 05/25/22 (3 mL) subcutaneous pen (Levemir days #9 mL FlexTouch U-100 Insulin) Allergies Allergy/AdvReac Type Severity Reaction Status Date / Time Sulfa (Sulfonamide Allergy Intermediate blood Verified 01/10/22 09:59 Antibiotics) clots in [Sulfa (Sulfonamides)] legs, hives Review of Systems Review of Systems: Yes all other systems are reviewed and are negative [facility] Past Medical History [facility] Narrative: Social history: She does smoke cigarettes. She denies alcohol use. She denies drug use. 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 T2DM (type 2 diabetes mellitus) Vitamin D deficiency Surgical History H/O ventral hernia repair History of sleeve gastrectomy History of surgery Hx of cholecystectomy Hx of colostomy Hx of hernia repair Hx of skin graft Hx of tubal ligation Family History Family History Father Alzheimer disease Mother Hypertension Gout Arthritis of knee CVD (cardiovascular disease) Social History Social History Household Members: None Housing: Apartment Are you a primary regular senior care provider to a significant other at home: No Do you presently have visiting nurse or other home services: Yes Alcohol intake: never Patient Tobacco Use Status: Former Tobacco user Quit Date: 2018 Tobacco use type: Cigarette Advance Directives: No Advance Directives Information Provided: No Patient : No service: No Current occupational status: disabled Physical Exam Vital Signs: Vital Signs: Last Vital Signs Temp 97.5 F 06/01/22 10:40 Pulse 67 06/01/22 14:16 Resp 14 06/01/22 14:16 BP 116/54 L 06/01/22 14:16 Pulse Ox 94 06/01/22 14:16 O2 Del Method 06/01/22 14:16 BMI result Body Mass Index 31.8 Const: Other: Patient was initially somnolent but did wake up and was able to give a history, she is pleasant, cooperative and does not appear to be in distress HEENT: Head: Yes normal to inspection, Yes normocephalic and Yes atraumatic Ears: external ears normal General nose exam: Normal external nose present Face and sinus: Yes normal facial exam Mouth: Normal oral and palatal mucosa present Throat: Yes posterior oropharynx normal Eyes: General: appearance normal, both eyes and all related structures Pupils: Equal, round and reactive pupils present Neck: Neck: Yes normal visual inspection, Yes no lymphadenopathy, Yes trachea midline and Yes supple Chest: Chest palpation & inspection: normal inspection of the chest and normal palpation of entire chest wall Resp: Effort & Inspection: normal respiratory effort and able to speak in complete sentences Auscultation: clear to auscultation bilaterally Cardio: Rate: regular rate Rhythm: regular rhythm Heart sounds: S1 normal heart sound present, S2 normal heart sound present and no murmurs GI: Inspection: Yes normal to inspection Palpation (GI): Soft to palpation, nontender and no guarding Auscultation: normal bowel sounds : General: Yes no CVA tenderness Back/Spine/Pelvis: Back: no CVA tenderness Skin: General skin exam: no rashes or lesions noted Neuro: Cranial nerves: Yes CN's II-XII intact bilaterally and Yes Equal, round and reactive pupils present Cognition (Neuro): normal cognition Motor exam (neuro): 5/5 motor strength present throughout Extrem: General: Yes normal to inspection Psych: Appearance: grossly normal Speech and movement: Normal speech and movement present Affect: normal affect Attitude: cooperative Thought process: Normal thought process present Thought content: Normal thought content present Course Course Course Narrative: 61-year-old female who presents emergency department for evaluation of headache, back pain and near syncopal episode that occurred while she was picking up her anti seizure medications at the pharmacy. Patient had not taken her seizing medications for 3 days but did take her dose at the pharmacy. After taking her medication she developed a headache, back pain, lightheadedness as if she was going to pass out. At the time of evaluation she states she has a headache but has no other symptoms. She told me she did have similar headaches in the past. Patient's physical examination was unremarkable with a non focal neurologic exam. I did order laboratory evaluation includes CBC, CMP, PT/INR, PTT, troponin, lipase. EKG will be obtained. I will obtain a CT scan of the patient 's head as well to evaluate her headache. Patient was ordered to get normal saline IV x1 L, Toradol 15 mg IV, Reglan 10 mg IV and Benadryl 25 mg IV for her headache. 1440: Laboratory evaluation: WBC low 4100, anemia with an H&H of 10 and 32. Glucose elevated 415. Alk-phos elevated 167. Lipase normal. Lactate elevated 2.1. Troponin below detectable limits. COVID-19 negative. Radiology evaluation: CT scan the brain without IV contrast radiology reading as follows: IMPRESSION: Unremarkable CT scan of the head. No evidence of acute territorial infarct or hemorrhage. Dictated By: Torsten Sanchez MD 1505: The patient is feeling better after the above treatment. The patient needs to complete her normal saline and that should bring down her glucose and then she will be discharged home. 1543: Patient's repeat point of care glucose was 335. The patient will be discharged home. MDM - Syncope Medical Records Attestation: I reviewed the patient's medical records. Lab Data Result diagrams: 06/01/22 13:11 06/01/22 13:11 Labs: Lab Results 06/01/22 06/01/22 06/01/22 Range/Units 12:08 13:11 13:11 WBC 4.1 L (4.8-10.8) X10*3/uL RBC 4.37 (4.20-5.50) X10*6/uL Hgb 12.0 (12.0-16.0) g/dl Hct 36.7 L (37.0-47.0) % MCV 84.0 (80.0-98.0) fL MCH 27.5 (27.0-33.0) pg MCHC 32.7 (31.0-35.0) g/dl RDW 13.9 (11.0-16.0) % Plt Count 187 D (160-400) X10*3/uL MPV 11.2 (9.4-12.3) fL Immature Gran % (Auto) 0.2 (0.0-0.4) % Neut % (Auto) 58.8 (45-73) % Lymph % (Auto) 30.5 (20-40) % Ward % (Auto) 6.9 (2-11) % Eos % (Auto) 2.9 (0-4) % Baso % (Auto) 0.7 (0-2) % Lymph # (Auto) 1.2 (1.2-4.9) X10*3/uL Ward # (Auto) 0.3 (0.1-1.2) X10*3/uL Eos # (Auto) 0.1 (0.0-0.4) X10*3/uL Baso # (Auto) 0.0 (0.0-0.2) X10*3/uL Abs Immat Gran (auto) 0.01 (0.00-0.03) X10*3/uL Absolute Neuts (auto) 2.4 (2.0-8.3) x10*3/uL Absolute Nucleated RBC 0.000 (0.0-0.012) X10*3/uL Nucleated RBC % (auto) 0.0 (0.0-0.2) /100WBC Sodium 139 (135-145) mmol/L Potassium 4.2 (3.3-5.1) mmol/L Chloride 109 H (96-108) mmol/L Carbon Dioxide 18 L (22-29) mmol/L Anion Gap 16 (12-20) BUN 16 (9-16) mg/dL Creatinine 0.82 (0.5-1.4) mg/dL Estim Creat Clear Calc 68.3 Estimated GFR > 60 Random Glucose 415 H* (60-115) mg/dL Lactic Acid (0.5-2.0) mmol/L Calcium 8.5 (8.4-10.2) mg/dL Total Bilirubin < 0.2 (0.0-1.0) mg/dL AST 16 (5-31) U/L ALT 17 (0-31) U/L Alkaline Phosphatase 167 H D (39-117) U/L Troponin I High Sens (<3.5-17.0) ng/L Total Protein 6.3 L (6.5-8.0) g/dL Albumin 3.6 (3.5-5.0) g/dL Lipase 28 (8-78) U/L Ethyl Alcohol < 10 mg/dL COVID-19 (LUANNE) Negative (Negative) COVID-19 Clin Com See Note 06/01/22 06/01/22 Range/Units 13:11 13:11 WBC (4.8-10.8) X10*3/uL RBC (4.20-5.50) X10*6/uL Hgb (12.0-16.0) g/dl Hct (37.0-47.0) % MCV (80.0-98.0) fL MCH (27.0-33.0) pg MCHC (31.0-35.0) g/dl RDW (11.0-16.0) % Plt Count (160-400) X10*3/uL MPV (9.4-12.3) fL Immature Gran % (Auto) (0.0-0.4) % Neut % (Auto) (45-73) % Lymph % (Auto) (20-40) % Ward % (Auto) (2-11) % Eos % (Auto) (0-4) % Baso % (Auto) (0-2) % Lymph # (Auto) (1.2-4.9) X10*3/uL Ward # (Auto) (0.1-1.2) X10*3/uL Eos # (Auto) (0.0-0.4) X10*3/uL Baso # (Auto) (0.0-0.2) X10*3/uL Abs Immat Gran (auto) (0.00-0.03) X10*3/uL Absolute Neuts (auto) (2.0-8.3) x10*3/uL Absolute Nucleated RBC (0.0-0.012) X10*3/uL Nucleated RBC % (auto) (0.0-0.2) /100WBC Sodium (135-145) mmol/L Potassium (3.3-5.1) mmol/L Chloride (96-108) mmol/L Carbon Dioxide (22-29) mmol/L Anion Gap (12-20) BUN (9-16) mg/dL Creatinine (0.5-1.4) mg/dL Estim Creat Clear Calc Estimated GFR Random Glucose (60-115) mg/dL Lactic Acid 2.1 H* (0.5-2.0) mmol/L Calcium (8.4-10.2) mg/dL Total Bilirubin (0.0-1.0) mg/dL AST (5-31) U/L ALT (0-31) U/L Alkaline Phosphatase (39-117) U/L Troponin I High Sens < 3.5 (<3.5-17.0) ng/L Total Protein (6.5-8.0) g/dL Albumin (3.5-5.0) g/dL Lipase (8-78) U/L Ethyl Alcohol mg/dL COVID-19 ([facility]ANNE) (Negative) COVID-19 Clin Com Discharge Plan Discharge Clinical Impression: Headache, Acute hyperglycemia, Weakness Patient Disposition: Home, Self-Care Instructions: Diabetic Hyperglycemia (ED) Additional Instructions: The CT scan of your brain was normal, there is no bleeding in the brain or st roke. Your blood work revealed mild anemia and an elevated glucose. Your treated with normal saline x1 L IV. You also received medications for your headache (Reglan, Benadryl and Toradol). When you get home take your diabetic medications as prescribed by your doctor. Continue taking all of your medications as prescribed. Follow-up with your doctor in 2 days. Please return to the emergency department if your symptoms get worse or if you develop any symptoms that are concerning to you. Prescriptions: No Action (DME) FreeStyle Lite Strips Strip See Rx Instructions .ROUTE .MEDSUPPLY Qty: 100 11RF Rx Instructions: 4x daily acetaminophen [Arthritis Pain Relief (acetam)] 650 mg tablet extended release 650 mg PO Q12H PRN (Reason: Pain) Qty: 180 0RF gabapentin 600 mg tablet 1,200 mg PO BID Qty: 360 0RF (DME) lancets [TRUEplus Lancets] 33 gauge misc See Rx Instructions .Route Qty: 100 11RF Rx Instructions: 4x daily Levemir FlexTouch U-100 Insuln 100 unit/mL (3 mL) insulin pen 30 unit subcut BEDTIME 30 Days Qty: 9 3RF prazosin 5 mg Capsule 5 mg PO BEDTIME duloxetine 60 mg Capsule,Delayed Release(Dr/Ec) 60 mg PO BID atorvastatin 40 mg Tablet 40 mg PO BEDTIME pantoprazole 20 mg tablet,delayed release (DR/EC) 20 mg PO BID lisinopril 30 mg tablet 1 tab PO BEDTIME amoxicillin 500 mg capsule 500 mg PO Q8H cetirizine 10 mg tablet 10 mg PO DAILY chlorhexidine gluconate 0.12 % mouthwash PO BID (DME) pen needle, diabetic [Pentips] 32 gauge x 5/32 needle See Rx Instructions .ROUTE .MEDSUPPLY Qty: 50 Rx Instructions: As directed levetiracetam 500 mg tablet 500 mg PO BID Victoza 3-Osman 0.6 mg/0.1 mL (18 mg/3 mL) pen injector 1.2 mg subcut DAILY prazosin 2 mg capsule 2 mg PO DAILY mirtazapine 15 mg tablet 15 mg PO BEDTIME
[2022-06-01 10:40] VITALS: BP 131/69; PULSE 59; RESP 20; TEMP 36.4; O2SAT 94; BMI 31.8
[2022-06-01 12:36] LABS: COVID-19 Test Negative (Negative)
[2022-06-01 13:16] LABS: MANUAL DIFF FLAG NO
[2022-06-01] MEDS: 0.9 % Sodium Chloride 1,000 ML 999 ML IV (13:16)
[2022-06-01] MEDS: Metoclopramide HCl 10 MG/2 ML VIAL IVPUSH (13:19)
[2022-06-01] MEDS: diphenhydrAMINE HCL 50 MG/ML VIAL 25 MG IVPUSH (13:19)
[2022-06-01 13:20] LABS: Basophils Percent Auto 0.7 % (0-2); Eosinophils Absolute Auto 0.1 X10*3/uL (0.0-0.4); Eosinophils Percent Auto 2.9 % (0-4); Hematocrit 36.7 % (37.0-47.0); Imm Gran Abs Auto 0.01 X10*3/uL (0.00-0.03); Imm Gran Pct Auto 0.2 % (0.0-0.4); Lymphocytes Absolute Auto 1.2 X10*3/uL (1.2-4.9); Lymphocytes Percent Auto 30.5 % (20-40); Mean Corpuscular HGB Conc 32.7 g/dl (31.0-35.0); Mean Corpuscular Hemoglobin 27.5 pg (27.0-33.0); Mean Platelet Volume 11.2 fL (9.4-12.3); Monocytes Absolute Auto 0.3 X10*3/uL (0.1-1.2); Monocytes Percent Auto 6.9 % (2-11); Neutrophils Absolute Auto 2.4 x10*3/uL (2.0-8.3); Neutrophils Percent Auto 58.8 % (45-73); Platelet Count 187 X10*3/uL (160-400); Red Blood Count 4.37 X10*6/uL (4.20-5.50); Red Cell Distribution Width 13.9 % (11.0-16.0); White Blood Count 4.1 X10*3/uL (4.8-10.8)
[2022-06-01] MEDS: Ketorolac Tromethamine 15 MG/ML VIAL 30 MG IVPUSH (13:20)
--- NOTE | 2022-06-01 13:20 | PC.NURSE ---
Pt stating that she does not know who she is or where she is. Bried neuro assessment conducted with possible left facial droop noted and left sided upper extremity weakness when compared to the right side. notified of findings.
[2022-06-01 13:38] LABS: Lactic Acid 2.1 mmol/L (0.5-2.0)
[2022-06-01 13:39] LABS: Alanine Aminotransferase 17 U/L (0-31); Albumin Level 3.6 g/dL (3.5-5.0); Alkaline Phosphatase 167 U/L (39-117); Anion Gap 16 (12-20); Aspartate Amino Transferase 16 U/L (5-31); Bilirubin Total < 0.2 mg/dL (0.0-1.0); Blood Urea Nitrogen 16 mg/dL (9-16); Calcium 8.5 mg/dL (8.4-10.2); Carbon Dioxide 18 mmol/L (22-29); Chloride 109 mmol/L (96-108); Creatinine Clr Calc Pharmacy 68.3; Estimated Glomerular Filt Rate > 60; Ethanol < 10 mg/dL; Glucose Random 415 mg/dL (60-115); Lipase 28 U/L (8-78); Potassium 4.2 mmol/L (3.3-5.1); Sodium 139 mmol/L (135-145); Total Protein 6.3 g/dL (6.5-8.0)
[2022-06-01 13:43] LABS: Troponin-I High Sensitivity < 3.5 ng/L (<3.5-17.0)
[2022-06-01 14:16] VITALS: BP 116/54; PULSE 67; RESP 14; O2SAT 94
[2022-06-01 15:15] LABS: Reflex Lactate? Lactic Acid Added
[2022-06-01 15:43] LABS: Glucose, Whole Blood 335 mg/dL (60-115)
[2022-06-01 15:44] LABS: ~Lactic Acid-LAB USE ONLY 1.8 mmol/L (0.5-2.0)
== END 2022-06-01 16:19 | disposition home or self-care (01) ==
PROVIDERS: Emergency Provider Emergency Medicine Emergency Medical Services; PCP Family Medicine
DX: R51.9 Headache, unspecified (principal); E11.65 Type 2 diabetes mellitus with hyperglycemia; R53.1 Weakness; R42 Dizziness and giddiness; E78.00 Pure hypercholesterolemia, unspecified; F17.200 Nicotine dependence, unspecified, uncomplicated; Z20.822 Contact with and (suspected) exposure to COVID-19; Z79.02 Long term (current) use of antithrombotics/antiplatelets; Z79.899 Other long term (current) drug therapy
CPT/HCPCS: 36415; 70450; 80053; 82077; 82947; 83605; 83690; 84484; 85025; 87635; 93005; 96374; 96375; 99284; J1200; J1885; J2765

== ENCOUNTER 2022-06-06 07:40 | Outpatient (REF) | payer OTHER, SELFPAY ==
--- NOTE | 2022-06-06 08:16 | P.BOP_ITS ---
Brief Operative Note Date of Service: 06/06/22 Pre-op diagnosis: Multinodular Thyroid Procedure: EXAMINATION: US THYROID CLINICAL INFORMATION: Multinodular Thyroid COMPARISON: Prior TECHNIQUE: Linear transducer castro-scale and color Doppler examination with attention to the region of the thyroid. FINDINGS: SIZE: Measurements of the thyroid lobes and nodules are given in sagittal, anteroposterior and transverse dimensions respectively. Right Thyroid Lobe: Surgically absent is . Left Thyroid Lobe: 5.4 x 1.15 x 2.02 cm, volume 6.6 mL. Parenchyma: The gland echotexture is diffusely heterogenous. Thyroid vascularity is slightly increased. RIGHT THYROID LOBE: Surgically absent. LEFT THYROID LOBE: There is 1 nodule. 1. LMP: There is a 1.4 x 0.7 x 1.4 cm predominantly solid hyperechoic nodule with smooth margins and no internal microcalcifications. There are multiple heterogenous areas within the remainder of the lobe representing pseudonodules, but no other true nodules are visualized. NODES: No lymph nodes were assessed during today's exam. IMPRESSION: LMP 1.4 cm thyroid nodule which was previously biopsied when measuring 1.6 cm. Surgeon: Nisha West, DO Was an Internet Sales Associate used for this Procedure?: No Estimated blood loss (mL): 0
== END 2022-06-06 07:41 | disposition home or self-care (01) ==
LOC: HO.US 07:40
PROVIDERS: PCP Family Medicine; Visit Provider Family Medicine
DX: E04.2 Nontoxic multinodular goiter (principal); G40.909 Epilepsy, unspecified, not intractable, without status epilepticus
CPT/HCPCS: 76536

== ENCOUNTER 2022-06-11 16:02 | Outpatient (REF) | payer OTHER, SELFPAY ==
--- NOTE | ~2022-06-11 | MM_ITS ---
EXAMINATION: MM SCREENING DIGITAL BREAST TOMOSYNTHESIS, BILATERAL CLINICAL INFORMATION: Screening. Asymptomatic. The lifetime risk of breast cancer based on the Tyrer-Cuzick Model is 5%. COMPARISON: Mammography: 01/30/2019, 01/09/2018, 01/02/2017 TECHNIQUE: Digital breast tomosynthesis is performed in both the craniocaudal and mediolateral oblique views along with computer-aided detection (CAD). Synthesized 2D images are generated from the tomosynthesis. FINDINGS: The breasts are almost entirely fatty (ACR BI-RADS breast composition Category a). Background stromal markings are stable. There is incidental small right intramammary node again seen mid upper outer quadrant. No developing density or architectural abnormality. No abnormal calcifications. The axilla and skin contours are unremarkable. MM/MM tomosynthesis screening BI IMPRESSION: No mammographic evidence of malignancy. ASSESSMENT: BI-RADS 2: Benign RECOMMENDATION: Routine annual mammography screening. This patient's information was entered into a reminder system with a target due date for their next mammogram.
== END 2022-06-11 16:03 | disposition home or self-care (01) ==
LOC: HO.MAMMO 16:02
PROVIDERS: PCP Family Medicine; Visit Provider Obstetrics & Gynecology
DX: Z12.31 Encounter for screening mammogram for malignant neoplasm of breast (principal)
CPT/HCPCS: 77063; 77067

== ENCOUNTER → 2022-06-13 13:30 | Outpatient (BNVA) | payer OTHER, SELFPAY | PROVIDERS: PCP Family Medicine; Visit Provider Anesthesiology | DX: M17.0 Bilateral primary osteoarthritis of knee (principal); M51.36 Other intervertebral disc degeneration, lumbar region; M47.816 Spondylosis without myelopathy or radiculopathy, lumbar region; M47.812 Spondylosis without myelopathy or radiculopathy, cervical region | CPT/HCPCS: 99212 ==

== ENCOUNTER → 2022-07-06 09:00 | Outpatient (BNVA) | payer OTHER, SELFPAY | PROVIDERS: PCP Family Medicine; Visit Provider Student in an Organized Health Care Education/Training Program | DX: Z01.818 Encounter for other preprocedural examination (principal); K60.4 Rectal fistula; F44.9 Dissociative and conversion disorder, unspecified; E66.01 Morbid (severe) obesity due to excess calories; E11.9 Type 2 diabetes mellitus without complications; E78.00 Pure hypercholesterolemia, unspecified; Z68.34 Body mass index [BMI] 34.0-34.9, adult; Z90.49 Acquired absence of other specified parts of digestive tract; Z90.3 Acquired absence of stomach [part of]; M79.7 Fibromyalgia; M25.511 Pain in right shoulder; M25.512 Pain in left shoulder; G89.29 Other chronic pain; M54.50 Low back pain, unspecified | CPT/HCPCS: 99202; 99212 ==

== ENCOUNTER 2022-07-07 09:23 | Outpatient (REF) | payer OTHER, SELFPAY ==
[2022-07-07 12:11] LABS: Creatinine Urine 178.06 mg/dL; Microalbum/Creatinine Ratio Ur 17.4 ug/mg cr
[2022-07-07 12:50] LABS: Alanine Aminotransferase 13 U/L (0-31); Albumin Level 3.7 g/dL (3.5-5.0); Alkaline Phosphatase 141 U/L (39-117); Anion Gap 16 (12-20); Aspartate Amino Transferase 17 U/L (5-31); Bilirubin Total 0.3 mg/dL (0.0-1.0); Blood Urea Nitrogen 32 mg/dL (9-16); Calcium 8.8 mg/dL (8.4-10.2); Carbon Dioxide 25 mmol/L (22-29); Chloride 105 mmol/L (96-108); Cholesterol 154 mg/dL; Estimated Glomerular Filt Rate > 60; Glucose Random 195 mg/dL (60-115); HDL Cholesterol 42 mg/dL; LDL Cholesterol Calculated 87 mg/dl; Potassium 4.5 mmol/L (3.3-5.1); Sodium 141 mmol/L (135-145); Total Protein 6.5 g/dL (6.5-8.0); Triglycerides 129 mg/dL
[2022-07-07 12:51] LABS: Free T4 (Free Thyroxine) 0.92 ng/dL (0.71-1.85); Thyroid Stimulating Hormone 1.19 uIU/mL (0.32-4.0); Vitamin D 25-OH Total 21.7 ng/mL (>30)
[2022-07-07 12:56] LABS: Vitamin B12 175 pg/mL (200-900)
[2022-07-09 03:02] LABS: LDL Cholesterol Direct 92 mg/dL (<100)
== END 2022-07-07 09:24 | disposition home or self-care (01) ==
LOC: HO.LAB 09:23
PROVIDERS: PCP Family Medicine; Visit Provider Internal Medicine
DX: E55.9 Vitamin D deficiency, unspecified (principal); E11.9 Type 2 diabetes mellitus without complications; E04.2 Nontoxic multinodular goiter
CPT/HCPCS: 36415; 80053; 80061; 82043; 82306; 82607; 83721; 84439; 84443

== ENCOUNTER → 2022-07-09 11:04 | Outpatient (BNVA) | payer OTHER, SELFPAY | PROVIDERS: PCP Family Medicine; Visit Provider Internal Medicine | DX: T81.89XA Other complications of procedures, not elsewhere classified, initial encounter (principal); T81.31XA Disruption of external operation (surgical) wound, not elsewhere classified, initial encounter | CPT/HCPCS: 82947; 83036; 99202 ==

== ENCOUNTER 2022-07-17 16:59 | Observation (INO) | payer OTHER, SELFPAY ==
--- NOTE | ~2022-07-17 | CT_ITS ---
EXAMINATION: CT ANGIOGRAM OF THE CHEST WITH AND WITHOUT CONTRAST (CT PULMONARY ANGIOGRAM FOR PE) CLINICAL INFORMATION: Reason for Exam syncope, hypotension, weak COMPARISON: None TECHNIQUE: Prior to contrast administration, noncontrast localization images were obtained. Subsequently, multidetector volumetric imaging was performed from the thoracic inlet to below the diaphragms following the administration of 65 mL Omnipaque 350 intravenous contrast. No contrast reaction reported Sagittal, coronal, and MIP oblique sagittal reformatted images were obtained on the CT workstation, uploaded to PACS, and reviewed. This CT examination was performed using dose optimization techniques as appropriate, variously including the following: *Automated exposure control *Adjustment of mA and/or kV according to patient size (this includes techniques or standardized protocols for targeted exams where dose is matched to indication/reason for exam; i.e. extremities or head) *Use of iterative reconstruction technique Total exam dose-length product 520 mGy-cm FINDINGS: QUALITY OF STUDY/CONTRAST BOLUS: Satisfactory. PULMONARY ARTERIES: No central or segmental pulmonary emboli. THORACIC AORTA: No aneurysm or dissection. LUNG: No airspace consolidation. No pulmonary nodules identified. Mosaic attenuation of the lungs likely due to air trapping. Central airways are clear. No bronchiectasis. PLEURA: No pleural effusion or pneumothorax. MEDIASTINUM: No cardiomegaly or pericardial effusion. No appreciable coronary artery vascular calcifications. No mediastinal or hilar lymphadenopathy. No evidence of septal bowing or right heart strain. CHEST WALL/AXILLA: No axillary or internal mammary lymphadenopathy. Status post right hemithyroidectomy. 1 cm low-density nodule in the left thyroid isthmus. OSSEOUS STRUCTURES: No acute or suspicious osseous abnormality. UPPER ABDOMEN: Post surgical changes of prior sleeve gastrectomy. Visualized upper abdominal viscera otherwise grossly unremarkable. No reflux of contrast into the hepatic veins to suggest elevated right heart pressures. CT/CT angio chest PE protocol IMPRESSION: 1. No evidence of pulmonary embolus. 2. Mosaic attenuation of the lungs likely due to air trapping. 3. No airspace consolidation or effusions. VTE: negative
--- NOTE | ~2022-07-17 | CT_ITS ---
EXAMINATION: CT HEAD WITHOUT CONTRAST (STROKE PROTOCOL) CLINICAL INFORMATION: Stroke protocol. Weakness COMPARISON: CT head 06/01/2022 TECHNIQUE: Contiguous axial imaging was performed from the skull base to vertex without intravenous administration of contrast. This CT examination was performed using dose optimization techniques as appropriate, variously including the following: *Automated exposure control *Adjustment of mA and/or kV according to patient size (this includes techniques or standardized protocols for targeted exams where dose is matched to indication/reason for exam; i.e. extremities or head) *Use of iterative reconstruction technique DLP: 786 mGy-cm FINDINGS: Small scalp hematoma the posterior right parietal occipital bone. No skull fracture. There is no evidence of acute intracranial hemorrhage or territorial infarction. No abnormal mass-effect or midline shift is seen. [place] to white matter differentiation is well preserved. No extra-axial fluid collections are identified. The ventricles are normal in size. There is no abnormal attenuation within the brain parenchyma. There is no osseous abnormality. The mastoid air cells and visualized portions of the paranasal sinuses are well-aerated. CT/CT head for stroke IMPRESSION: No acute intracranial pathology. This critical result was discussed with Dr Mcdonald at 1724 hours on 07/17/2022. It was ascertained that the content and urgency of the report was understood at the time of direct communication.
--- NOTE | ~2022-07-17 | CT_ITS ---
EXAMINATION: CERVICAL SPINE CT WITHOUT CONTRAST CLINICAL INFORMATION: Fall. Neck pain. COMPARISON: 03/20/2021 TECHNIQUE: Multidetector volumetric imaging was obtained through the cervical spine without intravenous contrast. Multiplanar reconstructed images in coronal and sagittal orientations were submitted. This CT examination was performed using dose optimization techniques as appropriate, variously including the following: *Automated exposure control *Adjustment of mA and/or kV according to patient size (this includes techniques or standardized protocols for targeted exams where dose is matched to indication/reason for exam; i.e. extremities or head) *Use of iterative reconstruction technique DOSE: 617 mGy-cm FINDINGS: Vertebral body heights are normal. No fractures of the vertebral bodies or posterior elements. Vertebral alignment is normal. No subluxation. Degenerative osteophytes and sclerosis are present at the atlantodental articulation, though normal alignment is maintained. Craniocervical junction is normal. Intervertebral disc heights are normal. Small endplate osteophytes are evident at C5-C6. Minimal facet arthropathy at a few levels, most notably on the left at C4-C5. Central canal and neural foramina appear patent without appreciable stenoses. No significant paravertebral soft tissue swelling. Right thyroid lobe is absent. Multiple hypoattenuating nodules are again seen in the left thyroid lobe, measuring up to 1.4 cm in diameter. These are currently followed by thyroid ultrasound. Imaged portions of the lung apices are clear. CT/CT cervical spine wo IV con IMPRESSION: No acute fracture or malalignment in the cervical spine.
--- NOTE | ~2022-07-17 | US_ITS ---
EXAMINATION: US EXTRACRANIAL CAROTID DUPLEX, BILATERAL CLINICAL INFORMATION: Syncope. COMPARISON: None TECHNIQUE: Real-time ultrasound and Doppler techniques (integrating B-mode 2-D vascular images, Doppler spectral analysis and color-flow Doppler imaging) were utilized to interrogate the extracranial carotid arteries, the vertebral arteries and proximal subclavian arteries bilaterally. The degree of stenosis is determined by criteria similar to NASCET. FINDINGS: Right Side: 1. There is no atherosclerotic plaque seen in the bifurcation/proximal ICA region. 2. The common carotid artery PSV proximally is 96 cm/s and distally 85 cm/s. 3. The proximal internal carotid artery velocities are 84 cm/s systolic and 24 cm/s diastolic. 4. The proximal external carotid artery PSV is 102 cm/s. 5. The vertebral artery shows antegrade flow. 6. The subclavian artery waveforms are normal. Left Side: 1. There is no atherosclerotic plaque seen in the bifurcation/proximal ICA region. 2. The common carotid artery PSV proximally is 93 cm/s and distally 85 cm/s. 3. The proximal internal carotid artery velocities are 58 cm/s systolic and 18 cm/s diastolic. 4. The proximal external carotid artery PSV is 114 cm/s. 5. The vertebral artery shows antegrade flow. 6. The subclavian artery waveforms are normal. US/US carotid duplex BI IMPRESSION: 1. RIGHT: Normal right internal carotid artery without atherosclerotic plaque or hemodynamically significant stenosis. 2. LEFT: Normal left internal carotid artery without atherosclerotic plaque or hemodynamically significant stenosis.
--- NOTE | ~2022-07-17 | CT_ITS ---
EXAMINATION: CT HEAD WITHOUT CONTRAST CLINICAL INFORMATION: Syncope COMPARISON: 07/17/2022 TECHNIQUE: Contiguous axial imaging was performed from the skull base to vertex without intravenous contrast. This CT examination was performed using dose optimization techniques as appropriate, variously including the following: * Automated exposure control * Adjustment of mA and/or kV according to patient size (this includes techniques or standardized protocols for targeted exams where dose is matched to indication/reason for exam; i.e. extremities or head) Use of iterative reconstruction technique DLP: 808 mGy-cm. FINDINGS: There is no evidence of acute intracranial hemorrhage or territorial infarction. No abnormal mass effect or midline shift is seen. [place] to white matter differentiation is well preserved. No extra-axial fluid collections are identified. No hydrocephalus. Proportional prominence of the ventricles and sulcal spaces is consistent with mild volume loss. Patchy periventricular and deep white matter hypoattenuation is consistent with mild small vessel ischemic changes. Small subgaleal hematoma remains over the high right parietal region. No acute calvarial fracture. The mastoid air cells and visualized portions of the paranasal sinuses are well aerated. CT/CT head/brain wo IV con IMPRESSION: No acute intracranial pathology.
--- NOTE | 2022-07-17 17:08 | ED_ITS ---
HPI - Neuro Symptoms/Deficit General Chief Complaint: Seizure Stated Complaint: stroke alert? Time Seen by Provider: 07/17/22 17:04 Source: EMS Mode of arrival: EMS History of Present Illness HPI Narrative: 61-year-old female arrives via EMS as a stroke alert and a significant history of CVA with left-sided weakness and 2020, conversion disorder, diabetes, history of seizure disorder. As per EMS they have concerns that patient was un responsive and then reports that she was aphasia could with left-sided weakness. 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 She states that she has not been feeling well lately and complains of some mild abdominal discomfort. Otherwise, she denies any fever or chills. Related Data Home Medications Medication Instructions Recorded Confirmed mirtazapine 15 mg tablet 15 mg PO BEDTIME 07/25/20 07/10/22 atorvastatin 40 mg tablet 40 mg PO BEDTIME 02/19/21 07/10/22 duloxetine 60 mg capsule,delayed 60 mg PO BID 02/19/21 07/10/22 release prazosin 5 mg capsule 5 mg PO BEDTIME 02/19/21 07/10/22 pantoprazole 20 mg tablet,delayed 20 mg PO BID 04/05/21 07/10/22 release cetirizine 10 mg tablet 10 mg PO DAILY allergies 01/10/22 07/10/22 levetiracetam 500 mg tablet 500 mg PO BID 01/10/22 07/10/22 pen needle, diabetic 32 gauge x #50 ea 01/10/22 07/09/22 (Pentips) aspirin 81 mg tablet,delayed 81 mg PO DAILY 07/06/22 07/10/22 release diclofenac sodium 1 % topical gel 2 g topical QID 07/06/22 07/09/22 fluticasone propionate 50 2 spray intranasal QAM PRN Nasal 07/06/22 07/09/22 mcg/actuation nasal Congestion spray,suspension lisinopril 20 mg tablet 20 mg PO DAILY 07/06/22 07/10/22 topiramate 25 mg tablet 25 mg PO BID 07/06/22 07/10/22 prazosin 2 mg capsule 2 mg PO BEDTIME 07/09/22 07/10/22 ubrogepant 100 mg tablet (Ubrelvy) 100 mg PO DAILY PRN Migraine 07/09/22 07/10/22 Headache Previous Rx's Medication Instructions Recorded blood sugar diagnostic (FreeStyle #100 ea 06/29/21 Lite Strips) lancets 33 gauge (TRUEplus Lancets) #100 ea 05/07/22 liraglutide 0.6 mg/0.1 mL (18 mg/3 1.8 mg (0.3 mL) subcut DAILY 30 06/19/22 mL) subcutaneous pen injector days #9 mL (Victoza 3-Osman) acetaminophen 650 mg 650 mg PO Q12H PRN Pain #180 tabs 06/29/22 tablet,extended release (Arthritis Pain Relief (acetaminophen) ER) gabapentin 600 mg tablet 1,200 mg PO BID for neuropathic 07/06/22 pain #120 tabs empagliflozin 25 mg tablet 25 mg PO DAILY 30 days #30 tabs 07/09/22 (Jardiance) insulin detemir U-100 100 unit/mL 24 unit (0.24 mL) subcut BEDTIME 07/09/22 (3 mL) subcutaneous pen (Levemir 30 days #7.2 mL FlexTouch U-100 Insulin) Allergies Allergy/AdvReac Type Severity Reaction Status Date / Time Sulfa (Sulfonamide Allergy Intermediate blood Verified 07/09/22 11:49 Antibiotics) clots in [Sulfa (Sulfonamides)] legs, hives Review of Systems Review of Systems: Pertinent positives and negatives as stated in HPI 10 point review of systems is otherwise negative. 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 T2DM (type 2 diabetes mellitus) Vitamin D deficiency Surgical History H/O ventral hernia repair History of sleeve gastrectomy History of surgery History of ultrasound guided needle biopsy Hx of cholecystectomy Hx of colonoscopy Hx of colostomy Hx of skin graft Hx of tubal ligation Family History Family History Father Alzheimer disease, Onset Age: 60 Parkinson disease, Onset Age: 50 Mother Hypertension Gout Arthritis of knee CVD (cardiovascular disease) Family/Other Lupus Paternal Aunt Rheumatoid arthritis Social History Social History Household Members: None Housing: Apartment Are you a primary career and technology education teacher to a significant other at home: No Do you presently have visiting nurse or other home services: Yes Alcohol intake: never Patient Tobacco Use Status: Current someday Tobacco user Tobacco use type: Cigarette Advance Directives: No Advance Directives Information Provided: No service: No Current occupational status: disabled Physical Exam Vital Signs: Vital Signs: Last Vital Signs Pulse 59 07/17/22 19:28 BP 112/53 L 07/17/22 19:28 BMI result Body Mass Index 31.5 VITAL SIGNS: Reviewed. GENERAL: Well developed, well nourished, in no acute distress. HEAD: Normocephalic/atraumatic EYES: PERRLA, EOMI EARS: Ext canals without abnormality OROPHARYNX: no oral lesions noted, posterior pharynx clear LUNGS: Normal breath sounds. No adventitious sounds or accessory muscle use. SpO2<> CARDIOVASCULAR: Regular rate and rhythm without noted murmurs, no JVD or lower extremity edema. ABDOMEN: Soft, non-tender, non-distended with bowel sounds. : Patient is noted to be incontinent of urine MUSCULOSKELETAL: No tenderness, deformities, or effusions noted on gross inspection. EXTREMITIES: No cyanosis, clubbing or edema. SKIN: Inspection of the skin reveals no rashes NEUROLOGIC: Alert and oriented x 3. Strength and sensation to light touch were grossly intact x 4, refer to NIH stroke scale. Course Course Course Narrative: 61-year-old female with history and clinical presentation suspicious for possible seizure activity given the circumstances in which she found herself and she is noted to be hypotensive at this time and will receive IV fluids. 1809: On re-evaluation patient is responding to IV fluid boluses, given circumstances surrounding patient's collapse and noted hypotension raises concerns for possible PE and will proceed with CT angio. Review of all imaging studies, there is no acute findings to better explain patient's presentation and patient remains afebrile and is gradually become more alert possibly supporting the idea that she was postictal and/or dehydrated. Viral studies are negative, there is no evidence of a leukocytosis, urinalysis is negative and will admit the patient for breakthrough seizure of unknown etiology. Blood pressure has significantly improved and I discussed case with inpatient hospitalist who accepts admission. Reevaluation(s) Reevaluation #1: [facility] reported on noncontrast head CT scan which was negative for acute findings. Time: 17:24 Reevaluation #2: I discussed the case with Dr. Xavier, neurology, who does not feel that patient meets criteria for tPA at this time however does recommend Keppra loading and evaluating for possible infection. Time: 17:26 MDM - Neuro Symptoms/Deficit Lab Data Result diagrams: 07/17/22 17:22 07/17/22 18:21 Labs: Lab Results 07/17/22 07/17/22 07/17/22 Range/Units 17:05 17:09 17:21 WBC (4.8-10.8) X10*3/uL RBC (4.20-5.50) X10*6/uL Hgb (12.0-16.0) g/dl Hct (37.0-47.0) % MCV (80.0-98.0) fL MCH (27.0-33.0) pg MCHC (31.0-35.0) g/dl RDW (11.0-16.0) % Plt Count (160-400) X10*3/uL MPV (9.4-12.3) fL Immature Gran % (Auto) (0.0-0.4) % Neut % (Auto) (45-73) % Lymph % (Auto) (20-40) % [place] % (Auto) (2-11) % Eos % (Auto) (0-4) % Baso % (Auto) (0-2) % Lymph # (Auto) (1.2-4.9) X10*3/uL [place] # (Auto) (0.1-1.2) X10*3/uL Eos # (Auto) (0.0-0.4) X10*3/uL Baso # (Auto) (0.0-0.2) X10*3/uL Abs Immat Gran (auto) (0.00-0.03) X10*3/uL Absolute Neuts (auto) (2.0-8.3) x10*3/uL Absolute Nucleated RBC (0.0-0.012) X10*3/uL Nucleated RBC % (auto) (0.0-0.2) /100WBC PT 11.0 (10.0-13.1) SEC Whole Blood PT 12.2 (11.1-13.5) sec INR 1.0 (0.9-1.1) Whole Blood INR 1.0 (0.9-1.1) APTT 36.3 (26.0-36.4) SEC D-Dimer High Sensitivty 2646 NG/ML Sodium (135-145) mmol/L Potassium (3.3-5.1) mmol/L Chloride (96-108) mmol/L Carbon Dioxide (22-29) mmol/L Anion Gap (12-20) BUN (9-16) mg/dL Creatinine (0.5-1.4) mg/dL Estim Creat Clear Calc Estimated GFR POC Glucose 182 H (60-115) mg/dL Random Glucose (60-115) mg/dL Lactic Acid (0.5-2.0) mmol/L Calcium (8.4-10.2) mg/dL Total Creatine Kinase (26-140) U/L Troponin I High Sens (<3.5-17.0) ng/L B-Natriuretic Peptide (<100) pg/mL Urine Color Urine Appearance Urine pH (5.0-9.0) Ur Specific Olla (1.005-1.025) Urine Protein (Neg-Trace) mg/dL Urine Glucose (UA) (Negative) mg/dL Urine Ketones (Negative) mg/dL Urine Blood (Negative) Urine Nitrite (Negative) Ur Leukocyte Esterase (Negative) Urine RBC (0-2) /HPF Urine WBC (0-5) /HPF Ur Squamous Epith Cells (0-2) /HPF Urine Bacteria (None Seen) Hyaline Casts (0-2) /LPF Influenza Type A (PCR) (Negative) Influenza Type B (PCR) (Negative) RSV RNA Qual (PCR) (Negative) SARS-CoV-2 RNA (RT-PCR) (Negative) 07/17/22 07/17/22 07/17/22 Range/Units 17:21 17:21 17:22 WBC 10.1 (4.8-10.8) X10*3/uL RBC 4.90 (4.20-5.50) X10*6/uL Hgb 13.3 (12.0-16.0) g/dl Hct 42.0 (37.0-47.0) % MCV 85.7 (80.0-98.0) fL MCH 27.1 (27.0-33.0) pg MCHC 31.7 (31.0-35.0) g/dl RDW 15.1 (11.0-16.0) % Plt Count 314 D (160-400) X10*3/uL MPV 11.1 (9.4-12.3) fL Immature Gran % (Auto) 0.4 (0.0-0.4) % Neut % (Auto) 71.6 (45-73) % Lymph % (Auto) 20.3 (20-40) % [place] % (Auto) 5.6 (2-11) % Eos % (Auto) 1.5 (0-4) % Baso % (Auto) 0.6 (0-2) % Lymph # (Auto) 2.0 (1.2-4.9) X10*3/uL [place] # (Auto) 0.6 (0.1-1.2) X10*3/uL Eos # (Auto) 0.2 (0.0-0.4) X10*3/uL Baso # (Auto) 0.1 (0.0-0.2) X10*3/uL Abs Immat Gran (auto) 0.04 H (0.00-0.03) X10*3/uL Absolute Neuts (auto) 7.2 (2.0-8.3) x10*3/uL Absolute Nucleated RBC 0.000 (0.0-0.012) X10*3/uL Nucleated RBC % (auto) 0.0 (0.0-0.2) /100WBC PT (10.0-13.1) SEC Whole Blood PT (11.1-13.5) sec INR (0.9-1.1) Whole Blood INR (0.9-1.1) APTT (26.0-36.4) SEC D-Dimer High Sensitivty NG/ML Sodium (135-145) mmol/L Potassium (3.3-5.1) mmol/L Chloride (96-108) mmol/L Carbon Dioxide (22-29) mmol/L Anion Gap (12-20) BUN (9-16) mg/dL Creatinine (0.5-1.4) mg/dL Estim Creat Clear Calc Estimated GFR POC Glucose (60-115) mg/dL Random Glucose (60-115) mg/dL Lactic Acid (0.5-2.0) mmol/L Calcium (8.4-10.2) mg/dL Total Creatine Kinase (26-140) U/L Troponin I High Sens < 3.5 (<3.5-17.0) ng/L B-Natriuretic Peptide 34 (<100) pg/mL Urine Color Urine Appearance Urine pH (5.0-9.0) Ur Specific Olla (1.005-1.025) Urine Protein (Neg-Trace) mg/dL Urine Glucose (UA) (Negative) mg/dL Urine Ketones (Negative) mg/dL Urine Blood (Negative) Urine Nitrite (Negative) Ur Leukocyte Esterase (Negative) Urine RBC (0-2) /HPF Urine WBC (0-5) /HPF Ur Squamous Epith Cells (0-2) /HPF Urine Bacteria (None Seen) Hyaline Casts (0-2) /LPF Influenza Type A (PCR) NEGATIVE (Negative) Influenza Type B (PCR) NEGATIVE (Negative) RSV RNA Qual (PCR) NEGATIVE (Negative) SARS-CoV-2 RNA (RT-PCR) NEGATIVE (Negative) 07/17/22 07/17/22 07/17/22 Range/Units 18:16 18:21 20:18 WBC (4.8-10.8) X10*3/uL RBC (4.20-5.50) X10*6/uL Hgb (12.0-16.0) g/dl Hct (37.0-47.0) % MCV (80.0-98.0) fL MCH (27.0-33.0) pg MCHC (31.0-35.0) g/dl RDW (11.0-16.0) % Plt Count (160-400) X10*3/uL MPV (9.4-12.3) fL Immature Gran % (Auto) (0.0-0.4) % Neut % (Auto) (45-73) % Lymph % (Auto) (20-40) % [place] % (Auto) (2-11) % Eos % (Auto) (0-4) % Baso % (Auto) (0-2) % Lymph # (Auto) (1.2-4.9) X10*3/uL [place] # (Auto) (0.1-1.2) X10*3/uL Eos # (Auto) (0.0-0.4) X10*3/uL Baso # (Auto) (0.0-0.2) X10*3/uL Abs Immat Gran (auto) (0.00-0.03) X10*3/uL Absolute Neuts (auto) (2.0-8.3) x10*3/uL Absolute Nucleated RBC (0.0-0.012) X10*3/uL Nucleated RBC % (auto) (0.0-0.2) /100WBC PT (10.0-13.1) SEC Whole Blood PT (11.1-13.5) sec INR (0.9-1.1) Whole Blood INR (0.9-1.1) APTT (26.0-36.4) SEC D-Dimer High Sensitivty NG/ML Sodium 142 (135-145) mmol/L Potassium 3.9 (3.3-5.1) mmol/L Chloride 114 H (96-108) mmol/L Carbon Dioxide 19 L (22-29) mmol/L Anion Gap 13 (12-20) BUN 24 H (9-16) mg/dL Creatinine 1.17 (0.5-1.4) mg/dL Estim Creat Clear Calc TNP Estimated GFR 47 POC Glucose (60-115) mg/dL Random Glucose 161 H (60-115) mg/dL Lactic Acid 3.1 H* (0.5-2.0) mmol/L Calcium 7.2 L D (8.4-10.2) mg/dL Total Creatine Kinase 18 L D (26-140) U/L Troponin I High Sens (<3.5-17.0) ng/L B-Natriuretic Peptide (<100) pg/mL Urine Color Yellow Urine Appearance Cloudy Urine pH 6.0 (5.0-9.0) Ur Specific Olla >= 1.030 H (1.005-1.025) Urine Protein Negative (Neg-Trace) mg/dL Urine Glucose (UA) >=1000 H (Negative) mg/dL Urine Ketones Negative (Negative) mg/dL Urine Blood Negative (Negative) Urine Nitrite Negative (Negative) Ur Leukocyte Esterase Negative (Negative) Urine RBC 0-2 (0-2) /HPF Urine WBC 0-5 (0-5) /HPF Ur Squamous Epith Cells 0-2 (0-2) /HPF Urine Bacteria None Seen (None Seen) Hyaline Casts 6-10 (0-2) /LPF Influenza Type A (PCR) (Negative) Influenza Type B (PCR) (Negative) RSV RNA Qual (PCR) (Negative) SARS-CoV-2 RNA (RT-PCR) (Negative) ECG Data Attestation: I personally reviewed and interpreted this ECG as follows: Prior ECG tracings: available for review Interpretation: sinus rhythm, HR - 73, no STEMI, HI/ QTC are within normal limits, RBBB, no change in EKG from prior. NIH Stroke Scale Internal: Initial- Upon Arrival Level of Consciousness: Alert Level of Consciousness Questions: Answers both questions correctly Level of Consciousness Commands: Performs both tasks correctly Best Gaze: Normal Visual: No visual loss Facial Palsy: Normal Motor Arm (Right): Some effort against gravity Motor Arm (Left): Some effort against gravity Motor Leg (Right): Some effort against gravity Motor Leg (Left): Some effort against gravity Limb Ataxia: Absent Sensory: Normal Best Language: No aphasia Dysarthia: Normal Extinction and Inattention: No abnormality Score: 8 Critical Care Time Critical Care Time Critical Care Time: Yes Total Critical Care Time: 30 Attestation: I personally attest to this time spent taking care of the patient. Discharge Plan Discharge Clinical Impression: Syncope, Seizure Patient Disposition: Admitted As Inpatient
[2022-07-17 17:09] VITALS: BP 144/90; O2SAT 99
--- NOTE | 2022-07-17 17:09 | ECG_ITS ---
Test Reason : SEIZURE Blood Pressure : / mmHG Vent. Rate : 073 BPM Atrial Rate : 073 BPM P-R Int : 142 ms QRS Dur : 130 ms QT Int : 426 ms P-R-T Axes : 042 091 043 degrees QTc Int : 469 ms Sinus rhythm with Premature supraventricular complexes Right bundle branch block Nonspecific ST abnormality Abnormal ECG When compared with ECG of 01-JUN-2022 10:45, Premature supraventricular complexes are now Present Nonspecific T wave abnormality no longer evident in Inferior leads T wave inversion no longer evident in Anterior leads Referred By: Mili Mcdonald Electronically Signed By:VIV SHEPPARD MD
[2022-07-17 17:13] LABS: Prothrombin Time Whole Bld POC 12.2 sec (11.1-13.5)
[2022-07-17 17:13] LABS: Glucose, Whole Blood 182 mg/dL (60-115)
[2022-07-17 17:26] LABS: MANUAL DIFF FLAG NO
[2022-07-17 17:39] LABS: Basophils Absolute Auto 0.1 X10*3/uL (0.0-0.2); Basophils Percent Auto 0.6 % (0-2); Eosinophils Absolute Auto 0.2 X10*3/uL (0.0-0.4); Eosinophils Percent Auto 1.5 % (0-4); Hemoglobin 13.3 g/dl (12.0-16.0); Imm Gran Abs Auto 0.04 X10*3/uL (0.00-0.03); Imm Gran Pct Auto 0.4 % (0.0-0.4); Lymphocytes Percent Auto 20.3 % (20-40); Mean Corpuscular HGB Conc 31.7 g/dl (31.0-35.0); Mean Corpuscular Hemoglobin 27.1 pg (27.0-33.0); Mean Corpuscular Volume 85.7 fL (80.0-98.0); Mean Platelet Volume 11.1 fL (9.4-12.3); Monocytes Absolute Auto 0.6 X10*3/uL (0.1-1.2); Monocytes Percent Auto 5.6 % (2-11); Neutrophils Absolute Auto 7.2 x10*3/uL (2.0-8.3); Neutrophils Percent Auto 71.6 % (45-73); Platelet Count 314 X10*3/uL (160-400); Red Cell Distribution Width 15.1 % (11.0-16.0); White Blood Count 10.1 X10*3/uL (4.8-10.8)
[2022-07-17 17:47] LABS: D Dimer High Sensitivity 2646 NG/ML
[2022-07-17 17:48] LABS: Partial Thromboplastin Time 36.3 SEC (26.0-36.4)
[2022-07-17 17:49] LABS: Stroke Lab Use COMPLETE
[2022-07-17 17:54] LABS: Troponin-I High Sensitivity < 3.5 ng/L (<3.5-17.0)
[2022-07-17] MEDS: levETIRAcetam in NaCl (iso-os) 1,000 MG/100 ML PIGGYBACK 400 MG IV (18:00)
[2022-07-17 18:05] LABS: Influenza A PCR NEGATIVE (Negative); Influenza B PCR NEGATIVE (Negative); Resp Syncy Virus RNA Qual PCR NEGATIVE (Negative); SARS COV2 PCR INHOUSE NEGATIVE (Negative)
[2022-07-17 18:49] LABS: Anion Gap 13 (12-20); Blood Urea Nitrogen 24 mg/dL (9-16); Calcium 7.2 mg/dL (8.4-10.2); Carbon Dioxide 19 mmol/L (22-29); Chloride 114 mmol/L (96-108); Estimated Glomerular Filt Rate 47; Glucose Random 161 mg/dL (60-115); Potassium 3.9 mmol/L (3.3-5.1); Sodium 142 mmol/L (135-145)
[2022-07-17] MEDS: iohexoL 350 MG/ML 100 ML INFUS..BTL IV (18:49)
[2022-07-17 18:55] VITALS: BMI 31.5
[2022-07-17 18:55] LABS: Lactic Acid 3.1 mmol/L (0.5-2.0)
[2022-07-17 19:28] VITALS: BP 112/53; PULSE 59
[2022-07-17] MEDS: 0.9 % Sodium Chloride 2,000 ML 999 ML IV (19:36)
[2022-07-17 20:19] LABS: B Type Natriuretic Peptide 34 pg/mL (<100)
[2022-07-17 20:25] LABS: Reflex Lactate? Lactic Acid Added
[2022-07-17 20:26] LABS: Appearance Urine Cloudy; Color Urine Yellow; Glucose Urine UA >=1000 mg/dL (Negative); Leukocyte Esterase Urine Negative (Negative); Nitrite Urine Negative (Negative); Specific Gravity - Urine >= 1.030 (1.005-1.025); UMIC TRIGGER UA YES; Urine Blood Negative (Negative); Urine Ketones Negative (Negative); Urine Protein Negative (Neg-Trace)
[2022-07-17 20:38] LABS: Bacteria Urine None Seen (None Seen); RBC Urine 0-2 /HPF (0-2); Squamous Epithelial Cell Urine 0-2 /HPF (0-2); WBC Urine 0-5 /HPF (0-5)
[2022-07-17 20:56] VITALS: BP 126/59; PULSE 59
[2022-07-17 21:23] LABS: ~Lactic Acid-LAB USE ONLY 1.1 mmol/L (0.5-2.0)
[2022-07-17 21:26] VITALS: BP 112/52; PULSE 59
--- NOTE | 2022-07-17 21:40 | PM.IMHP ---
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 She lives by herself and is uncertain how long she was unconscious for. She states she awoke incontinent of urine and feces on the floor with her walker on top of her. She does not recall any prodrome nor does she recall feeling confused upon waking. She does states she has a history of epilepsy and follows with Neurology and is compliant with Keppra and gabapentin. She does also tell me that her blood pressure has been ?going low? at home. She has experienced intermittent episodes of dizziness, shortness of breath, chest pain, and palpitations but denies these symptoms today and states they have been ongoing since the of her mother. She has been experiencing migraine headaches for the last two days. She also endorses left sided paresthesias to the left thigh but states these are not new and have been occurring intermittently since her stroke years ago. She also tells me that she has been having diarrhea 1-2 times daily typically in the morning ongoing for years since the removal of her gallbladder. She denies any fevers, chills, blurred vision, diplopia, nausea, vomiting, abdominal pain, urinary symptoms. Denies any sick contacts or recent illness. Based on presenting symptoms, stroke alert was called. CT of the head and neck negative for intracranial pathology. No leukocytosis. Lactic acid elevated at 3.1 with 2 year follow-up of 1.17, BUN 24. Na 142, chloride 114, co2 19, potassium 3.9. D-dimer 2646. CTA chest negative for PE. ED discussed case with neurology who recommends observation and keppra loading. <ROSY Castillo - Last Filed: 07/17/22 22:17> Review of Systems Review of Systems: General: No fevers, malaise, unintentional weight loss HEENT: No blurred vision or diplopia Cardiovascular: No chest pain, palpitations, or leg edema Respiratory: No shortness of breath, wheezing, cough GI: + incontinence of feces, +diarrhea. No abdominal pain, nausea, vomiting, constipation, melena, hematochezia : + incontinence of urine. No dysuria, hematuria, increased urinary frequency Neuro: +loc, +left-sided weakness, +left sided paresthesia, +migraine headache Skin: No rashes or lesions <ROSY Castillo - Last Filed: 07/17/22 22:17> [facility] Medical History: Medical History Anxiety disorder CVA (cerebral vascular accident) Depression Disc degeneration, lumbar Familial hidradenitis suppurativa type 1 HLD (hyperlipidemia) Hx of seizure disorder Hypertension Migraines Multinodular thyroid Open wound anterior abdominal wall Osteoarthritis of knees, bilateral Recto-perineal fistula Right axillary hidradenitis Sepsis 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 T2DM (type 2 diabetes mellitus) Vitamin D deficiency <ROSY Castillo - Last Filed: 07/17/22 22:17> Family History: Family History Father Alzheimer disease, Onset Age: 60 Parkinson disease, Onset Age: 50 Mother Hypertension Gout Arthritis of knee CVD (cardiovascular disease) Family/Other Lupus Paternal Aunt Rheumatoid arthritis <ROSY Castillo - Last Filed: 07/17/22 22:17> Surgical History: Surgical History H/O ventral hernia repair History of sleeve gastrectomy History of surgery History of ultrasound guided needle biopsy Hx of cholecystectomy Hx of colonoscopy Hx of colostomy Hx of skin graft Hx of tubal ligation <ROSY Castillo - Last Filed: 07/17/22 22:17> Social History: Social History Household Members: None Housing: Apartment Are you a primary rn urgent care to a significant other at home: No Do you presently have visiting nurse or other home services: Yes Alcohol intake: never Patient Tobacco Use Status: Current someday Tobacco user Tobacco use type: Cigarette Advance Directives: No Advance Directives Information Provided: No service: No Current occupational status: disabled <ROSY Castillo - Last Filed: 07/17/22 22:17> Meds Allergies/Adverse reactions: Allergies Allergy/AdvReac Type Severity Reaction Status Date / Time Sulfa (Sulfonamide Allergy Intermediate blood Verified 07/09/22 11:49 Antibiotics) clots in [Sulfa (Sulfonamides)] legs, hives <ROSY Castillo - Last Filed: 07/17/22 22:17> Active Medications: Current Medications Acetaminophen (Acetaminophen 325 Mg Tablet) 650 mg PO Q6H PRN PRN Reason: Pain, Mild (Pain Scale 1-3) Dextrose (Dextrose 50 % 25 Gm/50 Ml Syringe) 25 gm IVPUSH Q15M PRN; Protocol PRN Reason: per Hypoglycemia Standing Ord. Glucose (Glucose Gel 15 Gm Gel..Gram.) 15 gm PO Q15M PRN; Protocol PRN Reason: per Hypoglycemia Standing Ord. Levetiracetam (Keppra) 1,000 mg in 100 mls @ 400 mls/hr IV Q12H JELLY Sodium Chloride (Ns) 1,000 mls @ 100 mls/hr IVCONT .Q10H JELLY Insulin Human Lispro (Insulin Lispro 100 Unit/Ml 3 Ml Vial) 0 unit SUBCUT QIDACHS [facility]; Protocol Loperamide HCl (Loperamide Hcl 2 Mg Capsule) 2 mg PO Q6H PRN PRN Reason: Diarrhea Ondansetron HCl (Ondansetron Hcl 4 Mg/2 Ml Vial) 4 mg IVPUSH Q8H PRN PRN Reason: Nausea and Vomiting Sodium Chloride (0.9 % Sodium Chloride Flush 3 Ml Syringe) [address] [facility] <ROSY Castillo - Last Filed: 07/17/22 22:17> Home medications: Home Medications Medication Instructions Recorded Confirmed Last Taken Type mirtazapine 15 mg tablet 15 mg PO BEDTIME 07/25/20 07/17/22 04/04/21 History atorvastatin 40 mg tablet 40 mg PO BEDTIME 0607/17/22 04/04/21 History duloxetine 60 mg capsule,delayed 60 mg PO BID 02/19/21 07/17/22 04/04/21 History release prazosin 5 mg capsule 5 mg PO BEDTIME 02/19/21 07/17/22 04/04/21 History pantoprazole 20 mg tablet,delayed 20 mg PO BID 04/05/21 07/17/22 04/04/21 History release cetirizine 10 mg tablet 10 mg PO DAILY PRN Allergy Symptoms 01/10/22 07/17/22 Unknown History levetiracetam 500 mg tablet 500 mg PO BID 01/10/22 07/17/22 Unknown History pen needle, diabetic 32 gauge x #50 ea 01/10/22 07/09/22 Unknown History (P[place]ips) aspirin 81 mg tablet,delayed 81 mg PO DAILY 07/06/22 07/17/22 Unknown History release fluticasone propionate 50 2 spray intranasal QAM PRN Nasal 07/06/22 07/17/22 Unknown History mcg/actuation nasal Congestion spray,suspension lisinopril 20 mg tablet 20 mg PO DAILY@1200 07/06/22 07/17/22 Unknown History topiramate 25 mg tablet 25 mg PO BID 07/06/22 07/17/22 Unknown History prazosin 2 mg capsule 2 mg PO DAILY 07/09/22 07/17/22 Unknown History ubrogepant 100 mg tablet (Ubrelvy) 100 mg PO DAILY PRN Migraine 07/09/22 07/17/22 Unknown History Headache gabapentin 600 mg tablet 1,200 mg PO BID@1200,2100 for 07/17/22 07/17/22 Unknown History neuropathic pain insulin detemir U-100 100 unit/mL 12 unit subcut BID 07/17/22 07/17/22 Unknown History (3 mL) subcutaneous pen <ROSY Castillo - Last Filed: 07/17/22 22:17> Physical Exam Vital Signs and Narrative: Vital Signs: Last Vital Signs Pulse 59 07/17/22 19:28 BP 112/53 L 07/17/22 19:28 BMI result Body Mass Index 31.5 <ROSY Castillo - Last Filed: 07/17/22 22:17> Constitutional - Awake and Alert, No apparent distress Eyes - PERRLA, EOMI Cardiovascular - S1S2, RRR, No edema Respiratory - Normal lung expansion, Normal respiratory effort, No respiratory distress, CTA bilaterally Gastrointestinal - NT / ND; +BS; No rebound or guarding Extremities - no calf tenderness bilaterally, no swelling Skin - Warm/Dry Neurological - Alert & oriented x3, CN II-XII in tact. 3/5 left extremities, 5/5 strength right extremities. Sensation intact Psychological - Appropriate affect <ROSY Castillo - Last Filed: 07/17/22 22:17> Results Labs CBC and Chem 7: : 07/17/22 17:22 07/18/22 05:22 <ROSY Castillo - Last Filed: 07/17/22 22:17> Labs: Laboratory Results - last 24 hr 07/17/22 07/17/22 07/17/22 17:05 17:09 17:21 MCV MCH MCHC RDW Plt Count MPV Immature Gran % (Auto) Neut % (Auto) Lymph % (Auto) Jones % (Auto) Eos % (Auto) Baso % (Auto) Lymph # (Auto) Jones # (Auto) Eos # (Auto) Baso # (Auto) Abs Immat Gran (auto) Absolute Neuts (auto) Absolute Nucleated RBC Nucleated RBC % (auto) PT 11.0 Whole Blood PT 12.2 INR 1.0 Whole Blood INR 1.0 APTT 36.3 D-Dimer High Sensitivty 2646 Anion Gap Estim Creat Clear Calc Estimated GFR POC Glucose 182 H Random Glucose Lactic Acid Lactic Acid F/U @ 2Hr Calcium Total Creatine Kinase Troponin I High Sens B-Natriuretic Peptide Urine Color Urine Appearance Urine pH Ur Specific [place] Urine Protein Urine Glucose (UA) Urine Ketones Urine Blood Urine Nitrite Ur Leukocyte Esterase Urine RBC Urine WBC Ur Squamous Epith Cells Urine Bacteria Hyaline Casts Influenza Type A (PCR) Influenza Type B (PCR) RSV RNA Qual (PCR) SARS-CoV-2 RNA (RT-PCR) 07/17/22 07/17/22 07/17/22 17:21 17:21 17:22 MCV 85.7 MCH 27.1 MCHC 31.7 RDW 15.1 Plt Count 314 D MPV 11.1 Immature Gran % (Auto) 0.4 Neut % (Auto) 71.6 Lymph % (Auto) 20.3 Jones % (Auto) 5.6 Eos % (Auto) 1.5 Baso % (Auto) 0.6 Lymph # (Auto) 2.0 Jones # (Auto) 0.6 Eos # (Auto) 0.2 Baso # (Auto) 0.1 Abs Immat Gran (auto) 0.04 H Absolute Neuts (auto) 7.2 Absolute Nucleated RBC 0.000 Nucleated RBC % (auto) 0.0 PT Whole Blood PT INR Whole Blood INR APTT D-Dimer High Sensitivty Anion Gap Estim Creat Clear Calc Estimated GFR POC Glucose Random Glucose Lactic Acid Lactic Acid F/U @ 2Hr Calcium Total Creatine Kinase Troponin I High Sens < 3.5 B-Natriuretic Peptide 34 Urine Color Urine Appearance Urine pH Ur Specific [place] Urine Protein Urine Glucose (UA) Urine Ketones Urine Blood Urine Nitrite Ur Leukocyte Esterase Urine RBC Urine WBC Ur Squamous Epith Cells Urine Bacteria Hyaline Casts Influenza Type A (PCR) NEGATIVE Influenza Type B (PCR) NEGATIVE RSV RNA Qual (PCR) NEGATIVE SARS-CoV-2 RNA (RT-PCR) NEGATIVE 07/17/22 07/17/22 07/17/22 18:16 18:21 20:18 MCV MCH MCHC RDW Plt Count MPV Immature Gran % (Auto) Neut % (Auto) Lymph % (Auto) Jones % (Auto) Eos % (Auto) Baso % (Auto) Lymph # (Auto) Jones # (Auto) Eos # (Auto) Baso # (Auto) Abs Immat Gran (auto) Absolute Neuts (auto) Absolute Nucleated RBC Nucleated RBC % (auto) PT Whole Blood PT INR Whole Blood INR APTT D-Dimer High Sensitivty Anion Gap 13 Estim Creat Clear Calc TNP Estimated GFR 47 POC Glucose Random Glucose 161 H Lactic Acid 3.1 H* Lactic Acid F/U @ 2Hr Calcium 7.2 L D Total Creatine Kinase 18 L D Troponin I High Sens B-Natriuretic Peptide Urine Color Yellow Urine Appearance Cloudy Urine pH 6.0 Ur Specific [place] >= 1.030 H Urine Protein Negative Urine Glucose (UA) >=1000 H Urine Ketones Negative Urine Blood Negative Urine Nitrite Negative Ur Leukocyte Esterase Negative Urine RBC 0-2 Urine WBC 0-5 Ur Squamous Epith Cells 0-2 Urine Bacteria None Seen Hyaline Casts 6-10 Influenza Type A (PCR) Influenza Type B (PCR) RSV RNA Qual (PCR) SARS-CoV-2 RNA (RT-PCR) 07/17/22 21:06 MCV MCH MCHC RDW Plt Count MPV Immature Gran % (Auto) Neut % (Auto) Lymph % (Auto) Jones % (Auto) Eos % (Auto) Baso % (Auto) Lymph # (Auto) Jones # (Auto) Eos # (Auto) Baso # (Auto) Abs Immat Gran (auto) Absolute Neuts (auto) Absolute Nucleated RBC Nucleated RBC % (auto) PT Whole Blood PT INR Whole Blood INR APTT D-Dimer High Sensitivty Anion Gap Estim Creat Clear Calc Estimated GFR POC Glucose Random Glucose Lactic Acid Lactic Acid F/U @ 2Hr 1.1 Calcium Total Creatine Kinase Troponin I High Sens B-Natriuretic Peptide Urine Color Urine Appearance Urine pH Ur Specific [place] Urine Protein Urine Glucose (UA) Urine Ketones Urine Blood Urine Nitrite Ur Leukocyte Esterase Urine RBC Urine WBC Ur Squamous Epith Cells Urine Bacteria Hyaline Casts Influenza Type A (PCR) Influenza Type B (PCR) RSV RNA Qual (PCR) SARS-CoV-2 RNA (RT-PCR) <ROSY Castillo - Last Filed: 07/17/22 22:17> Imaging Radiologist's Impressions: Impressions Head CT 07/17/22 17:10 IMPRESSION: No acute intracranial pathology. This critical result was discussed with Dr Mcdonald at 1724 hours on 07/17/2022. It was ascertained that the content and urgency of the report was understood at the time of direct communication. Cervical Spine CT 07/17/22 18:50 IMPRESSION: No acute fracture or malalignment in the cervical spine. Chest CTA 07/17/22 18:51 IMPRESSION: 1. No evidence of pulmonary embolus. 2. Mosaic attenuation of the lungs likely due to air trapping. 3. No airspace consolidation or effusions. VTE: negative <ROSY Castillo - Last Filed: 07/17/22 22:17> Assessment and Plan (1) Seizure: Status: Acute <ROSY Castillo Last Filed: 07/17/22 22:17> 61-year-old female with history of insulin-dependent type 2 diabetes, history of seizure disorder, fibromyalgia, conversion disorder, anxiety/depression, hyperlipidemia, migraines, history 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 #LOC- most likely related to breakthrough seizure given patient found incontinent of urine and feces though denies postictal phase -head and neck CT negative -COntinue keppra @1000mg BID -neurology consult -seizure precautions -nursing bedside swallow eval -continue Topamax and gabapentin -observe on telemetry -lactic acid 3.1 improved to 1.1, related to seizure not severe sepsis #KRYSTAL-likely related to dehydration not severe sepsis -creatinine 1.17, BUN 24 (baseline 0.84, 32) -continue IVF -follow BMP # insulin-dependent type 2 diabetes -dose adjusted Levemir -POC glucose -diabetic diet -Humalog on sliding scale # hypertension- BP soft -Hold BP meds for now #Migraine headaches -Continue home meds # fibromyalgia -continue gabapentin # GERD -continue PPI # conversion disorder/anxiety/depression-stable -continue home meds # history CVA with sequela left-sided hemiparesis -no acute focal neuro deficit -head CT negative -continue ASA and statin DVT prophylaxis-Lovenox Full code <ROSY Castillo - Last Filed: 07/17/22 22:17> 61-year-old female with history of insulin-dependent type 2 diabetes, history of seizure disorder, fibromyalgia, conversion disorder, anxiety/depression, hyperlipidemia, migraines, history 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 #LOC- most likely related to breakthrough seizure given patient found incontinent of urine and feces though denies postictal phase -head and neck CT negative -Continue keppra @1000mg BID -neurology consult -seizure precautions -nursing bedside swallow eval -continue Topamax and gabapentin -observe on telemetry -lactic acid 3.1 improved to 1.1, related to seizure not severe sepsis #KRYSTAL-likely related to dehydration not severe sepsis -creatinine 1.17, BUN 24 (baseline 0.84, 32) -continue IVF -follow BMP # insulin-dependent type 2 diabetes -dose adjusted Levemir -POC glucose -diabetic diet -Humalog on sliding scale # hypertension- BP soft -Hold BP meds for now #Migraine headaches -Continue home meds # fibromyalgia -continue gabapentin # GERD -continue PPI # conversion disorder/anxiety/depression-stable -continue home meds # history CVA with sequela left-sided hemiparesis -no acute focal neuro deficit -head CT negative -continue ASA and statin DVT prophylaxis-Lovenox Full code <Venus Ray MD - Last Filed: 07/18/22 06:49> Quality Stroke Does the patient have a stroke diagnosis?: No <ROSY Castillo - Last Filed: 07/17/22 22:17> VTE Prior VTE?: No <ROSY Castillo - Last Filed: 07/17/22 22:17> VTE Risk Level:: Medical - moderate - high <ROSY Castillo - Last Filed: 07/17/22 22:17> VTE Device Contraindication: Treatment Not Indicated <ROSY Castillo - Last Filed: 07/17/22 22:17> VTE Drug Contraindication: N/A - Med Ordered <ROSY Castillo - Last Filed: 07/17/22 22:17>
--- NOTE | 2022-07-17 21:47 | PHA.MEDREC ---
Pharmacy Consult ? Medication Reconciliation Pharmacy has completed the medication reconciliation. Patient reprots taking Levemir 12 unit BID instead of 24 unit at bedtime. Patient unsure if she took meds this morning. Jennifer Martines, KateD
[2022-07-17] MEDS: Atorvastatin Calcium 40 MG TABLET PO (22:01)
[2022-07-17] MEDS: 0.9 % Sodium Chloride 1,000 ML 100 ML IVCONT (22:02)
[2022-07-17] MEDS: Topiramate 25 MG TABLET PO (22:02)
[2022-07-17] MEDS: DULoxetine HCl 60 MG CAPSULE.DR PO (22:02)
[2022-07-17] MEDS: Mirtazapine 15 MG TABLET PO (22:02)
--- NOTE | 2022-07-17 22:16 | PC.NURSE ---
this RN medicated pt according to Nov. held prazosin 5mg per provider Florencio. as 2155 BP was 113/79. per provider recommendation held PM dose. will reassess for AM dose
[2022-07-18] VITALS (10 sets, daily range): BP systolic 108–144; BP diastolic 51–65; PULSE 59–72; RESP 14–18; TEMP 36–37.1; O2SAT 92–99
--- NOTE | 2022-07-18 | ECG_ITS ---
Test Reason : rapid Blood Pressure : / mmHG Vent. Rate : 071 BPM Atrial Rate : 071 BPM P-R Int : 158 ms QRS Dur : 142 ms QT Int : 422 ms P-R-T Axes : 073 086 137 degrees QTc Int : 458 ms Sinus rhythm with Premature atrial complexes Right bundle branch block T wave abnormality, consider lateral ischemia Abnormal ECG When compared with ECG of 17-JUL-2022 17:26, Nonspecific T wave abnormality now evident in Inferior leads T wave inversion more evident in Anterolateral leads Referred By: Amanda Rutherford Electronically Signed By:VIV SHEPPARD MD
--- NOTE | 2022-07-18 | EEG_ITS ---
This is a 16-channel EEG with an EKG lead. The patient is reported drowsy during the tracing. Background EEG rhythm is low amplitude, mixed theta, beta with no obvious asymmetry or paroxysmal tendency. No definite sharp wave spikes or paroxysmal tendencies noted. Cardiac lead does not reveal any significant abnormality. Photic stimulation does not produce any driving. IMPRESSION: Mild slowing with no evidence of seizure disorder. MD BIANCA Hood/ABDELRAHMAN / [id number]
[2022-07-18] MEDS: Acetaminophen 325 MG TABLET 650 MG PO ×2 (03:07→23:18)
[2022-07-18 05:52] LABS: Anion Gap 15 (12-20); Blood Urea Nitrogen 25 mg/dL (9-16); Calcium 8.6 mg/dL (8.4-10.2); Carbon Dioxide 17 mmol/L (22-29); Chloride 112 mmol/L (96-108); Creatinine Clr Calc Pharmacy 63.6; Estimated Glomerular Filt Rate 57; Glucose Random 152 mg/dL (60-115); Potassium 3.8 mmol/L (3.3-5.1); Sodium 140 mmol/L (135-145)
[2022-07-18] MEDS: levETIRAcetam in NaCl (iso-os) 1,000 MG/100 ML PIGGYBACK 400 MG IV (06:02)
[2022-07-18] MEDS: Omeprazole 20 MG CAPSULE.DR PO (06:03)
[2022-07-18] MEDS: 0.9 % Sodium Chloride 1,000 ML 100 ML IVCONT (06:09)
[2022-07-18 07:34] LABS: Glucose, Whole Blood 138 mg/dL (60-115)
[2022-07-18] MEDS: Prazosin HCL 1 MG CAPSULE 2 MG PO (07:54)
[2022-07-18] MEDS: Aspirin Enteric Coated 81 MG TABLET.DR PO (07:54)
[2022-07-18] MEDS: Topiramate 25 MG TABLET PO ×2 (07:54→21:12)
[2022-07-18] MEDS: DULoxetine HCl 60 MG CAPSULE.DR PO ×2 (07:54→21:03)
[2022-07-18] MEDS: Empagliflozin 25 MG TABLET PO (07:54)
--- NOTE | 2022-07-18 12:22 | PM.NEUROCN ---
History of Present Illness Data of Consult Service Date: 07/18/22 Primary Care Provider: Zelda Mo MD HPI Reason for consult: Seizure 61 years old woman who probably has epilepsy comprised of generalized seizures. Her previous imaging has revealed significant microvascular disease affecting brainstem and cortical white matter resulting in scattered ischemic infarctions and she has presented to emergency room and [facility] and [facility] with similar presentation. This time she was back with similar event and the report that she urinated during that episode. Witnesses account was not available. She was noted to be ?postictal? afterwards. 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 T2DM (type 2 diabetes mellitus) Vitamin D deficiency Family History Family History Father Alzheimer disease, Onset Age: 60 Parkinson disease, Onset Age: 50 Mother Hypertension Gout Arthritis of knee CVD (cardiovascular disease) Family/Other Lupus Paternal Aunt Rheumatoid arthritis Surgical History Surgical History H/O ventral hernia repair History of sleeve gastrectomy History of surgery History of ultrasound guided needle biopsy Hx of cholecystectomy Hx of colonoscopy Hx of colostomy Hx of skin graft Hx of tubal ligation Social History Social History Household Members: None Housing: Apartment Are you a primary home care administrator to a significant other at home: No Do you presently have visiting nurse or other home services: Yes Alcohol intake: never Patient Tobacco Use Status: Current someday Tobacco user Tobacco use type: Cigarette service: No Current occupational status: disabled Meds Allergies Allergy/AdvReac Type Severity Reaction Status Date / Time Sulfa (Sulfonamide Allergy Intermediate blood Verified 07/09/22 11:49 Antibiotics) clots in [Sulfa (Sulfonamides)] legs, hives Active Medications: Current Medications Acetaminophen (Acetaminophen 325 Mg Tablet) 650 mg PO Q6H PRN PRN Reason: Pain, Mild (Pain Scale 1-3) Last Admin: 07/18/22 03:07 Dose: 650 mg Aspirin (Aspirin Enteric Coated 81 Mg Tablet.) 81 mg PO DAILY ON LICENSE OF [facility] Last Admin: 07/18/22 07:54 Dose: 81 mg Atorvastatin Calcium (Atorvastatin Calcium 40 Mg Tablet) 40 mg PO BEDTIME ON LICENSE OF [facility] Last Admin: 07/17/22 22:01 Dose: 40 mg Dextrose (Dextrose 50 % 25 Gm/50 Ml Syringe) 25 gm IVPUSH Q15M PRN; Protocol PRN Reason: per Hypoglycemia Standing Ord. Duloxetine HCl (Duloxetine Hcl 60 Mg Capsule.) 60 mg PO BID ON LICENSE OF [facility] Last Admin: 07/18/22 07:54 Dose: 60 mg Empagliflozin (Empagliflozin 25 Mg Tablet) 25 mg PO DAILY ON LICENSE OF [facility] Last Admin: 07/18/22 07:54 Dose: 25 mg Gabapentin (Gabapentin 600 Mg Tablet) 1,200 mg PO BID@1200,2100 ON LICENSE OF [facility] Glucose (Glucose Gel 15 Gm Gel..Gram.) 15 gm PO Q15M PRN; Protocol PRN Reason: per Hypoglycemia Standing Ord. Levetiracetam (Keppra) 1,000 mg in 100 mls @ 400 mls/hr IV Q12H ON LICENSE OF [facility] Last Infusion: 07/18/22 07:14 Dose: Infused Sodium Chloride (Ns) 1,000 mls @ 125 mls/hr IVCONT .Q8H ON LICENSE OF [facility] Last Admin: 07/18/22 06:09 Dose: 100 mls/hr Insulin Glargine (Insulin Glargine,Hum.Rec.Anlog 100 Unit/Ml 10 Ml Vial) 6 unit SUBCUT BID ON LICENSE OF [facility] Insulin Human Lispro (Insulin Lispro 100 Unit/Ml 3 Ml Vial) 0 unit SUBCUT QIDACHS ON LICENSE OF [facility]; Protocol Last Admin: 07/18/22 07:28 Dose: Not Given Loperamide HCl (Loperamide Hcl 2 Mg Capsule) 2 mg PO Q6H PRN PRN Reason: Diarrhea Mirtazapine (Mirtazapine 15 Mg Tablet) 15 mg PO BEDTIME ON LICENSE OF [facility] Last Admin: 07/17/22 22:02 Dose: 15 mg Non-Formulary Medication (Ubrogepant [Ubrelvy]) 100 mg PO DAILY PRN PRN Reason: Migraine Headache Omeprazole (Omeprazole 20 Mg Capsule.) 20 mg PO BID@0630,1630 ON LICENSE OF [facility] Last Admin: 07/18/22 06:03 Dose: 20 mg Ondansetron HCl (Ondansetron Hcl 4 Mg/2 Ml Vial) 4 mg IVPUSH Q8H PRN PRN Reason: Nausea and Vomiting Prazosin HCl (Prazosin Hcl 5 Mg Capsule) 5 mg PO BEDTIME ON LICENSE OF [facility]; Protocol Last Admin: 07/17/22 22:09 Dose: Not Given Prazosin HCl (Prazosin Hcl 1 Mg Capsule) 2 mg PO DAILY ON LICENSE OF [facility]; Protocol Last Admin: 07/18/22 07:54 Dose: 2 mg Sodium Chloride (0.9 % Sodium Chloride Flush 3 Ml Syringe) [facility] Last Admin: 07/18/22 07:55 Dose: Not Given Topiramate (Topiramate 25 Mg Tablet) 25 mg PO BID ON LICENSE OF [facility] Last Admin: 07/18/22 07:54 Dose: 25 mg Home Medications Medication Instructions Recorded Confirmed Last Taken Type mirtazapine 15 mg tablet 15 mg PO BEDTIME 07/25/20 07/17/22 04/04/21 History atorvastatin 40 mg tablet 40 mg PO BEDTIME 02/19/21 07/17/22 04/04/21 History duloxetine 60 mg capsule,delayed 60 mg PO BID 02/19/21 07/17/22 04/04/21 History release prazosin 5 mg capsule 5 mg PO BEDTIME 02/19/21 07/17/22 04/04/21 History pantoprazole 20 mg tablet,delayed 20 mg PO BID 04/05/21 07/17/22 04/04/21 History release cetirizine 10 mg tablet 10 mg PO DAILY PRN Allergy Symptoms 01/10/22 07/17/22 Unknown History levetiracetam 500 mg tablet 500 mg PO BID 01/10/22 07/17/22 Unknown History pen needle, diabetic 32 gauge x #50 ea 01/10/22 07/09/22 Unknown History ([place]) aspirin 81 mg tablet,delayed 81 mg PO DAILY 07/06/22 07/17/22 Unknown History release fluticasone propionate 50 2 spray intranasal QAM PRN Nasal 07/06/22 07/17/22 Unknown History mcg/actuation nasal Congestion spray,suspension lisinopril 20 mg tablet 20 mg PO DAILY@1200 07/06/22 07/17/22 Unknown History topiramate 25 mg tablet 25 mg PO BID 07/06/22 07/17/22 Unknown History prazosin 2 mg capsule 2 mg PO DAILY 07/09/22 07/17/22 Unknown History ubrogepant 100 mg tablet (Ubrelvy) 100 mg PO DAILY PRN Migraine 07/09/22 07/17/22 Unknown History Headache gabapentin 600 mg tablet 1,200 mg PO BID@1200,2100 for 07/17/22 07/17/22 Unknown History neuropathic pain insulin detemir U-100 100 unit/mL 12 unit subcut BID 07/17/22 07/17/22 Unknown History (3 mL) subcutaneous pen Physical Exam Vital Signs: Vital Signs: Last Vital Signs Temp 98.1 F 07/18/22 08:33 Pulse 71 07/18/22 08:33 Resp 14 07/18/22 08:33 BP 114/54 L 07/18/22 08:33 Pulse Ox 94 07/18/22 08:33 O2 Del Method 07/18/22 08:33 BMI result Body Mass Index 31.5 Neuro: Other: She was little bit drowsy but able to communicate with the help of her granddaughter. She was following commands. Face was symmetrical. Visual farr are full. There was no focal weakness. Plantars were flexor. Results Labs CBC & Chem 7: 07/17/22 17:22 07/18/22 05:22 Labs: Short CBC 07/17/22 Range/Units 17:22 WBC 10.1 (4.8-10.8) X10*3/uL Hgb 13.3 (12.0-16.0) g/dl Hct 42.0 (37.0-47.0) % Plt Count 314 D (160-400) X10*3/uL BMP 07/17/22 07/18/22 18:21 05:22 Sodium 142 140 Potassium 3.9 3.8 Chloride 114 H 112 H Carbon Dioxide 19 L 17 L BUN 24 H 25 H Creatinine 1.17 0.98 Calcium 7.2 L D 8.6 D Cardiac Enzymes 07/17/22 Range/Units 18:21 Total Creatine Kinase 18 L D (26-140) U/L Urine 07/17/22 Range/Units 20:18 Urine Color Yellow Urine Appearance Cloudy Urine pH 6.0 (5.0-9.0) Ur Specific [place] >= 1.030 H (1.005-1.025) Urine Protein Negative (Neg-Trace) mg/dL Urine Glucose (UA) >=1000 H (Negative) mg/dL Her head CT did not reveal any acute pathology. Previous MRI has revealed significant ischemic lesions Assessment and Plan (1) Seizure: Status: Acute 61 years old woman who probably has generalized seizure disorder related to significant microvascular ischemic disease from hypertension, which at this time was control. I would recommend increasing her levetiracetam dose to 1000 mg twice a day. Otherwise there was no reason to do another MRI at this time. She has been following Dr. Anderson and can continue that follow up on routine basis. She should not drive and avoid activities that could put her life in danger Procedures Date of Service Date of Service: 07/18/22
[2022-07-18 12:41] LABS: Glucose, Whole Blood 135 mg/dL (60-115)
[2022-07-18 13:20] LABS: Glucose, Whole Blood 138 mg/dL (60-115)
--- NOTE | 2022-07-18 13:24 | MHC.CM.PN ---
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
--- NOTE | 2022-07-18 14:34 | P.PNIM_ITS ---
Subjective Subjective Date of Service: 07/18/22 Interval History: syncope another episode this afternoon, she was trying to walk with pt when it happened Family was in room they did not notice any seizure-like activity, patient had loss of consciousness around 1-2 minute and then she regained continue NS seems alert oriented after that arm, following commands had mild left-sided facial droop as per the family whenever she gets this episode she gets somewhat drooping fingersticks was in 130s Review of Systems patient denies any chest pain or shortness of breath before the episode or after episode . no fever or chills Physical Exam Vital Signs: Vital Signs: Last Vital Signs Temp 98.2 F 07/18/22 12:00 Pulse 66 07/18/22 13:20 Resp 18 07/18/22 12:00 BP 119/56 L 07/18/22 13:20 Pulse Ox 97 07/18/22 13:20 O2 Del Method 07/18/22 12:00 BMI result Body Mass Index 31.5 Appearance: seems generalized weak after the episode of syncope, otherwise seems alert oriented afterwards. Mild left-sided facial droop. cvs: rrr, [id number] . res: clear to auscultation ,no rhonchii or wheezing abd: no rebound or guarding ,nt, bs present. ext pulses present , no cyanosis . neuro: Motor grossly intact follow simple commands, generalized weak. Objective Data Active Medications Acetaminophen (Acetaminophen 325 Mg Tablet) 650 mg PO Q6H PRN PRN Reason: Pain, Mild (Pain Scale 1-3) Last Admin: 07/18/22 03:07 Dose: 650 mg Documented By: MANJU Aspirin (Aspirin Enteric Coated 81 Mg Tablet.) 81 mg PO DAILY [facility] Last Admin: 07/18/22 07:54 Dose: 81 mg Documented By: ILAN Atorvastatin Calcium (Atorvastatin Calcium 40 Mg Tablet) 40 mg PO BEDTIME [facility] Last Admin: 07/17/22 22:01 Dose: 40 mg Documented By: GISSELL Dextrose (Dextrose 50 % 25 Gm/50 Ml Syringe) 25 gm IVPUSH Q15M PRN; Protocol PRN Reason: per Hypoglycemia Standing Ord. Duloxetine HCl (Duloxetine Hcl 60 Mg Capsule.) 60 mg PO BID [facility] Last Admin: 07/18/22 07:54 Dose: 60 mg Documented By: ILAN Empagliflozin (Empagliflozin 25 Mg Tablet) 25 mg PO DAILY [facility] Last Admin: 07/18/22 07:54 Dose: 25 mg Documented By: ILAN Fluticasone Propionate (Fluticasone Propionate Nasal 16 Gm Shell) 2 spray NOSTRIL-B DAILY PRN PRN Reason: Nasal Congestion Gabapentin (Gabapentin 600 Mg Tablet) 1,200 mg PO BID@1200,2100 [facility] Glucose (Glucose Gel 15 Gm Gel..Gram.) 15 gm PO Q15M PRN; Protocol PRN Reason: per Hypoglycemia Standing Ord. Insulin Glargine (Insulin Glargine,Hum.Rec.Anlog 100 Unit/Ml 10 Ml Vial) 6 unit SUBCUT BID [facility] Insulin Human Lispro (Insulin Lispro 100 Unit/Ml 3 Ml Vial) 0 unit SUBCUT QIDACHS [facility]; Protocol Last Admin: 07/18/22 12:36 Dose: Not Given Documented By: JOSE MARTIN Non-Admin Reason: No Insulin Coverage Levetiracetam (Levetiracetam 1,000 Mg Tablet) 1,000 mg PO BID [facility] Loperamide HCl (Loperamide Hcl 2 Mg Capsule) 2 mg PO Q6H PRN PRN Reason: Diarrhea Loratadine (Loratadine 10 Mg Tablet) 10 mg PO DAILY PRN PRN Reason: Allergy Symptoms Mirtazapine (Mirtazapine 15 Mg Tablet) 15 mg PO BEDTIME [facility] Last Admin: 07/17/22 22:02 Dose: 15 mg Documented By: GISSELL Non-Formulary Medication (Ubrogepant [Ubrelvy]) 100 mg PO DAILY PRN PRN Reason: Migraine Headache Non-Formulary Medication (Liraglutide [Victoza 3-Osman]) 1.8 mg SUBCUT DAILY [facility] Omeprazole (Omeprazole 20 Mg Capsule.Dr) 20 mg PO BID@0630,1630 [facility] Last Admin: 07/18/22 06:03 Dose: 20 mg Documented By: MANJU Ondansetron HCl (Ondansetron Hcl 4 Mg/2 Ml Vial) 4 mg IVPUSH Q8H PRN PRN Reason: Nausea and Vomiting Prazosin HCl (Prazosin Hcl 5 Mg Capsule) 5 mg PO BEDTIME [facility]; Protocol Last Admin: 07/17/22 22:09 Dose: Not Given Documented By: GISSELL Non-Admin Reason: Physician Held Med Prazosin HCl (Prazosin Hcl 1 Mg Capsule) 2 mg PO DAILY [facility]; Protocol Last Admin: 07/18/22 07:54 Dose: 2 mg Documented By: ILAN Sodium Chloride (0.9 % Sodium Chloride Flush 3 Ml Syringe) 3 ml IVFLUSH QSHIFT [facility] Last Admin: 07/18/22 07:55 Dose: Not Given Documented By: ILAN Non-Admin Reason: See Note Topiramate (Topiramate 25 Mg Tablet) 25 mg PO BID [facility] Last Admin: 07/18/22 07:54 Dose: 25 mg Documented By: ILAN Labs CBC & Chem 7: 07/17/22 17:22 07/18/22 05:22 Labs: Laboratory Results - last 24 hr 07/17/22 07/17/22 07/17/22 17:05 17:09 17:21 MCV MCH MCHC RDW Plt Count MPV Immature Gran % (Auto) Neut % (Auto) Lymph % (Auto) Ocean % (Auto) Eos % (Auto) Baso % (Auto) Lymph # (Auto) [place] # (Auto) Eos # (Auto) Baso # (Auto) Abs Immat Gran (auto) Absolute Neuts (auto) Absolute Nucleated RBC Nucleated RBC % (auto) PT 11.0 Whole Blood PT 12.2 INR 1.0 Whole Blood INR 1.0 APTT 36.3 D-Dimer High Sensitivty 2646 Anion Gap Estim Creat Clear Calc Estimated GFR POC Glucose 182 H Random Glucose Lactic Acid Lactic Acid F/U @ 2Hr Calcium Total Creatine Kinase Troponin I High Sens B-Natriuretic Peptide Urine Color Urine Appearance Urine pH Ur Specific [place] Urine Protein Urine Glucose (UA) Urine Ketones Urine Blood Urine Nitrite Ur Leukocyte Esterase Urine RBC Urine WBC Ur Squamous Epith Cells Urine Bacteria Hyaline Casts Influenza Type A (PCR) Influenza Type B (PCR) RSV RNA Qual (PCR) SARS-CoV-2 RNA (RT-PCR) 07/17/22 07/17/22 07/17/22 17:21 17:21 17:22 MCV 85.7 MCH 27.1 MCHC 31.7 RDW 15.1 Plt Count 314 D MPV 11.1 Immature Gran % (Auto) 0.4 Neut % (Auto) 71.6 Lymph % (Auto) 20.3 Ocean % (Auto) 5.6 Eos % (Auto) 1.5 Baso % (Auto) 0.6 Lymph # (Auto) 2.0 Ocean # (Auto) 0.6 Eos # (Auto) 0.2 Baso # (Auto) 0.1 Abs Immat Gran (auto) 0.04 H Absolute Neuts (auto) 7.2 Absolute Nucleated RBC 0.000 Nucleated RBC % (auto) 0.0 PT Whole Blood PT INR Whole Blood INR APTT D-Dimer High Sensitivty Anion Gap Estim Creat Clear Calc Estimated GFR POC Glucose Random Glucose Lactic Acid Lactic Acid F/U @ 2Hr Calcium Total Creatine Kinase Troponin I High Sens < 3.5 B-Natriuretic Peptide 34 Urine Color Urine Appearance Urine pH Ur Specific [place] Urine Protein Urine Glucose (UA) Urine Ketones Urine Blood Urine Nitrite Ur Leukocyte Esterase Urine RBC Urine WBC Ur Squamous Epith Cells Urine Bacteria Hyaline Casts Influenza Type A (PCR) NEGATIVE Influenza Type B (PCR) NEGATIVE RSV RNA Qual (PCR) NEGATIVE SARS-CoV-2 RNA (RT-PCR) NEGATIVE 07/17/22 07/17/22 07/17/22 18:16 18:21 20:18 MCV MCH MCHC RDW Plt Count MPV Immature Gran % (Auto) Neut % (Auto) Lymph % (Auto) [place] % (Auto) Eos % (Auto) Baso % (Auto) Lymph # (Auto) [place] # (Auto) Eos # (Auto) Baso # (Auto) Abs Immat Gran (auto) Absolute Neuts (auto) Absolute Nucleated RBC Nucleated RBC % (auto) PT Whole Blood PT INR Whole Blood INR APTT D-Dimer High Sensitivty Anion Gap 13 Estim Creat Clear Calc TNP Estimated GFR 47 POC Glucose Random Glucose 161 H Lactic Acid 3.1 H* Lactic Acid F/U @ 2Hr Calcium 7.2 L D Total Creatine Kinase 18 L D Troponin I High Sens B-Natriuretic Peptide Urine Color Yellow Urine Appearance Cloudy Urine pH 6.0 Ur Specific [place] >= 1.030 H Urine Protein Negative Urine Glucose (UA) >=1000 H Urine Ketones Negative Urine Blood Negative Urine Nitrite Negative Ur Leukocyte Esterase Negative Urine RBC 0-2 Urine WBC 0-5 Ur Squamous Epith Cells 0-2 Urine Bacteria None Seen Hyaline Casts 6-10 Influenza Type A (PCR) Influenza Type B (PCR) RSV RNA Qual (PCR) SARS-CoV-2 RNA (RT-PCR) 07/17/22 07/18/22 07/18/22 21:06 05:22 07:25 MCV MCH MCHC RDW Plt Count MPV Immature Gran % (Auto) Neut % (Auto) Lymph % (Auto) [place] % (Auto) Eos % (Auto) Baso % (Auto) Lymph # (Auto) [place] # (Auto) Eos # (Auto) Baso # (Auto) Abs Immat Gran (auto) Absolute Neuts (auto) Absolute Nucleated RBC Nucleated RBC % (auto) PT Whole Blood PT INR Whole Blood INR APTT D-Dimer High Sensitivty Anion Gap 15 Estim Creat Clear Calc 63.6 Estimated GFR 57 POC Glucose 138 H Random Glucose 152 H Lactic Acid Lactic Acid F/U @ 2Hr 1.1 Calcium 8.6 D Total Creatine Kinase Troponin I High Sens B-Natriuretic Peptide Urine Color Urine Appearance Urine pH Ur Specific [place] Urine Protein Urine Glucose (UA) Urine Ketones Urine Blood Urine Nitrite Ur Leukocyte Esterase Urine RBC Urine WBC Ur Squamous Epith Cells Urine Bacteria Hyaline Casts Influenza Type A (PCR) Influenza Type B (PCR) RSV RNA Qual (PCR) SARS-CoV-2 RNA (RT-PCR) 07/18/22 07/18/22 12:31 13:17 MCV MCH MCHC RDW Plt Count MPV Immature Gran % (Auto) Neut % (Auto) Lymph % (Auto) [place] % (Auto) Eos % (Auto) Baso % (Auto) Lymph # (Auto) [place] # (Auto) Eos # (Auto) Baso # (Auto) Abs Immat Gran (auto) Absolute Neuts (auto) Absolute Nucleated RBC Nucleated RBC % (auto) PT Whole Blood PT INR Whole Blood INR APTT D-Dimer High Sensitivty Anion Gap Estim Creat Clear Calc Estimated GFR POC Glucose 135 H 138 H Random Glucose Lactic Acid Lactic Acid F/U @ 2Hr Calcium Total Creatine Kinase Troponin I High Sens B-Natriuretic Peptide Urine Color Urine Appearance Urine pH Ur Specific [place] Urine Protein Urine Glucose (UA) Urine Ketones Urine Blood Urine Nitrite Ur Leukocyte Esterase Urine RBC Urine WBC Ur Squamous Epith Cells Urine Bacteria Hyaline Casts Influenza Type A (PCR) Influenza Type B (PCR) RSV RNA Qual (PCR) SARS-CoV-2 RNA (RT-PCR) Assessment and Plan (1) Seizure: Status: Acute (2) Syncope: Status: Acute Plan 61-year-old female with history of insulin-dependent type 2 diabetes, history of seizure disorder, fibromyalgia, conversion disorder, anxiety/depression, hyperlipidemia, migraines, history 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 #LOC- most likely related to breakthrough seizure given patient found incontinent of urine and feces though denies postictal phase -head and neck CT negative after another episode of syncope with loc , EKG seems similar, patient has no cardiac symptoms, also in addition patient was not noticed to have any seizure- like activities during this episode. Fingersticks was in 130s as per staff, sats and vitals seems fine, patient quickly oriented in few minutes, following simple commands. Repeat CT head is negative also -Continue keppra @1000mg BID, Topamax and gabapentin seizure precautions -nursing bedside swallow eval -observe on telemetry, added echo and carotid duplex just to complete syncopal episode workup. in addition we will ask the records from [facility] if they have EEG and neurological workup. added eeg also syncopal episode possible vasovagal versus seizure versus psychogenic. #KRYSTAL-likely related to dehydration not severe sepsis KRYSTAL resolved with hydration, monitor electrolytes and renal function. # insulin-dependent type 2 diabetes hold Levemir -POC glucose -diabetic diet -Humalog on sliding scale # hypertension- BP soft -Hold BP meds for now #Migraine headaches -Continue home meds # fibromyalgia -continue gabapentin # GERD -continue PPI # conversion disorder/anxiety/depression-stable -continue home meds # history CVA with sequela left-sided hemiparesis -no acute focal neuro deficit -head CT negative -continue ASA and statin DVT prophylaxis-Lovenox inpatient need : Syncopal episode- need further workup at also, neurological workup awaiting from [facility]. Quality Stroke Does the patient have a stroke diagnosis?: No VTE Prior VTE?: No VTE Risk Level:: Medical - moderate - high VTE Device Contraindication: Treatment Not Indicated VTE Drug Contraindication: N/A - Med Ordered
--- NOTE | 2022-07-18 14:59 | PC.NURSE ---
Pt c/o posterior neck pain rating it 7/10 stating its constant tightness and when it worsens thats when she loses consciousness. pt stated she has been having this pain for a year. shore man at bedside during assessment. informed.
[2022-07-18 16:40] LABS: Glucose, Whole Blood 115 mg/dL (60-115)
[2022-07-18] MEDS: Lactated Ringers 1,000 ML 80 ML IVCONT (18:25)
[2022-07-18] MEDS: Lidocaine 4 % Patch ADH..PATCH 1 PATCH TRANSDERMA (18:25)
[2022-07-18] MEDS: 0.9 % Sodium Chloride Flush 3 ML SYRINGE IVFLUSH (18:25)
[2022-07-18 19:41] LABS: Glucose, Whole Blood 109 mg/dL (60-115)
[2022-07-18] MEDS: Atorvastatin Calcium 40 MG TABLET PO (21:03)
[2022-07-18] MEDS: Gabapentin 600 MG TABLET 1200 MG PO (21:04)
[2022-07-18] MEDS: Mirtazapine 15 MG TABLET PO (21:04)
[2022-07-18] MEDS: levETIRAcetam 1,000 MG TABLET 1000 MG PO (21:09)
[2022-07-18] MEDS: Prazosin HCL 5 MG CAPSULE PO (21:12)
[2022-07-19] VITALS (7 sets, daily range): BP systolic 117–142; BP diastolic 54–65; PULSE 62–74; RESP 16–19; TEMP 36.3–37.2; O2SAT 95–100
--- NOTE | 2022-07-19 03:42 | PC.NURSE ---
1929; patient moved from room 487 to room 457; closer to nursing station.
[2022-07-19] MEDS: Lactated Ringers 1,000 ML 80 ML IVCONT ×2 (06:11→17:19)
[2022-07-19] MEDS: Omeprazole 20 MG CAPSULE.DR PO ×2 (06:13→17:20)
[2022-07-19 07:05] LABS: Anion Gap 13 (12-20); Blood Urea Nitrogen 11 mg/dL (9-16); Calcium 8.7 mg/dL (8.4-10.2); Carbon Dioxide 20 mmol/L (22-29); Chloride 113 mmol/L (96-108); Creatinine Clr Calc Pharmacy 95.9; Estimated Glomerular Filt Rate > 60; Glucose Random 91 mg/dL (60-115); Sodium 142 mmol/L (135-145)
[2022-07-19 07:17] LABS: Glucose, Whole Blood 85 mg/dL (60-115)
[2022-07-19] MEDS: Topiramate 25 MG TABLET PO ×2 (09:46→21:07)
[2022-07-19] MEDS: levETIRAcetam 1,000 MG TABLET 1000 MG PO ×2 (09:46→21:07)
[2022-07-19] MEDS: Prazosin HCL 1 MG CAPSULE 2 MG PO (09:46)
[2022-07-19] MEDS: DULoxetine HCl 60 MG CAPSULE.DR PO ×2 (09:46→21:08)
[2022-07-19] MEDS: Aspirin Enteric Coated 81 MG TABLET.DR PO (09:46)
[2022-07-19] MEDS: Lidocaine 4 % Patch ADH..PATCH 1 PATCH TRANSDERMA (09:47)
[2022-07-19 11:13] LABS: Glucose, Whole Blood 97 mg/dL (60-115)
--- NOTE | 2022-07-19 12:48 | P.PNIM_ITS ---
Subjective Subjective Date of Service: 07/19/22 Interval History: syncope vs seizure Review of Systems seems more awake, denies any chest pain or shortness of breath or abdominal pain or fever or chills or cough or phlegm. Physical Exam Vital Signs: Vital Signs: Last Vital Signs Temp 98 F 07/19/22 10:54 Pulse 71 07/19/22 10:54 Resp 18 07/19/22 10:54 BP 139/59 L 07/19/22 10:54 Pulse Ox 96 07/19/22 10:54 O2 Del Method 07/19/22 07:26 O2 Flow Rate 2 07/19/22 07:26 BMI result Body Mass Index 31.5 ?Appearance: still somewhat weak,otherwise feeling better ? did not notice facila droop today cvs: rrr, [id number] . res: clear to auscultation ,no rhonchii or wheezing abd: no rebound or guarding ,nt, bs present. ext pulses present , no cyanosis . neuro: ? [id number] grossly intact ?follow simple commands, generalized weak. Objective Data Active Medications Acetaminophen (Acetaminophen 325 Mg Tablet) 650 mg PO Q6H PRN PRN Reason: Pain, Mild (Pain Scale 1-3) Last Admin: 07/18/22 23:18 Dose: 650 mg Documented By: RISHI Aspirin (Aspirin Enteric Coated 81 Mg Tablet.) 81 mg PO DAILY [facility] Last Admin: 07/19/22 09:46 Dose: 81 mg Documented By: WENDY Atorvastatin Calcium (Atorvastatin Calcium 40 Mg Tablet) 40 mg PO BEDTIME [facility] Last Admin: 07/18/22 21:03 Dose: 40 mg Documented By: RISHI Dextrose (Dextrose 50 % 25 Gm/50 Ml Syringe) 25 gm IVPUSH Q15M PRN; Protocol PRN Reason: per Hypoglycemia Standing Ord. Duloxetine HCl (Duloxetine Hcl 60 Mg Capsule.) 60 mg PO BID [facility] Last Admin: 07/19/22 09:46 Dose: 60 mg Documented By: WENDY Empagliflozin (Empagliflozin 25 Mg Tablet) 25 mg PO DAILY [facility] Last Admin: 07/18/22 07:54 Dose: 25 mg Documented By: ILAN Fluticasone Propionate (Fluticasone Propionate Nasal 16 Gm [place]) 2 spray NOSTRIL-B DAILY PRN PRN Reason: Nasal Congestion Gabapentin (Gabapentin 600 Mg Tablet) 1,200 mg PO BID@1200,2100 [facility] Last Admin: 07/18/22 21:04 Dose: 1,200 mg Documented By: RISHI Glucose (Glucose Gel 15 Gm Gel..Gram.) 15 gm PO Q15M PRN; Protocol PRN Reason: per Hypoglycemia Standing Ord. Lactated Ringer's (Lr) 1,000 mls @ 80 mls/hr IVCONT .[id number] [facility] Last Admin: 07/19/22 06:11 Dose: 80 mls/hr Documented By: SAMEER Insulin Glargine (Insulin Glargine,Hum.Rec.Anlog 100 Unit/Ml 10 Ml Vial) 6 unit SUBCUT BID [facility] Last Admin: 07/19/22 11:39 Dose: Not Given Documented By: WENDY Non-Admin Reason: NPO pending swallow eval Insulin Human Lispro (Insulin Lispro 100 Unit/Ml 3 Ml Vial) 0 unit SUBCUT QIDACHS [facility]; Protocol Last Admin: 07/19/22 11:56 Dose: Not Given Documented By: WENDY Non-Admin Reason: No Insulin Coverage Levetiracetam (Levetiracetam 1,000 Mg Tablet) 1,000 mg PO BID [facility] Last Admin: 07/19/22 09:46 Dose: 1,000 mg Documented By: WENDY Lidocaine (Lidocaine 4 % Patch Adh..Patch) 1 patch TRANSDERMA DAILY [facility]; Protocol Last Admin: 07/19/22 09:47 Dose: 1 patch Documented By: WENDY Loperamide HCl (Loperamide Hcl 2 Mg Capsule) 2 mg PO Q6H PRN PRN Reason: Diarrhea Loratadine (Loratadine 10 Mg Tablet) 10 mg PO DAILY PRN PRN Reason: Allergy Symptoms Mirtazapine (Mirtazapine 15 Mg Tablet) 15 mg PO BEDTIME [facility] Last Admin: 07/18/22 21:04 Dose: 15 mg Documented By: RISHI Non-Formulary Medication (Ubrogepant [Ubrelvy]) 100 mg PO DAILY PRN PRN Reason: Migraine Headache Non-Formulary Medication (Liraglutide [Victoza 3-Osman]) 1.8 mg SUBCUT DAILY [facility] Omeprazole (Omeprazole 20 Mg Capsule.Dr) 20 mg PO BID@0630,0150 [facility] Last Admin: 07/19/22 06:13 Dose: 20 mg Documented By: SAMEER Ondansetron HCl (Ondansetron Hcl 4 Mg/2 Ml Vial) 4 mg IVPUSH Q8H PRN PRN Reason: Nausea and Vomiting Prazosin HCl (Prazosin Hcl 5 Mg Capsule) 5 mg PO BEDTIME [facility]; Protocol Last Admin: 07/18/22 21:12 Dose: 5 mg Documented By: RISHI Prazosin HCl (Prazosin Hcl 1 Mg Capsule) 2 mg PO DAILY [facility]; Protocol Last Admin: 07/19/22 09:46 Dose: 2 mg Documented By: WENDY Sodium Chloride (0.9 % Sodium Chloride Flush 3 Ml Syringe) 3 ml IVFLUSH QSHIFT [facility] Last Admin: 07/19/22 09:52 Dose: Not Given Documented By: WENDY Non-Admin Reason: IV Running Topiramate (Topiramate 25 Mg Tablet) 25 mg PO BID [facility] Last Admin: 07/19/22 09:46 Dose: 25 mg Documented By: WENDY Labs CBC & Chem 7: 07/17/22 17:22 07/19/22 06:12 Labs: Laboratory Results - last 24 hr 07/18/22 07/18/22 07/18/22 13:17 16:35 19:38 Anion Gap Estim Creat Clear Calc Estimated GFR POC Glucose 138 H 115 109 Random Glucose Calcium 07/19/22 07/19/22 07/19/22 06:12 06:58 10:56 Anion Gap 13 Estim Creat Clear Calc 95.9 Estimated GFR > 60 POC Glucose 85 97 Random Glucose 91 Calcium 8.7 Microbiology Microbiology Results: Microbiology 07/17/22 18:21 Blood Culture - Preliminary Blood - Venous No growth after 24 hours. 07/17/22 18:21 Blood Culture - Preliminary Blood - Venous No growth after 24 hours. 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 #LOC- most likely related to breakthrough seizure given patient found incontinent of urine and feces though denies postictal phase -head and neck CT negative after another episode of syncope with loc , EKG seems similar, patient has no cardiac symptoms, also in addition patient was not noticed to have any seizure- like activities during this episode. Fingersticks was in 130s as per staff, sats and vitals seems fine, patient quickly oriented in few minutes, following simple commands. Repeat CT head is negative also -Continue keppra @1000mg BID, Topamax and gabapentin seizure precautions swallow eval noted -diet adjusted . -observe on telemetry, added echo and carotid duplex just to complete syncopal episode workup. in addition we will ask the records from [facility] if they have EEG and neurological workup. carotid study seems fine eeg added syncopal episode possible vasovagal versus seizure versus psychogenic. #KRYSTAL-likely related to dehydration not severe sepsis KRYSTAL resolved with hydration, monitor electrolytes and renal function. # insulin-dependent type 2 diabetes hold Levemir -POC glucose -diabetic diet -Humalog on sliding scale # hypertension- BP soft -Hold BP meds for now #Migraine headaches -Continue home meds # fibromyalgia -continue gabapentin # GERD -continue PPI # conversion disorder/anxiety/depression-stable -continue home meds # history CVA with sequela left-sided hemiparesis -no acute focal neuro deficit -head CT negative -continue ASA and statin DVT prophylaxis-Lovenox inpatient need : Syncopal episode- need further workup at also, neurological workup awaiting from [facility]. Quality Stroke Does the patient have a stroke diagnosis?: No VTE Prior VTE?: No VTE Risk Level:: Medical - moderate - high VTE Device Contraindication: Treatment Not Indicated VTE Drug Contraindication: N/A - Med Ordered
[2022-07-19] MEDS: Gabapentin 600 MG TABLET 1200 MG PO ×2 (13:18→21:07)
--- NOTE | 2022-07-19 15:59 | MHC.SL.SWA ---
Speech Pathologist Impression: Risk of Aspiration Due to: Neurological Condition Dysphasia Diet Status: SHIFT SUPERVISOR FILM PROCESSING continues to recommend GROUND/MECH (NDD2) solids and THIN liquids via controlled cup sip. Pills WHOLE in PUREE. Pt requires some assistance with tray set up due to left sided weakness. [place] aspiration precautions apply. Liquid Consistency and Strategies for Safe Swallow: Liquid Intake Recommendation: Thin Liquid Intake Strategies: Unrestricted Solid Food Consistency: Dietary Recommendations: Chopped/Advanced (NDD3) Additional Modifications to Solid Foods: Pt can independently self feed, is aware of what foods might be more difficulty for her to chew and swallow. Oral Medication Intake: Whole with Liquid Please contact the pharmacy regarding appropriate crushable or liquid drug formulations that are available whenever modified delivery is recommended. Compensatory Strategies and Precautions to be Taken for Safe Swallow: Supervision While Eating and Drinking for Safe Swallow: None Needed Foods to Avoid: Difficult to chew solids. Swallowing Recommended Treatments: Compens. Strategy Educat. Recommendation for Speech: Inpatient Speech Therapy Comment: Patient presents with a mild oral phase dysphagia, characterized by a slow rate of mastication of more solid, difficult to chew foods. Recommend UPGRADE diet to Chopped/Advanced (NDD3) with THIN liquids, pills WHOLE with liquid. Patient reports that this is, in general, her baseline diet. Nursing notified of recommendation in person, MD RD notified by secure text. SHIFT SUPERVISOR FILM PROCESSING to f/u one time for toleration of diet. Frequency/Duration: Date Range for Service Req: Timeline to reassess: Ventilator Specialist Clinican/Clinical Fellow: No Supervisory Statement: I have reviewed and agree with the student/clinical fellow's documentation: N/A Speech Language Pathologist: Shala Jenkins M.A., [facility]-SHIFT SUPERVISOR FILM PROCESSING
[2022-07-19 16:34] LABS: Glucose, Whole Blood 99 mg/dL (60-115)
[2022-07-19] MEDS: 0.9 % Sodium Chloride Flush 3 ML SYRINGE IVFLUSH ×2 (17:20→21:08)
[2022-07-19 20:15] LABS: Glucose, Whole Blood 123 mg/dL (60-115)
[2022-07-19] MEDS: Prazosin HCL 5 MG CAPSULE PO (21:07)
[2022-07-19] MEDS: Mirtazapine 15 MG TABLET PO (21:08)
[2022-07-19] MEDS: Acetaminophen 325 MG TABLET 650 MG PO (21:08)
[2022-07-19] MEDS: Atorvastatin Calcium 40 MG TABLET PO (21:09)
[2022-07-20 03:34] VITALS: BP 157/84; PULSE 66; RESP 15; TEMP 36.1; O2SAT 98
[2022-07-20] MEDS: Lactated Ringers 1,000 ML 80 ML IVCONT (05:20)
[2022-07-20] MEDS: Omeprazole 20 MG CAPSULE.DR PO (05:21)
--- NOTE | 2022-07-20 07:00 | CA_ITS ---
Transthoracic Echocardiogram Patient (Last, First, Middle): Ramirez SantosPat angel E Gender: Female Date of : 1960 Age: 61 Procedure Date: 07/20/2022 Procedure Type: Transthoracic Echocardiogram Location[place] [facility] [place] Height: 165. cm Weight: 86. kg BSA: 1.93 m2 Heart Rate: 64 bpm BP: 110 / 59 mmHg Plastic Straightening Roll Operator: JESSICA Referring MD: Marita Byrne MD Symptoms: syncope Study Quality: Adequate ECG Rhythm: Sinus with occasional PAC Conclusions: - The left ventricular systolic function is hyperdynamic. The calculated ejection fraction is 70% by biplane method. - There is moderate septal asymmetric hypertrophy. - No obvious valvular pathology seen on this study. - [place] not well visualized. Cannot exclude apical hypertrophic. If clinically indicated, consider repeating with contrast. Findings Left Ventricle Normal left ventricular cavity size. There is mildly increased left ventricular wall thickness. The left ventricular systolic function is hyperdynamic. The calculated ejection fraction is 70% by biplane method. E/E prime ratio is >15, consistent with elevated filling pressures. Evidence suggests grade I (mild) diastolic dysfunction. There is moderate septal asymmetric hypertrophy. Right Ventricle Normal right ventricular cavity size and systolic function. Atria Both atria are normal in size. Aortic Valve There is a normal trileaflet aortic valve. There is no aortic valve stenosis. There is no aortic valve regurgitation. Mitral Valve The mitral valve appears normal. There is trace mitral valve regurgitation. There is no mitral valve stenosis. Pulmonic Valve The pulmonic valve is likely normal. Tricuspid Valve Normal tricuspid valve structure. There is trace tricuspid valve regurgitation. There is no evidence of pulmonary hypertension. Great Vessels The asc aorta is normal in size. Venous The inferior vena cava is normal in size and collapses greater than 50% with inspiration. Pericardium/Pleural There is no evidence of pericardial effusion. Prior Study Comparison No significant change compared to prior study dated: 06/23/2014. Recommendations, Care & Conclusions No obvious valvular pathology seen on this study. Measurements 2D Linear Measurements IVSd: 1.35 0.6-0.9/0.6-1.0 cm LVIDd: 4.53 3.9-5.3/4.2-5.9 cm LVIDd Index: 2.35 2.4-3.2/2.2-3.1 cm/m2 LVIDs: 2.31 2.0-3.6 cm LVPWd: 1.11 0.7-1.1 cm LA Diam: 4.10 2.7-3.8/3.0-4.0 cm LAIDs Index: 2.12 1.5-2.3 cm/m2 LV Mass: 258.52 67-162/88-224 g LV Mass Index: 133.95 43-95/49-115 g/m2 LVOT Diam: 1.90 3.0+(-)1.3 cm 2D Systolic Function EF 4C: 67.60 >55% EF 2C: 72.20 >55% EF BiP: 70.30 >55% Mitral Valve MV Pk E: 0.85 MV PK A: 0.95 MV Decel Time: 239.00 E/A: 0.90 E'Lateral: 6.74 E'Medial: 4.90 E/E' Med: 17.30 E/E' Lat: 12.60 PHT: 70.00 MVA PHT: 3.14 Decel Prentiss: 3.55 Aortic Valve AoV Pk Sandip: 1.32 AoV Mn Sandip: 0.99 AoV VTI: 0.34 AoV Pk Grad: 7.00 Aov Mn Grad: 4.00 MARLENI Cont.VTI: 2.11 LVOT LVOT Pk Sandip: 1.24 LVOT Mn Sandip: 0.73 LVOT VTI: 0.25 LVOT Pk Grad: 6.00 LVOT Mn Grad: 3.00 LVOT Diam: 1.90 LVOT Area: 2.84 Diastolic Function MV Pk E: 0.85 MV Pk A: 0.95 E/A: 0.90 E'Medial: 4.90 E/E' Med: 17.30 E' Laterial: 6.74 E/E' Lat: 12.60 Right Ventricle TAPSE (mm): 20.40 TVS' Sandip: 14.30 Tricuspid Valve RA Press: 3.00 Great Vessels Aorta Sinus of Valsalva: 3.30 2.0-3.5 cm Ao Asc: 3.50 2.1-3.4 cm Pulmonary Valve PV Pk Sandip: 1.40 Peak PV Grad: 8.00 Updated in Other Vendor System with Status of Final Param Hooks MD electronically signed on 07/20/2022 4:21:56 PM with status of Final
[2022-07-20 07:22] LABS: Glucose, Whole Blood 109 mg/dL (60-115)
[2022-07-20 07:34] VITALS: BP 137/71; PULSE 61; RESP 18; TEMP 36.1; O2SAT 98
[2022-07-20] MEDS: Prazosin HCL 1 MG CAPSULE 2 MG PO (08:48)
[2022-07-20] MEDS: levETIRAcetam 1,000 MG TABLET 1000 MG PO (08:48)
[2022-07-20] MEDS: 0.9 % Sodium Chloride Flush 3 ML SYRINGE IVFLUSH (08:48)
[2022-07-20] MEDS: Aspirin Enteric Coated 81 MG TABLET.DR PO (08:48)
[2022-07-20] MEDS: DULoxetine HCl 60 MG CAPSULE.DR PO (08:48)
[2022-07-20] MEDS: Topiramate 25 MG TABLET PO (08:48)
[2022-07-20] MEDS: Lidocaine 4 % Patch ADH..PATCH 1 PATCH TRANSDERMA (08:48)
[2022-07-20] MEDS: Acetaminophen 325 MG TABLET 650 MG PO (09:42)
[2022-07-20 11:04] LABS: Glucose, Whole Blood 125 mg/dL (60-115)
[2022-07-20 11:23] VITALS: BP 110/59; PULSE 66; RESP 19; TEMP 36.6; O2SAT 97
[2022-07-20] MEDS: Gabapentin 600 MG TABLET 1200 MG PO (13:32)
--- NOTE | 2022-07-20 15:04 | P.PNIM_ITS ---
Subjective Subjective Date of Service: 07/20/22 Interval History: possible seizure Review of Systems seems more awake, denies any chest pain or shortness of breath or abdominal pain or fever or chills or cough or phlegm. Physical Exam Vital Signs: Vital Signs: Last Vital Signs Temp 98 F 07/20/22 11:23 Pulse 66 07/20/22 11:23 Resp 19 07/20/22 11:23 BP 110/59 L 07/20/22 11:23 Pulse Ox 97 07/20/22 11:23 O2 Del Method 07/20/22 11:23 O2 Flow Rate 2 07/20/22 11:23 BMI result Body Mass Index 31.5 Appearance: still somewhat weak,otherwise feeling better ? did not notice facila droop today cvs: rrr, [id number] . res: clear to auscultation ,no rhonchii or wheezing abd: no rebound or guarding ,nt, bs present. ext pulses present , no cyanosis . neuro: ? [id number] grossly intact ?follow simple commands, generalized weak Objective Data Active Medications Acetaminophen (Acetaminophen 325 Mg Tablet) 650 mg PO Q6H PRN PRN Reason: Pain, Mild (Pain Scale 1-3) Last Admin: 07/20/22 09:42 Dose: 650 mg Documented By: ROSITA Aspirin (Aspirin Enteric Coated 81 Mg Tablet.) 81 mg PO DAILY [facility] Last Admin: 07/20/22 08:48 Dose: 81 mg Documented By: WENDY Atorvastatin Calcium (Atorvastatin Calcium 40 Mg Tablet) 40 mg PO BEDTIME [facility] Last Admin: 07/19/22 21:09 Dose: 40 mg Documented By: PATRICK Dextrose (Dextrose 50 % 25 Gm/50 Ml Syringe) 25 gm IVPUSH Q15M PRN; Protocol PRN Reason: per Hypoglycemia Standing Ord. Duloxetine HCl (Duloxetine Hcl 60 Mg Capsule.) 60 mg PO BID [facility] Last Admin: 07/20/22 08:48 Dose: 60 mg Documented By: WENDY Empagliflozin (Empagliflozin 25 Mg Tablet) 25 mg PO DAILY [facility] Last Admin: 07/18/22 07:54 Dose: 25 mg Documented By: ILAN Fluticasone Propionate (Fluticasone Propionate Nasal 16 Gm [place]) 2 spray NOSTRIL-B DAILY PRN PRN Reason: Nasal Congestion Gabapentin (Gabapentin 600 Mg Tablet) 1,200 mg PO BID@1200,2100 [facility] Last Admin: 07/20/22 13:32 Dose: 1,200 mg Documented By: WENDY Glucose (Glucose Gel 15 Gm Gel..Gram.) 15 gm PO Q15M PRN; Protocol PRN Reason: per Hypoglycemia Standing Ord. Insulin Glargine (Insulin Glargine,Hum.Rec.Anlog 100 Unit/Ml 10 Ml Vial) 6 unit SUBCUT BID [facility] Last Admin: 07/19/22 11:39 Dose: Not Given Documented By: WENDY Non-Admin Reason: NPO pending swallow eval Insulin Human Lispro (Insulin Lispro 100 Unit/Ml 3 Ml Vial) 0 unit SUBCUT QIDACHS [facility]; Protocol Last Admin: 07/20/22 11:51 Dose: Not Given Documented By: WENDY Non-Admin Reason: No Insulin Coverage Levetiracetam (Levetiracetam 1,000 Mg Tablet) 1,000 mg PO BID [facility] Last Admin: 07/20/22 08:48 Dose: 1,000 mg Documented By: WENDY Lidocaine (Lidocaine 4 % Patch Adh..Patch) 1 patch TRANSDERMA DAILY [facility]; Protocol Last Admin: 07/20/22 08:48 Dose: 1 patch Documented By: WENDY Loperamide HCl (Loperamide Hcl 2 Mg Capsule) 2 mg PO Q6H PRN PRN Reason: Diarrhea Loratadine (Loratadine 10 Mg Tablet) 10 mg PO DAILY PRN PRN Reason: Allergy Symptoms Mirtazapine (Mirtazapine 15 Mg Tablet) 15 mg PO BEDTIME [facility] Last Admin: 07/19/22 21:08 Dose: 15 mg Documented By: PATRICK Non-Formulary Medication (Ubrogepant [Ubrelvy]) 100 mg PO DAILY PRN PRN Reason: Migraine Headache Non-Formulary Medication (Liraglutide [Victoza 3-Osman]) 1.8 mg SUBCUT DAILY [facility] Omeprazole (Omeprazole 20 Mg Capsule.) 20 mg PO BID@0630,1630 [facility] Last Admin: 07/20/22 05:21 Dose: 20 mg Documented By: PATRICK Ondansetron HCl (Ondansetron Hcl 4 Mg/2 Ml Vial) 4 mg IVPUSH Q8H PRN PRN Reason: Nausea and Vomiting Prazosin HCl (Prazosin Hcl 5 Mg Capsule) 5 mg PO BEDTIME [facility]; Protocol Last Admin: 07/19/22 21:07 Dose: 5 mg Documented By: PATRICK Prazosin HCl (Prazosin Hcl 1 Mg Capsule) 2 mg PO DAILY [facility]; Protocol Last Admin: 07/20/22 08:48 Dose: 2 mg Documented By: WENDY Sodium Chloride (0.9 % Sodium Chloride Flush 3 Ml Syringe) 3 ml IVFLUSH QSHIFT [facility] Last Admin: 07/20/22 08:48 Dose: 3 ml Documented By: WENDY Topiramate (Topiramate 25 Mg Tablet) 25 mg PO BID [facility] Last Admin: 07/20/22 08:48 Dose: 25 mg Documented By: WENDY Labs CBC & Chem 7: 07/17/22 17:22 07/19/22 06:12 Labs: Laboratory Results - last 24 hr 07/19/22 07/19/22 07/20/22 16:30 19:22 07:07 POC Glucose 99 123 H 109 07/20/22 10:52 POC Glucose 125 H Microbiology Microbiology Results: Microbiology 07/17/22 18:21 Blood Culture - Preliminary Blood - Venous No growth after 48 hours. 07/17/22 18:21 Blood Culture - Preliminary Blood - Venous No growth after 48 hours. Assessment and Plan Plan 61-year-old female with history of insulin-dependent type 2 diabetes, history of seizure disorder, fibromyalgia, conversion disorder, anxiety/depression, hyperlipidemia, migraines, history 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 #LOC- most likely related to breakthrough seizure given patient found in continent of urine and feces though denies postictal phase -head and neck CT negative after another episode of syncope with loc ,? EKG seems similar, patient has no cardiac symptoms, also in addition patient was not noticed to have any seizure- like activities during this episode. ? Fingersticks was in 130s as per staff, sats and vitals seems fine, patient quickly? oriented in few minutes, following simple commands. ? Repeat CT head is negative also -Continue keppra @1000mg BID, Topamax and gabapentin seizure precautions swallow eval noted -diet adjusted . -observe on telemetry, added echo and carotid duplex just to complete syncopal episode workup. in addition we will ask the records from [facility] if they have? EEG and neurological workup. carotid study seems fine ?eeg added ?syncopal episode possible vasovagal versus seizure versus psychogenic. #KRYSTAL-likely related to dehydration not severe sepsis ? KRYSTAL resolved with hydration, monitor electrolytes and renal function. # insulin-dependent type 2 diabetes hold? Levemir -POC glucose -diabetic diet -Humalog on sliding scale # hypertension- BP soft -Hold BP meds for now #Migraine headaches -Continue home meds # fibromyalgia -continue gabapentin # GERD -continue PPI # conversion disorder/anxiety/depression-stable -continue home meds # history CVA with sequela left-sided hemiparesis -no acute focal neuro deficit -head CT negative -continue ASA and statin DVT prophylaxis-Lovenox inpatient need :? Syncopal episode- need further workup at also, neurological workup awaiting from [facility]. Quality Stroke Does the patient have a stroke diagnosis?: No VTE Prior VTE?: No VTE Risk Level:: Medical - moderate - high VTE Device Contraindication: Treatment Not Indicated VTE Drug Contraindication: N/A - Med Ordered
[2022-07-20 15:15] VITALS: BP 131/70; PULSE 63; RESP 17; TEMP 36.9; O2SAT 97
[2022-07-20 15:16] LABS: COVID-19 Test Negative (Negative)
--- NOTE | 2022-07-20 15:28 | MHC.CM.PN ---
pt going to [facility] at [facility]
--- NOTE | 2022-07-20 15:33 | P.DS_ITS ---
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 She lives by herself and is uncertain how long she was unconscious for. She states she awoke incontinent of urine and feces on the floor with her walker on top of her.? She does not recall any prodrome nor does she recall feeling confused upon waking.? She does states she has a history of epilepsy and follows with Neurology and is compliant with Keppra and gabapentin.? She does also tell me that her blood pressure has been ?going low? at home. She has experienced intermittent episodes of dizziness, shortness of breath, chest pain, and palpitations but denies these symptoms today and states they have been ongoing since the of her mother. She has been experiencing migraine headaches for the last two days. She also endorses left sided paresthesias to the left thigh but states these are not new and have been occurring intermittently since her stroke years ago.? She also tells me that she has been having diarrhea 1-2 times daily typically in the morning ongoing for years since the removal of her gallbladder.? She denies any fevers, chills, blurred vision, diplopia, nausea, vomiting, abdominal pain, urinary symptoms. Denies any sick contacts or recent illness. Based on presenting symptoms, stroke alert was called.? CT of the head and neck negative for intracranial pathology.? No leukocytosis.? Lactic acid elevated at 3.1 with 2 year follow-up of 1.17, BUN 24. Na 142, chloride 114, co2 19, potassium 3.9. D-dimer 2646. CTA chest negative for PE. ED discussed case with neurology who recommends observation and keppra loading. Hospital course: Patient was admitted for possible breakthrough seizure : Initially received IV Keppra loading,seen by Neurology: Keppra adjusted to 1000 mg b.i.d., patient was monitored on tele no new event ,carotid duplex seems fine, echo was also done to complete the workup seems similar to 2013,limited but grossly fine, consider repeating echo out patiently with PCp( Please see imaging section below) . Discussed with Neurology in detail patient has possible seizure episodes- now stabilized on adjusting Keppra does no new events patient will go to rehab. further management out patiently follow-up with neurology outpatient. KRYSTAL improved with hydration. above management discussed with patient and the patient daughter in detail length with the help of classified copy control clerk, they both understand and in agreement with the above plan. time spent 50 minute. Time Spent with Patient Time attestation: Total time spent providing and/or coordinating discharge services: Discharge coordination time: Greater than 30 minutes Quality: Safe Use of Opioids Does Pt have an Active Cancer Diagnosis on the Problem List?: No Quality: Stroke Does the patient have a stroke diagnosis?: No Physical Exam Vital Signs: Vital Signs: Last Vital Signs Temp 98.5 F 07/20/22 15:15 Pulse 63 07/20/22 15:15 Resp 17 07/20/22 15:15 BP 131/70 07/20/22 15:15 Pulse Ox 97 07/20/22 15:15 O2 Del Method 07/20/22 15:15 O2 Flow Rate 2 07/20/22 11:23 BMI result Body Mass Index 31.5 DS: Data Data Completed and Pending Completed studies during hospitalization [Text1]: Procedures Introduction of Other Thrombolytic into Peripheral Vein, Percutaneous Approach (02/18/21) Labs on day of discharge: Laboratory Results - last 24 hr 07/19/22 07/19/22 07/20/22 16:30 19:22 07:07 POC Glucose 99 123 H 109 COVID-19 (LUANNE) COVID-19 Clin Com 07/20/22 07/20/22 10:52 14:56 POC Glucose 125 H COVID-19 (LUANNE) Negative COVID-19 Clin Com See Note Preliminary micro results at discharge 07/17/22 18:21 Blood Culture - Preliminary Blood - Venous No growth after 48 hours. 07/17/22 18:21 Blood Culture - Preliminary Blood - Venous No growth after [address] scan - head: Radiologist's impression: ITS Impressions Head CT 07/17/22 17:10 IMPRESSION: No acute intracranial pathology. This critical result was discussed with Dr Mcdonald at 1724 hours on 07/17/2022. It was ascertained that the content and urgency of the report was understood at the time of direct communication. Cervical Spine CT 07/17/22 18:50 IMPRESSION: No acute fracture or malalignment in the cervical spine. Chest CTA 07/17/22 18:51 IMPRESSION: 1. No evidence of pulmonary embolus. 2. Mosaic attenuation of the lungs likely due to air trapping. 3. No airspace consolidation or effusions. VTE: negative Head CT 07/18/22 14:28 IMPRESSION: No acute intracranial pathology. Carotid Doppler Study 07/18/22 16:00 IMPRESSION: 1. RIGHT: Normal right internal carotid artery without atherosclerotic plaque or hemodynamically significant stenosis. 2. LEFT: Normal left internal carotid artery without atherosclerotic plaque or hemodynamically significant stenosis. echo: Conclusions: - The left ventricular systolic function is hyperdynamic.? The ? calculated ejection fraction is 70% by biplane method. ? - There is moderate septal asymmetric hypertrophy. ? - No obvious valvular pathology seen on this study.? - Florence not well visualized. Cannot exclude apical hypertrophic.? If clinically indicated, consider repeating with contrast. ? ? ? Findings Left Ventricle Normal left ventricular cavity size.? There is mildly increased left ventricular wall thickness.? The left ventricular systolic function is hyperdynamic.? The calculated ejection fraction is 70% by biplane method. E/E prime ratio is >15, consistent with elevated filling pressures.? Evidence suggests grade I (mild) diastolic dysfunction.? There is moderate septal asymmetric hypertrophy. Right Ventricle Normal right ventricular cavity size and systolic function. Atria Both atria are normal in size. Aortic Valve There is a normal trileaflet aortic valve.? There is no aortic valve stenosis.? There is no aortic valve regurgitation. Mitral Valve The mitral valve appears normal.? There is trace mitral valve regurgitation. There is no mitral valve stenosis. Pulmonic Valve The pulmonic valve is likely normal. Tricuspid Valve Normal tricuspid valve structure.? There is trace tricuspid valve regurgitation.? There is no evidence of pulmonary hypertension. Great Vessels The asc aorta is normal in size. Venous The inferior vena cava is normal in size and collapses greater than 50% with inspiration. Pericardium/Pleural There is no evidence of pericardial effusion. Prior Study Comparison No significant change compared to prior study dated:? 06/23/2014. Recommendations, Care & Conclusions No obvious valvular pathology seen on this study. Discharge Plan Discharge Patient Disposition: [facility] Discharge Diagnosis: possible seizure episode Referrals: ashish mcclain [Other] - 1 Week Zelda Mo MD [Primary Care Provider] - 1 Week Jabari nAderson MD [Physician] - 1 Week (follow up outpatient) Discharge Medications: New levetiracetam 1,000 mg Tablet 1,000 mg PO BID Qty: 60 0RF Continued (DME) FreeStyle Lite Strips Strip See Rx Instructions .ROUTE .MEDSUPPLY Qty: 100 11RF Rx Instructions: 4x daily (DME) lancets [TRUEplus Lancets] 33 gauge misc See Rx Instructions .Route Qty: 100 11RF Rx Instructions: 4x daily Victoza 3-Osman 0.6 mg/0.1 mL (18 mg/3 mL) pen injector 1.8 mg subcut DAILY 30 Days Qty: 9 11RF acetaminophen [Arthritis Pain Relief (acetam)] 650 mg tablet extended release 650 mg PO Q12H PRN (Reason: Pain) Qty: 180 0RF prazosin 5 mg Capsule 5 mg PO BEDTIME duloxetine 60 mg Capsule,Delayed Release(Dr/Ec) 60 mg PO BID atorvastatin 40 mg Tablet 40 mg PO BEDTIME pantoprazole 20 mg tablet,delayed release (DR/EC) 20 mg PO BID gabapentin 600 mg tablet 1,200 mg PO BID@1200,2100 insulin detemir U-100 100 unit/mL (3 mL) Insulin Pen 12 unit SUBCUT BID cetirizine 10 mg tablet 10 mg PO DAILY PRN (Reason: Allergy Symptoms) (DME) pen needle, diabetic [Pentips] 32 gauge x 5/32 needle See Rx Instructions .ROUTE .MEDSUPPLY Qty: 50 Rx Instructions: As directed mirtazapine 15 mg tablet 15 mg PO BEDTIME lisinopril 20 mg tablet 20 mg PO DAILY@1200 aspirin 81 mg tablet,delayed release (DR/EC) 81 mg PO DAILY prazosin 2 mg capsule 2 mg PO DAILY Ubrelvy 100 mg tablet 100 mg PO DAILY PRN (Reason: Migraine Headache) Jardiance 25 mg tablet 25 mg PO DAILY 30 Days Qty: 30 4RF topiramate 25 mg tablet 25 mg PO BID fluticasone propionate 50 mcg/actuation spray,suspension 2 spray intranasal QAM PRN (Reason: Nasal Congestion) Discontinued levetiracetam 500 mg tablet 500 mg PO BID Discharge Orders: Discharge Order (Routine); Ordered 07/20/22 Ordered By: Marita Byrne Diet: Advance to usual diet Activity on Discharge: As tolerated Stand Alone Forms: Patient Portal Discharge page Care Plan Goals: Patient was admitted for possible seizure : seen by Neurology: Keppra adjusted to 1000 mg b.i.d., patient was monitored on tele no new event ,carotid duplex seems fine, echo was also done to complete the workup seems similar to 2014,limited but grossly fine, consider repeating echo out patiently with PCP. Discussed with Neurology in detail patient has possible seizure episodes- now stabilized on adjusting Keppra does no new events patient will go to rehab. further management out patiently follow-up with neurology outpatient. Health Concerns: As above . Plan of Treatment: As above. Assessment: as above.
[2022-07-20 16:02] LABS: Glucose, Whole Blood 118 mg/dL (60-115)
[2022-07-22 20:22] LABS: Levetiracetam Keppra 48.5 mcg/mL (6.0-46.0)
[2022-07-23 18:52] LABS: Levetiracetam Keppra 37.5 mcg/mL (6.0-46.0)
== END 2022-07-20 17:45 | disposition skilled nursing facility (03) ==
LOC: HO.ED 19:51 → HO.EDOVER 21:53 → HO.IMC 07-18 09:48
PROVIDERS: Admitting Provider Physician Assistant; Emergency Provider Student in an Organized Health Care Education/Training Program; PCP Family Medicine; Visit Provider Internal Medicine
DX: R56.9 Unspecified convulsions (principal); R55 Syncope and collapse; E11.9 Type 2 diabetes mellitus without complications; I95.9 Hypotension, unspecified; R26.81 Unsteadiness on feet; R30.0 Dysuria; R13.11 Dysphagia, oral phase; R06.02 Shortness of breath; M54.2 Cervicalgia; R19.7 Diarrhea, unspecified; F17.210 Nicotine dependence, cigarettes, uncomplicated; Z20.822 Contact with and (suspected) exposure to COVID-19; Z79.4 Long term (current) use of insulin; Z79.899 Other long term (current) drug therapy; Z71.6 Tobacco abuse counseling; Z86.73 Personal history of transient ischemic attack (TIA), and cerebral infarction without residual deficits
CPT/HCPCS: 0241U; 36415; 51702; 70450; 71275; 72125; 80048; 80177; 81001; 82550; 82947; 83605; 83880; 84484; 85025; 85379; 85610; 85730; 87040; 87635; 92610; 93005; 93306; 93880; 95816; 96365; 96366; 96375; 96376; 97116; 97162; 99219; 99285; J1953; Q9967

== ENCOUNTER 2022-07-23 06:00 | Outpatient (REF) | payer OTHER, SELFPAY ==
[2022-07-23 06:03] LABS: MANUAL DIFF FLAG NO
[2022-07-23 06:27] LABS: Basophils Absolute Auto 0.1 X10*3/uL (0.0-0.2); Basophils Percent Auto 0.8 % (0-2); Eosinophils Absolute Auto 0.3 X10*3/uL (0.0-0.4); Eosinophils Percent Auto 3.9 % (0-4); Hemoglobin 10.6 g/dl (12.0-16.0); Imm Gran Abs Auto 0.03 X10*3/uL (0.00-0.03); Imm Gran Pct Auto 0.4 % (0.0-0.4); Lymphocytes Absolute Auto 2.2 X10*3/uL (1.2-4.9); Lymphocytes Percent Auto 29.6 % (20-40); Mean Corpuscular HGB Conc 33.1 g/dl (31.0-35.0); Mean Corpuscular Volume 84.7 fL (80.0-98.0); Mean Platelet Volume 11.5 fL (9.4-12.3); Monocytes Absolute Auto 0.5 X10*3/uL (0.1-1.2); Monocytes Percent Auto 7.2 % (2-11); Neutrophils Absolute Auto 4.3 x10*3/uL (2.0-8.3); Neutrophils Percent Auto 58.1 % (45-73); Platelet Count 274 X10*3/uL (160-400); Red Blood Count 3.78 X10*6/uL (4.20-5.50); White Blood Count 7.5 X10*3/uL (4.8-10.8)
[2022-07-23 06:30] LABS: Alanine Aminotransferase 21 U/L (0-31); Albumin Level 3.4 g/dL (3.5-5.0); Alkaline Phosphatase 128 U/L (39-117); Anion Gap 17 (12-20); Aspartate Amino Transferase 24 U/L (5-31); Bilirubin Total 0.2 mg/dL (0.0-1.0); Blood Urea Nitrogen 16 mg/dL (9-16); Calcium 8.9 mg/dL (8.4-10.2); Carbon Dioxide 19 mmol/L (22-29); Chloride 111 mmol/L (96-108); Estimated Glomerular Filt Rate > 60; Glucose Random 87 mg/dL (60-115); Potassium 3.7 mmol/L (3.3-5.1); Sodium 143 mmol/L (135-145); Total Protein 5.7 g/dL (6.5-8.0)
== END 2022-07-23 06:01 | disposition home or self-care (01) ==
LOC: HO.MMNH1L 06:00
PROVIDERS: Visit Provider Family Medicine
DX: R10.2 Pelvic and perineal pain (principal)
CPT/HCPCS: 36415; 80053; 85025

== ENCOUNTER 2022-07-30 06:39 | Outpatient (REF) | payer OTHER, SELFPAY ==
[2022-07-30 06:40] LABS: MANUAL DIFF FLAG NO
[2022-07-30 06:50] LABS: Basophils Absolute Auto 0.1 X10*3/uL (0.0-0.2); Basophils Percent Auto 0.7 % (0-2); Eosinophils Absolute Auto 0.6 X10*3/uL (0.0-0.4); Eosinophils Percent Auto 6.3 % (0-4); Hematocrit 34.2 % (37.0-47.0); Imm Gran Abs Auto 0.07 X10*3/uL (0.00-0.03); Imm Gran Pct Auto 0.8 % (0.0-0.4); Lymphocytes Absolute Auto 2.2 X10*3/uL (1.2-4.9); Lymphocytes Percent Auto 25.4 % (20-40); Mean Corpuscular HGB Conc 32.2 g/dl (31.0-35.0); Mean Corpuscular Hemoglobin 27.6 pg (27.0-33.0); Mean Corpuscular Volume 85.9 fL (80.0-98.0); Mean Platelet Volume 11.1 fL (9.4-12.3); Monocytes Absolute Auto 0.7 X10*3/uL (0.1-1.2); Neutrophils Absolute Auto 5.2 x10*3/uL (2.0-8.3); Neutrophils Percent Auto 58.8 % (45-73); Platelet Count 291 X10*3/uL (160-400); Red Blood Count 3.98 X10*6/uL (4.20-5.50); Red Cell Distribution Width 15.2 % (11.0-16.0); White Blood Count 8.8 X10*3/uL (4.8-10.8)
[2022-07-30 07:45] LABS: Alanine Aminotransferase 12 U/L (0-31); Albumin Level 3.6 g/dL (3.5-5.0); Alkaline Phosphatase 137 U/L (39-117); Anion Gap 16 (12-20); Aspartate Amino Transferase 12 U/L (5-31); Bilirubin Total 0.2 mg/dL (0.0-1.0); Blood Urea Nitrogen 23 mg/dL (9-16); Calcium 8.9 mg/dL (8.4-10.2); Carbon Dioxide 20 mmol/L (22-29); Chloride 110 mmol/L (96-108); Estimated Glomerular Filt Rate > 60; Glucose Random 125 mg/dL (60-115); Potassium 3.9 mmol/L (3.3-5.1); Sodium 142 mmol/L (135-145); Total Protein 6.2 g/dL (6.5-8.0)
== END 2022-07-30 06:40 | disposition home or self-care (01) ==
LOC: HO.MMNH1L 06:39
PROVIDERS: Visit Provider Family Medicine
DX: R10.2 Pelvic and perineal pain (principal); Z79.899 Other long term (current) drug therapy
CPT/HCPCS: 36415; 80053; 80177; 85025

== ENCOUNTER 2022-08-06 06:16 | Outpatient (REF) | payer OTHER, SELFPAY ==
[2022-08-06 06:33] LABS: Hematocrit 33.4 % (37.0-47.0); Hemoglobin 10.9 g/dl (12.0-16.0); Mean Corpuscular HGB Conc 32.6 g/dl (31.0-35.0); Mean Corpuscular Hemoglobin 27.9 pg (27.0-33.0); Mean Corpuscular Volume 85.6 fL (80.0-98.0); Mean Platelet Volume 11.2 fL (9.4-12.3); Platelet Count 287 X10*3/uL (160-400); Red Cell Distribution Width 15.5 % (11.0-16.0); White Blood Count 8.2 X10*3/uL (4.8-10.8)
[2022-08-06 06:53] LABS: Alanine Aminotransferase 10 U/L (0-31); Albumin Level 3.4 g/dL (3.5-5.0); Alkaline Phosphatase 135 U/L (39-117); Anion Gap 12 (12-20); Aspartate Amino Transferase 9 U/L (5-31); Bilirubin Total 0.3 mg/dL (0.0-1.0); Blood Urea Nitrogen 23 mg/dL (9-16); Calcium 9.1 mg/dL (8.4-10.2); Carbon Dioxide 21 mmol/L (22-29); Chloride 112 mmol/L (96-108); Estimated Glomerular Filt Rate > 60; Glucose Random 114 mg/dL (60-115); Potassium 3.6 mmol/L (3.3-5.1); Sodium 141 mmol/L (135-145); Total Protein 5.9 g/dL (6.5-8.0)
== END 2022-08-06 06:17 | disposition home or self-care (01) ==
LOC: HO.MMNH1L 06:16
PROVIDERS: Visit Provider Family Medicine
DX: R10.2 Pelvic and perineal pain (principal)
CPT/HCPCS: 36415; 80053; 85027

== ENCOUNTER 2022-08-08 11:30 | Emergency (ER) | payer OTHER, SELFPAY ==
--- NOTE | ~2022-08-08 | XR_ITS ---
EXAMINATION: XR ABDOMEN KUB CLINICAL INDICATION: Abdominal pain COMPARISON: Previous KUB most recent March 2021 TECHNIQUE: AP view of the abdomen. FINDINGS: There is stool throughout the colon. There are no dilated loops of bowel to suggest obstruction. There is no evidence of free air. There are surgical clips in the region of the stomach and in the pelvis There are mild degenerative changes of the spine and hip joints. XR/XR KUB IMPRESSION: Stool throughout the colon questionable for constipation. Otherwise unremarkable exam.
[2022-08-08 11:36] VITALS: BP 103/62; BP 110/56; PULSE 61; PULSE 74; RESP 18; TEMP 36.6; O2SAT 98; O2SAT 99; BMI 38.7
--- OUTSIDE RECORDS SUMMARY | 2022-08-08 12:01 | XMS_ITS | Continuity of Care Document ---
:1960 Author Organization [facility] Address [address] [facility], 3rd Floor, [address] [place] [id number] Care Team Providers Name Role Phone Zelda Mo MD Primary Care Physician Encounter [facility] Date(s): 03/21/22 - 07/20/22 [facility] [address] [facility], [address]rd [facility], [address] [place] [id number] Attending Physician: Tommy Garrison NP Admitting Physician: Bladimir KAPLAN, Tommy Referring Physician: Zelda Mo MD Allergies, Adverse Reactions, Alerts Substance Reaction Severity Status sulfa drugs Hives,welts on legs Persistent Moderate Active Medications aspirin 81 mg oral delayed release tablet 81 mg, 1, tablet, By Mouth, Daily, # 30 tablet, Refills 0, Maintenance, 01/18/20 10:55:00 EDT Start Date: 01/18/20 Status: Orderedatorvastatin 40 mg oral tablet 1 tablet = 40 mg, By Mouth, Daily, 0 Refills, Maintenance, 07/02/22 9:04:00 EDT, Partial fill upon patient request if the prescription is for a schedule II opioid drug. Start Date: 07/02/22 Status: OrderedCymbalta Capsule = 20 mg, By Mouth, 2 times a day, 0 Refills, Maintenance, 08/16/10 9:52:49 EST Start Date: 08/16/10 Status: OrderedFioricet Tablet 1 tablet, By Mouth, Every 4 hours, PRN Headache, 0 Refills, Tablet Start Date: 09/26/09 Stop Date: 10/26/09 Status: Orderedgabapentin 600 mg oral tablet 1 tablet = 600 mg, By Mouth, 3 times a day, 0 Refills, Maintenance, 07/02/22 9:05:00 EDT, Partial fill upon patient request if the prescription is for a schedule II opioid drug. Start Date: 07/02/22 Status: OrderedLevemir 100 units/mL subcutaneous solution = 20 units, Subcutaneous Infusion, 0 Refills, Maintenance, 01/18/20 10:51:00 EDT Start Date: 01/18/20 Status: OrderedlevETIRAcetam 500 mg oral tablet 1 tablet = 500 mg, By Mouth, 2 times a day, 0 Refills, Maintenance, 07/02/22 9:05:00 EDT, Partial fill upon patient request if the prescription is for a schedule II opioid drug. Start Date: 07/02/22 Status: Orderedlisinopril 20 mg oral tablet 20 mg, 1, tablet, By Mouth, Daily, Refills 0, Maintenance, 01/18/20 10:57:00 EDT Start Date: 01/18/20 Status: OrderedPantoprazole Daily, 0 Refills, Maintenance, 07/02/22 9:05:00 EDT Start Date: 07/02/22 Status: OrderedPrazosin By Mouth, 3 times a day, 0 Refills, Maintenance, 07/02/22 9:06:00 EDT, Partial fill upon patient request if the prescription is for a schedule II opioid drug. Start Date: 07/02/22 Status: OrderedPrilosec OTC 20 mg oral enteric coated tablet 1 tablet = 20 mg, By Mouth, Daily, 0 Refills Start Date: 09/26/09 Stop Date: 10/26/09 Status: OrderedTopamax 25 mg oral tablet See Instructions, take one tablet daily for one week then increase to 1 tablet twice a day., # 49 capsule, 0 Refills, Maintenance, 07/02/22 9:40:00 EDT, Tablet, [facility], Partial fill upon patient request if the prescription is f... Start Date: 07/02/22 Status: OrderedUbrelvy 100 mg oral tablet 1 tablet = 100 mg, By Mouth, Daily, PRN Migraine Headache, may repeat dose in 2 hours, do not exceed2 doses in 24 hours, # 8 tablet, 5 Refills, Acute 07/02/23 0:00:00 EDT, 07/02/22 9:41:00 EDT, Partial fill upon patient request if the prescription is... Start Date: 07/02/22 Stop Date: 07/02/23 Status: OrderedWalker See Instructions, # 1 application, Maintenance, use as directed, 12/19/11 22:51:55 Start Date: 12/19/11 Status: Ordered Problem List Condition Confirmation Course Effective Dates Status Health Stat us Informant Obese class I Confirmed Active EARNEST - Obstructive Confirmed Active sleep apnea Social History Social History Type Response Smoking Status 10 or more cigarettes (1/2 p ack or more)/day in last 30 days entered on: 07/02/19 Sex Patient Care team information PersonnelName: Chely DAVIS , Zelda Rehman Address: Address: [address] [place] [address] [address] [place], [place] [address]
--- OUTSIDE RECORDS SUMMARY | 2022-08-08 12:01 | XMS_ITS | Continuity of Care Document ---
:1960 Author Organization [facility] Address [address] [facility], 3rd Floor, [address] [place] [id number] Care Team Providers Name Role Phone Zelda Mo MD Primary Care Physician Encounter [facility] Date(s): 07/02/22 - 08/01/22 [facility] [address] [facility], [address]rd Floor, [address] [place] [id number] Attending Physician: Bonnie Tracy Admitting Physician: Bonnie Tracy Referring Physician: trBonnie Allergies, Adverse Reactions, Alerts Substance Reaction Severity [...] 0 Refills, Maintenance, 07/02/22 9:40:00 EDT, Tablet, [facility], Partial fill upon patient request [...] Start Date: 07/02/22 Stop Date: 07/02/23 Status: Dora See Instructions, # 1 application, Maintenance, use [...] on: 07/02/19 Sex Patient Care team information Care Team PersonnelName: Chely DAVIS , Zelda Rehman Position: [facility] Outreach Member Role: PCP Address: Address: [address] [place] [address] [address] [place] [address]- Care Team Related PersonsName: SHEA HERNANDEZ Address: [address] [place] [address] Name: JAN MUSE
--- NOTE | 2022-08-08 12:06 | ECG_ITS ---
Test Reason : HYPOTENTION Blood Pressure : / mmHG Vent. Rate : 064 BPM Atrial Rate : 064 BPM P-R Int : 152 ms QRS Dur : 140 ms QT Int : 402 ms P-R-T Axes : 069 083 149 degrees QTc Int : 414 ms Sinus rhythm with Premature supraventricular complexes Right bundle branch block T wave abnormality, consider lateral ischemia Abnormal ECG When compared with ECG of 18-JUL-2022 13:27, No significant changes seen Referred By: Mili Mcdonald Electronically Signed By:VIV SHEPPARD MD
--- NOTE | 2022-08-08 12:07 | ED_ITS ---
HPI - General Adult General Chief complaint: Headache Stated complaint: KHUSHBOOLION,LOW BP,HIGH BS FROM DR OFFICE PER EMS Time Seen by Provider: 08/08/22 11:35 Source: patient, family and day spa manager Mode of arrival: EMS History of Present Illness HPI narrative: 61-year-old female presents via EMS for PCP complaints of low blood pressure and high blood sugar (300s). Patient otherwise denies any fever, chills, shortness of breath, chest pain/palpitations, nausea, vomiting but has been having chronic diarrhea and denies any urinary pain/burning/frequency. Related Data Home Medications Medication Instructions Recorded Confirmed mirtazapine 15 mg tablet 15 mg PO BEDTIME 07/25/20 07/17/22 atorvastatin 40 mg tablet 40 mg PO BEDTIME 02/19/21 07/17/22 duloxetine 60 mg capsule,delayed 60 mg PO BID 02/19/21 07/17/22 release prazosin 5 mg capsule 5 mg PO BEDTIME 02/19/21 07/17/22 pantoprazole 20 mg tablet,delayed 20 mg PO BID 04/05/21 07/17/22 release cetirizine 10 mg tablet 10 mg PO DAILY PRN Allergy Symptoms 01/10/22 07/17/22 pen needle, diabetic 32 gauge x #50 ea 01/10/22 07/09/22 (Pentips) aspirin 81 mg tablet,delayed 81 mg PO DAILY 07/06/22 07/17/22 release fluticasone propionate 50 2 spray intranasal QAM PRN Nasal 07/06/22 07/17/22 mcg/actuation nasal Congestion spray,suspension lisinopril 20 mg tablet 20 mg PO DAILY@1200 07/06/22 07/17/22 topiramate 25 mg tablet 25 mg PO BID 07/06/22 07/17/22 prazosin 2 mg capsule 2 mg PO DAILY 07/09/22 07/17/22 ubrogepant 100 mg tablet (Ubrelvy) 100 mg PO DAILY PRN Migraine 07/09/22 07/17/22 Headache gabapentin 600 mg tablet 1,200 mg PO BID@1200,2100 for 07/17/22 07/17/22 neuropathic pain insulin detemir U-100 100 unit/mL 12 unit subcut BID 07/17/22 07/17/22 (3 mL) subcutaneous pen Previous Rx's Medication Instructions Recorded blood sugar diagnostic (FreeStyle #100 ea 06/29/21 Lite Strips) lancets 33 gauge (TRUEplus Lancets) #100 ea 05/07/22 liraglutide 0.6 mg/0.1 mL (18 mg/3 1.8 mg (0.3 mL) subcut DAILY 30 06/19/22 mL) subcutaneous pen injector days #9 mL (Victoza 3-Osman) acetaminophen 650 mg 650 mg PO Q12H PRN Pain #180 tabs 06/29/22 tablet,extended release (Arthritis Pain Relief (acetaminophen) ER) empagliflozin 25 mg tablet 25 mg PO DAILY 30 days #30 tabs 07/09/22 (Jardiance) levetiracetam 1,000 mg tablet 1,000 mg PO BID #60 tabs 07/20/22 cefdinir 300 mg capsule 300 mg PO BID 5 days #10 caps 08/08/22 Allergies Allergy/AdvReac Type Severity Reaction Status Date / Time Sulfa (Sulfonamide Allergy Intermediate blood Verified 07/09/22 11:49 Antibiotics) clots in [Sulfa (Sulfonamides)] legs, hives Review of Systems Review of Systems: Pertinent positives and negatives as stated in HPI 10 point review of systems is otherwise negative. 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 T2DM (type 2 diabetes mellitus) Vitamin D deficiency Surgical History H/O ventral hernia repair History of sleeve gastrectomy History of surgery History of ultrasound guided needle biopsy Hx of cholecystectomy Hx of colonoscopy Hx of colostomy Hx of skin graft Hx of tubal ligation Family History Family History Father Alzheimer disease, Onset Age: 60 Parkinson disease, Onset Age: 50 Mother Hypertension Gout Arthritis of knee CVD (cardiovascular disease) Family/Other Lupus Paternal Aunt Rheumatoid arthritis Social History Social History Household Members: None Housing: Apartment Are you a primary intensive care medicine specialist to a significant other at home: No Do you presently have visiting nurse or other home services: Yes Alcohol intake: never Patient Tobacco Use Status: Current someday Tobacco user Tobacco use type: Cigarette Advance Directives: No service: No Current occupational status: disabled Physical Exam ED Vital Signs: Vital Signs - 24 hr 08/08/22 11:36 08/08/22 13:59 08/08/22 15:33 Temperature 97.9 F Pulse Rate 61 68 63 Respiratory Rate 18 18 16 Blood Pressure 103/62 97/43 L 116/49 L Pulse Oximetry 98 99 Oxygen Delivery Method Room Air Room Air BMI result Body Mass Index 38.7 VITAL SIGNS: Reviewed. GENERAL: Well developed, well nourished, in no acute distress. HEAD: Normocephalic/atraumatic EYES: PERRLA, EOMI EARS: Ext canals without abnormality OROPHARYNX: no oral lesions noted, posterior pharynx clear NECK: Supple, no adenopathy LUNGS: Normal breath sounds. No adventitious sounds or accessory muscle use. SpO2<98> CARDIOVASCULAR: Regular rate and rhythm without noted murmurs, no JVD or lower extremity edema. ABDOMEN: Soft, mild diffuse without rebound, non-distended with bowel sounds. MUSCULOSKELETAL: No tenderness, deformities, or effusions noted on gross inspection. EXTREMITIES: No cyanosis, clubbing or edema. SKIN: Inspection of the skin reveals no rashes NEUROLOGIC: Alert and oriented x 3. Strength and sensation to light touch were grossly intact x 4. Course Course Course Narrative: 61-year-old female with history and clinical presentation consistent with diabetes and borderline blood pressure, on further history taking from family member who is at bedside and administers patient's morning medications she states that all were given to include blood pressure medication. I counseled briefly on in the importance of checking the blood pressure prior to administration of any blood pressure medication. In addition, I informed the family member that a blood sugar within the 300s is typically easily record sparkle by home medications, but if there are concerning symptoms such as fever, chills, nausea, vomiting then patient would absolutely need to be brought in for further evaluation. Will obtain basic labs, EKG in administer 1 L of IV fluids. Also, will obtain KUB as on clinical exam patient's abdomen appeared to be mildly tender but no evidence of obstructive symptoms on history taking. Review of all investigations consistent with UTI, patient received initial antibiotics here in the emergency room and her blood pressure is significantly improved and she will be discharged home with remaining course of antibiotics. Medications Administered Discontinued Medications Generic Name Dose Route Start Last Admin Trade Name Freq PRN Reason Stop Dose Admin Sodium Chloride 1,000 mls @ 999 mls/hr 08/08/22 12:15 08/08/22 12:19 Ns IV 08/08/22 13:15 999 mls/hr .Q1H1M JELLY Administration Medical Decision Making Lab Data Result diagrams: 08/08/22 12:10 08/08/22 12:10 Labs: Lab Results 08/08/22 08/08/22 08/08/22 Range/Units 12:10 12:10 15:45 WBC 9.0 (4.8-10.8) X10*3/uL RBC 3.78 L (4.20-5.50) X10*6/uL Hgb 10.7 L (12.0-16.0) g/dl Hct 32.5 L (37.0-47.0) % MCV 86.0 (80.0-98.0) fL MCH 28.3 (27.0-33.0) pg MCHC 32.9 (31.0-35.0) g/dl RDW 15.1 (11.0-16.0) % Plt Count 244 (160-400) X10*3/uL MPV 10.8 (9.4-12.3) fL Immature Gran % (Auto) 0.6 H (0.0-0.4) % Neut % (Auto) 81.4 H (45-73) % Lymph % (Auto) 9.2 L (20-40) % [place] % (Auto) 6.0 (2-11) % Eos % (Auto) 2.4 (0-4) % Baso % (Auto) 0.4 (0-2) % Lymph # (Auto) 0.8 L (1.2-4.9) X10*3/uL [place] # (Auto) 0.5 (0.1-1.2) X10*3/uL Eos # (Auto) 0.2 (0.0-0.4) X10*3/uL Baso # (Auto) 0.0 (0.0-0.2) X10*3/uL Abs Immat Gran (auto) 0.05 H (0.00-0.03) X10*3/uL Absolute Neuts (auto) 7.4 (2.0-8.3) x10*3/uL Absolute Nucleated RBC 0.000 (0.0-0.012) X10*3/uL Nucleated RBC % (auto) 0.0 (0.0-0.2) /100WBC Sodium 134 L (135-145) mmol/L Potassium 4.1 (3.3-5.1) mmol/L Chloride 105 (96-108) mmol/L Carbon Dioxide 19 L (22-29) mmol/L Anion Gap 14 (12-20) BUN 28 H (9-16) mg/dL Creatinine 1.78 H (0.5-1.4) mg/dL Estim Creat Clear Calc 30.9 Estimated GFR 29 Random Glucose 304 H (60-115) mg/dL Calcium 8.8 (8.4-10.2) mg/dL Total Bilirubin 0.4 (0.0-1.0) mg/dL AST 17 (5-31) U/L ALT 12 (0-31) U/L Alkaline Phosphatase 139 H (39-117) U/L Total Protein 6.1 L (6.5-8.0) g/dL Albumin 3.4 L (3.5-5.0) g/dL Urine Color Yellow Urine Appearance Turbid Urine pH 6.0 (5.0-9.0) Ur Specific Philip 1.020 (1.005-1.025) Urine Protein 30 (1+) H (Neg-Trace) mg/dL Urine Glucose (UA) >=1000 H (Negative) mg/dL Urine Ketones Negative (Negative) mg/dL Urine Blood Moderate (2+) H (Negative) Urine Nitrite Positive H (Negative) Ur Leukocyte Esterase Moderate (2+) H (Negative) Urine RBC 6-10 H (0-2) /HPF Urine WBC >50 H (0-5) /HPF Ur Squamous Epith Cells 11-20 (0-2) /HPF Urine Bacteria 4+ (None Seen) Hyaline Casts 0-2 (0-2) /LPF Acetone, Qual Negative (Negative) ECG Data Attestation: I personally reviewed and interpreted this ECG as follows: Prior ECG tracings: available for review Interpretation: Sinus rhythm, HR-64, no STEMI, RBBB, IA/QTC are within normal limits. Discharge Plan Discharge Clinical Impression: UTI (urinary tract infection) Patient Disposition: Home, Self-Care Instructions: Urinary Tract Infection in Women (ED) Additional Instructions: 1. Reanudar todos los medicamentos caseros seg?n lo prescrito. 2. Complete todo el ciclo de antibi?ticos seg?n lo indicado. 3. Dea un seguimiento con engel proveedor de atenci?n primaria para roberto reevaluaci?n en los pr?ximos 1 a 2 d?as. Regrese a la abbe de emergencias si los s?ntomas empeoran. Prescriptions: New cefdinir 300 mg capsule 300 mg PO BID 5 Days Qty: 10 0RF No Action (DME) FreeStyle Lite Strips Strip See Rx Instructions .ROUTE .MEDSUPPLY Qty: 100 11RF Rx Instructions: 4x daily (DME) lancets [TRUEplus Lancets] 33 gauge misc See Rx Instructions .Route Qty: 100 11RF Rx Instructions: 4x daily Victoza 3-Osman 0.6 mg/0.1 mL (18 mg/3 mL) pen injector 1.8 mg subcut DAILY 30 Days Qty: 9 11RF acetaminophen [Arthritis Pain Relief (acetam)] 650 mg tablet extended release 650 mg PO Q12H PRN (Reason: Pain) Qty: 180 0RF prazosin 5 mg Capsule 5 mg PO BEDTIME duloxetine 60 mg Capsule,Delayed Release(Dr/Ec) 60 mg PO BID atorvastatin 40 mg Tablet 40 mg PO BEDTIME pantoprazole 20 mg tablet,delayed release (DR/EC) 20 mg PO BID gabapentin 600 mg tablet 1,200 mg PO BID@1200,2100 insulin detemir U-100 100 unit/mL (3 mL) Insulin Pen 12 unit SUBCUT BID levetiracetam 1,000 mg Tablet 1,000 mg PO BID Qty: 60 0RF cetirizine 10 mg tablet 10 mg PO DAILY PRN (Reason: Allergy Symptoms) (DME) pen needle, diabetic [Pentips] 32 gauge x 5/32 needle See Rx Instructions .ROUTE .MEDSUPPLY Qty: 50 Rx Instructions: As directed mirtazapine 15 mg tablet 15 mg PO BEDTIME lisinopril 20 mg tablet 20 mg PO DAILY@1200 aspirin 81 mg tablet,delayed release (DR/EC) 81 mg PO DAILY prazosin 2 mg capsule 2 mg PO DAILY Ubrelvy 100 mg tablet 100 mg PO DAILY PRN (Reason: Migraine Headache) Jardiance 25 mg tablet 25 mg PO DAILY 30 Days Qty: 30 4RF topiramate 25 mg tablet 25 mg PO BID fluticasone propionate 50 mcg/actuation spray,suspension 2 spray intranasal QAM PRN (Reason: Nasal Congestion) Referrals: Zelda Mo MD [Primary Care Provider] - Print Language: [place]
[2022-08-08 12:14] LABS: MANUAL DIFF FLAG NO
[2022-08-08 12:16] LABS: Basophils Percent Auto 0.4 % (0-2); Eosinophils Absolute Auto 0.2 X10*3/uL (0.0-0.4); Eosinophils Percent Auto 2.4 % (0-4); Hematocrit 32.5 % (37.0-47.0); Hemoglobin 10.7 g/dl (12.0-16.0); Imm Gran Abs Auto 0.05 X10*3/uL (0.00-0.03); Imm Gran Pct Auto 0.6 % (0.0-0.4); Lymphocytes Absolute Auto 0.8 X10*3/uL (1.2-4.9); Lymphocytes Percent Auto 9.2 % (20-40); Mean Corpuscular HGB Conc 32.9 g/dl (31.0-35.0); Mean Corpuscular Hemoglobin 28.3 pg (27.0-33.0); Mean Platelet Volume 10.8 fL (9.4-12.3); Monocytes Absolute Auto 0.5 X10*3/uL (0.1-1.2); Neutrophils Absolute Auto 7.4 x10*3/uL (2.0-8.3); Neutrophils Percent Auto 81.4 % (45-73); Platelet Count 244 X10*3/uL (160-400); Red Blood Count 3.78 X10*6/uL (4.20-5.50); Red Cell Distribution Width 15.1 % (11.0-16.0)
[2022-08-08] MEDS: 0.9 % Sodium Chloride 1,000 ML 999 ML IV (12:19)
[2022-08-08 12:39] LABS: Acetone, serum QL Negative (Negative)
[2022-08-08 12:47] LABS: Alanine Aminotransferase 12 U/L (0-31); Albumin Level 3.4 g/dL (3.5-5.0); Alkaline Phosphatase 139 U/L (39-117); Anion Gap 14 (12-20); Aspartate Amino Transferase 17 U/L (5-31); Bilirubin Total 0.4 mg/dL (0.0-1.0); Blood Urea Nitrogen 28 mg/dL (9-16); Calcium 8.8 mg/dL (8.4-10.2); Carbon Dioxide 19 mmol/L (22-29); Chloride 105 mmol/L (96-108); Creatinine Clr Calc Pharmacy 30.9; Estimated Glomerular Filt Rate 29; Glucose Random 304 mg/dL (60-115); Potassium 4.1 mmol/L (3.3-5.1); Sodium 134 mmol/L (135-145); Total Protein 6.1 g/dL (6.5-8.0)
[2022-08-08 13:59] VITALS: BP 97/43; PULSE 68; RESP 18
[2022-08-08 15:33] VITALS: BP 116/49; PULSE 63; RESP 16; O2SAT 99
[2022-08-08 15:54] LABS: Appearance Urine Turbid; Color Urine Yellow; Glucose Urine UA >=1000 mg/dL (Negative); Leukocyte Esterase Urine Moderate (2+) (Negative); Nitrite Urine Positive (Negative); UMIC TRIGGER UACC YES; Urine Blood Moderate (2+) (Negative); Urine Ketones Negative (Negative); Urine Protein 30 (1+) mg/dL (Neg-Trace)
[2022-08-08 16:12] LABS: Bacteria Urine 4+ (None Seen); Hyaline Casts Urine 0-2 /LPF (0-2); UACC Culture Trigger YES; WBC Urine >50 /HPF (0-5)
[2022-08-08] MEDS: cefTRIAXone sodium 1 GM in 0.9 % Sodium Chloride 50 ML IV (16:25)
== END 2022-08-08 16:56 | disposition home or self-care (01) ==
PROVIDERS: Emergency Provider Student in an Organized Health Care Education/Training Program; PCP Family Medicine
DX: N39.0 Urinary tract infection, site not specified (principal); R51.9 Headache, unspecified; I95.9 Hypotension, unspecified; R10.9 Unspecified abdominal pain; F17.210 Nicotine dependence, cigarettes, uncomplicated; Z71.6 Tobacco abuse counseling; Z79.899 Other long term (current) drug therapy
CPT/HCPCS: 36415; 74018; 80053; 81001; 82009; 85025; 87086; 87088; 87186; 93005; 96374; 99284; J0696

== ENCOUNTER 2022-08-24 08:56 | Outpatient (REF) | payer OTHER, SELFPAY ==
[2022-08-24 11:08] LABS: Anion Gap 16 (12-20); Blood Urea Nitrogen 20 mg/dL (9-16); Calcium 9.3 mg/dL (8.4-10.2); Carbon Dioxide 19 mmol/L (22-29); Chloride 109 mmol/L (96-108); Estimated Glomerular Filt Rate > 60; Glucose Random 137 mg/dL (60-115); Potassium 4.7 mmol/L (3.3-5.1); Sodium 139 mmol/L (135-145)
== END 2022-08-24 08:57 | disposition home or self-care (01) ==
LOC: HO.LAB 08:56
PROVIDERS: Internal Medicine; PCP Family Medicine; Visit Provider Anesthesiology
DX: E11.9 Type 2 diabetes mellitus without complications (principal)
CPT/HCPCS: 36415; 80048

== ENCOUNTER 2022-11-07 09:47 | Outpatient (REF) | payer OTHER, SELFPAY ==
[2022-11-07 11:02] LABS: Estimated Average Glucose 166 mg/dL; Hemoglobin A1c % 7.4 %
[2022-11-07 11:59] LABS: Alanine Aminotransferase 9 U/L (0-31); Albumin Level 3.5 g/dL (3.5-5.0); Alkaline Phosphatase 139 U/L (39-117); Anion Gap 13 (12-20); Aspartate Amino Transferase 15 U/L (5-31); Bilirubin Total 0.2 mg/dL (0.0-1.0); Blood Urea Nitrogen 10 mg/dL (9-16); Calcium 8.8 mg/dL (8.4-10.2); Carbon Dioxide 23 mmol/L (22-29); Chloride 112 mmol/L (96-108); Estimated Glomerular Filt Rate > 60; Glucose Random 86 mg/dL (60-115); Potassium 3.6 mmol/L (3.3-5.1); Sodium 144 mmol/L (135-145); Total Protein 6.3 g/dL (6.5-8.0)
[2022-11-07 12:17] LABS: Free T4 (Free Thyroxine) 0.86 ng/dL (0.71-1.85); Thyroid Stimulating Hormone 1.42 uIU/mL (0.32-4.0); Vitamin B12 203 pg/mL (200-900); Vitamin D 25-OH Total 24.7 ng/mL (>30)
== END 2022-11-07 09:48 | disposition home or self-care (01) ==
LOC: HO.LAB 09:47
PROVIDERS: PCP Family Medicine; Referring Provider Anesthesiology; Visit Provider Internal Medicine
DX: E04.2 Nontoxic multinodular goiter (principal); E11.9 Type 2 diabetes mellitus without complications; E55.9 Vitamin D deficiency, unspecified
CPT/HCPCS: 36415; 80053; 82306; 82607; 83036; 84439; 84443

== ENCOUNTER → 2022-11-09 08:30 | Outpatient (BNVA) | payer OTHER, SELFPAY | PROVIDERS: PCP Family Medicine; Visit Provider Student in an Organized Health Care Education/Training Program | DX: G89.29 Other chronic pain (principal); M25.511 Pain in right shoulder; M25.512 Pain in left shoulder; M79.7 Fibromyalgia; Z79.899 Other long term (current) drug therapy | CPT/HCPCS: 20610; 99212 ==

== ENCOUNTER → 2022-11-19 10:02 | Outpatient (BNVA) | payer OTHER, SELFPAY | PROVIDERS: PCP Family Medicine; Visit Provider Anesthesiology | DX: M17.0 Bilateral primary osteoarthritis of knee (principal); M51.36 Other intervertebral disc degeneration, lumbar region; M47.816 Spondylosis without myelopathy or radiculopathy, lumbar region; M47.812 Spondylosis without myelopathy or radiculopathy, cervical region; M25.561 Pain in right knee; M25.562 Pain in left knee | CPT/HCPCS: 99212 ==

== ENCOUNTER 2022-12-07 12:25 | Day surgery (SDC) | payer OTHER, SELFPAY ==
[2022-12-03 14:10] VITALS: BMI 35.1
--- NOTE | 2022-12-06 10:44 | HO.ANESPROP2 ---
HPI - Anesthesia Eval Consult details Narrative: 61yo F for Left Genicular Nerve Block Diagnostic [facility] admit 07/2022 with seizure. Seen by neuro. generalized seizure disorder related to significant microvascular ischemic disease from hypertension . Keppra increased. [facility] Active Problems Active Problems: All Active Problems (Updated 11/19/22 @ 12:52 by Daniel Amaya MD) Osteoarthritis of knees, bilateral (Acute) Left knee pain (Acute) Right knee pain (Acute) Pain in right shoulder (Acute) Seizure (Acute) Perineum pain, female (Acute) Vaginal discharge (Acute) Potential exposure to STD (Acute) Encounter to discuss test results (Acute) Bacterial vaginosis (Acute) Conversion disorder (Acute) Surgical wound, non healing (Acute) Bowel obstruction (Acute) Well woman exam (Acute) High cholesterol (Acute) Primary fibromyalgia syndrome (Acute) History of small bowel obstruction (Acute) Smoker (Acute) Spondylosis of lumbar region without myelopathy or radiculopathy (Acute) Bilateral shoulder pain (Acute) Fibromyalgia, primary (Acute) Pre-op examination (Acute) Syncope (Acute) Hx of seizure disorder (Acute) Recto-perineal fistula (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 (Acute) T2DM (type 2 diabetes mellitus) (Acute) Spondylosis of lumbar joint (Acute) Vitamin D deficiency (Acute) Multinodular thyroid (Acute) Osteoarthritis of knees, bilateral (Acute) Past Medical History Medical History Anxiety disorder CVA (cerebral vascular accident) Depression Disc degeneration, lumbar Familial hidradenitis suppurativa type 1 HLD (hyperlipidemia) Hx of seizure disorder Hypertension Migraines Multinodular thyroid Open wound anterior abdominal wall Osteoarthritis of knees, bilateral Recto-perineal fistula Right axillary hidradenitis Sepsis 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 T2DM (type 2 diabetes mellitus) Vitamin D deficiency Family History Family History Father Alzheimer disease, Onset Age: 60 Parkinson disease, Onset Age: 50 Mother Hypertension Gout Arthritis of knee CVD (cardiovascular disease) Family/Other Lupus Paternal Aunt Rheumatoid arthritis Family history of problems with anesthesia: No Surgical History Surgical History H/O ventral hernia repair History of sleeve gastrectomy History of surgery History of ultrasound guided needle biopsy Hx of cholecystectomy Hx of colonoscopy Hx of colostomy Hx of skin graft Hx of tubal ligation History of Problems with Anesthesia: No Social History Social History Household Members: None Housing: Apartment Are you a primary critical care nurse to a significant other at home: No Do you presently have visiting nurse or other home services: Yes Alcohol intake: never Patient Tobacco Use Status: Current everyday Tobacco user Tobacco use type: Cigarette Cigarettes Per Day: 5 service: No Current occupational status: disabled Meds Allergies Allergy/AdvReac Type Severity Reaction Status Date / Time Sulfa (Sulfonamide Allergy Intermediate blood Verified 11/19/22 10:47 Antibiotics) clots in [Sulfa (Sulfonamides)] legs, hives Home Medications Medication Instructions Recorded Confirmed Last Taken Type mirtazapine 15 mg tablet 15 mg PO BEDTIME 07/25/20 12/03/22 04/04/21 History atorvastatin 40 mg tablet 40 mg PO BEDTIME 02/19/21 12/03/22 04/04/21 History duloxetine 60 mg capsule,delayed 60 mg PO BID 02/19/21 12/03/22 04/04/21 History release prazosin 5 mg capsule 5 mg PO BEDTIME 02/19/21 12/03/22 04/04/21 History pantoprazole 20 mg tablet,delayed 20 mg PO BID 04/05/21 12/03/22 04/04/21 History release cetirizine 10 mg tablet 10 mg PO DAILY PRN Allergy Symptoms 01/10/22 12/03/22 Unknown History pen needle, diabetic 32 gauge x #50 ea 01/10/22 11/19/22 Unknown History (Pentips) aspirin 81 mg tablet,delayed 81 mg PO DAILY 07/06/22 12/03/22 Unknown History release fluticasone propionate 50 2 spray intranasal QAM PRN Nasal 07/06/22 12/03/22 Unknown History mcg/actuation nasal Congestion spray,suspension lisinopril 20 mg tablet 20 mg PO DAILY@1200 07/06/22 12/03/22 Unknown History topiramate 25 mg tablet 25 mg PO BID 07/06/22 12/03/22 Unknown History gabapentin 600 mg tablet 1,200 mg PO BID@1200,2100 for 07/17/22 12/03/22 12/07/22 History neuropathic pain insulin detemir U-100 100 unit/mL 12 unit subcut BID 07/17/22 12/03/22 Unknown History (3 mL) subcutaneous pen Exam Exam Date and Time: December 06, 2022 1044 Height,Weight and Vital Signs: Height 4 ft 11 in Weight 78.925 kg Pertinent Lab Results Pertinent Lab Results: Laboratory Tests 08/08/22 11/07/22 12:10 10:19 WBC 9.0 Hgb 10.7 L Hct 32.5 L Plt Count 244 Sodium 144 Potassium 3.6 D Chloride 112 H Carbon Dioxide 23 BUN 10 Creatinine 0.64 Narrative Narrative: ECHO 07/2022 Conclusions: - The left ventricular systolic function is hyperdynamic.? The ? calculated ejection fraction is 70% by biplane method. ? - There is moderate septal asymmetric hypertrophy. ? - No obvious valvular pathology seen on this study.? - [place] not well visualized. Cannot exclude apical hypertrophic.? If clinically indicated, consider repeating with contrast. ? ? ? (No significant change from 2014 Echo) EKG 07/2022 Vent. Rate : 064 BPM ? ? Atrial Rate : 064 BPM ?? P-R Int : 152 ms? QRS Dur : 140 ms ? ? QT Int : 402 ms ? ? ? P-R-T Axes : 069 083 149 degrees ?? QTc Int : 414 ms ? Sinus rhythm with Premature supraventricular complexes Right bundle branch block T wave abnormality, consider lateral ischemia Abnormal ECG When compared with ECG of 18-JUL-2022 13:27, No significant changes seen Assessment and Plan Assessment Anesthesia Assessment: Chart Reviewed Final Anesthetic Review Family History of Problems with Anesthesia: No History of Problems with Anesthesia: No
--- NOTE | ~2022-12-07 | FL_ITS ---
EXAMINATION: FL FLUOROSCOPY WITH IMAGES CLINICAL INFORMATION: Diagnostic left knee geniculate nerve block. COMPARISON: None available. TECHNIQUE: Fluoroscopy Supervised By: Dr. Daniel Amaya. Fluoroscopy Time: 0 minutes. Cumulative Dose: 0.8 mGy-cm DAP: 0.2 uGy-cm2 Images: 2 FINDINGS: Images demonstrate needle placement for left knee geniculate nerve block. FL/FL guidance in OR IMPRESSION: Fluoroscopic guidance for pain management procedure.
[2022-12-07 12:36] VITALS: BMI 30.5
[2022-12-07 12:53] VITALS: BMI 30.5
[2022-12-07 12:55] VITALS: BP 132/47; PULSE 59; RESP 18; TEMP 36.1; O2SAT 98
--- NOTE | 2022-12-07 13:00 | HO.ANESPROP2 ---
[facility] Active Problems Active Problems: All Active Problems (Updated 11/19/22 @ 12:52 by Daniel Amaya MD) Osteoarthritis of knees, bilateral (Acute) Left knee pain (Acute) Right knee pain (Acute) Pain in right shoulder (Acute) Seizure (Acute) Perineum pain, female (Acute) Vaginal discharge (Acute) Potential exposure to STD (Acute) Encounter to discuss test results (Acute) Bacterial vaginosis (Acute) Conversion disorder (Acute) Surgical wound, non healing (Acute) Bowel obstruction (Acute) Well woman exam (Acute) High cholesterol (Acute) Primary fibromyalgia syndrome (Acute) History of small bowel obstruction (Acute) Smoker (Acute) Spondylosis of lumbar region without myelopathy or radiculopathy (Acute) Bilateral shoulder pain (Acute) Fibromyalgia, primary (Acute) Pre-op examination (Acute) Syncope (Acute) Hx of seizure disorder (Acute) Recto-perineal fistula (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 (Acute) T2DM (type 2 diabetes mellitus) (Acute) Spondylosis of lumbar joint (Acute) Vitamin D deficiency (Acute) Multinodular thyroid (Acute) Osteoarthritis of knees, bilateral (Acute) Past Medical History Medical History Anxiety disorder CVA (cerebral vascular accident) Depression Disc degeneration, lumbar Familial hidradenitis suppurativa type 1 HLD (hyperlipidemia) Hx of seizure disorder Hypertension Migraines Multinodular thyroid Open wound anterior abdominal wall Osteoarthritis of knees, bilateral Recto-perineal fistula Right axillary hidradenitis Sepsis 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 T2DM (type 2 diabetes mellitus) Vitamin D deficiency Family History Family History Father Alzheimer disease, Onset Age: 60 Parkinson disease, Onset Age: 50 Mother Hypertension Gout Arthritis of knee CVD (cardiovascular disease) Family/Other Lupus Paternal Aunt Rheumatoid arthritis Family history of problems with anesthesia: No Surgical History Surgical History H/O ventral hernia repair History of sleeve gastrectomy History of surgery History of ultrasound guided needle biopsy Hx of cholecystectomy Hx of colonoscopy Hx of colostomy Hx of skin graft Hx of tubal ligation History of Problems with Anesthesia: No Social History Social History Household Members: None Housing: Apartment Are you a primary career placement services counselor to a significant other at home: No Do you presently have visiting nurse or other home services: Yes Alcohol intake: never Patient Tobacco Use Status: Current everyday Tobacco user Tobacco use type: Cigarette Cigarettes Per Day: 5 Date Education Initiated: 12/07/22 Use of substances other than those prescribed or required for medical reasons: No Are you DNR?: No Advance Directives: No Advance Directives Information Provided: Yes service: No Current occupational status: disabled Meds Allergies Allergy/AdvReac Type Severity Reaction Status Date / Time Sulfa (Sulfonamide Allergy Intermediate blood Verified 11/19/22 10:47 Antibiotics) clots in [Sulfa (Sulfonamides)] legs, hives Active Medications: Current Medications Lactated Ringer's (Lr) 1,000 mls @ 100 mls/hr IVCONT .Q10H [facility] Home Medications Medication Instructions Recorded Confirmed Last Taken Type mirtazapine 15 mg tablet 15 mg PO BEDTIME 07/25/20 12/03/22 04/04/21 History atorvastatin 40 mg tablet 40 mg PO BEDTIME 02/19/21 12/03/22 04/04/21 History duloxetine 60 mg capsule,delayed 60 mg PO BID 02/19/21 12/03/22 04/04/21 History release prazosin 5 mg capsule 5 mg PO BEDTIME 02/19/21 12/03/22 04/04/21 History pantoprazole 20 mg tablet,delayed 20 mg PO BID 04/05/21 12/03/22 04/04/21 History release cetirizine 10 mg tablet 10 mg PO DAILY PRN Allergy Symptoms 01/10/22 12/03/22 Unknown History pen needle, diabetic 32 gauge x #50 ea 01/10/22 11/19/22 Unknown History (Pentips) aspirin 81 mg tablet,delayed 81 mg PO DAILY 07/06/22 12/03/22 Unknown History release fluticasone propionate 50 2 spray intranasal QAM PRN Nasal 07/06/22 12/03/22 Unknown History mcg/actuation nasal Congestion spray,suspension lisinopril 20 mg tablet 20 mg PO DAILY@1200 07/06/22 12/03/22 Unknown History topiramate 25 mg tablet 25 mg PO BID 07/06/22 12/03/22 Unknown History gabapentin 600 mg tablet 1,200 mg PO BID@1200,2100 for 07/17/22 12/03/22 Unknown History neuropathic pain insulin detemir U-100 100 unit/mL 12 unit subcut BID 07/17/22 12/03/22 Unknown History (3 mL) subcutaneous pen Exam Exam Date and Time: December 07, 2022 1300 Height,Weight and Vital Signs: Height 5 ft 2 in Weight 75.75 kg Last Vital Signs Temp 97.0 F 12/07/22 12:55 Pulse 59 12/07/22 12:55 Resp 18 12/07/22 12:55 BP 132/47 L 12/07/22 12:55 Pulse Ox 98 12/07/22 12:55 O2 Del Method Room Air 12/07/22 12:55 Airway Mallampati Class: II (small mouth) TM Dist: >3cm Neck ROM: Full Denture: Upper Partial: Upper Heart: rrr Lungs: cta Assessment and Plan Assessment Anesthesia Assessment: Anesthesia Plan Discussed and Chart Reviewed Final Anesthetic Review Family History of Problems with Anesthesia: No History of Problems with Anesthesia: No NPO: Yes ASA Class: III Final Preanesthetic Review: No Changes in Pt Med Stat, Meds/Allgs Chart Reviewed and Consent Obtained/Reviewed Patient Risk: Intermediate Procedure Risk: Intermediate Anesthetic Plan Anesthetic Plan: MAC: Disposition: Standard PACU
[2022-12-07] MEDS: Lactated Ringers 1,000 ML 100 ML IVCONT (13:26)
[2022-12-07 13:27] LABS: Glucose, Whole Blood 82 mg/dL (60-115)
--- NOTE | 2022-12-07 13:33 | P.HPSUR_ITS ---
Pre-Procedural Eval Section A Date of Service: 12/07/22 The patient is an INPATIENT: No Changes since office visit: Yes Patient answered all questions The History & Physical has been completed within 30 days and I have reviewed it.: No Section B Chief Complaint: Bilateral primary osteoarthritis of knee Details of Present Illness: as above Relevant Family History (Specify if Yes): No Relevant Social History: None Present Medications: see Short Stay Collaborative assessment Medical History: No relevant PMH History of Previous Operations: No relevant previous surgery Allergies: Allergies Allergy/AdvReac Type Severity Reaction Status Date / Time Sulfa (Sulfonamide Allergy Intermediate blood Verified 11/19/22 10:47 Antibiotics) clots in [Sulfa (Sulfonamides)] legs, hives Review of Systems Sugical H&P ROS: Negative: Constitution, Cardiovascular, Respiratory, Neurological, Psychiatric, Hem-Onc, Allergic/Immunologic, Gastrointestinal, Genitourinary, Musculoskeletal, Integumentary, Endocrine and Eyes/Ears/Nose/Throat Exam Surgical H&P Exam: Normal: HEENT, Normal: Heart, Normal: Lungs, Normal: Extre mities, Normal: Abdomen, Normal: Skin and Normal: Neurological Plan Diagnosis/Plan: Unchanged I have reviewed the history and physical and performed a pertinent physical examination on my patient. No changes have occurred unless specified. Time Spent With Patient Time: Total time managing care of this patient today ____ minutes.
[2022-12-07 14:05] VITALS: BP 131/66; PULSE 58; RESP 16; TEMP 37.3; O2SAT 94
--- NOTE | 2022-12-07 14:07 | PM.OP ---
Brief Operative Note Date of Service: 12/07/22 Pre-op diagnosis: pain in the left knee, osteoarthritis left knee. Post-op diagnosis: same Procedure: left diagnostic genicular nerve block Surgeon: Daniel Amaya MD Anesthesia: MAC Was an Pre Sales Architect used for this Procedure?: No Estimated blood loss (mL): 0 Condition: stable Disposition: PACU
--- NOTE | 2022-12-07 14:12 | W.PM.OPN ---
Operative Note Operative Note Date of Service: 12/07/22 Narrative: Left diagnostic genicular nerves block injection Informed consent was explained thoroughly to the patient with the help of a die casting machine maintainer.? All questions about benefits and risks for the procedure were answered. ? Patient came to the operating room he was positioned supine on the operating table with the gel bolster under his left knee and lower leg. ASA m-rs were applied and the patient was deeply sedated. ? time out was performed delineating name and of the patient side and site of the injection ? Left knee as well as upper portion of his lower leg as well anterior surface of the left lower thigh? was prepped with ChloraPrep prepped and draped with sterile towels.? C-arm was brought over the operating field and sq picture of patient's knee was demonstrated on the screen.? Point of interests were delineated as a confluence of the silhouette of the medial metaphysis and medial diaphysis of the tibia bone for the inrfapatellar saphenous nerve, as well as? confluence of the silhouette of the medial metaphysis and medial diaphysis of the femur bone for the suprapatellar saphenous nerve, as well as? confluence of the silhouette of the lateral metaphysis and lateral diaphysis of the femur bone for the branch of the lateral femoral cutaneous nerve as a lateral genicular nerve. Projection of the points of interests to the skin were injected with lidocaine 1% 1-2 mls. After that three 22 gauge 3 and 1/2 inch needles was driven to the points of interests in tunnel vision fashion.? When needle? were on AP projection next to the bone silhouette position of the C-arm was changed to the lateral view. The condyles were superimposed the positions of the needles in the mid-shaft of the bones was verified. After that small amount of the ropivacain 1.5 ml was injected into each needle. After that the needle were removed and bandaids were applied the patient tolerated the procedure well.
--- NOTE | 2022-12-07 14:16 | W.PM.OPN ---
Operative Note Operative Note Date of Service: 12/07/22 Narrative: Left diagnostic genicular nerves block injection Informed consent was explained thoroughly to the patient.? All questions about benefits and risks for the procedure were answered. ? Patient came to the operating room he was positioned supine on the operating table with the gel bolster under his left knee and lower leg. ASA monitors were aplied and the patient was deeply sedated. ? time out was performed delineating name and of the patient side and site of the injection ? Left knee as well as upper portion of his lower leg as well anterior surface of the left lower thigh? was prepped with ChloraPrep prepped and draped with sterile towels.? C-arm was brought over the operating field and sq picture of patient's knee was demonstrated on the screen.? Point of interests were delineated as a confluence of the silhouette of the medial metaphysis and medial diaphysis of the tibia bone for the inrfapatellar saphenous nerve, as well as? confluence of the silhouette of the medial metaphysis and medial diaphysis of the femur bone for the suprapatellar saphenous nerve, as well as? confluence of the silhouette of the lateral metaphysis and lateral diaphysis of the femur bone for the branch of the lateral femoral cutaneous nerve as a lateral genicular nerve. Projection of the points of interests to the skin were injected with lidocaine 1% 1-2 mls. After that three 22 gauge 3 and 1/2 inch needles was driven to the points of interests in tunnel vision fashion.? When needle? were on AP projection next to the bone silhouette position of the C-arm was changed to the lateral view. The condyles were superimposed the positions of the needles in the mid-shaft of the bones was verified. After that small amount of the ropivacain 1.5 ml was injected into each needle. After that the needle were removed and bandaids were applied the patient tolerated the procedure well.
[2022-12-07 14:20] VITALS: BP 145/70; PULSE 56; RESP 18; TEMP 37.2; O2SAT 95
== END 2022-12-07 15:06 | disposition home or self-care (01) ==
PROVIDERS: PCP Family Medicine; Visit Provider Anesthesiology
PROC: (CPT 64454; principal; 2022-12-07 13:30)
DX: M25.562 Pain in left knee (principal); M17.12 Unilateral primary osteoarthritis, left knee; Z79.4 Long term (current) use of insulin; M51.36 Other intervertebral disc degeneration, lumbar region; M47.816 Spondylosis without myelopathy or radiculopathy, lumbar region; M47.812 Spondylosis without myelopathy or radiculopathy, cervical region; M79.7 Fibromyalgia; G40.909 Epilepsy, unspecified, not intractable, without status epilepticus; Z86.73 Personal history of transient ischemic attack (TIA), and cerebral infarction without residual deficits; E04.2 Nontoxic multinodular goiter; E55.9 Vitamin D deficiency, unspecified; E11.9 Type 2 diabetes mellitus without complications; Z79.82 Long term (current) use of aspirin; Z79.51 Long term (current) use of inhaled steroids; Z79.899 Other long term (current) drug therapy; Z88.2 Allergy status to sulfonamides; Z98.84 Bariatric surgery status; F17.210 Nicotine dependence, cigarettes, uncomplicated
CPT/HCPCS: 64454; 82947; J2250; J2795

== ENCOUNTER → 2022-12-27 13:06 | Outpatient (BNVA) | payer OTHER, SELFPAY | PROVIDERS: PCP Family Medicine; Visit Provider Internal Medicine | DX: E11.9 Type 2 diabetes mellitus without complications (principal); E04.2 Nontoxic multinodular goiter; I10 Essential (primary) hypertension; E78.5 Hyperlipidemia, unspecified; E55.9 Vitamin D deficiency, unspecified; Z79.4 Long term (current) use of insulin | CPT/HCPCS: 82947; 99212 ==

== ENCOUNTER 2023-01-04 09:51 | Day surgery (SDC) | payer OTHER, SELFPAY ==
[2023-01-01 16:47] VITALS: BMI 35.1
--- NOTE | 2023-01-03 10:55 | HO.ANESPROP2 ---
Documented by User: Annette Lester NP 01/03/23 11:00 HPI - Anesthesia Eval Consult details Narrative: 62yo F for Right Genicular Nerve Block Diagnostic s/p left side 11/2022 with MAC PMFSH Active Problems Active Problems: All Active Problems (Updated 11/19/22 @ 12:52 by Daniel Amaya MD) Osteoarthritis of knees, bilateral (Acute) Left knee pain (Acute) Right knee pain (Acute) Pain in right shoulder (Acute) Seizure (Acute) Perineum pain, female (Acute) Vaginal discharge (Acute) Potential exposure to STD (Acute) Encounter to discuss test results (Acute) Bacterial vaginosis (Acute) Conversion disorder (Acute) Surgical wound, non healing (Acute) Bowel obstruction (Acute) Well woman exam (Acute) High cholesterol (Acute) Primary fibromyalgia syndrome (Acute) History of small bowel obstruction (Acute) Smoker (Acute) Spondylosis of lumbar region without myelopathy or radiculopathy (Acute) Bilateral shoulder pain (Acute) Fibromyalgia, primary (Acute) Pre-op examination (Acute) Syncope (Acute) Hx of seizure disorder (Acute) Recto-perineal fistula (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 (Acute) T2DM (type 2 diabetes mellitus) (Acute) Spondylosis of lumbar joint (Acute) Vitamin D deficiency (Acute) Multinodular thyroid (Acute) Osteoarthritis of knees, bilateral (Acute) Past Medical History Medical History Anxiety disorder CVA (cerebral vascular accident) Depression Disc degeneration, lumbar Familial hidradenitis suppurativa type 1 HLD (hyperlipidemia) Hx of seizure disorder Hypertension Migraines Multinodular thyroid Open wound anterior abdominal wall Osteoarthritis of knees, bilateral Recto-perineal fistula Right axillary hidradenitis Sepsis 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 T2DM (type 2 diabetes mellitus) Vitamin D deficiency Family History Family History Father Alzheimer disease, Onset Age: 60 Parkinson disease, Onset Age: 50 Mother Hypertension Gout Arthritis of knee CVD (cardiovascular disease) Family/Other Lupus Paternal Aunt Rheumatoid arthritis Family history of problems with anesthesia: No Surgical History Surgical History H/O ventral hernia repair History of sleeve gastrectomy History of surgery History of ultrasound guided needle biopsy Hx of cholecystectomy Hx of colonoscopy Hx of colostomy Hx of skin graft Hx of tubal ligation History of Problems with Anesthesia: No Social History Social History Household Members: None Housing: Apartment Are you a primary post anesthesia care unit nurse to a significant other at home: No Do you presently have visiting nurse or other home services: Yes Alcohol intake: never Patient Tobacco Use Status: Current everyday Tobacco user Tobacco use type: Cigarette Cigarettes Per Day: 5 Smoked in Last 30 Days: Yes Are you DNR?: No Advance Directives: No Advance Directives Information Provided: Yes Nutrition Risks: No Nutritional Risk service: No Current occupational status: disabled Meds Allergies Allergy/AdvReac Type Severity Reaction Status Date / Time Sulfa (Sulfonamide Allergy Intermediate blood Verified 01/04/23 10:46 Antibiotics) clots in [Sulfa (Sulfonamides)] legs, hives Home Medications Medication Instructions Recorded Confirmed Last Taken Type atorvastatin 40 mg tablet 40 mg PO BEDTIME 02/19/21 12/27/22 04/04/21 History duloxetine 60 mg capsule,delayed 60 mg PO BID 02/19/21 12/27/22 04/04/21 History release prazosin 5 mg capsule 5 mg PO BEDTIME 02/19/21 12/27/22 04/04/21 History pantoprazole 20 mg tablet,delayed 20 mg PO BID 04/05/21 12/27/22 04/04/21 History release cetirizine 10 mg tablet 10 mg PO DAILY PRN Allergy Symptoms 01/10/22 12/27/22 Unknown History pen needle, diabetic 32 gauge x #50 ea 01/10/22 12/27/22 Unknown History (P[place]ips) aspirin 81 mg tablet,delayed 81 mg PO DAILY 07/06/22 12/27/22 12/28/22 History release fluticasone propionate 50 2 spray intranasal QAM PRN Nasal 07/06/22 12/27/22 Unknown History mcg/actuation nasal Congestion spray,suspension lisinopril 20 mg tablet 20 mg PO DAILY@1200 07/06/22 12/27/22 Unknown History topiramate 25 mg tablet 25 mg PO BID 07/06/22 12/27/22 Unknown History mirtazapine 15 mg tablet 7.5 mg PO BEDTIME 12/27/22 12/27/22 Unknown History Exam Exam Date and Time: January 03, 2023 1055 Height,Weight and Vital Signs: Height 4 ft 11 in Weight 78.925 kg Pertinent Lab Results Pertinent Lab Results: Laboratory Tests 08/08/22 11/07/22 12:10 10:19 WBC 9.0 Hgb 10.7 L Hct 32.5 L Plt Count 244 Sodium 144 Potassium 3.6 D Chloride 112 H Carbon Dioxide 23 BUN 10 Creatinine 0.64 Narrative Narrative: EKG 07/2022 Vent. Rate : 064 BPM ? ? Atrial Rate : 064 BPM ?? P-R Int : 152 ms? QRS Dur : 140 ms ? ? QT Int : 402 ms ? ? ? P-R-T Axes : 069 083 149 degrees ?? QTc Int : 414 ms ? Sinus rhythm with Premature supraventricular complexes Right bundle branch block T wave abnormality, consider lateral ischemia Abnormal ECG When compared with ECG of 18-JUL-2022 13:27, No significant changes seen Assessment and Plan Assessment Anesthesia Assessment: Chart Reviewed Final Anesthetic Review Family History of Problems with Anesthesia: No History of Problems with Anesthesia: No Documented by User: Lilia Chauhan MD 01/04/23 11:38 PMFSH Past Medical History Medical History Anxiety disorder CVA (cerebral vascular accident) Depression Disc degeneration, lumbar Familial hidradenitis suppurativa type 1 HLD (hyperlipidemia) Hx of seizure disorder Hypertension Migraines Multinodular thyroid Open wound anterior abdominal wall Osteoarthritis of knees, bilateral Recto-perineal fistula Right axillary hidradenitis Sepsis 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 T2DM (type 2 diabetes mellitus) Vitamin D deficiency Family History Family History Father Alzheimer disease, Onset Age: 60 Parkinson disease, Onset Age: 50 Mother Hypertension Gout Arthritis of knee CVD (cardiovascular disease) Family/Other Lupus Paternal Aunt Rheumatoid arthritis Surgical History Surgical History H/O ventral hernia repair History of sleeve gastrectomy History of surgery History of ultrasound guided needle biopsy Hx of cholecystectomy Hx of colonoscopy Hx of colostomy Hx of skin graft Hx of tubal ligation Social History Social History Household Members: None Housing: Apartment Are you a primary post anesthesia care unit nurse to a significant other at home: No Do you presently have visiting nurse or other home services: Yes Alcohol intake: never Patient Tobacco Use Status: Current everyday Tobacco user Tobacco use type: Cigarette Cigarettes Per Day: 5 Smoked in Last 30 Days: Yes Are you DNR?: No Advance Directives: No Advance Directives Information Provided: Yes Nutrition Risks: No Nutritional Risk service: No Current occupational status: disabled Meds Allergies Allergy/AdvReac Type Severity Reaction Status Date / Time Sulfa (Sulfonamide Allergy Intermediate blood Verified 01/04/23 10:46 Antibiotics) clots in [Sulfa (Sulfonamides)] legs, hives Home Medications Medication Instructions Recorded Confirmed Last Taken Type atorvastatin 40 mg tablet 40 mg PO BEDTIME 02/19/21 12/27/22 04/04/21 History duloxetine 60 mg capsule,delayed 60 mg PO BID 02/19/21 12/27/22 04/04/21 History release prazosin 5 mg capsule 5 mg PO BEDTIME 02/19/21 12/27/22 04/04/21 History pantoprazole 20 mg tablet,delayed 20 mg PO BID 04/05/21 12/27/22 04/04/21 History release cetirizine 10 mg tablet 10 mg PO DAILY PRN Allergy Symptoms 01/10/22 12/27/22 Unknown History pen needle, diabetic 32 gauge x #50 ea 01/10/22 12/27/22 Unknown History (Pentips) aspirin 81 mg tablet,delayed 81 mg PO DAILY 07/06/22 12/27/22 12/28/22 History release fluticasone propionate 50 2 spray intranasal QAM PRN Nasal 07/06/22 12/27/22 Unknown History mcg/actuation nasal Congestion spray,suspension lisinopril 20 mg tablet 20 mg PO DAILY@1200 07/06/22 12/27/22 Unknown History topiramate 25 mg tablet 25 mg PO BID 07/06/22 12/27/22 Unknown History mirtazapine 15 mg tablet 7.5 mg PO BEDTIME 12/27/22 12/27/22 Unknown History Exam Airway Mallampati Class: II TM Dist: >3cm Neck ROM: Full Partial: Upper and Lower Loose/Missing/Broken Teeth: Yes, Upper and Lower Heart: rrr Lungs: cta Assessment and Plan Assessment Anesthesia Assessment: Anesthesia Plan Discussed Final Anesthetic Review NPO: Yes ASA Class: III Final Preanesthetic Review: No Changes in Pt Med Stat, Meds/Allgs Chart Reviewed, Consent Obtained/Reviewed and Anes Risks/Benef Reviewed Patient Risk: Low Procedure Risk: Low Anesthetic Plan Anesthetic Plan: MAC: Disposition: Standard PACU
--- NOTE | ~2023-01-04 | FL_ITS ---
EXAMINATION: XR FLUOROSCOPY WITH IMAGES CLINICAL INFORMATION: Genicular nerve block, right COMPARISON: Radiographs right knee 07/26/2020 TECHNIQUE: Fluoroscopy Supervised By: Dr. Daniel Amaya. Fluoroscopy Time: 0.1 minutes. Cumulative Dose: 2.76 mGy. DAP: 0.754 Gycm2. Images: 1. FINDINGS: There are 2 spinal needles/electrodes overlying the distal femoral shaft, mid depth, presumably medial and lateral sides. There is a spinal needle/electrode overlying the proximal tibia, mid depth. FL/FL guidance in OR IMPRESSION: Fluoroscopy for pain management procedures.
[2023-01-04] MEDS: Lactated Ringers 1,000 ML 100 ML IVCONT (10:25)
[2023-01-04 10:45] VITALS: BP 132/57; PULSE 69; RESP 18; TEMP 36.6; O2SAT 97
[2023-01-04 10:47] LABS: Glucose, Whole Blood 160 mg/dL (60-115)
--- NOTE | 2023-01-04 11:00 | PC.NURSE ---
2 IV attempts by author. IV attempt and insertion by Andressa Dumont RN
--- NOTE | 2023-01-04 11:19 | P.HPSUR_ITS ---
Pre-Procedural Eval Section A Date of Service: 01/04/23 The patient is an INPATIENT: No Changes since office visit: Yes Patient answered all questions The History & Physical has been completed within 30 days and I have reviewed it.: No Section B Chief Complaint: Pain in right knee,Bilateral primary osteoarthriti Details of Present Illness: as above Relevant Family History (Specify if Yes): No Relevant Social History: None Present Medications: see Short Stay Collaborative assessment Medical History: No relevant PMH History of Previous Operations: No relevant previous surgery Allergies: Allergies Allergy/AdvReac Type Severity Reaction Status Date / Time Sulfa (Sulfonamide Allergy Intermediate blood Verified 01/04/23 10:46 Antibiotics) clots in [Sulfa (Sulfonamides)] legs, hives Review of Systems Sugical H&P ROS: Negative: Constitution, Cardiovascular, Respiratory, Neurological, Psychiatric, Hem-Onc, Allergic/Immunologic, Gastrointestinal, Pennie tourinary, Musculoskeletal, Integumentary, Endocrine and Eyes/Ears/Nose/Throat Exam Surgical H&P Exam: Normal: HEENT, Normal: Heart, Normal: Lungs, Normal: Extremities, Normal: Abdomen, Normal: Skin and Normal: Neurological Plan Diagnosis/Plan: Unchanged I have reviewed the history and physical and performed a pertinent physical examination on my patient. No changes have occurred unless specified. Time Spent With Patient Time: Total time managing care of this patient today __5__ minutes.
[2023-01-04 12:07] VITALS: BP 99/67; PULSE 64; RESP 16; TEMP 36.9; O2SAT 97
--- NOTE | 2023-01-04 12:13 | PM.OP ---
Brief Operative Note Date of Service: 01/04/23 Pre-op diagnosis: right knee pain, right knee oeoarthritis. Post-op diagnosis: same Procedure: right genicular nerve block diagnostic Surgeon: Daniel Amaya MD Anesthesia: MAC Was an Joint Machine Operator used for this Procedure?: No Estimated blood loss (mL): 0 Condition: stable Disposition: PACU
--- NOTE | 2023-01-04 12:16 | W.PM.OPN ---
Operative Note Operative Note Date of Service: 01/04/23 Narrative: Right diagnostic genicular nerve block. ? Informed consent was explained to the patient. All questions were explained and answered. The patient was taken inside the operating room. The patient was positioned supine on operating table with her right leg elevated on a gel bin. ASA monitors were applied and patient was moderately sedated ?Time-out was performed delineating correct site, side, the nature of the procedure, patient's allergy, preoperative antibiotic if needed. All operating room staff was participating in OR time-out procedure. C-arm was brought over the operating field and picture of the left knee was demonstrated on the screen. Anterolateral and anteromedial surfaces of the knee as well as lower leg and the lower thigh were prepped with chloroprep and draped with utility towels. ?The point of interest were delineated for: FOR: superior lateral genicular nerve (branch of lateral femoral cutaneous nerve) as the connection of the metaphysis of the right? femur with corresponding diaphysis on the lateral silhouette of the femur distal bone, ?For superior medial genicular nerve (suprapatellar saphenous nerve) the point of interest was delineated is the connection of metaphysis of right femur with corresponding diaphysis on the medial silhouette on the femoral distal bone. ?For inferior medial genicular nerve (infrapatellar saphenous nerve) the point of interest was delineated as connection of metaphysis of the proximal tibia on the medial side with corresponding diaphysis of the same bone. ?The projections of the points of interest on anterior surface of the right knee was injected with small amount of lidocaine 2% 1-to 2 ml. After that to needles 22 gauge 3-1/2 inch long were driven to were the point of interest in tunnel vision fashion.? When the needle gently contacted the bones the C arm view was turned lateral , care was taken to superimpose condyles of the knee. With condyles superimpsed the needles were adjusted the way the tips of the needle positioned at the middle of the shaft of the bone. After that injection of ropivacaine o.5% 1 to 1.5 mls was performed at each needle location. the needles were removed and bandaids were applied. the patient tolerated the procedure very well.
[2023-01-04 12:26] VITALS: BP 115/47; PULSE 69; RESP 16; TEMP 36.7; O2SAT 98
== END 2023-01-04 12:55 | disposition home or self-care (01) ==
PROVIDERS: PCP Family Medicine; Visit Provider Anesthesiology
PROC: (CPT 64454; principal; 2023-01-04 12:10)
DX: M25.561 Pain in right knee (principal); M17.11 Unilateral primary osteoarthritis, right knee; M51.36 Other intervertebral disc degeneration, lumbar region; M47.816 Spondylosis without myelopathy or radiculopathy, lumbar region; M47.812 Spondylosis without myelopathy or radiculopathy, cervical region; I10 Essential (primary) hypertension; E78.5 Hyperlipidemia, unspecified; E11.9 Type 2 diabetes mellitus without complications; E55.9 Vitamin D deficiency, unspecified; F41.1 Generalized anxiety disorder; Z79.82 Long term (current) use of aspirin; Z79.899 Other long term (current) drug therapy; Z79.51 Long term (current) use of inhaled steroids; Z79.4 Long term (current) use of insulin; Z88.2 Allergy status to sulfonamides; Z86.73 Personal history of transient ischemic attack (TIA), and cerebral infarction without residual deficits; Z98.84 Bariatric surgery status; F17.210 Nicotine dependence, cigarettes, uncomplicated
CPT/HCPCS: 64454; 82947; J2250; J2795; Q9967

== ENCOUNTER → 2023-01-07 11:01 | Outpatient (BNVA) | payer OTHER, SELFPAY | PROVIDERS: PCP Family Medicine; Visit Provider Anesthesiology | DX: M17.0 Bilateral primary osteoarthritis of knee (principal); M51.36 Other intervertebral disc degeneration, lumbar region; M47.816 Spondylosis without myelopathy or radiculopathy, lumbar region; M47.812 Spondylosis without myelopathy or radiculopathy, cervical region; M25.561 Pain in right knee; M25.562 Pain in left knee | CPT/HCPCS: Q3014 ==

== ENCOUNTER 2023-01-10 12:51 | Outpatient (REF) | payer OTHER, SELFPAY ==
[2023-01-17 07:24] LABS: HPV mRNA E6/E7 rflx Not Detected (Not Detected)
== END 2023-01-10 12:52 | disposition home or self-care (01) ==
LOC: HO.LNP 12:51
PROVIDERS: PCP Family Medicine; Visit Provider Obstetrics & Gynecology
DX: Z01.419 Encounter for gynecological examination (general) (routine) without abnormal findings (principal); Z11.51 Encounter for screening for human papillomavirus (HPV)
CPT/HCPCS: 87624; 88142

== ENCOUNTER 2023-01-18 07:02 | Day surgery (SDC) | payer OTHER, SELFPAY ==
[2023-01-15 11:40] VITALS: BMI 32.1
--- NOTE | 2023-01-17 09:40 | HO.ANESPROP2 ---
Documented by User: Annette Lester NP 01/17/23 09:42 HPI - Anesthesia Eval Consult details Narrative: 62yo F for Bilateral Therapeutic L3-L4-L5 Medial Branch Block s/p GNB 01/04/23 with MAC PMFSH Active Problems Active Problems: All Active Problems (Updated 01/10/23 @ 13:38 by Hayden Mondragon MD) Colon cancer screening (Acute) Scar of abdominal wall (Acute) Osteoarthritis of knees, bilateral (Acute) Left knee pain (Acute) Right knee pain (Acute) Pain in right shoulder (Acute) Seizure (Acute) Perineum pain, female (Acute) Vaginal discharge (Acute) Potential exposure to STD (Acute) Encounter to discuss test results (Acute) Bacterial vaginosis (Acute) Conversion disorder (Acute) Surgical wound, non healing (Acute) Bowel obstruction (Acute) Well woman exam (Acute) High cholesterol (Acute) Primary fibromyalgia syndrome (Acute) History of small bowel obstruction (Acute) Smoker (Acute) Spondylosis of lumbar region without myelopathy or radiculopathy (Acute) Bilateral shoulder pain (Acute) Fibromyalgia, primary (Acute) Pre-op examination (Acute) Syncope (Acute) Hx of seizure disorder (Acute) Recto-perineal fistula (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 (Acute) T2DM (type 2 diabetes mellitus) (Acute) Spondylosis of lumbar joint (Acute) Vitamin D deficiency (Acute) Multinodular thyroid (Acute) Osteoarthritis of knees, bilateral (Acute) Past Medical History Medical History Anxiety disorder CVA (cerebral vascular accident) Depression Disc degeneration, lumbar Familial hidradenitis suppurativa type 1 HLD (hyperlipidemia) Hx of seizure disorder Hypertension Migraines Multinodular thyroid Open wound anterior abdominal wall Osteoarthritis of knees, bilateral Recto-perineal fistula Right axillary hidradenitis Sepsis 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 T2DM (type 2 diabetes mellitus) Vitamin D deficiency Family History Family History Father Alzheimer disease, Onset Age: 60 Parkinson disease, Onset Age: 50 Mother Hypertension Gout Arthritis of knee CVD (cardiovascular disease) Family/Other Lupus Paternal Aunt Rheumatoid arthritis Family history of problems with anesthesia: No Surgical History Surgical History H/O ventral hernia repair History of sleeve gastrectomy History of surgery History of ultrasound guided needle biopsy Hx of cholecystectomy Hx of colonoscopy Hx of colostomy Hx of skin graft Hx of tubal ligation History of Problems with Anesthesia: No Social History Social History Household Members: None Housing: Apartment Are you a primary rn care manager to a significant other at home: No Do you presently have visiting nurse or other home services: Yes Alcohol intake: never Patient Tobacco Use Status: Current everyday Tobacco user Tobacco use type: Cigarette Cigarettes Per Day: 5 Advance Directives: No Advance Directives Information Provided: Yes service: No Current occupational status: disabled Meds Allergies Allergy/AdvReac Type Severity Reaction Status Date / Time Sulfa (Sulfonamide Allergy Intermediate blood Verified 01/10/23 13:05 Antibiotics) clots in [Sulfa (Sulfonamides)] legs, hives Home Medications Medication Instructions Recorded Confirmed Last Taken Type atorvastatin 40 mg tablet 40 mg PO BEDTIME 02/19/21 01/15/23 04/04/21 History duloxetine 60 mg capsule,delayed 60 mg PO BID 02/19/21 01/15/23 04/04/21 History release prazosin 5 mg capsule 5 mg PO BEDTIME 02/19/21 01/15/23 04/04/21 History cetirizine 10 mg tablet 10 mg PO DAILY PRN Allergy Symptoms 01/10/22 01/15/23 Unknown History pen needle, diabetic 32 gauge x #50 ea 01/10/22 01/07/23 Unknown History ([place]) aspirin 81 mg tablet,delayed 81 mg PO DAILY 07/06/22 01/15/23 12/28/22 History release fluticasone propionate 50 2 spray intranasal QAM PRN Nasal 07/06/22 01/15/23 Unknown History mcg/actuation nasal Congestion spray,suspension lisinopril 20 mg tablet 20 mg PO DAILY@1200 07/06/22 01/15/23 Unknown History topiramate 25 mg tablet 25 mg PO BID 07/06/22 01/15/23 Unknown History mirtazapine 15 mg tablet 7.5 mg PO BEDTIME 12/27/22 01/15/23 Unknown History levetiracetam 1,000 mg tablet 500 mg PO BID 01/10/23 01/15/23 Unknown History omeprazole 20 mg capsule,delayed 20 mg PO DAILY 01/10/23 01/15/23 Unknown History release Exam Exam Date and Time: January 17, 2023 0940 Height,Weight and Vital Signs: Height 4 ft 11 in Weight 72.121 kg Pertinent Lab Results Pertinent Lab Results: Laboratory Tests 08/08/22 11/07/22 12:10 10:19 WBC 9.0 Hgb 10.7 L Hct 32.5 L Plt Count 244 Sodium 144 Potassium 3.6 D Chloride 112 H Carbon Dioxide 23 BUN 10 Creatinine 0.64 Narrative Narrative: EKG 2021 Vent. Rate : 064 BPM ? ? Atrial Rate : 064 BPM ?? P-R Int : 152 ms? QRS Dur : 140 ms ? ? QT Int : 402 ms ? ? ? P-R-T Axes : 069 083 149 degrees ?? QTc Int : 414 ms ? Sinus rhythm with Premature supraventricular complexes Right bundle branch block T wave abnormality, consider lateral ischemia Abnormal ECG When compared with ECG of 18-JUL-2022 13:27, No significant changes seen ECHO 2021 Conclusions: - The left ventricular systolic function is hyperdynamic.? The ? calculated ejection fraction is 70% by biplane method. ? - There is moderate septal asymmetric hypertrophy. ? - No obvious valvular pathology seen on this study.? - [place] not well visualized. Cannot exclude apical hypertrophic.? If clinically indicated, consider repeating with contrast. ? ? ? Assessment and Plan Assessment Anesthesia Assessment: Chart Reviewed Final Anesthetic Review Family History of Problems with Anesthesia: No History of Problems with Anesthesia: No Documented by User: Royce Stringer MD 01/18/23 07:48 [facility] Past Medical History Medical History Anxiety disorder CVA (cerebral vascular accident) Depression Disc degeneration, lumbar Familial hidradenitis suppurativa type 1 HLD (hyperlipidemia) Hx of seizure disorder Hypertension Migraines Multinodular thyroid Open wound anterior abdominal wall Osteoarthritis of knees, bilateral Recto-perineal fistula Right axillary hidradenitis Sepsis 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 T2DM (type 2 diabetes mellitus) Vitamin D deficiency Family History Family History Father Alzheimer disease, Onset Age: 60 Parkinson disease, Onset Age: 50 Mother Hypertension Gout Arthritis of knee CVD (cardiovascular disease) Family/Other Lupus Paternal Aunt Rheumatoid arthritis Surgical History Surgical History H/O ventral hernia repair History of sleeve gastrectomy History of surgery History of ultrasound guided needle biopsy Hx of cholecystectomy Hx of colonoscopy Hx of colostomy Hx of skin graft Hx of tubal ligation Social History Social History Household Members: None Housing: Apartment Are you a primary rn care manager to a significant other at home: No Do you presently have visiting nurse or other home services: Yes Alcohol intake: never Patient Tobacco Use Status: Current everyday Tobacco user Tobacco use type: Cigarette Cigarettes Per Day: 5 Advance Directives: No Advance Directives Information Provided: Yes service: No Current occupational status: disabled Meds Allergies Allergy/AdvReac Type Severity Reaction Status Date / Time Sulfa (Sulfonamide Allergy Intermediate blood Verified 01/10/23 13:05 Antibiotics) clots in [Sulfa (Sulfonamides)] legs, hives Home Medications Medication Instructions Recorded Confirmed Last Taken Type atorvastatin 40 mg tablet 40 mg PO BEDTIME 02/19/21 01/15/23 04/04/21 History duloxetine 60 mg capsule,delayed 60 mg PO BID 02/19/21 01/15/23 04/04/21 History release prazosin 5 mg capsule 5 mg PO BEDTIME 02/19/21 01/15/23 04/04/21 History cetirizine 10 mg tablet 10 mg PO DAILY PRN Allergy Symptoms 01/10/22 01/15/23 Unknown History pen needle, diabetic 32 gauge x #50 ea 01/10/22 01/07/23 Unknown History (P[place]ips) aspirin 81 mg tablet,delayed 81 mg PO DAILY 1001/15/23 12/28/22 History release fluticasone propionate 50 2 spray intranasal QAM PRN Nasal 07/06/22 01/15/23 Unknown History mcg/actuation nasal Congestion spray,suspension lisinopril 20 mg tablet 20 mg PO DAILY@1200 07/06/22 01/15/23 Unknown History topiramate 25 mg tablet 25 mg PO BID 07/06/22 01/15/23 Unknown History mirtazapine 15 mg tablet 7.5 mg PO BEDTIME 12/27/22 01/15/23 Unknown History levetiracetam 1,000 mg tablet 500 mg PO BID 01/10/23 01/15/23 Unknown History omeprazole 20 mg capsule,delayed 20 mg PO DAILY 01/10/23 01/15/23 Unknown History release Exam Airway Mallampati Class: II TM Dist: <=3cm Neck ROM: Full Partial: Lower Heart: ok Lungs: ok Assessment and Plan Assessment Anesthesia Assessment: Anesthesia Plan Discussed Final Anesthetic Review NPO: Yes ASA Class: III and Emergency Final Preanesthetic Review: No Changes in Pt Med Stat, Meds/Allgs Chart Reviewed, Consent Obtained/Reviewed and Anes Risks/Benef Reviewed Patient Risk: Intermediate Procedure Risk: Intermediate Anesthetic Plan Anesthetic Plan: GA, MAC: and Agree w/ Assess. and Plan Disposition: Standard PACU
--- NOTE | ~2023-01-18 | FL_ITS ---
EXAMINATION: XR FLUOROSCOPY WITH IMAGES CLINICAL INFORMATION: Pain management procedures; Therapeutic L3 L4 L5 MBB COMPARISON: Fluoroscopy spot views 10/20/2021 TECHNIQUE: Fluoroscopy Supervised By: Dr. Daniel Amaya. Fluoroscopy Time: 0.9 minutes. Cumulative Dose: 14.7 mGy. DAP: 4.02 Gycm2. Images: 7. FINDINGS: There are spinal needles overlying the bilateral outer L3, L4, and L5 neural foramen. There is contrast seen in the respective nerve sheaths. Some early transforaminal epidural extension is suggested. No visible vascular communication. FL/FL guidance in OR IMPRESSION: Fluoroscopy for pain management procedures.
--- NOTE | 2023-01-18 07:13 | MHC.SHP ---
Pre-Procedural Eval Section A Date of Service: 01/18/23 The patient is an INPATIENT: No Changes since office visit: Yes Patient answered all questions The History & Physical has been completed within 30 days and I have reviewed it.: No Section B Chief Complaint: Spondylosis without myelopathy or radiculopathy, l Details of Present Illness: as above Relevant Family History (Specify if Yes): No Relevant Social History: None Present Medications: None Medical History: No relevant PMH History of Previous Operations: No relevant previous surgery Allergies: Allergies Allergy/AdvReac Type Severity Reaction Status Date / Time Sulfa (Sulfonamide Allergy Intermediate blood Verified 01/10/23 13:05 Antibiotics) clots in [Sulfa (Sulfonamides)] legs, hives Review of Systems Sugical H&P ROS: Negative: Constitution, Cardiovascular, Respiratory, Neurological, Psychiatric, Hem-Onc, Allergic/Immunologic, Gastrointestinal, Genitourinary, Musculoskeletal, Integumentary, Endocrine and Eyes/Ears/Nose/Throat Exam Surgical H&P Exam: Normal: HEENT, Normal: Heart, Normal: Lungs, Normal: Extremities, Normal: Abdomen, Normal: Skin and Normal: Neurological Plan I have reviewed the history and physical and performed a pertinent physical examination on my patient. No changes have occurred unless specified. Time Spent With Patient Time: Total time managing care of this patient today ____ minutes.
[2023-01-18 07:25] VITALS: BP 99/42; PULSE 65; RESP 18; TEMP 36.2; O2SAT 96
[2023-01-18] MEDS: Lactated Ringers 1,000 ML 100 ML IVCONT (07:43)
[2023-01-18 07:44] LABS: Glucose, Whole Blood 207 mg/dL (60-115)
[2023-01-18 08:36] VITALS: BP 110/44; PULSE 55; RESP 18; TEMP 36.3; O2SAT 97
--- NOTE | 2023-01-18 08:38 | P.BOP_ITS ---
Brief Operative Note Date of Service: 01/18/23 Pre-op diagnosis: spondylosis lumbar spine Post-op diagnosis: same Procedure: Bilateral MBB therapeutic L3- L4- DRL5 Surgeon: Daniel Amaya MD Was an Outpatient Program Coordinator used for this Procedure?: No Estimated blood loss (mL): 2 Pathology: none sent Condition: stable Disposition: PACU
--- NOTE | 2023-01-18 08:39 | P.OP_ITS ---
Operative Note Operative Note Date of Service: 01/18/23 Narrative: Theraputic medial branch block L3- L4- L5 bilateral. Informed consent was explained to the patient. All questions were explained and? answered.? The patient was taken inside the operating room where she was p ositioned prone on the operating table.? [employer] monitors were applied.? Patient was sedated. Time-out was performed delineating correct site, side, the nature of the proc edure, patient's allergy, preoperative antibiotic if needed.? All operating room staff was participating in OR time-out procedure. The lower back was prepped with DuraPrep and draped with sterile towels.? Sterilely draped C-arm was brought over the operating field and sq picture of L3-L4 and L5 vertebrae were delineated on the screen.? Point of interest were delineated as connection of the superior articular processes of L3 L4 and L5 vertebra bilaterally with corresponding transverse processes as well as connection of the superior articular process of S1 bilateraaly with sacral alae bilaterally.. The projection of the point of interest to the skin were injected with the small amount of local anesthetic lidocaine 2% 1-1.5 cc.? After that? three 22 gauge 3-1/2 inch spinal needles was driven sequentially to the points of interest in tunnel vision fashion. After needles gently contacted the bone at the point of interests the needle was injected with small amount of the contrast.? The injection of the contrast did not demonstrate any intravascular or intrathecal spread of the contrast.? After that injection of the? bupivacaine 0.5%-1cc Mixed with Kenalog ( 80 mg total dose of Kenalog) was performed at each needle location.? ?Upon completion of the injections? needle was? removed and sterile Band-Aids were applied.? The? patient was awaken and taken outside of the operating room to room.
[2023-01-18 08:41] VITALS: BP 105/45; PULSE 52; RESP 18; O2SAT 99
[2023-01-18 09:04] VITALS: BP 112/57; PULSE 65; RESP 18; O2SAT 96
== END 2023-01-18 09:45 | disposition home or self-care (01) ==
PROVIDERS: PCP Family Medicine; Visit Provider Anesthesiology
PROC: (CPT 64493; principal; 2023-01-18 07:30)
DX: M47.816 Spondylosis without myelopathy or radiculopathy, lumbar region (principal); M51.36 Other intervertebral disc degeneration, lumbar region; M47.812 Spondylosis without myelopathy or radiculopathy, cervical region; M17.0 Bilateral primary osteoarthritis of knee; I10 Essential (primary) hypertension; E11.9 Type 2 diabetes mellitus without complications; Z86.73 Personal history of transient ischemic attack (TIA), and cerebral infarction without residual deficits; Z79.82 Long term (current) use of aspirin; Z79.899 Other long term (current) drug therapy; Z88.2 Allergy status to sulfonamides
CPT/HCPCS: 64493; 64494; 82947; J2795; J3301; Q9965

== ENCOUNTER 2023-01-28 11:55 | Emergency (ER) | payer OTHER, SELFPAY ==
--- NOTE | ~2023-01-28 | CT_ITS ---
EXAMINATION: CT HEAD WITHOUT CONTRAST CLINICAL INFORMATION: Syncope. COMPARISON: Head CT's dating between July 18, 2022 and December 23, 2006 TECHNIQUE: Contiguous axial imaging was performed from the skull base to vertex without intravenous administration of contrast. This CT examination was performed using dose optimization techniques as appropriate, variously including the following: *Automated exposure control *Adjustment of mA and/or kV according to patient size (this includes techniques or standardized protocols for targeted exams where dose is matched to indication/reason for exam; i.e. extremities or head) *Use of iterative reconstruction technique DLP: 680 mGy-cm FINDINGS: No intracranial hemorrhage, large infarction, or mass lesion is seen. No extra-axial collection is appreciated. The ventricles are normal in size and configuration without evidence of hydrocephalus. The visualized paranasal sinuses and mastoid air cells are clear. CT/CT head/brain wo IV con IMPRESSION: No acute intracranial finding.
[2023-01-28 12:03] VITALS: BP 90/50; BP 99/54; PULSE 67; PULSE 70; RESP 16; TEMP 36.6; O2SAT 97; BMI 32.7
--- NOTE | 2023-01-28 13:11 | ECG_ITS ---
Test Reason : Tachycardia Blood Pressure : / mmHG Vent. Rate : 065 BPM Atrial Rate : 065 BPM P-R Int : 156 ms QRS Dur : 136 ms QT Int : 396 ms P-R-T Axes : 065 090 052 degrees QTc Int : 411 ms Normal sinus rhythm Right bundle branch block T wave abnormality, consider lateral ischemia Abnormal ECG When compared with ECG of 08-AUG-2022 12:24, Premature supraventricular complexes are no longer Present Referred By: Mili Mcdonald Electronically Signed By:Domingo Ruiz
--- NOTE | 2023-01-28 13:23 | ED_ITS ---
HPI - Seizure General Chief Complaint: Syncope Stated Complaint: syncope Source: patient, EMS and translator and interpreter Mode of arrival: EMS History of Present Illness HPI Narrative: 62-year-old female who arrives via EMS with reports of syncopal episode, on review of her chart it appears that patient has had prior seizures in the past. EMS states that bystanders soft patient slowly fall to the ground deny any head strike. By standards did administer 4 mg of Narcan intranasally for concerns that patient's pupils were pinpoint . On initial arrival patient appears to be very sleepy, potentially postictal. She denies any alcohol or illicit drug use. She denies feeling unwell leading up to today. She states she is on Keppra. EMS states that her blood pressure was low on their arrival. Related Data Home Medications Medication Instructions Recorded Confirmed atorvastatin 40 mg tablet 40 mg PO BEDTIME 02/19/21 01/15/23 duloxetine 60 mg capsule,delayed 60 mg PO BID 02/19/21 01/15/23 release prazosin 5 mg capsule 5 mg PO BEDTIME 02/19/21 01/15/23 cetirizine 10 mg tablet 10 mg PO DAILY PRN Allergy Symptoms 01/10/22 01/15/23 pen needle, diabetic 32 gauge x #50 ea 01/10/22 01/07/23 (Pentips) aspirin 81 mg tablet,delayed 81 mg PO DAILY 07/06/22 01/15/23 release fluticasone propionate 50 2 spray intranasal QAM PRN Nasal 07/06/22 01/15/23 mcg/actuation nasal Congestion spray,suspension lisinopril 20 mg tablet 20 mg PO DAILY@1200 07/06/22 01/15/23 topiramate 25 mg tablet 25 mg PO BID 07/06/22 01/15/23 mirtazapine 15 mg tablet 7.5 mg PO BEDTIME 12/27/22 01/15/23 levetiracetam 1,000 mg tablet 500 mg PO BID 01/10/23 01/15/23 omeprazole 20 mg capsule,delayed 20 mg PO DAILY 01/10/23 01/15/23 release Previous Rx's Medication Instructions Recorded lancets 33 gauge (TRUEplus Lancets) #100 ea 05/07/22 acetaminophen 650 mg 650 mg PO Q12H PRN Pain #120 tabs 11/06/22 tablet,extended release (Arthritis Pain Relief (acetaminophen) ER) empagliflozin 25 mg tablet 25 mg PO DAILY 30 days #30 tabs 12/05/22 (Jardiance) blood sugar diagnostic (FreeStyle #100 ea 12/11/22 Lite Strips) gabapentin 600 mg tablet 1,200 mg PO TID for neuropathic 01/01/23 pain #120 tabs insulin detemir U-100 100 unit/mL 10 unit (0.1 mL) subcut DAILY 30 01/03/23 (3 mL) subcutaneous pen days #3 mL blood sugar diagnostic (OneTouch #100 ea 01/17/23 Verio test strips) blood-glucose meter (OneTouch #1 ea 01/17/23 Verio Flex Meter) lancets 33 gauge (OneTouch Delica #100 ea 01/17/23 Lancets) Allergies Allergy/AdvReac Type Severity Reaction Status Date / Time Sulfa (Sulfonamide Allergy Intermediate blood Verified 01/28/23 12:19 Antibiotics) clots in [Sulfa (Sulfonamides)] legs, hives Review of Systems Review of Systems: Pertinent positives and negatives as stated in HPI [facility] Past Medical History Source: nursing notes reviewed Medical History Anxiety disorder CVA (cerebral vascular accident) Depression Disc degeneration, lumbar Familial hidradenitis suppurativa type 1 HLD (hyperlipidemia) Hx of seizure disorder Hypertension Migraines Multinodular thyroid Open wound anterior abdominal wall Osteoarthritis of knees, bilateral Recto-perineal fistula Right axillary hidradenitis Sepsis 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 T2DM (type 2 diabetes mellitus) Vitamin D deficiency Surgical History H/O ventral hernia repair History of sleeve gastrectomy History of surgery History of ultrasound guided needle biopsy Hx of cholecystectomy Hx of colonoscopy Hx of colostomy Hx of skin graft Hx of tubal ligation Family History Family History Father Alzheimer disease, Onset Age: 60 Parkinson disease, Onset Age: 50 Mother Hypertension Gout Arthritis of knee CVD (cardiovascular disease) Family/Other Lupus Paternal Aunt Rheumatoid arthritis Social History Social History Household Members: None Housing: Apartment Are you a primary associate director career services to a significant other at home: No Do you presently have visiting nurse or other home services: Yes Alcohol intake: never Patient Tobacco Use Status: Current everyday Tobacco user Tobacco use type: Cigarette Cigarettes Per Day: 1 Smoked in Last 30 Days: Yes Second Hand Smoke Exposure: No Use of substances other than those prescribed or required for medical reasons: No Advance Directives: No Advance Directives Information Provided: Yes service: No Current occupational status: disabled Physical Exam Vital Signs: Vital Signs: Last Vital Signs Temp 97.9 F 01/28/23 12:03 Pulse 60 01/28/23 15:56 Resp 17 01/28/23 15:56 BP 120/60 01/28/23 15:56 Pulse Ox 96 01/28/23 15:56 O2 Del Method Room Air 01/28/23 15:56 BMI result Body Mass Index 32.7 VITAL SIGNS: Reviewed. GENERAL: Well developed, well nourished, in no acute distress. HEAD: Normocephalic/atraumatic EYES: PERRLA, EOMI EARS: Ext canals without abnormality NOSE: Nares patent bilateral OROPHARYNX: no oral lesions noted, posterior pharynx clear NECK: Supple, no adenopathy LUNGS: Normal breath sounds. No adventitious sounds or accessory muscle use. SpO2<96> CARDIOVASCULAR: Regular rate and rhythm without noted murmurs, no JVD or lower extremity edema. ABDOMEN: Soft, non-tender, non-distended with bowel sounds. MUSCULOSKELETAL: No tenderness, deformities, or effusions noted on gross inspection. EXTREMITIES: No cyanosis, clubbing or edema. SKIN: Inspection of the skin reveals no rashes NEUROLOGIC: Alert and oriented x 3. Strength and sensation to light touch were grossly intact x 4. Medications Administered Discontinued Medications Generic Name Dose Route Start Last Admin Trade Name Freq PRN Reason Stop Dose Admin Lactated Ringer's 1,000 mls @ 999 mls/hr 01/28/23 14:30 01/28/23 15:39 Lr IV 01/28/23 15:30 999 mls/hr .Q1H1M JELLY Administration Medical Decision Making Medical Decision Making MDM Narrative: 62-year-old female with history and clinical presentation suspicious for seizure versus vasovagal syncope. Will obtain labs, head CT. I reviewed all investigations my interpretation is that patient had a multi factorial vasovagal syncopal episode/seizure that occurred this morning. On re- evaluation patient states that she feels much better and confirms that she did not take her morning dose of Keppra and she also did not either drink this morning prior to leaving the house. Will evaluate for oral intake and to give patient her morning dose of Keppra and otherwise discharged her home with instructions to follow-up with her primary care provider as well as Neurology. Differential Diagnosis Please see the discussion above Lab Data Please see the discussion above 01/28/23 13:57 01/28/23 13:57 Labs: Lab Results 01/28/23 01/28/23 01/28/23 Range/Units 13:57 13:57 13:57 WBC 9.6 (4.8-10.8) X10*3/uL RBC 4.19 L (4.20-5.50) X10*6/uL Hgb 11.1 L (12.0-16.0) g/dl Hct 34.8 L (37.0-47.0) % MCV 83.1 (80.0-98.0) fL MCH 26.5 L (27.0-33.0) pg MCHC 31.9 (31.0-35.0) g/dl RDW 17.3 H (11.0-16.0) % Plt Count 287 (160-400) X10*3/uL MPV 10.6 (9.4-12.3) fL Immature Gran % (Auto) 0.5 H (0.0-0.4) % Neut % (Auto) 68.7 (45-73) % Lymph % (Auto) 19.3 L (20-40) % Perkins % (Auto) 7.2 (2-11) % Eos % (Auto) 3.3 (0-4) % Baso % (Auto) 1.0 (0-2) % Lymph # (Auto) 1.9 (1.2-4.9) X10*3/uL Perkins # (Auto) 0.7 (0.1-1.2) X10*3/uL Eos # (Auto) 0.3 (0.0-0.4) X10*3/uL Baso # (Auto) 0.1 (0.0-0.2) X10*3/uL Abs Immat Gran (auto) 0.05 H (0.00-0.03) X10*3/uL Absolute Neuts (auto) 6.6 (2.0-8.3) x10*3/uL Absolute Nucleated RBC 0.000 (0.0-0.012) X10*3/uL Nucleated RBC % (auto) 0.0 (0.0-0.2) /100WBC PT 10.2 (10.0-13.1) SEC INR 0.9 (0.9-1.1) Sodium 137 (135-145) mmol/L Potassium 4.3 (3.3-5.1) mmol/L Chloride 114 H (96-108) mmol/L Carbon Dioxide 16 L (22-29) mmol/L Anion Gap 11 L (12-20) BUN 40 H (9-16) mg/dL Creatinine 1.12 (0.5-1.4) mg/dL Estim Creat Clear Calc 50.1 Estimated GFR 49 Random Glucose 252 H (60-115) mg/dL Calcium 8.7 (8.4-10.2) mg/dL Magnesium 2.2 (1.6-2.6) mg/dL Total Bilirubin 0.2 (0.0-1.0) mg/dL AST 11 (5-31) U/L ALT 11 (0-31) U/L Alkaline Phosphatase 115 (39-117) U/L Troponin I High Sens (<3.5-17.0) ng/L Total Protein 5.7 L (6.5-8.0) g/dL Albumin 3.3 L (3.5-5.0) g/dL 01/28/23 Range/Units 13:57 WBC (4.8-10.8) X10*3/uL RBC (4.20-5.50) X10*6/uL Hgb (12.0-16.0) g/dl Hct (37.0-47.0) % MCV (80.0-98.0) fL MCH (27.0-33.0) pg MCHC (31.0-35.0) g/dl RDW (11.0-16.0) % Plt Count (160-400) X10*3/uL MPV (9.4-12.3) fL Immature Gran % (Auto) (0.0-0.4) % Neut % (Auto) (45-73) % Lymph % (Auto) (20-40) % Perkins % (Auto) (2-11) % Eos % (Auto) (0-4) % Baso % (Auto) (0-2) % Lymph # (Auto) (1.2-4.9) X10*3/uL Perkins # (Auto) (0.1-1.2) X10*3/uL Eos # (Auto) (0.0-0.4) X10*3/uL Baso # (Auto) (0.0-0.2) X10*3/uL Abs Immat Gran (auto) (0.00-0.03) X10*3/uL Absolute Neuts (auto) (2.0-8.3) x10*3/uL Absolute Nucleated RBC (0.0-0.012) X10*3/uL Nucleated RBC % (auto) (0.0-0.2) /100WBC PT (10.0-13.1) SEC INR (0.9-1.1) Sodium (135-145) mmol/L Potassium (3.3-5.1) mmol/L Chloride (96-108) mmol/L Carbon Dioxide (22-29) mmol/L Anion Gap (12-20) BUN (9-16) mg/dL Creatinine (0.5-1.4) mg/dL Estim Creat Clear Calc Estimated GFR Random Glucose (60-115) mg/dL Calcium (8.4-10.2) mg/dL Magnesium (1.6-2.6) mg/dL Total Bilirubin (0.0-1.0) mg/dL AST (5-31) U/L ALT (0-31) U/L Alkaline Phosphatase (39-117) U/L Troponin I High Sens < 2.7 (<3.5-17.0) ng/L Total Protein (6.5-8.0) g/dL Albumin (3.5-5.0) g/dL Independent Interpretation I performed an independent interpretation of an: EKG Interpretation: Normal sinus rhythm, RBBB at baseline, HR-65, no STEMI, T-wave abnormality present at baseline (2021), IL/QTC within normal limits. Radiology Impression Radiologist Impression: My interpretation is in agreement with radiology's impression External Record Review External record reviewed: Outpatient record and Prior outpatient labs Discharge Plan Discharge Clinical Impression: Seizure, Syncope, vasovagal, Hyperglycemia due to diabetes mellitus Patient Disposition: Still a Patient Instructions: Syncope (ED), Nonepileptic Seizures (ED), Diabetic Hyperglycemia (ED) Additional Instructions: 1. Reanudar todos los medicamentos caseros seg?n lo prescrito. 2. Dea un seguimiento con engel proveedor de atenci?n primaria y con Neurolog?a. Regrese a la abbe de emergencias si los s?ntomas empeoran. 1. Resume all home medications as prescribed. 2. Please follow-up with your primary care provider as well as Neurology. Return to the ER for any worsening symptoms. Prescriptions: No Action (DME) lancets [TRUEplus Lancets] 33 gauge misc See Rx Instructions .Route Qty: 100 11RF Rx Instructions: 4x daily acetaminophen [Arthritis Pain Relief (acetam)] 650 mg tablet extended release 650 mg PO Q12H PRN (Reason: Pain) Qty: 120 2RF Jardiance 25 mg tablet 25 mg PO DAILY 30 Days Qty: 30 4RF (DME) FreeStyle Lite Strips Strip See Rx Instructions .ROUTE .MEDSUPPLY Qty: 100 11RF Rx Instructions: 4x daily gabapentin 600 mg tablet 1,200 mg PO TID Qty: 120 5RF insulin detemir U-100 100 unit/mL (3 mL) insulin pen 10 unit SUBCUT DAILY 30 Days Qty: 3 11RF (DME) blood-glucose meter [OneTouch Verio Flex meter] Misc See Rx Instructions .Route Qty: 1 0RF Rx Instructions: As directed (DME) OneTouch Verio test strips Strip See Rx Instructions .Route Qty: 100 11RF Rx Instructions: 4x daily (DME) lancets [OneTouch Delica Lancets] 33 gauge misc See Rx Instructions .Route Qty: 100 11RF Rx Instructions: 4x daily prazosin 5 mg Capsule 5 mg PO BEDTIME duloxetine 60 mg Capsule,Delayed Release(Dr/Ec) 60 mg PO BID atorvastatin 40 mg Tablet 40 mg PO BEDTIME cetirizine 10 mg tablet 10 mg PO DAILY PRN (Reason: Allergy Symptoms) (DME) pen needle, diabetic [Pentips] 32 gauge x needle See Rx Instructions .ROUTE .MEDSUPPLY Qty: 50 Rx Instructions: As directed mirtazapine 15 mg tablet 7.5 mg PO BEDTIME lisinopril 20 mg tablet 20 mg PO DAILY@1200 aspirin 81 mg tablet,delayed release (DR/EC) 81 mg PO DAILY levetiracetam 1,000 mg tablet 500 mg PO BID omeprazole 20 mg capsule,delayed release(DR/EC) 20 mg PO DAILY topiramate 25 mg tablet 25 mg PO BID fluticasone propionate 50 mcg/actuation spray,suspension 2 spray intranasal QAM PRN (Reason: Nasal Congestion) Referrals: Ana Xavier MD [Physician] - Print Language: Khmer
[2023-01-28 13:38] VITALS: O2SAT 97
[2023-01-28 13:39] VITALS: BP 121/61; PULSE 59; RESP 13; O2SAT 96
[2023-01-28 14:01] LABS: MANUAL DIFF FLAG NO
--- NOTE | 2023-01-28 14:01 | PC.NURSE ---
pt appears drowsy but easily arousable to voice command, skin appropriate for ethnicity, respirations even and unlabored, ls clear, pupils about 3mm and reactive speaking in full clear sentences , chika on the monitor, pt denies pain at this time. bp improving pt is a hard stick so bloods are delayed
[2023-01-28 14:06] LABS: Basophils Absolute Auto 0.1 X10*3/uL (0.0-0.2); Eosinophils Absolute Auto 0.3 X10*3/uL (0.0-0.4); Eosinophils Percent Auto 3.3 % (0-4); Hematocrit 34.8 % (37.0-47.0); Hemoglobin 11.1 g/dl (12.0-16.0); Imm Gran Abs Auto 0.05 X10*3/uL (0.00-0.03); Imm Gran Pct Auto 0.5 % (0.0-0.4); Lymphocytes Absolute Auto 1.9 X10*3/uL (1.2-4.9); Lymphocytes Percent Auto 19.3 % (20-40); Mean Corpuscular HGB Conc 31.9 g/dl (31.0-35.0); Mean Corpuscular Hemoglobin 26.5 pg (27.0-33.0); Mean Corpuscular Volume 83.1 fL (80.0-98.0); Mean Platelet Volume 10.6 fL (9.4-12.3); Monocytes Absolute Auto 0.7 X10*3/uL (0.1-1.2); Monocytes Percent Auto 7.2 % (2-11); Neutrophils Absolute Auto 6.6 x10*3/uL (2.0-8.3); Neutrophils Percent Auto 68.7 % (45-73); Platelet Count 287 X10*3/uL (160-400); Red Blood Count 4.19 X10*6/uL (4.20-5.50); Red Cell Distribution Width 17.3 % (11.0-16.0); White Blood Count 9.6 X10*3/uL (4.8-10.8)
[2023-01-28 14:13] LABS: INTERNATIONAL NORM RATIO 0.9 (0.9-1.1); Prothrombin Time 10.2 SEC (10.0-13.1)
[2023-01-28 14:25] LABS: Alanine Aminotransferase 11 U/L (0-31); Albumin Level 3.3 g/dL (3.5-5.0); Alkaline Phosphatase 115 U/L (39-117); Anion Gap 11 (12-20); Aspartate Amino Transferase 11 U/L (5-31); Bilirubin Total 0.2 mg/dL (0.0-1.0); Blood Urea Nitrogen 40 mg/dL (9-16); Calcium 8.7 mg/dL (8.4-10.2); Carbon Dioxide 16 mmol/L (22-29); Chloride 114 mmol/L (96-108); Creatinine Clr Calc Pharmacy 50.1; Estimated Glomerular Filt Rate 49; Glucose Random 252 mg/dL (60-115); Magnesium 2.2 mg/dL (1.6-2.6); Potassium 4.3 mmol/L (3.3-5.1); Sodium 137 mmol/L (135-145); Total Protein 5.7 g/dL (6.5-8.0)
[2023-01-28 14:33] LABS: Troponin-I High Sensitivity < 2.7 ng/L (<3.5-17.0)
[2023-01-28] MEDS: Lactated Ringers 1,000 ML 999 ML IV (15:39)
[2023-01-28 15:56] VITALS: BP 120/60; PULSE 60; RESP 17; O2SAT 96
[2023-01-28] MEDS: levETIRAcetam 500 MG TABLET PO (16:28)
[2023-01-28 16:29] VITALS: BP 137/66; PULSE 66; RESP 18
[2023-02-02 06:08] LABS: Levetiracetam Keppra 28.6 mcg/mL (6.0-46.0)
== END 2023-01-28 16:58 | disposition home or self-care (01) ==
PROVIDERS: Emergency Provider Student in an Organized Health Care Education/Training Program
DX: R55 Syncope and collapse (principal); R56.9 Unspecified convulsions; R00.0 Tachycardia, unspecified; E11.65 Type 2 diabetes mellitus with hyperglycemia; F17.210 Nicotine dependence, cigarettes, uncomplicated; Z71.6 Tobacco abuse counseling; Z79.4 Long term (current) use of insulin; Z79.899 Other long term (current) drug therapy
CPT/HCPCS: 36415; 70450; 80053; 80177; 83735; 84484; 85025; 85610; 93005; 96360; 99284; 99285

== ENCOUNTER 2023-02-05 10:53 | Outpatient (REF) | payer OTHER, SELFPAY | END 2023-02-05 10:54 | disposition home or self-care (01) | LOC: HO.LNP 10:53 | PROVIDERS: PCP Family Medicine; Visit Provider Obstetrics & Gynecology | DX: N90.4 Leukoplakia of vulva (principal) | CPT/HCPCS: 56605; 88305; 88312 ==

== ENCOUNTER 2023-02-08 14:37 | Emergency (ER) | payer OTHER, SELFPAY ==
--- NOTE | ~2023-02-08 | CT_ITS ---
EXAMINATION: CT ABDOMEN AND PELVIS WITH CONTRAST CLINICAL INFORMATION: Left lower quadrant pain COMPARISON: CT abdomen pelvis 04/05/2021 TECHNIQUE: Multidetector volumetric images were obtained from the superior aspect of the liver through the pubic symphysis following administration 85 mL of Omnipaque 350 intravenous contrast. Sagittal and coronal reformatted images were obtained on the technologist's workstation. Oral contrast: No This CT examination was performed using dose optimization techniques as appropriate, variously including the following: *Automated exposure control *Adjustment of mA and/or kV according to patient size (this includes techniques or standardized protocols for targeted exams where dose is matched to indication/reason for exam; i.e. extremities or head) *Use of iterative reconstruction technique DLP: 530 mGy-cm FINDINGS: LUNG BASES: The visualized lung bases are unremarkable. LIVER, GALLBLADDER, AND BILIARY TREE: The liver is enlarged measuring 23 cm in cephalocaudad dimension. Attenuation and shape unremarkable after IV contrast. There is mild central biliary ductal dilatation in this patient status post cholecystectomy. The common bile duct appears unremarkable without filling defects. No focal hepatic lesion. PANCREAS: Unremarkable. SPLEEN: Spleen is mildly enlarged at 13.2 cm. ADRENAL GLANDS: Unremarkable. KIDNEYS AND URETERS: The kidneys are normal in size, shape, and attenuation. No hydronephrosis, hydroureter, or calculi seen. No perinephric stranding. BLADDER: Unremarkable. GASTROINTESTINAL TRACT: Status post gastric sleeve The small and large bowel are unremarkable. The appendix is unremarkable. ABDOMINAL WALL: There is been prior anterior abdominal wall repair of a large mesh. There is a new spigelian-type left lateral hernia present containing unobstructed small bowel. There is a new midline anterior abdominal wall fluid collection measuring 6.2 x 1.8 x 6.8 cm. Surrounding inflammatory change is seen in the abdominal wall around this. At the time of the prior study, a seroma surrounded by mesh was present which has resolved. LYMPH NODES: No retroperitoneal lymphadenopathy. VASCULAR: Unremarkable. PELVIC VISCERA: The uterus and adnexa are unremarkable. OSSEOUS STRUCTURES: Unremarkable. CT/CT abdomen pelvis w IV con IMPRESSION: 1. New anterior abdominal wall fluid collection with surrounding inflammatory change. 2. New left-sided Spigelian hernia containing unobstructed small bowel. 3. Hepatosplenomegaly. Fleischner guidelines were followed.
[2023-02-08 14:43] VITALS: BP 130/78; PULSE 100; O2SAT 97
[2023-02-08 14:52] VITALS: BP 140/64; PULSE 96; RESP 19; TEMP 37.1; O2SAT 98; BMI 33.1
[2023-02-08 16:09] LABS: MANUAL DIFF FLAG NO
[2023-02-08 16:12] LABS: Appearance Urine Clear; Color Urine Yellow; Glucose Urine UA >=1000 mg/dL (Negative); Leukocyte Esterase Urine Small (1+) (Negative); Nitrite Urine Negative (Negative); PH 7.5 (5.0-9.0); Specific Gravity - Urine 1.015 (1.005-1.025); UMIC TRIGGER UACC YES; Urine Blood Negative (Negative); Urine Ketones Negative (Negative); Urine Protein Negative (Neg-Trace)
[2023-02-08 16:14] LABS: Basophils Absolute Auto 0.1 X10*3/uL (0.0-0.2); Basophils Percent Auto 0.7 % (0-2); Eosinophils Absolute Auto 0.3 X10*3/uL (0.0-0.4); Eosinophils Percent Auto 3.4 % (0-4); Hematocrit 35.7 % (37.0-47.0); Hemoglobin 11.5 g/dl (12.0-16.0); Imm Gran Abs Auto 0.04 X10*3/uL (0.00-0.03); Imm Gran Pct Auto 0.4 % (0.0-0.4); Lymphocytes Absolute Auto 1.6 X10*3/uL (1.2-4.9); Lymphocytes Percent Auto 16.3 % (20-40); Mean Corpuscular HGB Conc 32.2 g/dl (31.0-35.0); Mean Corpuscular Hemoglobin 26.6 pg (27.0-33.0); Mean Corpuscular Volume 82.6 fL (80.0-98.0); Mean Platelet Volume 10.5 fL (9.4-12.3); Monocytes Absolute Auto 0.6 X10*3/uL (0.1-1.2); Monocytes Percent Auto 5.7 % (2-11); Neutrophils Absolute Auto 7.1 x10*3/uL (2.0-8.3); Neutrophils Percent Auto 73.5 % (45-73); Platelet Count 261 X10*3/uL (160-400); Red Blood Count 4.32 X10*6/uL (4.20-5.50); Red Cell Distribution Width 17.9 % (11.0-16.0); White Blood Count 9.7 X10*3/uL (4.8-10.8)
[2023-02-08 16:16] LABS: Bacteria Urine 4+ (None Seen); Hyaline Casts Urine 0-2 /LPF (0-2); RBC Urine 0-2 /HPF (0-2); Squamous Epithelial Cell Urine 0-2 /HPF (0-2); UACC Culture Trigger YES
[2023-02-08] MEDS: Morphine Sulfate 4 MG/ML CARTRIDGE IVPUSH ×2 (16:27→20:44)
--- NOTE | 2023-02-08 16:27 | ED_ITS ---
HPI - Abdominal Pain General Chief Complaint: Abdominal Pain Stated Complaint: Abd pain per EMS Time Seen by Provider: 02/08/23 16:08 Source: patient Mode of arrival: ambulatory Limitations: no limitations History of Present Illness HPI narrative: This is a 62-year-old female history of vulvar leukoplakia, hyper lipidemia, fibromyalgia, hypertension, diabetes presenting to the emergency department for evaluation of sudden-onset severe left lower abdominal pain and bulge to the lower abdomen. According to patient patient's daughter patient has had over 15 abdominal surgeries most of which have been down at [facility] and [place] Patient reports she has had multiple repaired hernias. Patient reports pain is constant 10/10, severe, worse if she presses on it. Reports it does not go back in when she presses on it. Patient denies fevers, chills, nausea, vomiting headache, vision changes, dizziness, weakness. Related Data Home Medications Medication Instructions Recorded Confirmed atorvastatin 40 mg tablet 40 mg PO BEDTIME 02/19/21 01/15/23 duloxetine 60 mg capsule,delayed 60 mg PO BID 02/19/21 01/15/23 release prazosin 5 mg capsule 5 mg PO BEDTIME 02/19/21 01/15/23 cetirizine 10 mg tablet 10 mg PO DAILY PRN Allergy Symptoms 01/10/22 01/15/23 pen needle, diabetic 32 gauge x #50 ea 01/10/22 01/07/23 (Pentips) aspirin 81 mg tablet,delayed 81 mg PO DAILY 07/06/22 01/15/23 release fluticasone propionate 50 2 spray intranasal QAM PRN Nasal 07/06/22 01/15/23 mcg/actuation nasal Congestion spray,suspension lisinopril 20 mg tablet 20 mg PO DAILY@1200 07/06/22 01/15/23 topiramate 25 mg tablet 25 mg PO BID 07/06/22 01/15/23 mirtazapine 15 mg tablet 7.5 mg PO BEDTIME 12/27/22 01/15/23 levetiracetam 1,000 mg tablet 500 mg PO BID 01/10/23 01/15/23 omeprazole 20 mg capsule,delayed 20 mg PO DAILY 01/10/23 01/15/23 release Previous Rx's Medication Instructions Recorded lancets 33 gauge (TRUEplus Lancets) #100 ea 05/07/22 acetaminophen 650 mg 650 mg PO Q12H PRN Pain #120 tabs 11/06/22 tablet,extended release (Arthritis Pain Relief (acetaminophen) ER) empagliflozin 25 mg tablet 25 mg PO DAILY 30 days #30 tabs 12/05/22 (Jardiance) blood sugar diagnostic (FreeStyle #100 ea 12/11/22 Lite Strips) gabapentin 600 mg tablet 1,200 mg PO TID for neuropathic 01/01/23 pain #120 tabs insulin detemir U-100 100 unit/mL 10 unit (0.1 mL) subcut DAILY 30 01/03/23 (3 mL) subcutaneous pen days #3 mL blood sugar diagnostic (OneTouch #100 ea 01/17/23 Verio test strips) blood-glucose meter (OneTouch #1 ea 01/17/23 Verio Flex Meter) lancets 33 gauge (OneTouch Delica #100 ea 01/17/23 Lancets) Allergies Allergy/AdvReac Type Severity Reaction Status Date / Time Sulfa (Sulfonamide Allergy Intermediate blood Verified 02/05/23 11:06 Antibiotics) clots in [Sulfa (Sulfonamides)] legs, hives Review of Systems Review of Systems Constitutional : No Weight loss, No Fever, No Chills, No Fatigue, No Malaise ENT/Mouth : No sore throat, No Rhinorrhea Eyes: No Eye Pain, No Swelling, No Redness Cardiovascular : No Chest Pain, No SOB, No Dyspnea on Exertion, No Orthopnea, No Edema, No Palpitations Respiratory : No Cough, No Sputum, No Wheezing Gastrointestinal : No Nausea, No Vomiting, No Diarrhea, No Constipation, + abdominal Pain, No Hematochezia, No Melena Genitourinary : No Dysuria, No Urinary Frequency, No Hematuria, Musculoskeletal : No joint pain, No Myalgias, No Joint Swelling Skin : No Skin Lesions, No rash Neuro : No Weakness, No Numbness, No Dizziness, No Headache Psych : No Anxiety/Panic, No Depression All other systems reviewed and are negative Yes all other systems are reviewed and are negative [facility] Past Medical History Attestation statement: The following information was validated with the patient. 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 T2DM (type 2 diabetes mellitus) Vitamin D deficiency Surgical History H/O ventral hernia repair History of sleeve gastrectomy History of surgery History of ultrasound guided needle biopsy Hx of cholecystectomy Hx of colonoscopy Hx of colostomy Hx of skin graft Hx of tubal ligation Family History Family History Father Alzheimer disease, Onset Age: 60 Parkinson disease, Onset Age: 50 Mother Hypertension Gout Arthritis of knee CVD (cardiovascular disease) Family/Other Lupus Paternal Aunt Rheumatoid arthritis Social History Social History Household Members: None Housing: Apartment Are you a primary wound care nurse to a significant other at home: No Do you presently have visiting nurse or other home services: Yes Alcohol intake: never Patient Tobacco Use Status: Current everyday Tobacco user Tobacco use type: Cigarette Cigarettes Per Day: 1 Smoked in Last 30 Days: Yes Second Hand Smoke Exposure: No Use of substances other than those prescribed or required for medical reasons: No Advance Directives: No Advance Directives Information Provided: No Patient : No service: No Current occupational status: disabled Physical Exam ED Vital Signs: Vital Signs - 24 hr 02/08/23 14:52 02/08/23 18:07 Temperature 98.7 F Pulse Rate 96 88 Respiratory Rate 19 14 Blood Pressure 140/64 H 114/54 L Pulse Oximetry 98 95 Oxygen Delivery Method Room Air Room Air BMI result Body Mass Index 33.1 Vital signs stable Appearance: Alert.? Oriented X3.? No acute distress.? Head: Normocephalic, atraumatic, no step-offs or deformities Eyes: Pupils equal, round and reactive to light.? ENT: Pharynx normal.? Neck: Normal inspection.? Neck supple.? CVS: Normal heart rate and rhythm.? Pulses normal.? Respiratory: No respiratory distress.? Breath sounds normal.? Abdomen: Soft and significant tenderness to palpation to left lower quadrant, there is a hernia appreciated at they 3 o'clock position lateral to the umbilicus. Difficult to reduce, patient with significant tenderness. Overlying erythema and warmth..? Skin: Skin warm and dry.? Normal skin color.? Normal skin turgor.? Extremities: No lower extremity edema.? No calf ttp. 5/5 strength to bilateral upper and lower extremities Back: No midline tenderness, no C-spine tenderness, full range of motion, no CVA tenderness bilaterally Neuro: Oriented X 3.? No motor deficit.? No sensory deficit. CN 2-12 intact Course Reevaluation(s) Reevaluation #1: CBC appears to be around patient's baseline. Chemistry no acute abnormalities requiring intervention. Lipase within normal limits. CT results were discussed with our surgeon here Dr. Dallas who recommends transferring patient to [facility] due to the likelihood of a complex abdominal surgery and patient has had most of her procedures at [facility]. Will reach out to them at this time. Time: 20:15 Reevaluation #2: Patient accepted at [facility] will go to the emergency department to the service of Dr. Hunt Time: 20:45 Medical Decision Making Medical Decision Making [facility] Narrative: 1630 62-year-old female presents with severe left lower quadrant tenderness an abdominal bulge x1 day. Came on suddenly Physical exam significant for significant tenderness to palpation to left lower quadrant, there is a hernia appreciated at they 3 o'clock position lateral to the umbilicus. Difficult to reduce, patient with significant tenderness. Overlying erythema and warmth..? Concerns for incarcerated hernia vs seroma . With overlying cellulitis. Unlikely diverticulitis, pancreatitis, cholecystitis or appendicitis. Unlikely obstruction. Will rule out electrolyte abnormalities and UTI. I do not suspect ovarian torsion Plan labs, urine, imaging. Will give pain meds. Differential Diagnosis Differential Diagnoses: The differential diagnosis associated with the presentation includes Concerns for incarcerated hernia vs seroma. With overlying cellulitis. Unlikely diverticulitis, pancreatitis, cholecystitis or appendicitis. Unlikely obstruction. Will rule out electrolyte abnormalities and UTI. I do not suspect ovarian torsion Admission/Observation Consideration of admission/observation: Escalation of care including admission/observation considered Consult Healthcare Provider Management of the patient was discussed with: Icing Mixer (surgery ) Lab Data [facility] Lab Attestation statement: I reviewed the patient's lab results. 02/08/23 16:03 02/08/23 16:03 Labs: Lab Results 02/08/23 02/08/23 02/08/23 Range/Units 16:03 16:03 17:28 WBC 9.7 (4.8-10.8) X10*3/uL RBC 4.32 (4.20-5.50) X10*6/uL Hgb 11.5 L (12.0-16.0) g/dl Hct 35.7 L (37.0-47.0) % MCV 82.6 (80.0-98.0) fL MCH 26.6 L (27.0-33.0) pg MCHC 32.2 (31.0-35.0) g/dl RDW 17.9 H (11.0-16.0) % Plt Count 261 (160-400) X10*3/uL MPV 10.5 (9.4-12.3) fL Immature Gran % (Auto) 0.4 (0.0-0.4) % Neut % (Auto) 73.5 H (45-73) % Lymph % (Auto) 16.3 L (20-40) % Collin % (Auto) 5.7 (2-11) % Eos % (Auto) 3.4 (0-4) % Baso % (Auto) 0.7 (0-2) % Lymph # (Auto) 1.6 (1.2-4.9) X10*3/uL Collin # (Auto) 0.6 (0.1-1.2) X10*3/uL Eos # (Auto) 0.3 (0.0-0.4) X10*3/uL Baso # (Auto) 0.1 (0.0-0.2) X10*3/uL Abs Immat Gran (auto) 0.04 H (0.00-0.03) X10*3/uL Absolute Neuts (auto) 7.1 (2.0-8.3) x10*3/uL Absolute Nucleated RBC 0.000 (0.0-0.012) X10*3/uL Nucleated RBC % (auto) 0.0 (0.0-0.2) /100WBC Sodium 141 (135-145) mmol/L Potassium 3.9 (3.3-5.1) mmol/L Chloride 114 H (96-108) mmol/L Carbon Dioxide 21 L (22-29) mmol/L Anion Gap 10 L (12-20) BUN 17 H (9-16) mg/dL Creatinine 0.73 (0.5-1.4) mg/dL Estim Creat Clear Calc 77.2 Estimated GFR > 60 Random Glucose 158 H (60-115) mg/dL Lactic Acid (0.5-2.0) mmol/L Calcium 9.0 (8.4-10.2) mg/dL Magnesium 2.4 (1.6-2.6) mg/dL Total Bilirubin 0.2 (0.0-1.0) mg/dL Direct Bilirubin < 0.2 (0.0-0.5) mg/dL AST 11 (5-31) U/L ALT 10 (0-31) U/L Alkaline Phosphatase 135 H (39-117) U/L Total Protein 6.2 L (6.5-8.0) g/dL Albumin 3.4 L (3.5-5.0) g/dL Lipase 21 (8-78) U/L Urine Color Yellow Urine Appearance Clear Urine pH 7.5 (5.0-9.0) Ur Specific [place] 1.015 (1.005-1.025) Urine Protein Negative (Neg-Trace) mg/dL Urine Glucose (UA) >=1000 H (Negative) mg/dL Urine Ketones Negative (Negative) mg/dL Urine Blood Negative (Negative) Urine Nitrite Negative (Negative) Ur Leukocyte Esterase Small (1+) H (Negative) Urine RBC 0-2 (0-2) /HPF Urine WBC 11-20 H (0-5) /HPF Ur Squamous Epith Cells 0-2 (0-2) /HPF Urine Bacteria 4+ (None Seen) Hyaline Casts 0-2 (0-2) /LPF 02/08/23 Range/Units 17:28 WBC (4.8-10.8) X10*3/uL RBC (4.20-5.50) X10*6/uL Hgb (12.0-16.0) g/dl Hct (37.0-47.0) % MCV (80.0-98.0) fL MCH (27.0-33.0) pg MCHC (31.0-35.0) g/dl RDW (11.0-16.0) % Plt Count (160-400) X10*3/uL MPV (9.4-12.3) fL Immature Gran % (Auto) (0.0-0.4) % Neut % (Auto) (45-73) % Lymph % (Auto) (20-40) % Collin % (Auto) (2-11) % Eos % (Auto) (0-4) % Baso % (Auto) (0-2) % Lymph # (Auto) (1.2-4.9) X10*3/uL Collin # (Auto) (0.1-1.2) X10*3/uL Eos # (Auto) (0.0-0.4) X10*3/uL Baso # (Auto) (0.0-0.2) X10*3/uL Abs Immat Gran (auto) (0.00-0.03) X10*3/uL Absolute Neuts (auto) (2.0-8.3) x10*3/uL Absolute Nucleated RBC (0.0-0.012) X10*3/uL Nucleated RBC % (auto) (0.0-0.2) /100WBC Sodium (135-145) mmol/L Potassium (3.3-5.1) mmol/L Chloride (96-108) mmol/L Carbon Dioxide (22-29) mmol/L Anion Gap (12-20) BUN (9-16) mg/dL Creatinine (0.5-1.4) mg/dL Estim Creat Clear Calc Estimated GFR Random Glucose (60-115) mg/dL Lactic Acid 0.8 (0.5-2.0) mmol/L Calcium (8.4-10.2) mg/dL Magnesium (1.6-2.6) mg/dL Total Bilirubin (0.0-1.0) mg/dL Direct Bilirubin (0.0-0.5) mg/dL AST (5-31) U/L ALT (0-31) U/L Alkaline Phosphatase (39-117) U/L Total Protein (6.5-8.0) g/dL Albumin (3.5-5.0) g/dL Lipase (8-78) U/L Urine Color Urine Appearance Urine pH (5.0-9.0) Ur Specific [place] (1.005-1.025) Urine Protein (Neg-Trace) mg/dL Urine Glucose (UA) (Negative) mg/dL Urine Ketones (Negative) mg/dL Urine Blood (Negative) Urine Nitrite (Negative) Ur Leukocyte Esterase (Negative) Urine RBC (0-2) /HPF Urine WBC (0-5) /HPF Ur Squamous Epith Cells (0-2) /HPF Urine Bacteria (None Seen) Hyaline Casts (0-2) /LPF Independent Interpretation I performed an independent interpretation of an: CT Scan (CT/CT abdomen pelvis w IV con IMPRESSION: 1. New anterior abdominal wall fluid collection with surrounding inflammatory change. 2. New left-sided Spigelian hernia containing unobstructed small bowel. 3. Hepatosplenomegaly. Fleischner guidelines were followed.) Radiology Impression Discussion of test interpretation with radiology: I have reviewed the radiologist's reading. Core Measures AMI core measures followed: Yes Measure exclusions: not indicated Medications Administered Discontinued Medications Generic Name Dose Route Start Last Admin Trade Name Freq PRN Reason Stop Dose Admin Piperacillin Sod/Tazobactam 50 mls @ 100 mls/hr 02/08/23 19:26 02/08/23 20:36 Sod 3.375 gm/ Sodium Chloride IV 02/08/23 19:55 Infused ONCE ONE Infusion Morphine Sulfate 4 mg 02/08/23 16:22 02/08/23 16:27 Morphine Sulfate 4 Mg/Ml Cartridge IVPUSH 02/08/23 16:23 4 mg ONCE ONE Administration Protocol Critical Care Time Critical Care Time Critical Care Time: No Discharge Plan Discharge Clinical Impression: Abdominal wall seroma, Spigelian hernia Patient Disposition: [facility] Transfer Details: [facility] will go to the emergency department to the service of Dr. Hunt Prescriptions: No Action (DME) lancets [TRUEplus Lancets] 33 gauge misc See Rx Instructions .Route Qty: 100 11RF Rx Instructions: 4x daily acetaminophen [Arthritis Pain Relief (acetam)] 650 mg tablet extended release 650 mg PO Q12H PRN (Reason: Pain) Qty: 120 2RF Jardiance 25 mg tablet 25 mg PO DAILY 30 Days Qty: 30 4RF (DME) FreeStyle Lite Strips Strip See Rx Instructions .ROUTE .MEDSUPPLY Qty: 100 11RF Rx Instructions: 4x daily gabapentin 600 mg tablet 1,200 mg PO TID Qty: 120 5RF insulin detemir U-100 100 unit/mL (3 mL) insulin pen 10 unit SUBCUT DAILY 30 Days Qty: 3 11RF (DME) blood-glucose meter [OneTouch Verio Flex meter] Misc See Rx Instructions .Route Qty: 1 0RF Rx Instructions: As directed (DME) OneTouch Verio test strips Strip See Rx Instructions .Route Qty: 100 11RF Rx Instructions: 4x daily (DME) lancets [OneTouch Delica Lancets] 33 gauge misc See Rx Instructions .Route Qty: 100 11RF Rx Instructions: 4x daily prazosin 5 mg Capsule 5 mg PO BEDTIME duloxetine 60 mg Capsule,Delayed Release(Dr/Ec) 60 mg PO BID atorvastatin 40 mg Tablet 40 mg PO BEDTIME cetirizine 10 mg tablet 10 mg PO DAILY PRN (Reason: Allergy Symptoms) (DME) pen needle, diabetic [Pentips] 32 gauge x 5/32 needle See Rx Instructions .ROUTE .MEDSUPPLY Qty: 50 Rx Instructions: As directed mirtazapine 15 mg tablet 7.5 mg PO BEDTIME lisinopril 20 mg tablet 20 mg PO DAILY@1200 aspirin 81 mg tablet,delayed release (DR/EC) 81 mg PO DAILY levetiracetam 1,000 mg tablet 500 mg PO BID omeprazole 20 mg capsule,delayed release(DR/EC) 20 mg PO DAILY topiramate 25 mg tablet 25 mg PO BID fluticasone propionate 50 mcg/actuation spray,suspension 2 spray intranasal QAM PRN (Reason: Nasal Congestion)
[2023-02-08 17:49] LABS: Anion Gap 10 (12-20); Lactic Acid 0.8 mmol/L (0.5-2.0)
[2023-02-08 17:54] LABS: Alanine Aminotransferase 10 U/L (0-31); Albumin Level 3.4 g/dL (3.5-5.0); Alkaline Phosphatase 135 U/L (39-117); Aspartate Amino Transferase 11 U/L (5-31); Bilirubin Direct < 0.2 mg/dL (0.0-0.5); Bilirubin Total 0.2 mg/dL (0.0-1.0); Blood Urea Nitrogen 17 mg/dL (9-16); Carbon Dioxide 21 mmol/L (22-29); Chloride 114 mmol/L (96-108); Creatinine Clr Calc Pharmacy 77.2; Estimated Glomerular Filt Rate > 60; Glucose Random 158 mg/dL (60-115); Lipase 21 U/L (8-78); Magnesium 2.4 mg/dL (1.6-2.6); Potassium 3.9 mmol/L (3.3-5.1); Sodium 141 mmol/L (135-145); Total Protein 6.2 g/dL (6.5-8.0)
[2023-02-08 18:07] VITALS: BP 114/54; PULSE 88; RESP 14; O2SAT 95
--- NOTE | 2023-02-08 19:32 | PC.NURSE ---
Assumed care of the pt at 1900. Pt is resting quietly in bed with her family member at bedside. Pt complains of no pain or nausea at this time. Pt is A&O, greenlandic speaking only.
[2023-02-08] MEDS: Piperacillin Sodium/Tazobactam 3.375 GM in 0.9 % Sodium Chloride 50 ML IV (20:05)
--- NOTE | 2023-02-08 20:57 | MHC.EDTECH ---
[facility] [place] line called @ 2023 per Candice GALLEGOS's request. Spoke with Candice gave pt info, then asked to speak with provider, Candice GALLEGOS picked up right away
--- NOTE | 2023-02-08 20:59 | MHC.EDTECH ---
Received a call @ 2029 from [facility] patient was accepted by to the Emergency Dept.
--- NOTE | 2023-02-08 21:03 | MHC.EDTECH ---
@ 2042 [facility] was called for a BLS tx,spoke with Lindsay she stated they would be here in 15mins. Received a call form [facility] @ 2053 form [facility] she stated they cant transport until 0. Candice GALLEGOS was made aware
[2023-02-08 21:37] VITALS: BP 111/58; PULSE 75; RESP 18; TEMP 37.2; O2SAT 94
--- NOTE | 2023-02-08 22:26 | MHC.EDTECH ---
[facility] called @ 222 spoke with Yasir due to being at level zero it will be another hour, Candice GALLEGOS and RN made aware
--- NOTE | 2023-02-08 23:19 | MHC.EDTECH ---
EMS arrived @ 2314 for transport to [facility] ED to ED
--- NOTE | 2023-02-08 23:22 | PC.NURSE ---
Report given to [facility], Latasha JOHNSON took report. Pt on EMS stretcher and bring transported at this time.
== END 2023-02-08 23:27 | disposition short-term general hospital (02) ==
PROVIDERS: Physician Assistant; Emergency Provider Internal Medicine
DX: K43.9 Ventral hernia without obstruction or gangrene (principal); K91.872 Postprocedural seroma of a digestive system organ or structure following a digestive system procedure; R10.32 Left lower quadrant pain; E11.9 Type 2 diabetes mellitus without complications; I10 Essential (primary) hypertension; E78.5 Hyperlipidemia, unspecified; F17.210 Nicotine dependence, cigarettes, uncomplicated; Z79.4 Long term (current) use of insulin; Z79.02 Long term (current) use of antithrombotics/antiplatelets; Z79.899 Other long term (current) drug therapy
CPT/HCPCS: 36415; 74177; 80048; 80076; 81001; 83605; 83690; 83735; 85025; 87040; 87086; 87088; 87186; 96365; 96375; 96376; 99285; J2270; J2543

== ENCOUNTER 2023-02-14 08:16 | Emergency (ER) | payer OTHER, SELFPAY ==
--- NOTE | ~2023-02-14 | CT_ITS ---
EXAM: Noncontrast CT scan of the head and cervical spine. INDICATION: Fall with head strike and neck pain COMPARISON: Head CT 01/28/[address] cervical spine 07/17/2022 TECHNIQUE: Axial slices were obtained from skull base to vertex and displayed. This was followed by helical, multislice, multidetector axial images from the occiput to the upper thorax. Coronal and sagittal reformats of the cervical spine in addition to coronal reformats of the head were obtained at the technologist workstation. DLP: 1146 mGy-cm FINDINGS: HEAD: There is no evidence of acute intracranial hemorrhage or territorial infarction. No abnormal mass effect or midline shift is appreciated. Headley-white differentiation is well preserved. No extra-axial fluid collections. The ventricular system and cortical sulci are normal in size. There are areas of low density in the periventricular and subcortical white matter, most consistent with sequelae of microvascular ischemic change. The osseous structures and soft tissues are normal. The visualized paranasal sinuses and mastoid air cells are well aerated. SPINE: The cervical spine is visualized in its entirety. There is normal alignment of the cervical spine. Normal C1/C2 articulation. Cervical vertebral body heights and disc spaces are well-maintained. A few small osteophytes are noted, most prominent at the C5 level. No prevertebral soft tissue swelling. Multinodular left thyroid lobe with surgically absent right thyroid lobe. Visualized lung apices are well aerated. CT/CT cervical spine wo IV con IMPRESSION: 1. No acute intracranial pathology. 2. No fractures or dislocations of the cervical spine.
--- NOTE | ~2023-02-14 | CT_ITS ---
EXAM: Noncontrast CT scan of the head and cervical spine. INDICATION: Fall with head strike and neck pain COMPARISON: Head CT 01/28/[address] cervical spine 07/17/2022 TECHNIQUE: Axial slices were obtained from skull base to vertex and displayed. This was followed by helical, multislice, multidetector axial images from the occiput to the upper thorax. Coronal and sagittal reformats of the cervical spine in addition to coronal reformats of the head were obtained at the technologist workstation. DLP: 1146 mGy-cm FINDINGS: HEAD: There is no evidence of acute intracranial hemorrhage or territorial infarction. No abnormal mass effect or midline shift is appreciated. Headley-white differentiation is well preserved. No extra-axial fluid collections. The ventricular system and cortical sulci are normal in size. There are areas of low density in the periventricular and subcortical white matter, most consistent with sequelae of microvascular ischemic change. The osseous structures and soft tissues are normal. The visualized paranasal sinuses and mastoid air cells are well aerated. SPINE: The cervical spine is visualized in its entirety. There is normal alignment of the cervical spine. Normal C1/C2 articulation. Cervical vertebral body heights and disc spaces are well-maintained. A few small osteophytes are noted, most prominent at the C5 level. No prevertebral soft tissue swelling. Multinodular left thyroid lobe with surgically absent right thyroid lobe. Visualized lung apices are well aerated. CT/CT head/brain wo IV con IMPRESSION: 1. No acute intracranial pathology. 2. No fractures or dislocations of the cervical spine.
[2023-02-14 08:26] VITALS: BP 109/62; PULSE 71; RESP 18; TEMP 36.5; O2SAT 93; BMI 27.0
--- NOTE | 2023-02-14 09:51 | ED.FALL ---
HPI - Fall General Chief Complaint: Fall Stated Complaint: Fall Time Seen by Provider: 02/14/23 09:20 Source: patient Mode of arrival: wheelchair Limitations: no limitations History of Present Illness HPI Narrative: 62-year-old female with history of chronic back pain, myalgias, conversion disorder, seizure disorder, osteoarthritis, diabetes who presents to the ER for evaluation of a mechanical fall with head strike while in the lobby today on her way to short-stay surgery for back injections by Dr. Amaya. She states she tripped on a tile and fell forward onto her knees and hit her head on the floor. She did not lose consciousness. She is on anticoagulation. She reports a frontal headache and worsening of her chronic back pain. She denies any chest pain or abdominal pain. No dizziness or chest pain prior to the fall. She rides to the ER with a C-collar in place. She has some neck soreness, unsure if it is from a collar or from the fall. MD complaint: fall Onset (ago): minute(s) Fall from: standing Fall witnessed: yes, by family and yes, by bystander Place fall occurred: other ([facility] [place] lobby) Loss of consciousness: none Symptoms prior to fall: none Context: tripped/slipped Location of injury: head Location of injury - extremities: bilateral: knee Severity: severe Quality: aching Associated symptoms (after fall): headache Related Data Home Medications Medication Instructions Recorded Confirmed atorvastatin 40 mg tablet 40 mg PO BEDTIME 02/19/21 01/15/23 duloxetine 60 mg capsule,delayed 60 mg PO BID 02/19/21 01/15/23 release prazosin 5 mg capsule 5 mg PO BEDTIME 02/19/21 01/15/23 cetirizine 10 mg tablet 10 mg PO DAILY PRN Allergy Symptoms 01/10/22 01/15/23 pen needle, diabetic 32 gauge x #50 ea 01/10/22 01/07/23 (Pentips) aspirin 81 mg tablet,delayed 81 mg PO DAILY 07/06/22 01/15/23 release fluticasone propionate 50 2 spray intranasal QAM PRN Nasal 07/06/22 01/15/23 mcg/actuation nasal Congestion spray,suspension lisinopril 20 mg tablet 20 mg PO DAILY@1200 07/06/22 01/15/23 topiramate 25 mg tablet 25 mg PO BID 07/06/22 01/15/23 mirtazapine 15 mg tablet 7.5 mg PO BEDTIME 12/27/22 01/15/23 levetiracetam 1,000 mg tablet 500 mg PO BID 01/10/23 01/15/23 omeprazole 20 mg capsule,delayed 20 mg PO DAILY 01/10/23 01/15/23 release Previous Rx's Medication Instructions Recorded lancets 33 gauge (TRUEplus Lancets) #100 ea 05/07/22 acetaminophen 650 mg 650 mg PO Q12H PRN Pain #120 tabs 11/06/22 tablet,extended release (Arthritis Pain Relief (acetaminophen) ER) empagliflozin 25 mg tablet 25 mg PO DAILY 30 days #30 tabs 12/05/22 (Jardiance) blood sugar diagnostic (FreeStyle #100 ea 12/11/22 Lite Strips) gabapentin 600 mg tablet 1,200 mg PO TID for neuropathic 01/01/23 pain #120 tabs insulin detemir U-100 100 unit/mL 10 unit (0.1 mL) subcut DAILY 30 01/03/23 (3 mL) subcutaneous pen days #3 mL blood sugar diagnostic (OneTouch #100 ea 01/17/23 Verio test strips) blood-glucose meter (OneTouch #1 ea 01/17/23 Verio Flex Meter) lancets 33 gauge (OneTouch Delica #100 ea 01/17/23 Lancets) naproxen 500 mg tablet 500 mg PO BID PRN pain #10 tabs 02/14/23 Allergies Allergy/AdvReac Type Severity Reaction Status Date / Time Sulfa (Sulfonamide Allergy Intermediate blood Verified 02/05/23 11:06 Antibiotics) clots in [Sulfa (Sulfonamides)] legs, hives Review of Systems Review of Systems: Yes all other systems are reviewed and are negative [facility] Past Medical History Medical History Anxiety disorder CVA (cerebral vascular accident) Depression Disc degeneration, lumbar Familial hidradenitis suppurativa type 1 HLD (hyperlipidemia) Hx of seizure disorder Hypertension Migraines Multinodular thyroid Open wound anterior abdominal wall Osteoarthritis of knees, bilateral Recto-perineal fistula Right axillary hidradenitis Sepsis 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 T2DM (type 2 diabetes mellitus) Vitamin D deficiency Surgical History H/O ventral hernia repair History of sleeve gastrectomy History of surgery History of ultrasound guided needle biopsy Hx of cholecystectomy Hx of colonoscopy Hx of colostomy Hx of skin graft Hx of tubal ligation Family History Family History Father Alzheimer disease, Onset Age: 60 Parkinson disease, Onset Age: 50 Mother Hypertension Gout Arthritis of knee CVD (cardiovascular disease) Family/Other Lupus Paternal Aunt Rheumatoid arthritis Social History Social History Household Members: None Housing: Apartment Are you a primary patient care technician to a significant other at home: No Do you presently have visiting nurse or other home services: Yes Alcohol intake: never Patient Tobacco Use Status: Current everyday Tobacco user Tobacco use type: Cigarette Cigarettes Per Day: 1 Second Hand Smoke Exposure: No Advance Directives: No Advance Directives Information Provided: Yes service: No Current occupational status: disabled Physical Exam Vital Signs: Vital Signs: Last Vital Signs Temp 97.7 F 02/14/23 08:26 Pulse 71 02/14/23 08:26 Resp 18 02/14/23 08:26 BP 109/62 02/14/23 08:26 Pulse Ox 93 02/14/23 08:26 O2 Del Method Room Air 02/14/23 08:26 BMI result Body Mass Index 27.0 Appearance: Alert. Oriented X3. No acute distress. Head: normocephalic, atraumatic. No palpable hematoma, no ecchymosis visible. Negative raccoon eyes. Eyes: Pupils equal, round and reactive to light. ENT: Pharynx normal. No tonsillar swelling or exudate. No blood behind the tympanic membranes Neck: Normal inspection. Neck supple. No midline tenderness. Soft tissue tenderness bilaterally CVS: Normal heart rate and rhythm. Pulses normal. Respiratory: No respiratory distress. Breath sounds normal. Abdomen: There is a drain in place in the left lower quadrant with scant amount of dark liquid drainage in the bag. Soft and nontender. +BS x4 Skin: Skin warm and dry. Normal skin color. Normal skin turgor. No rashes. Extremities: No lower extremity edema. No joint swelling. Superficial abrasion of the left anterior knee, less than 1 cm. Normal range of motion of the bilateral knees Neuro/psych: Oriented X 3. No motor deficit. No sensory deficit. CN II-XII intact. Normal speech and cognition. Medical Decision Making Medical Decision Making MDM Narrative: 62-year-old female presents to the ER for evaluation of head and neck pain status post mechanical fall with head strike just prior to arrival down in the hospital lobby. She was on her way to get injections in her back for her chronic back pain. There was no loss of consciousness and she is not on anticoagulation. CT scans of the head and neck were done today, not showing any acute intracranial pathology, no cervical fractures or subluxation. She has soft tissue tenderness after the cervical collar was removed. No other signs of significant trauma. She feels better being out of the collar. At this time she is stable for discharge home with NSAIDs as needed for pain, follow-up with her outpatient pain provider and PCP. Patient agrees with plan. park interpreter used to discuss results and plan. All questions were answered. Differential Diagnosis Differential Diagnoses: The differential diagnosis associated with the presentation includes Concussion without loss of consciousness, hematoma, ICH/SAH, epidural hematoma, cervical strain, cervical fracture Independent Interpretation I performed an independent interpretation of an: CT Scan Interpretation: CT scan reviewed, no was appreciated swelling or bleed, agrees radiologist read Radiology Impression Discussion of test interpretation with radiology: I have reviewed the radiologist's reading. Radiologist Impression: CT/CT head/brain wo IV con IMPRESSION: 1.? No acute intracranial pathology. 2.? No fractures or dislocations of the cervical spine. Independent Historian Clinical information obtained from an independent historian. History obtained from or confirmed by: Other (Adult daughter) External Record Review External record reviewed: Office record, Outpatient record, Prior outpatient labs and Prior outpatient radiology Prescription Management I considered prescription management with: Pain Medication Chronic Conditions Patient?s care impacted by: Diabetes and Other (Obesity, fibromyalgia,) Critical Care Time Critical Care Time Critical Care Time: No Discharge Plan Discharge Clinical Impression: Closed head injury Patient Disposition: Home, Self-Care Instructions: Head Injury (ED) Additional Instructions: Your CT head and neck did not show any acute abnormalities are fractures of the spine. Rest, no strenuous activity. Avoid screen time. Take the prescribed anti-inflammatory pain medication as needed for pain. Use ice to the areas of pain and discomfort. Follow-up with your doctor in your pain management provider. If you develop new or worsening symptoms call 911 or come back to the ER for further evaluation. Morales TC de shruthi y gideon no mostr? anomal?as agudas brielle fracturas de la columna. [place], ninguna actividad extenuante. Evite el tiempo de pantalla. [place] el analg?sico antiinflamatorio recetado seg?n sea necesario para el dolor. Use hielo en las ?reas de dolor e incomodidad. Seguimiento con morales m?dico en morales proveedor de control del dolor. Si desarrolla s?ntomas nuevos o que empeoran, llame al 911 o regrese a la abbe de emergencias para roberto evaluaci?n adicional. Prescriptions: New naproxen 500 mg tablet 500 mg PO BID PRN (Reason: pain) Qty: 10 0RF No Action (DME) lancets [TRUEplus Lancets] 33 gauge misc See Rx Instructions .Route Qty: 100 11RF Rx Instructions: 4x daily acetaminophen [Arthritis Pain Relief (acetam)] 650 mg tablet extended release 650 mg PO Q12H PRN (Reason: Pain) Qty: 120 2RF Jardiance 25 mg tablet 25 mg PO DAILY 30 Days Qty: 30 4RF (DME) FreeStyle Lite Strips Strip See Rx Instructions .ROUTE .MEDSUPPLY Qty: 100 11RF Rx Instructions: 4x daily gabapentin 600 mg tablet 1,200 mg PO TID Qty: 120 5RF insulin detemir U-100 100 unit/mL (3 mL) insulin pen 10 unit SUBCUT DAILY 30 Days Qty: 3 11RF (DME) blood-glucose meter [OneTouch Verio Flex meter] Misc See Rx Instructions .Route Qty: 1 0RF Rx Instructions: As directed (DME) OneTouch Verio test strips Strip See Rx Instructions .Route Qty: 100 11RF Rx Instructions: 4x daily (DME) lancets [OneTouch Delica Lancets] 33 gauge misc See Rx Instructions .Route Qty: 100 11RF Rx Instructions: 4x daily prazosin 5 mg Capsule 5 mg PO BEDTIME duloxetine 60 mg Capsule,Delayed Release(Dr/Ec) 60 mg PO BID atorvastatin 40 mg Tablet 40 mg PO BEDTIME cetirizine 10 mg tablet 10 mg PO DAILY PRN (Reason: Allergy Symptoms) (DME) pen needle, diabetic [Pentips] 32 gauge x 5/32 needle See Rx Instructions .ROUTE .MEDSUPPLY Qty: 50 Rx Instructions: As directed mirtazapine 15 mg tablet 7.5 mg PO BEDTIME lisinopril 20 mg tablet 20 mg PO DAILY@1200 aspirin 81 mg tablet,delayed release (DR/EC) 81 mg PO DAILY levetiracetam 1,000 mg tablet 500 mg PO BID omeprazole 20 mg capsule,delayed release(DR/EC) 20 mg PO DAILY topiramate 25 mg tablet 25 mg PO BID fluticasone propionate 50 mcg/actuation spray,suspension 2 spray intranasal QAM PRN (Reason: Nasal Congestion) Interventions: ED Discharge Assessment Last Done: 02/14/23 11:50 Discharge Date/Time: 02/14/23 11:51
== END 2023-02-14 11:51 | disposition home or self-care (01) ==
PROVIDERS: Emergency Provider Emergency Medicine Emergency Medical Services
DX: S09.90XA Unspecified injury of head, initial encounter (principal); R51.9 Headache, unspecified; F17.210 Nicotine dependence, cigarettes, uncomplicated; W01.0XXA Fall on same level from slipping, tripping and stumbling without subsequent striking against object, initial encounter; Y93.9 Activity, unspecified; Y92.239 Unspecified place in hospital as the place of occurrence of the external cause; Y99.9 Unspecified external cause status; Z79.899 Other long term (current) drug therapy; Z71.6 Tobacco abuse counseling
CPT/HCPCS: 70450; 72125; 99284

== ENCOUNTER → 2023-02-18 09:10 | Outpatient (BNVA) | payer OTHER, SELFPAY | PROVIDERS: PCP Family Medicine; Visit Provider Obstetrics & Gynecology | DX: N90.4 Leukoplakia of vulva (principal) | CPT/HCPCS: Q3014 ==